=== PATIENT | female | born 1960 | race Caucasian/White ===

== ENCOUNTER 2016-09-08 17:52 | Inpatient (IN) | payer OTHER ==
[~2016-09-08] VITALS: Ht 165.1 cm; Wt 130.8 kg
[~2016-09-08 17:52] MED LIST: ALBUAER2 INH; ANT125 PO
[2016-09-08] MEDS ORDERED: NAPR500T3 PO (17:55)
[2016-09-08] MEDS ORDERED: ACETAMINOPHEN 500 MG TAB PO STA (18:35)
[2016-09-08] MEDS ORDERED: SODIUM CHLORIDE 0.9% 1000ML 2,000 ML IV STA (18:35)
[2016-09-08] MEDS ORDERED: HYDROmorphone INJ 0.5 MG/0.5 ML SYR IV STA (18:36)
[2016-09-08 19:13] LABS: BASO % 0.1 %; BASO ABS # 0.01 K/uL (0-0.2); COMPLETE YES; EOS % 0.1 %; HEMATOCRIT 39.8 % (37-47); IG% 0.2 %; LYMPH % 2.8 %; LYMPH ABS # 0.45 K/uL (1.2-3.4); MEAN CELL VOLUME 90.5 fL (80-100); MEAN CORPUSCULAR HEMOGLOBIN 31.1 pg (25-34); MEAN CORPUSCULAR HGB CONC 34.4 g/dl (32-36); MEAN PLATELET VOLUME 9.3 fL (7.4-10.4); MONO % 4.5 %; NEUT % 92.3 %; PLATELET COUNT 236 K/uL (130-400); WHITE BLOOD COUNT 16.17 K/uL (4.8-10.8)
[2016-09-08 19:21] LABS: ISTAT CREATININE 0.6 mg/dl (0.6-1.3); ISTAT HEMOGLOBIN 14.6 g/dl (12.0-16.0); ISTAT IONIZED CALCIUM 1.15 mmol/l (1.12-1.32)
[2016-09-08 19:23] LABS: INR 1.1 (0.9-1.1); PROTHROMBIN TIME (PATIENT) 11.4 SECONDS (9.0-12.0)
[2016-09-08 19:37] LABS: ALT/SGPT 41 U/L (12-78); BLOOD UREA NITROGEN 15 mg/dl (7-18); BUN/CREATININE RATIO 17.1 (10-20); CALCIUM 9.1 mg/dl (8.5-10.1); CARBON DIOXIDE 23 mmol/L (21-32); CHLORIDE 101 mmol/L (98-107); CREATININE 0.86 mg/dl (0.60-1.20); GLUCOSE 91 mg/dl (70-99); MAGNESIUM 1.4 mg/dl (1.8-2.4); POTASSIUM 3.7 mmol/L (3.5-5.1); SODIUM 136 mmol/L (136-145)
[2016-09-08 19:42] LABS: ALKALINE PHOSPHATASE 77 U/L (45-117); AST/SGOT 35 U/L (15-37); CKMB/CK RATIO 1.4 (0-3.0)
--- NOTE | 2016-09-08 19:44 | DIAGNOSTIC IMAGING REPORT ---
CHEST 2 VIEWS ROUTINE HISTORY: cough and fever COMPARISON: Chest 02/13/2016. FINDINGS: The lungs are clear. Cardiac silhouette remains mildly enlarged. No pleural effusions. No pneumothorax. IMPRESSION: No significant change compared to the prior study. No acute process. Stable mild cardiomegaly. Electronically signed by: Sher Devine M.D. 09/08/2016 7:43 PM Dictated Date/Time: 09/08/2016 7:42 PM
[2016-09-08 19:56] LABS: URINE APPEARANCE CLEAR (CLEAR); URINE BILIRUBIN NEG (NEG); URINE COLOR YELLOW; URINE EPITHELIAL CELL AUTO 20-30 /lpf (0-5); URINE NITRITE NEG (NEG); URINE PH 8.5 (4.5-7.5); URINE SPECIFIC GRAVITY 1.016 (1.000-1.030); UROBILINOGEN NEG (NEG); ZZUR CULT IF INDIC CLEAN CATCH NO
[2016-09-08 19:58] LABS: MANUAL MICROSCOPIC REQUIRED? NO; REVIEW REQ? NO
[2016-09-08] MEDS ORDERED: CEFTRIAXONE SOD INJ 1 GM ADDVIAL IV STA (20:27)
[2016-09-08] MEDS ORDERED: ALBUTEROL 0.083% NEBU SOLN 3 ML VIAL INH STA (20:33)
--- NOTE | 2016-09-08 20:39 | DIAGNOSTIC IMAGING REPORT ---
HEAD CT NONCONTRAST CT DOSE: 1934.94 mGy.cm HISTORY: Headache. TECHNIQUE: Multiaxial CT images of the head were performed without the use of intravenous contrast. Automated exposure control was utilized for this study. Comparison: None. Findings: The paranasal sinuses and mastoid air cells are clear. There is a 2.4 cm hypodense area within the periphery the right posterior temporal lobe. This favors encephalomalacia in the setting of an old small right MCA territory infarct. Otherwise, there is no mass, hematoma, midline shift, acute infarct identified. 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 Otherwise, no acute intracranial abnormality. Electronically signed by: Sher Devine M.D. 09/08/2016 8:38 PM Dictated Date/Time: 09/08/2016 8:35 PM
[2016-09-08] MEDS ORDERED: MAGNESIUM SULFATE 1GM / D5W 1 GM in PREMIXED IN D5W 100 ML IV STA (20:54)
[2016-09-08] MEDS ORDERED: MAGNESIUM SULFATE 1GM / D5W 1 GM BAG IV STA (20:58)
[2016-09-08] MEDS ORDERED: ONDANSETRON INJ 2 MG/ML 2 ML VIAL IV PRN (21:15)
[2016-09-08] MEDS ORDERED: CEFTRIAXONE SOD INJ 1 GM in DEXTROSE 5% ADD-VANTAGE 50ML 50 ML IV SCH (21:15)
[2016-09-08] MEDS ORDERED: ACETAMINOPHEN 325 MG TAB PO PRN (21:15)
[2016-09-08] MEDS ORDERED: NAPROXEN 250 MG TAB PO PRN (21:15)
[2016-09-08] MEDS ORDERED: GUAIFENESIN/CODEINE 100MG/10MG 5ML UDC PO PRN (21:15)
[2016-09-08] MEDS ORDERED: NITROGLYCERIN 0.4 MG SL PER TAB CHARGE SL PRN (21:15)
[2016-09-08] MEDS ORDERED: ALBUT/IPRATROP 3MG/0.5MG NEB 3 ML VIAL INH PRN (21:30)
[2016-09-08] MEDS ORDERED: OPTIRAY 320 IV PRN (22:00)
--- NOTE | 2016-09-08 22:16 | History and Physical ---
History & Physical Date & Time of Service: Sep 08, 2016 at 21:18 Chief Complaint: Headache,Fever Primary Care Physician: Wil Godinez M.D. History of Present Illness Source: patient This is a 56 y/o female with PMHx as outlined below who presents to the ED c/o URI sxs for 3 days. Pt reports that 3 days ago she developed weakness/fatigue, runny nose, dry cough, ear "pressure", WARE and nausea. Today she developed a fever of 102.6*F along with mild SOB. She had not been taking anything at home for her sxs. Patient mentions that the last time she felt this way she had an infection in her blood stream. Pt saw her PCP today however she was told she would not be able to have bloodwork done until Sunday so patient decided to go to the ED to be evaluated. The patient states that she had sick contacts at work. Pt denies myalgias, sore throat, chest pain, wheezing, abd pain, vomiting , bowel or bladder issues, LE edema, calf pain, lightheadedness/dizziness. In the ED, pt is febrile and tachy on arrival with leukocytosis>16k and POC lactic acid >2.7. O2 saturations around 90% on room air. CXR no infiltrates. UA neg. Pt is stable and will be admitted for further evaluation and treatment. Past Medical/Surgical History Medical Problems: (1) Asthma Status: Chronic (2) History of DVT (deep vein thrombosis) Status: Chronic (3) History of pelvic fracture Permanent Comment: 2* 2012 Status: Resolved (4) Hypothyroidism Status: Chronic (5) Obesity Status: Chronic Surgical Problems: (1) History of cholecystectomy Status: Resolved Family History FH: diabetes mellitus FH: heart disease FHx: cancer FHx: gallbladder disease Social History Smoking Status: Never Smoker Alcohol Use: none Drug Use: none Marital Status: Housing status: lives with significant other Occupational Status: employed Immunizations History of Influenza Vaccine: Yes Influenza Vaccine Date: Apr 06, 2016 History of Tetanus Vaccine?: Yes Tetanus Immunization Date: Feb 24, 2013 History of Pneumococcal: Yes Pneumococcal Date: Mar 19, 2013 Multi-Drug Resistant Organisms History of MDRO: No Allergies Coded Allergies: Morphine (Verified Allergy, Unknown, BRADYCARDIA, 12/18/14) Home Medications Scheduled Fluticasone Furoate (Inhalatio (Arnuity Ellipta), 1 PUFF INH DAILY Levothyroxine Sodium (Levothyroxine Sodium), 112 MCG PO DAILY Montelukast Sod (Montelukast Sodium), 10 MG PO HS Scheduled PRN Albuterol Hfa (Ventolin Hfa), 2-4 PUFFS INH Q4-6 PRN for SOB/Wheezing Naproxen (Naproxen), 500 MG PO BID PRN for Pain Review of Systems Constitutional: + chills, + fatigue, + fever, + weakness, No sweats Eyes: No worsening of vision ENT: + nasal symptoms, No hearing loss, No sore throat Respiratory: + cough, + shortness of breath, No sputum, No wheezing Cardiovascular: No chest pain, No claudication, No edema Abdomen: + nausea, No constipation, No diarrhea, No pain, No vomiting Musculoskeletal: No calf pain, No swelling Genitourinary - Female: No dysuria Neurologic: + weakness Psychiatric: No depression symptoms Endocrine: + fatigue Hematologic / Lymphatic: No abnormal bleeding/bruising Integumentary: No new/changing skin lesions Physical Exam Vital Signs Date Time Temp Pulse Resp B/P Pulse Ox O2 Delivery O2 Flow Rate FiO2 09/08/16 19:37 115 20 142/78 92 Room Air 09/08/16 17:55 37.7 123 22 151/82 90 Room Air General Appearance: WD/WN, no apparent distress, + obese, + pertinent finding ( Pt is sitting up comfotably in bed ) Head: normocephalic, atraumatic Eyes: normal inspection ENT: normal ENT inspection, hearing grossly normal, TMs normal, + pertinent finding (no pharyngeal erythema or excudate ) Neck: supple Respiratory/Chest: chest non-tender, lungs clear, normal breath sounds, no respiratory distress, + pertinent finding (no crackles or wheezing noted) Cardiovascular: regular rate, rhythm, no edema Abdomen/GI: normal bowel sounds, non tender, soft Back: normal inspection Extremities/Musculoskelatal: normal inspection, no calf tenderness, + swelling (bilat LE swelling (R>L)) Neurologic/Psych: alert, normal mood/affect, oriented x 3 Skin: normal color, warm/dry Diagnostics Laboratory Results Results Past 24 Hours Test 09/08/16 18:56 09/08/16 19:00 09/08/16 19:05 09/08/16 19:11 Range/Units Bedside Lactic Acid Venous 2.77 0.90-1.70 mmol/L White Blood Count 16.17 4.8-10.8 K/uL Red Blood Count 4.40 4.2-5.4 M/uL Hemoglobin 13.7 12.0-16.0 g/dL Hematocrit 39.8 37-47 % Mean Corpuscular Volume 90.5 80-100 fL Mean Corpuscular Hemoglobin 31.1 25-34 pg Mean Corpuscular Hemoglobin Concent 34.4 32-36 g/dl Platelet Count 236 130-400 K/uL Mean Platelet Volume 9.3 7.4-10.4 fL Neutrophils (%) (Auto) 92.3 % Lymphocytes (%) (Auto) 2.8 % Monocytes (%) (Auto) 4.5 % Eosinophils (%) (Auto) 0.1 % Basophils (%) (Auto) 0.1 % Neutrophils # (Auto) 14.93 1.4-6.5 K/uL Lymphocytes # (Auto) 0.45 1.2-3.4 K/uL Monocytes # (Auto) 0.73 0.11-0.59 K/uL Eosinophils # (Auto) 0.01 0-0.5 K/uL Basophils # (Auto) 0.01 0-0.2 K/uL RDW Standard Deviation 45.2 36.4-46.3 fL RDW Coefficient of Variation 13.7 11.5-14.5 % Immature Granulocyte % (Auto) 0.2 % Immature Granulocyte # (Auto) 0.04 0.00-0.02 K/uL Prothrombin Time 11.4 9.0-12.0 SECONDS Prothromb Time International Ratio 1.1 0.9-1.1 Sodium Level 136 136-145 mmol/L Potassium Level 3.7 3.5-5.1 mmol/L Chloride Level 101 98-107 mmol/L Carbon Dioxide Level 23 21-32 mmol/L Anion Gap 12.0 20.0 16-25 mmol/L Blood Urea Nitrogen 15 7-18 mg/dl Creatinine 0.86 0.60-1.20 mg/dl Est Creatinine Clear Calc Drug Dose 98.4 ml/min Estimated GFR () 87.5 Estimated GFR (Non- 75.5 BUN/Creatinine Ratio 17.1 10-20 Random Glucose 91 70-99 mg/dl Calcium Level 9.1 8.5-10.1 mg/dl Magnesium Level 1.4 1.8-2.4 mg/dl Total Bilirubin 0.8 0.2-1 mg/dl Direct Bilirubin 0.2 0-0.2 mg/dl Aspartate Amino Transf (AST/SGOT) 35 15-37 U/L Alanine Aminotransferase (ALT/SGPT) 41 12-78 U/L Alkaline Phosphatase 77 45-117 U/L Total Creatine Kinase 85 26-192 U/L Creatine Kinase MB 1.2 0.5-3.6 ng/ml Creatine Kinase MB Ratio 1.4 0-3.0 Troponin I < 0.015 0-0.045 ng/ml Total Protein 7.5 6.4-8.2 gm/dl Albumin 3.7 3.4-5.0 gm/dl Bedside Hemoglobin 14.6 12.0-16.0 g/dl Bedside Hematocrit 43 37-47 % Bedside Sodium 136 135-144 mEq/L Bedside Potassium 3.7 3.3-5.0 mEq/L Bedside Chloride 99 101-112 mEq/L Bedside Total CO2 23 24-31 mEq/l Bedside Blood Urea Nitrogen 15 7-18 mg/dl Bedside Creatinine 0.6 0.6-1.3 mg/dl Bedside Glucose (other) 97 70-99 mg/dl Bedside Ionized Calcium (Louisa) 1.15 1.12-1.32 mmol/l Influenza Type A Antigen Neg for Influ A NEG Influenza Type B Antigen Neg for Influ B NEG Test 09/08/16 19:15 Range/Units Urine Color YELLOW Urine Appearance CLEAR CLEAR Urine pH 8.5 4.5-7.5 Urine Specific [place] 1.016 1.000-1.030 Urine Protein NEG NEG Urine Glucose (UA) NEG NEG Urine Ketones TRACE NEG Urine Occult Blood NEG NEG Urine Nitrite NEG NEG Urine Bilirubin NEG NEG Urine Urobilinogen NEG NEG Urine Leukocyte Esterase NEG NEG Urine WBC (Auto) 1-5 0-5 /hpf Urine RBC (Auto) 0-4 0-4 /hpf Urine Hyaline Casts (Auto) 0 0-5 /lpf Urine Epithelial Cells (Auto) 20-30 0-5 /lpf Urine Bacteria (Auto) NEG NEG Microbiology Results 09/08/16 Group A Streptococcus Screen - Final, Resulted SPECIMEN NEGATIVE FOR GROUP A BETA ST... 09/08/16 Group A Streptococcus Screen (ANDREW), Resulted Pending Diagnostic Radiology CT HEAD Impression: There appears be an old small right MCA territory infarct. Otherwise, no acute intracranial abnormality. CXR IMPRESSION: No significant change compared to the prior study. No acute process. Stable mild cardiomegaly. EKG EKG: sinus tachy at 109 bpm with no acute ischemic changes; vent rate has increased by 46 bpm when compared to EKG from 03/20/13 Impression Assessment and Plan URI; LIKELY VIRAL pt presented with fever/chills, WARE, SOB, rhinorrhea, dry cough and ear "pressure "; recent h/o sick contacts at work -admit to telemetry -meets SIRS criteria with fever, tachycardia with leukocytosis >16k and POC lactic acid >2.7 -CXR no infiltrates; UA neg -blood cultures-pending -check flu PCR and repeat lactic acid within 6 hrs -check procalcitonin -cont IVF and azithromycin -Xopenex and Robitussin PRN -monitor HYPOXIC/TACHYCARDIC R/O PE -88% on room air improving on 2L O2 with tachycardia -check CT chest to r/o PE -cont supplemental O2 HYPOMAGNESIA -mag 1.4; replete -cont to monitor daily ASTHMA -no evidence of acute exacerbation -cont inhalers HYPOTHYROIDISM -check TSH -cont levothyroxine DVT PROPHYLAXIS -subq Lovenox CODE STATUS -FULL CODE status DISPO -Pt seen in collaboration with Dr. Warren. Please see her addendum for further details. Thanks! -Of note: patient will be seen by Dr. Osborn starting tomorrow AM. ADDENDUM: I have seen and examined the patient and have discussed the case with the provider above. I agree with the assessment and plan as stated. Cass screen is positive. Still awaiting chest CT in setting of acute hypoxia with a h/o DVT in the past. Cont supportive care. Kelvin, Level of Care Telemetry Resuscitation Status FULL RESUSCITATION VTE Prophylaxis VTE Risk Assessment Done? Y/N: Yes Risk Level: Moderate Given or contraindicated: Enoxaparin (Lovenox)SQ
[2016-09-08 23:28] VITALS: BP 137/96; PULSE 116; TEMP 36.9; O2SAT 92; Ht 165.1 cm; Wt 130.8 kg
--- NOTE | 2016-09-08 23:53 | EMERGENCY ROOM VISIT NOTE ---
History Report prepared by Farideh: Zabrina Gomez Under the Supervision of: Dr. Elmer Ridley D.O. First contact with patient: 18:22 Chief Complaint: HEADACHE Stated Complaint: HEADACHE,FEVER History of Present Illness The patient is a 56 year old female who presents to the Emergency Room with complaints of a gradually worsening headache that started about 5 hours ago, around [id number]. She states that she also feels dizzy. The patient was at work earlier today when she developed a headache, dry mouth, nausea, and she felt cold. She states that this does not feel like a typical headache because it is more severe. The patient is also experiencing rhinorrhea, sore throat, and a dry cough which all started a couple days ago. Additionally, she is experiencing shortness of breath, but denies chest pain, abdominal pain, vomiting, and weakness in her arms or legs. The patient's most recent bowel movement was this morning and it was normal. The patient was seen by her PCP earlier today and she told her that she would not be able to get blood work until Sunday, so she decided to come over to the ED to be evaluated instead. The patient states that she had sick contacts at work. The patient adds that she has recurrent problems with cellulitis of her right leg that started 5-6 years ago, but became painful again this afternoon. However, she states that she is not experiencing any right leg pain currently. She denies any stiff neck or confusion. Source of History: patient Onset: about 5 hours ago, around [id number] Position: head Quality: other (headache) Timing: worsening (gradually) Associated Symptoms: + SOB, + cough (dry), + nausea, + sorethroat, No abdominal pain, No chest pain, No vomiting, No weakness Note: dry mouth, felt cold, rhinorrhea Review of Systems See HPI for pertinent positives & negatives. A total of 10 systems reviewed and were otherwise negative. Past Medical & Surgical Medical Problems: (1) Asthma (2) History of DVT (deep vein thrombosis) (3) History of pelvic fracture (4) Hypothyroidism (5) Obesity (6) Viral illness Surgical Problems: (1) History of cholecystectomy Family History FH: diabetes mellitus FH: heart disease FHx: cancer FHx: gallbladder disease Social History Smoking Status: Never Smoker Alcohol Use: none Drug Use: none Marital Status: Occupation Status: employed Current/Historical Medications Scheduled Fluticasone Furoate (Inhalatio (Arnuity Ellipta), 1 PUFF INH DAILY Levothyroxine Sodium (Levothyroxine Sodium), 112 MCG PO DAILY Montelukast Sod (Montelukast Sodium), 10 MG PO HS Scheduled PRN Albuterol Hfa (Ventolin Hfa), 2-4 PUFFS INH Q4-6 PRN for SOB/Wheezing Naproxen (Naproxen), 500 MG PO BID PRN for Pain Allergies Coded Allergies: Morphine (Verified Allergy, Unknown, BRADYCARDIA, 12/18/14) Physical Exam Vital Signs Date Time Temp Pulse Resp B/P Pulse Ox O2 Delivery O2 Flow Rate FiO2 09/08/16 21:05 95 Nasal Cannula 2.0 09/08/16 21:00 88 Room Air 09/08/16 19:37 115 20 142/78 92 Room Air 09/08/16 17:55 37.7 123 22 151/82 90 Room Air Physical Exam GENERAL: alert, sitting up in bed, disheveled, chronically ill appearing EYE EXAM: normal conjunctiva OROPHARYNX: no exudate, no erythema, lips, buccal mucosa, and tongue normal and mucous membranes are dry NECK: supple, no nuchal rigidity, no adenopathy, non-tender, negative Brudzinski LUNGS: Mild wheezing bilaterally. Normal chest wall mechanics HEART: distant, tachycardic rate, no murmurs, S1 normal and S2 normal ABDOMEN: abdomen soft, non-tender, normo-active bowel sounds, no masses, no rebound or guarding. BACK: Back is symmetrical on inspection and there is no deformity, no midline tenderness, no CVA tenderness. SKIN: no rashes and no bruising UPPER EXTREMITIES: upper extremities are grossly normal. LOWER EXTREMITIES: No pitting edema. NEURO EXAM: Normal sensorium, cranial nerves II-XII grossly intact, normal speech, no gross weakness of arms, no gross weakness of legs. Medical Decision & Procedures ER Provider Diagnostic Interpretation: Xray results per the radiologist and my interpretation. Other results have been interpreted by the radiologist and reviewed by me. CHEST 2 VIEWS ROUTINE IMPRESSION: No significant change compared to the prior study. No acute process. Stable mild cardiomegaly. Electronically signed by: Sher Devine M.D. 09/08/2016 7:43 PM Dictated Date/Time: 09/08/2016 7:[address] NONCONTRAST Impression: There appears be an old small right MCA territory infarct. Otherwise, no acute intracranial abnormality. Electronically signed by: Sher Devine M.D. 09/08/2016 8:38 PM Dictated Date/Time: 09/08/2016 8:35 PM Laboratory Results 09/08/16 19:00 Red Blood Count 4.40, Mean Corpuscular Volume 90.5, Mean Corpuscular Hemoglobin 31.1, Mean Corpuscular Hemoglobin Concent 34.4, Mean Platelet Volume 9.3, Neutrophils (%) (Auto) 92.3, Lymphocytes (%) (Auto) 2.8, Monocytes (%) (Auto) 4.5, Eosinophils (%) (Auto) 0.1, Basophils (%) (Auto) 0.1, Neutrophils # (Auto) 14.93, Lymphocytes # (Auto) 0.45, Monocytes # (Auto) 0.73, Eosinophils # (Auto) 0.01, Basophils # (Auto) 0.01 09/08/16 19:00 Test 09/08/16 18:56 09/08/16 19:00 09/08/16 19:05 09/08/16 19:11 Bedside Lactic Acid Venous 2.77 mmol/L (0.90-1.70) White Blood Count 16.17 K/uL (4.8-10.8) Red Blood Count 4.40 M/uL (4.2-5.4) Hemoglobin 13.7 g/dL (12.0-16.0) Hematocrit 39.8 % (37-47) Mean Corpuscular Volume 90.5 fL (80-100) Mean Corpuscular Hemoglobin 31.1 pg (25-34) Mean Corpuscular Hemoglobin Concent 34.4 g/dl (32-36) Platelet Count 236 K/uL (130-400) Mean Platelet Volume 9.3 fL (7.4-10.4) Neutrophils (%) (Auto) 92.3 % Lymphocytes (%) (Auto) 2.8 % Monocytes (%) (Auto) 4.5 % Eosinophils (%) (Auto) 0.1 % Basophils (%) (Auto) 0.1 % Neutrophils # (Auto) 14.93 K/uL (1.4-6.5) Lymphocytes # (Auto) 0.45 K/uL (1.2-3.4) Monocytes # (Auto) 0.73 K/uL (0.11-0.59) Eosinophils # (Auto) 0.01 K/uL (0-0.5) Basophils # (Auto) 0.01 K/uL (0-0.2) RDW Standard Deviation 45.2 fL (36.4-46.3) RDW Coefficient of Variation 13.7 % (11.5-14.5) Immature Granulocyte % (Auto) 0.2 % Immature Granulocyte # (Auto) 0.04 K/uL (0.00-0.02) Prothrombin Time 11.4 SECONDS (9.0-12.0) Prothromb Time International Ratio 1.1 (0.9-1.1) Est Creatinine Clear Calc Drug Dose 98.4 ml/min Estimated GFR () 87.5 Estimated GFR (Non- 75.5 BUN/Creatinine Ratio 17.1 (10-20) Calcium Level 9.1 mg/dl (8.5-10.1) Magnesium Level 1.4 mg/dl (1.8-2.4) Total Bilirubin 0.8 mg/dl (0.2-1) Direct Bilirubin 0.2 mg/dl (0-0.2) Aspartate Amino Transf (AST/SGOT) 35 U/L (15-37) Alanine Aminotransferase (ALT/SGPT) 41 U/L (12-78) Alkaline Phosphatase 77 U/L (45-117) Total Creatine Kinase 85 U/L (26-192) Creatine Kinase MB 1.2 ng/ml (0.5-3.6) Creatine Kinase MB Ratio 1.4 (0-3.0) Troponin I < 0.015 ng/ml (0-0.045) Total Protein 7.5 gm/dl (6.4-8.2) Albumin 3.7 gm/dl (3.4-5.0) Procalcitonin 0.22 ng/mL (0-0.5) Thyroid Stimulating Hormone (TSH) 1.430 uIu/ml (0.300-4.500) Monoscreen POS (NEG) Bedside Hemoglobin 14.6 g/dl (12.0-16.0) Bedside Hematocrit 43 % (37-47) Bedside Sodium 136 mEq/L (135-144) Bedside Potassium 3.7 mEq/L (3.3-5.0) Bedside Chloride 99 mEq/L (101-112) Bedside Total CO2 23 mEq/l (24-31) Anion Gap 20.0 mmol/L (16-25) Bedside Blood Urea Nitrogen 15 mg/dl (7-18) Bedside Creatinine 0.6 mg/dl (0.6-1.3) Bedside Glucose (other) 97 mg/dl (70-99) Bedside Ionized Calcium (Louisa) 1.15 mmol/l (1.12-1.32) Influenza Type A Antigen Neg for Influ A (NEG) Influenza Type B Antigen Neg for Influ B (NEG) Test 09/08/16 19:15 Urine Color YELLOW Urine Appearance CLEAR (CLEAR) Urine pH 8.5 (4.5-7.5) Urine Specific [place] 1.016 (1.000-1.030) Urine Protein NEG (NEG) Urine Glucose (UA) NEG (NEG) Urine Ketones TRACE (NEG) Urine Occult Blood NEG (NEG) Urine Nitrite NEG (NEG) Urine Bilirubin NEG (NEG) Urine Urobilinogen NEG (NEG) Urine Leukocyte Esterase NEG (NEG) Urine WBC (Auto) 1-5 /hpf (0-5) Urine RBC (Auto) 0-4 /hpf (0-4) Urine Hyaline Casts (Auto) 0 /lpf (0-5) Urine Epithelial Cells (Auto) 20-30 /lpf (0-5) Urine Bacteria (Auto) NEG (NEG) Laboratory results per my review. Medications Administered Medications (Trade) Dose Ordered Sig/Ariadna Route Start Time Stop Time Status Last Admin Dose Admin Sodium Chloride (Nss 1000ml) 2,000 ml @ 999 mls/hr Q2H1M STAT IV 09/08/16 18:35 09/08/16 20:35 DC 09/08/16 19:05 999 MLS/HR Acetaminophen (Tylenol Tab) 1,000 mg NOW STAT PO 09/08/16 18:35 09/08/16 18:36 DC 09/08/16 19:05 1,000 MG Hydromorphone HCl (Dilaudid Inj) 0.5 mg NOW STAT IV 09/08/16 18:36 09/08/16 18:37 DC 09/08/16 19:05 0.5 MG Ceftriaxone Sodium (Rocephin Inj) 2 gm NOW STAT IV 09/08/16 20:27 09/08/16 20:29 DC 09/08/16 21:19 2 GM Albuterol Sulfate (Ventolin 0.083% 2.5MG/3ML Neb) 5 mg NOW STAT INH 09/08/16 20:33 09/08/16 20:35 DC 09/08/16 21:19 5 MG Magnesium Sulfate (Magnesium Sulfate) 1 gm NOW STAT IV 09/08/16 20:58 09/08/16 20:59 DC 09/08/16 21:20 1 GM ECG Indication: SOB/dyspnea Rate (beats per minute): 109 Rhythm: sinus tachycardia Findings: no ectopy, other (normal axis) ED Course ED COURSE: Vital signs were reviewed and showed tachycardia and hypertension. The patients medical record was reviewed The above diagnostic studies were performed and reviewed. ED treatments and interventions as stated above. 1824: The patient was evaluated in room B3. A complete history and physical examination was performed. 1834: Ordered Sodium Chloride 2000 ml @ 999 mls/hr IV 1835: Ordered Dilaudid Inj 0.5 mg IV 2027: Upon reevaluation, the patient is resting comfortably. I discussed my findings with the patient and she understands and agrees with the treatment plan. Based on the patients age, coexisting illnesses, exam and lab findings the decision to treat as an inpatient was made. The patient remained stable while under my care. The patient will be evaluated for further management. 2026: Ordered Rocephin Inj 2 gm IV 2032: Ordered Albuterol Sulfate 5 mg INH 2035: I reviewed the patient's case with Dr. Henrry Alfaro. He will evaluate the patient for further management. Medical Decision Differential Diagnosis includes but is not limited to headache, tension headache , cluster headache, migraine, subarachnoid hemorrhage, meningitis, mass, central venous thrombus, concussion, trauma and epidural/subdural hemorrhage. Patient is a 56 year old female who presents the ER tachycardic with a low- grade fever and hypoxia. She is complaining of cough, runny nose and a sore throat which is been present for the past 3 days per she also complains of a headache which has been gradually getting worse today. Labs are remarkable for a leukocytosis of 16,000, lactic acid of 2.8 and other soriano unremarkable BMP, LFTs, bilirubin and troponin. Patient was given a bolus normal saline, along with albuterol, steroids and Dilaudid. She did have improvement of her symptoms. Influenza A and B were negative. CT head was unremarkable. Patient was given Rocephin for which I favors a bronchitis which is exacerbating her asthma. I did consider meningitis the patient has no nuchal rigidity and with the upper respiratory symptoms I do favor this likely cause. With her persistent tachycardia and shortness of breath her case was discussed with internal medicine and she was admitted. Consults Time Called: 2032 Consulting Physician: Dr. Henrry Alfaro Returned Call: [phone] I reviewed the patient's case with Dr. Henrry Alfaro. He will evaluate the patient for further management. Impression Primary Impression: Bronchitis Additional Impressions: Headache Asthma Lactic acidosis Scribe Attestation The scribe's documentation has been prepared under my direction and personally reviewed by me in its entirety. I confirm that the note above accurately reflects all work, treatment, procedures, and medical decision making performed by me. Departure Information Dispostion Being Evaluated By Hospitalist Referrals Wil Godinez M.D. (PCP) Patient Instructions My [facility] Problem Qualifiers Additional Impressions: Headache Headache type: unspecified Headache chronicity pattern: acute headache Intractability: not intractable Qualified Codes: R51 - Headache Asthma Asthma severity: unspecified severity Asthma complication type: with acute exacerbation Qualified Codes: J45.901 - Unspecified asthma with (acute) exacerbation
[2016-09-09] VITALS (8 sets, daily range): BP systolic 115–137; BP diastolic 66–84; PULSE 70–92; TEMP 36.8–37.5; O2SAT 91–98
[2016-09-09] MEDS: SODIUM CHLORIDE 0.9% 1000ML 1,000 ML IV SCH ×5 (00:01→17:49)
[2016-09-09] MEDS: MAGNESIUM SULFATE 1GM / D5W 1 GM in PREMIXED IN D5W 100 ML IV SCH ×3 (00:01→01:29)
[2016-09-09] MEDS: AZITHROMYCIN IV 500 MG in DEXTROSE 5% 250ML 250 ML IV SCH ×2 (00:29→20:55)
[2016-09-09 02:34] LABS: INFLUENZA A PCR Neg for Influ A (NEG); INFLUENZA B PCR Neg for Influ B (NEG)
[2016-09-09] MEDS: LEVOTHYROXINE 112 MCG TAB PO SCH (05:31)
[2016-09-09 07:06] LABS: HEMATOCRIT 34.6 % (37-47); MEAN CELL VOLUME 90.8 fL (80-100); MEAN CORPUSCULAR HEMOGLOBIN 30.7 pg (25-34); MEAN CORPUSCULAR HGB CONC 33.8 g/dl (32-36); MEAN PLATELET VOLUME 9.3 fL (7.4-10.4); PLATELET COUNT 208 K/uL (130-400); RED BLOOD COUNT 3.81 M/uL (4.2-5.4); WHITE BLOOD COUNT 15.53 K/uL (4.8-10.8)
--- NOTE | 2016-09-09 07:27 | DIAGNOSTIC IMAGING REPORT ---
CT ANGIOGRAM OF THE CHEST CLINICAL HISTORY: Shortness of breath, tachycardia. COMPARISON STUDY: Chest x-ray dated 09/08/2016 TECHNIQUE: Following the IV administration of 92 mL of [id number]-320, CT angiogram of the thorax was performed from the thoracic inlet to the lung bases utilizing the pulmonary embolus protocol. Images are reviewed in the axial, sagittal, and coronal planes. IV contrast was administered without complication. MIP imaging was performed. CT DOSE: 633.16 mGy.cm FINDINGS: There is hepatic steatosis. There are mildly enlarged mediastinal lymph nodes, similar to the preceding study. There is no pathologic axillary or hilar lymphadenopathy. There was no evidence of thoracic aortic dilatation. There were no pulmonary artery filling defects to indicate acute pulmonary embolism. No pleural effusions are visualized. There are mild dependent atelectatic changes. There is no focal pulmonary consolidation. IMPRESSION: 1. No CT evidence of acute pulmonary embolism 2. No evidence of focal pulmonary consolidation 3. Mildly enlarged mediastinal lymph nodes Electronically signed by: Stephen Perez M.D. 09/09/2016 7:26 AM Dictated Date/Time: 09/09/2016 7:23 AM
[2016-09-09 07:39] LABS: BUN/CREATININE RATIO 17.1 (10-20); CALCIUM 7.9 mg/dl (8.5-10.1); CREATININE 0.68 mg/dl (0.60-1.20); MAGNESIUM 2.4 mg/dl (1.8-2.4); POTASSIUM 3.6 mmol/L (3.5-5.1)
[2016-09-09] MEDS: ENOXAPARIN 40 MG/0.4 ML SYR SC SCH (07:59)
[2016-09-09] MEDS ORDERED: ALBUT/IPRATROP 3MG/0.5MG NEB 3 ML VIAL INH SCH (08:00)
--- NOTE | 2016-09-09 17:23 | Progress Note ---
Internal Med Progress Note Date of Service: Sep 09, 2016. Provider Documentation: SUBJECTIVE: Patient is sitting in the chair and is in no apparent distress. Feels much better. Mild scratchy feeling in throat and has dry cough. Denies any sputum production. Denies any nausea/vomiting. Tolerating oral intake well. OBJECTIVE: Vital Signs-as noted below Examination: General Appearance: WD/WN, In no apparent distress, Pt is sitting up comfortably in the chair. Head: normocephalic, atraumatic Eyes: normal inspection ENT: normal ENT inspection, hearing grossly normal, TMs normal, no pharyngeal erythema or exudates Neck: supple Respiratory/Chest: B/L Moderate air entry, Clear to auscultation Cardiovascular: Regular rate, rhythm, no edema, Nomal S1,S2. Abdomen/GI: normal bowel sounds, non tender, soft Back: normal inspection Extremities/Musculoskeletal: normal inspection, no calf tenderness, Minimal pedal edema. Neurologic/Psych: alert, normal mood/affect, oriented x 3 Skin: normal color, warm/dry Lab data as noted below. ASSESSMENT & PLAN: CTA Chest IMPRESSION: 1. No CT evidence of acute pulmonary embolism 2. No evidence of focal pulmonary consolidation 3. Mildly enlarged mediastinal lymph nodes URI: Clinically resolving.Patient presented with fever/chills, WARE, SOB, rhinorrhea, dry cough and ear "pressure"; recent h/o sick contacts at work Met SIRS criteria with fever, tachycardia with leukocytosis >16k and POC lactic acid >2.7. Clinically & hemodynamically doing well. -CXR no infiltrates; UA neg -blood cultures-pending -Flu PCR is negative -Procalcitonin is normal -lactic acid is normal. -cont IVF and azithromycin -Xopenex and Robitussin PRN -PE study is negative. Hypomagnesemia: Resolved. Bronchial Asthma: Stable. No evidence of acute exacerbation -Continue inhalers Hypothyroidism: TSH is normal. -Continue levothyroxine DVT Prophylaxis: Sq Lovenox. Code Status: FULL CODE Disposition: Potential discharge in 1-2 days as per clinical condition. Vital Signs: Date Time Temp Pulse Resp B/P Pulse Ox O2 Delivery O2 Flow Rate FiO2 09/09/16 16:00 Room Air 09/09/16 15:13 37.2 92 19 134/84 91 Room Air 09/09/16 12:01 95 Nasal Cannula 2.0 09/09/16 11:35 37.5 85 19 115/73 97 Nasal Cannula 2.0 09/09/16 08:00 95 Nasal Cannula 2.0 09/09/16 07:53 37.0 90 19 121/73 95 Nasal Cannula 2.0 09/09/16 04:00 Nasal Cannula 2.0 09/09/16 03:16 36.8 88 21 119/66 98 Nasal Cannula 2.0 09/08/16 23:28 36.9 116 22 137/96 92 Room Air 09/08/16 21:45 87 18 119/60 97 Room Air 09/08/16 21:05 95 Nasal Cannula 2.0 09/08/16 21:00 88 Room Air 09/08/16 19:37 115 20 142/78 92 Room Air 09/08/16 17:55 37.7 123 22 151/82 90 Room Air Lab Results: Results Past 24 Hours Test 09/08/16 18:56 09/08/16 19:00 09/08/16 19:05 09/08/16 19:11 Range/Units Bedside Lactic Acid Venous 2.77 0.90-1.70 mmol/L White Blood Count 16.17 4.8-10.8 K/uL Red Blood Count 4.40 4.2-5.4 M/uL Hemoglobin 13.7 12.0-16.0 g/dL Hematocrit 39.8 37-47 % Mean Corpuscular Volume 90.5 80-100 fL Mean Corpuscular Hemoglobin 31.1 25-34 pg Mean Corpuscular Hemoglobin Concent 34.4 32-36 g/dl Platelet Count 236 130-400 K/uL Mean Platelet Volume 9.3 7.4-10.4 fL Neutrophils (%) (Auto) 92.3 % Lymphocytes (%) (Auto) 2.8 % Monocytes (%) (Auto) 4.5 % Eosinophils (%) (Auto) 0.1 % Basophils (%) (Auto) 0.1 % Neutrophils # (Auto) 14.93 1.4-6.5 K/uL Lymphocytes # (Auto) 0.45 1.2-3.4 K/uL Monocytes # (Auto) 0.73 0.11-0.59 K/uL Eosinophils # (Auto) 0.01 0-0.5 K/uL Basophils # (Auto) 0.01 0-0.2 K/uL RDW Standard Deviation 45.2 36.4-46.3 fL RDW Coefficient of Variation 13.7 11.5-14.5 % Immature Granulocyte % (Auto) 0.2 % Immature Granulocyte # (Auto) 0.04 0.00-0.02 K/uL Prothrombin Time 11.4 9.0-12.0 SECONDS Prothromb Time International Ratio 1.1 0.9-1.1 Sodium Level 136 136-145 mmol/L Potassium Level 3.7 3.5-5.1 mmol/L Chloride Level 101 98-107 mmol/L Carbon Dioxide Level 23 21-32 mmol/L Anion Gap 12.0 20.0 16-25 mmol/L Blood Urea Nitrogen 15 7-18 mg/dl Creatinine 0.86 0.60-1.20 mg/dl Est Creatinine Clear Calc Drug Dose 98.4 ml/min Estimated GFR () 87.5 Estimated GFR (Non- 75.5 BUN/Creatinine Ratio 17.1 10-20 Random Glucose 91 70-99 mg/dl Calcium Level 9.1 8.5-10.1 mg/dl Magnesium Level 1.4 1.8-2.4 mg/dl Total Bilirubin 0.8 0.2-1 mg/dl Direct Bilirubin 0.2 0-0.2 mg/dl Aspartate Amino Transf (AST/SGOT) 35 15-37 U/L Alanine Aminotransferase (ALT/SGPT) 41 12-78 U/L Alkaline Phosphatase 77 45-117 U/L Total Creatine Kinase 85 26-192 U/L Creatine Kinase MB 1.2 0.5-3.6 ng/ml Creatine Kinase MB Ratio 1.4 0-3.0 Troponin I < 0.015 0-0.045 ng/ml Total Protein 7.5 6.4-8.2 gm/dl Albumin 3.7 3.4-5.0 gm/dl Procalcitonin 0.22 0-0.5 ng/mL Thyroid Stimulating Hormone (TSH) 1.430 0.300-4.500 uIu/ml Monoscreen POS NEG Bedside Hemoglobin 14.6 12.0-16.0 g/dl Bedside Hematocrit 43 37-47 % Bedside Sodium 136 135-144 mEq/L Bedside Potassium 3.7 3.3-5.0 mEq/L Bedside Chloride 99 101-112 mEq/L Bedside Total CO2 23 24-31 mEq/l Bedside Blood Urea Nitrogen 15 7-18 mg/dl Bedside Creatinine 0.6 0.6-1.3 mg/dl Bedside Glucose (other) 97 70-99 mg/dl Bedside Ionized Calcium (Louisa) 1.15 1.12-1.32 mmol/l Influenza Type A Antigen Neg for Influ A NEG Influenza Type B Antigen Neg for Influ B NEG Test 09/08/16 19:15 09/08/16 21:30 09/09/16 00:30 09/09/16 06:35 Range/Units Urine Color YELLOW Urine Appearance CLEAR CLEAR Urine pH 8.5 4.5-7.5 Urine Specific [place] 1.016 1.000-1.030 Urine Protein NEG NEG Urine Glucose (UA) NEG NEG Urine Ketones TRACE NEG Urine Occult Blood NEG NEG Urine Nitrite NEG NEG Urine Bilirubin NEG NEG Urine Urobilinogen NEG NEG Urine Leukocyte Esterase NEG NEG Urine WBC (Auto) 1-5 0-5 /hpf Urine RBC (Auto) 0-4 0-4 /hpf Urine Hyaline Casts (Auto) 0 0-5 /lpf Urine Epithelial Cells (Auto) 20-30 0-5 /lpf Urine Bacteria (Auto) NEG NEG Lactic Acid Level 1.7 0.4-2.0 mmol/L Influenza Type A (RT-PCR) Neg for Influ A NEG Influenza Type B (RT-PCR) Neg for Influ B NEG White Blood Count 15.53 4.8-10.8 K/uL Red Blood Count 3.81 4.2-5.4 M/uL Hemoglobin 11.7 12.0-16.0 g/dL Hematocrit 34.6 37-47 % Mean Corpuscular Volume 90.8 80-100 fL Mean Corpuscular Hemoglobin 30.7 25-34 pg Mean Corpuscular Hemoglobin Concent 33.8 32-36 g/dl RDW Standard Deviation 46.3 36.4-46.3 fL RDW Coefficient of Variation 14.1 11.5-14.5 % Platelet Count 208 130-400 K/uL Mean Platelet Volume 9.3 7.4-10.4 fL Sodium Level 139 136-145 mmol/L Potassium Level 3.6 3.5-5.1 mmol/L Chloride Level 105 98-107 mmol/L Carbon Dioxide Level 25 21-32 mmol/L Anion Gap 9.0 3-11 mmol/L Blood Urea Nitrogen 12 7-18 mg/dl Creatinine 0.68 0.60-1.20 mg/dl Est Creatinine Clear Calc Drug Dose 126.2 ml/min Estimated GFR () 113.3 Estimated GFR (Non- 97.8 BUN/Creatinine Ratio 17.1 10-20 Random Glucose 98 70-99 mg/dl Calcium Level 7.9 8.5-10.1 mg/dl Magnesium Level 2.4 1.8-2.4 mg/dl Microbiology Results 09/09/16 Blood Culture, Received Pending 09/09/16 Blood Culture, Received Pending 09/08/16 Group A Streptococcus Screen - Final, Resulted SPECIMEN NEGATIVE FOR GROUP A BETA ST... 09/08/16 Group A Streptococcus Screen ([facility]REW) - Preliminary, Resulted NO BETA STREP ISOLATED TO DATE.
[2016-09-09] MEDS ORDERED: MONTELUKAST SOD 10 MG TAB PO SCH (21:00)
[2016-09-10] VITALS: O2SAT 95
[2016-09-10] MEDS: LEVOTHYROXINE 112 MCG TAB PO SCH (05:56)
[2016-09-10] MEDS: SODIUM CHLORIDE 0.9% 1000ML 1,000 ML IV SCH ×3 (05:56→08:28)
[2016-09-10 07:11] LABS: BASO % 0.1 %; BASO ABS # 0.01 K/uL (0-0.2); COMPLETE YES; EOS % 1.5 %; HEMATOCRIT 33.6 % (37-47); IG% 0.3 %; LYMPH % 13.3 %; MEAN CELL VOLUME 92.8 fL (80-100); MEAN CORPUSCULAR HEMOGLOBIN 31.8 pg (25-34); MEAN CORPUSCULAR HGB CONC 34.2 g/dl (32-36); MEAN PLATELET VOLUME 9.6 fL (7.4-10.4); MONO % 5.9 %; NEUT % 78.9 %; PLATELET COUNT 182 K/uL (130-400); RED BLOOD COUNT 3.62 M/uL (4.2-5.4); WHITE BLOOD COUNT 6.77 K/uL (4.8-10.8)
[2016-09-10 07:18] VITALS: BP 123/78; PULSE 74; TEMP 36.7; O2SAT 90
[2016-09-10 07:30] LABS: BUN/CREATININE RATIO 16.3 (10-20); CALCIUM 7.8 mg/dl (8.5-10.1); CREATININE 0.57 mg/dl (0.60-1.20); POTASSIUM 3.7 mmol/L (3.5-5.1)
[2016-09-10 07:34] LABS: ALB/GLOB RATIO 0.8 (0.9-2)
[2016-09-10] MEDS ORDERED: FLUTICASONE FUROATE INH SCH (08:00)
[2016-09-10] MEDS: ENOXAPARIN 40 MG/0.4 ML SYR SC SCH (08:28)
[2016-09-10 08:54] VITALS: O2SAT 95
[2016-09-10] MEDS ORDERED: NURSING VERBAL MED ORDER ONE (11:15)
[2016-09-10 16:00] VITALS: O2SAT 95
--- NOTE | 2016-09-10 16:19 | Progress Note ---
Internal Med Progress Note Date of Service: Sep 10, 2016. Provider Documentation: SUBJECTIVE: Patient is sitting in the chair and is in no apparent distress. Feels much better. Mild scratchy feeling in throat and has dry cough. Denies any sputum production. Denies any nausea/vomiting. Tolerating oral intake well.No other new change or complaint. OBJECTIVE: Vital Signs-as noted below Examination: General Appearance: WD/WN, In no apparent distress, Pt is sitting up comfortably in the chair. Head: normocephalic, atraumatic Eyes: normal inspection ENT: normal ENT inspection, hearing grossly normal, TMs normal, no pharyngeal erythema or exudates Neck: supple Respiratory/Chest: B/L Moderate air entry, Clear to auscultation Cardiovascular: Regular rate, rhythm, no edema, Nomal S1,S2. Abdomen/GI: normal bowel sounds, non tender, soft Back: normal inspection Extremities/Musculoskeletal: normal inspection, no calf tenderness, Minimal pedal edema. Neurologic/Psych: alert, normal mood/affect, oriented x 3 Skin: normal color, warm/dry Lab data as noted below. ASSESSMENT & PLAN: CTA Chest IMPRESSION: 1. No CT evidence of acute pulmonary embolism 2. No evidence of focal pulmonary consolidation 3. Mildly enlarged mediastinal lymph nodes URI: Clinically resolving.Patient presented with fever/chills, WARE, SOB, rhinorrhea, dry cough and ear "pressure"; recent h/o sick contacts at work Met SIRS criteria with fever, tachycardia with leukocytosis >16k and POC lactic acid >2.7. Clinically & hemodynamically doing well. -CXR no infiltrates; UA neg -blood cultures-pending -Flu PCR is negative -Procalcitonin is normal -lactic acid is normal. -cont IVF and azithromycin -Xopenex and Robitussin PRN -PE study is negative. Hypomagnesemia: Resolved. Bronchial Asthma: Stable. No evidence of acute exacerbation -Continue inhalers Hypothyroidism: TSH is normal. -Continue levothyroxine DVT Prophylaxis: Sq Lovenox. Code Status: FULL CODE Disposition: Discharge home later today. Follow up with PCP in the next 3-5 days. Vital Signs: Date Time Temp Pulse Resp B/P Pulse Ox O2 Delivery O2 Flow Rate FiO2 09/10/16 08:54 95 Room Air 09/10/16 07:18 36.7 74 18 123/78 90 Room Air 09/10/16 00:00 95 Room Air 09/09/16 22:56 36.9 70 18 137/69 96 Room Air 09/09/16 18:51 37.2 92 19 91 2.0 Lab Results: Results Past 24 Hours Test 09/10/16 06:27 Range/Units White Blood Count 6.77 4.8-10.8 K/uL Red Blood Count 3.62 4.2-5.4 M/uL Hemoglobin 11.5 12.0-16.0 g/dL Hematocrit 33.6 37-47 % Mean Corpuscular Volume 92.8 80-100 fL Mean Corpuscular Hemoglobin 31.8 25-34 pg Mean Corpuscular Hemoglobin Concent 34.2 32-36 g/dl Platelet Count 182 130-400 K/uL Mean Platelet Volume 9.6 7.4-10.4 fL Neutrophils (%) (Auto) 78.9 % Lymphocytes (%) (Auto) 13.3 % Monocytes (%) (Auto) 5.9 % Eosinophils (%) (Auto) 1.5 % Basophils (%) (Auto) 0.1 % Neutrophils # (Auto) 5.34 1.4-6.5 K/uL Lymphocytes # (Auto) 0.90 1.2-3.4 K/uL Monocytes # (Auto) 0.40 0.11-0.59 K/uL Eosinophils # (Auto) 0.10 0-0.5 K/uL Basophils # (Auto) 0.01 0-0.2 K/uL RDW Standard Deviation 50.0 36.4-46.3 fL RDW Coefficient of Variation 14.6 11.5-14.5 % Immature Granulocyte % (Auto) 0.3 % Immature Granulocyte # (Auto) 0.02 0.00-0.02 K/uL Sodium Level 141 136-145 mmol/L Potassium Level 3.7 3.5-5.1 mmol/L Chloride Level 110 98-107 mmol/L Carbon Dioxide Level 21 21-32 mmol/L Anion Gap 10.0 3-11 mmol/L Blood Urea Nitrogen 9 7-18 mg/dl Creatinine 0.57 0.60-1.20 mg/dl Est Creatinine Clear Calc Drug Dose 150.5 ml/min Estimated GFR () 120.1 Estimated GFR (Non- 103.6 BUN/Creatinine Ratio 16.3 10-20 Random Glucose 104 70-99 mg/dl Calcium Level 7.8 8.5-10.1 mg/dl Total Bilirubin 0.4 0.2-1 mg/dl Aspartate Amino Transf (AST/SGOT) 37 15-37 U/L Alanine Aminotransferase (ALT/SGPT) 38 12-78 U/L Alkaline Phosphatase 60 45-117 U/L Total Protein 6.4 6.4-8.2 gm/dl Albumin 2.9 3.4-5.0 gm/dl Globulin 3.5 2.5-4.0 gm/dl Albumin/Globulin Ratio 0.8 0.9-2
[2016-09-10] MEDS ORDERED: AZIT250T PO (16:20)
--- NOTE | 2016-09-10 16:23 | Discharge Instructions ---
Discharge Instructions Date of Service Sep 10, 2016. Admission Reason for Admission: Viral Illness Discharge Discharge Diagnosis / Problem: Acute Pharyngitis Discharge Goals Goal(s): Decrease discomfort, Improve function, Increase independence, Improve disease control, Improve nutritional status, Learn about illness, Diagnostic testing, Therapeutic intervention Activity Recommendations Activity Limitations: resume your previous activity (As Tolerated) Exercise/Sports Limitations: none May Resume Sexual Activity: when tolerated Shower/Bathe: no limitations Driving or Machine Use: no limitations . Instructions / Follow-Up Instructions / Follow-Up 1. Take the medications as directed. 2. Continue with soft & liquid diet for now and gradually advance your diet. 3. Try salt water gargles. 4. Advised to stay off from work till Sunday and go back to work from coming Sunday. Follow up with PCP in the next 3-5 days Current Hospital Diet Patient's current hospital diet: Regular Diet Discharge Diet Recommended Diet: Regular Diet (Soft & Liquid diiet for now.) Pending Studies Studies pending at discharge: no Work Instructions Return To Work: 2 days (Go back to work on coming Sunday.) Medical Emergencies . Who to Call and When: Medical Emergencies: If at any time you feel your situation is an emergency, please call 911 immediately. . Non-Emergent Contact Non-Emergency issues call your: Primary Care Provider . . "Provider Documentation" section prepared by Hugo Osborn. VTE Core Measure Inpt VTE Proph given/why not?: Enoxaparin (Lovenox)SQ
--- NOTE | 2016-09-10 16:26 | Discharge Summary ---
Discharge Summary Date of Service Sep 10, 2016. Discharge Summary Admission Date: Sep 08, 2016 at 21:17 Discharge Date: Sep 10, 2016 Discharge Disposition: Home Principal Diagnosis: URI Hypomagnesemia(Resolved) Secondary Diagnoses/Problems: Bronchial Asthma Hypothyroidism Procedures: CTA Chest ---> Negative for PE Vaccinations: NONE Consultations: NONE Pending Studies/Follow-Up: NONE Medication Reconciliation New Medications: Azithromycin (Zithromax) 250 Mg Tab 250 MG PO DAILY, #3 TAB Continued Medications: Albuterol Hfa (Ventolin Hfa) 200 Puffs/35970 Mcg Aers 2-4 PUFFS INH Q4-6 PRN for SOB/Wheezing, #1 INHALER Fluticasone Furoate (Inhalatio (Arnuity Ellipta) 100 Mcg/Act Inh 1 PUFF INH DAILY Levothyroxine Sodium (Levothyroxine Sodium) 112 Mcg Tab 112 MCG PO DAILY Montelukast Sod (Montelukast Sodium) 10 Mg Tab 10 MG PO HS Naproxen (Naproxen) 500 Mg Tab 500 MG PO BID PRN for Pain Admission Information HPI (per Admitting provider): This is a 56 y/o female with PMHx as outlined below who presents to the ED c/o URI sxs for 3 days. Pt reports that 3 days ago she developed weakness/fatigue, runny nose, dry cough, ear "pressure", WARE and nausea. Today she developed a fever of 102.6*F along with mild SOB. She had not been taking anything at home for her sxs. Patient mentions that the last time she felt this way she had an infection in her blood stream. Pt saw her PCP today however she was told she would not be able to have bloodwork done until Sunday so patient decided to go to the ED to be evaluated. The patient states that she had sick contacts at work. Pt denies myalgias, sore throat, chest pain, wheezing, abd pain, vomiting , bowel or bladder issues, LE edema, calf pain, lightheadedness/dizziness. In the ED, pt is febrile and tachy on arrival with leukocytosis>16k and POC lactic acid >2.7. O2 saturations around 90% on room air. CXR no infiltrates. UA neg. Pt is stable and will be admitted for further evaluation and treatment. Physical Exam (per Admitting): General Appearance: WD/WN, no apparent distress, + obese, + pertinent finding (Pt is sitting up comfotably in bed ) Head: normocephalic, atraumatic Eyes: normal inspection ENT: normal ENT inspection, hearing grossly normal, TMs normal, + pertinent finding (no pharyngeal erythema or excudate ) Neck: supple Respiratory/Chest: chest non-tender, lungs clear, normal breath sounds, no respiratory distress, + pertinent finding (no crackles or wheezing noted) Cardiovascular: regular rate, rhythm, no edema Abdomen/GI: normal bowel sounds, non tender, soft Back: normal inspection Extremities/Musculoskelatal: normal inspection, no calf tenderness, + swelling (bilat LE swelling (R>L)) Neurologic/Psych: alert, normal mood/affect, oriented x 3 Skin: normal color, warm/dry Hospital Course CTA Chest IMPRESSION: 1. No CT evidence of acute pulmonary embolism 2. No evidence of focal pulmonary consolidation 3. Mildly enlarged mediastinal lymph nodes URI: Clinically resolving.Patient presented with fever/chills, WARE, SOB, rhinorrhea, dry cough and ear "pressure"; recent h/o sick contacts at work Met SIRS criteria with fever, tachycardia with leukocytosis >16k and POC lactic acid >2.7. Clinically & hemodynamically doing well. -CXR no infiltrates; UA neg -blood cultures-pending -Flu PCR is negative -Procalcitonin is normal -lactic acid is normal. -cont IVF and azithromycin -Xopenex and Robitussin PRN -PE study is negative. Hypomagnesemia: Resolved. Bronchial Asthma: Stable. No evidence of acute exacerbation -Continue inhalers Hypothyroidism: TSH is normal. -Continue levothyroxine DVT Prophylaxis: Sq Lovenox. Code Status: FULL CODE Disposition: Discharge home later today. Follow up with PCP in the next 3-5 days. Total time spent on discharge = 35 minutes. This includes examination of the patient, discharge planning, medication reconciliation, and communication with other providers. Discharge Instructions Discharge Goals Goal(s): Decrease discomfort, Improve function, Increase independence, Improve disease control, Improve nutritional status, Learn about illness, Diagnostic testing, Therapeutic intervention Activity Recommendations Activity Limitations: resume your previous activity (As Tolerated) Exercise/Sports Limitations: none May Resume Sexual Activity: when tolerated Shower/Bathe: no limitations Driving or Machine Use: no limitations . Instructions / Follow-Up Instructions / Follow-Up 1. Take the medications as directed. 2. Continue with soft & liquid diet for now and gradually advance your diet. 3. Try salt water gargles. 4. Advised to stay off from work till Sunday and go back to work from coming Sunday. Follow up with PCP in the next 3-5 days Current Hospital Diet Patient's current hospital diet: Regular Diet Discharge Diet Recommended Diet: Regular Diet (Soft & Liquid diiet for now.) Additional Copies To Wil Godinez M.D.
[2016-09-10 16:56] VITALS: BP 123/78; PULSE 74; TEMP 36.7; O2SAT 95
[2016-09-10 17:03] VITALS: BP 136/76; PULSE 88; TEMP 36.7; O2SAT 94
[2016-10-19] MEDS ORDERED: CLIN300C2 PO (11:55)
[2016-12-31] MEDS ORDERED: LEVO112T4 PO (11:43)
[2017-01-17] MEDS ORDERED: AMOX875T PO (10:46)
== END 2016-09-10 18:05 | disposition home or self-care (01) | DRG 153 ==
LOC: ENRESERVTM → ENRESERVDT → C.EDB 17:53 → C.2T 21:17 → C.MS4W 09-09 19:43
PROVIDERS: ADMIT Hospitalist; ATTEND Emergency Medicine
DX: J06.9 Acute upper respiratory infection, unspecified (principal); Z68.42 Body mass index [BMI] 45.0-49.9, adult; J45.909 Unspecified asthma, uncomplicated; E66.9 Obesity, unspecified; E83.42 Hypomagnesemia; E03.9 Hypothyroidism, unspecified; Z86.711 Personal history of pulmonary embolism; Z87.81 Personal history of (healed) traumatic fracture; Z90.49 Acquired absence of other specified parts of digestive tract; Z83.3 Family history of diabetes mellitus; Z79.899 Other long term (current) drug therapy

== ENCOUNTER 2016-10-16 19:22 | Inpatient (IN) | payer OTHER ==
[~2016-10-16] VITALS: Ht 165.1 cm; Wt 131.3 kg
[~2016-10-16 19:22] MED LIST changes: -ALBUAER2 INH; -ANT125 PO; +AZIT250T PO; +NAPR500T3 PO
[2016-10-16] MEDS ORDERED: VANCOMYCIN 1GM/270ML NSS IV STA (19:35)
[2016-10-16] MEDS ORDERED: CEFTRIAXONE SOD INJ 1 GM ADDVIAL IV STA (19:35)
--- NOTE | 2016-10-16 19:38 | EMERGENCY ROOM VISIT NOTE ---
History Report prepared by Farideh: Saad Payne Under the Supervision of: Dr. Logan Lee M.D. First contact with patient: 19:30 Chief Complaint: INFECTION Stated Complaint: RIGHT LEG IS RED History of Present Illness The patient is a 56 year old female who presents to the Emergency Room with complaints of persistent redness in her right lower leg that started earlier today. The patient also complains of shivering and fevers. The patient denies any pain at this time. She took Ibuprofen about 2.5 hours prior to arrival when she noticed the worsening redness and swelling. She notes she has a history of similar symptoms. Source of History: patient Onset: earlier today Position: leg (right lower leg) Quality: other (redness) Timing: other (persistent) Associated Symptoms: + fevers Note: Other associated symptoms: shivering, right lower leg swelling Review of Systems See HPI for pertinent positives & negatives. A total of 10 systems reviewed and were otherwise negative. Past Medical & Surgical Medical Problems: (1) Asthma (2) History of DVT (deep vein thrombosis) (3) History of pelvic fracture (4) Hypothyroidism (5) Obesity (6) Viral illness Surgical Problems: (1) History of cholecystectomy Family History FH: diabetes mellitus FH: heart disease FHx: cancer FHx: gallbladder disease Social History Smoking Status: Never Smoker Alcohol Use: none Drug Use: none Marital Status: Occupation Status: employed Current/Historical Medications Scheduled Fluticasone Furoate (Inhalatio (Arnuity Ellipta), 1 PUFF INH DAILY Levothyroxine Sodium (Levothyroxine Sodium), 112 MCG PO DAILY Montelukast Sod (Montelukast Sodium), 10 MG PO HS Scheduled PRN Albuterol Hfa (Ventolin Hfa), 2-4 PUFFS INH Q4-6 PRN for SOB/Wheezing Naproxen (Naproxen), 500 MG PO BID PRN for Pain Allergies Coded Allergies: Morphine (Verified Allergy, Unknown, BRADYCARDIA, 10/16/16) Physical Exam Vital Signs Date Time Temp Pulse Resp B/P Pulse Ox O2 Delivery O2 Flow Rate FiO2 10/16/16 20:25 107 10/16/16 20:23 37.5 107 24 143/78 94 Room Air 10/16/16 19:26 37.7 103 16 181/120 93 Room Air Physical Exam GENERAL: Patient is a healthy-appearing well-nourished HEAD: Normocephalic atraumatic EYES: Ocular movements intact pupils equal and react to light OROPHARYNX mucous membranes are moist no exudates present no erythema or edema present NECK: Supple no nuchal rigidity CHEST: Good equal expansion LUNGS: Clear and equal to auscultation CARDIAC: Normal S1 and S2 ABDOMEN: Soft nontender no guarding BACK: No CVA tenderness EXTREMITIES: Cellulitis extending above right leg, the leg itself is rock hard, good range of motion of knee and ankle, neurovascularly intact. NEURO: Patient is following commands is answering questions appropriately. Alert and oriented x3 Cranial Nerves 2-12 grossly intact Medical Decision & Procedures ER Provider Diagnostic Interpretation: US results as stated below per my review and radiologist interpretation: ULTRASOUND RIGHT VENOUS DOPP LOWER EXT UNILAT CLINICAL HISTORY: Right leg swelling COMPARISON STUDY: No previous studies for comparison. FINDINGS: Real-time and color flow Doppler imaging were performed. Flow was seen within the femoral, popliteal and calf veins with no intraluminal thrombus demonstrated. The saphenous vein is patent. There are mildly prominent right inguinal lymph nodes which demonstrate fatty luis enrique. IMPRESSION: No evidence of right lower extremity DVT. Electronically signed by: Stephen Perez M.D. 10/16/2016 8:59 PM Dictated Date/Time: 10/16/2016 8:58 PM Laboratory Results 10/16/16 19:45 Red Blood Count 4.47, Mean Corpuscular Volume 90.2, Mean Corpuscular Hemoglobin 31.1, Mean Corpuscular Hemoglobin Concent 34.5, Mean Platelet Volume 9.5, Neutrophils (%) (Auto) 85.7, Lymphocytes (%) (Auto) 5.9, Monocytes (%) (Auto) 5.8, Eosinophils (%) (Auto) 2.0, Basophils (%) (Auto) 0.2, Neutrophils # (Auto) 11.16, Lymphocytes # (Auto) 0.77, Monocytes # (Auto) 0.76, Eosinophils # (Auto) 0.26, Basophils # (Auto) 0.03 10/16/16 19:45 Test 10/16/16 19:35 10/16/16 19:45 Urine Color YELLOW Urine Appearance CLEAR (CLEAR) Urine pH 7.5 (4.5-7.5) Urine Specific [place] 1.016 (1.000-1.030) Urine Protein NEG (NEG) Urine Glucose (UA) NEG (NEG) Urine Ketones NEG (NEG) Urine Occult Blood NEG (NEG) Urine Nitrite NEG (NEG) Urine Bilirubin NEG (NEG) Urine Urobilinogen NEG (NEG) Urine Leukocyte Esterase SMALL (NEG) Urine WBC (Auto) 5-10 /hpf (0-5) Urine RBC (Auto) 0-4 /hpf (0-4) Urine Hyaline Casts (Auto) 1-5 /lpf (0-5) Urine Epithelial Cells (Auto) >30 /lpf (0-5) Urine Bacteria (Auto) NEG (NEG) White Blood Count 13.03 K/uL (4.8-10.8) Red Blood Count 4.47 M/uL (4.2-5.4) Hemoglobin 13.9 g/dL (12.0-16.0) Hematocrit 40.3 % (37-47) Mean Corpuscular Volume 90.2 fL (80-100) Mean Corpuscular Hemoglobin 31.1 pg (25-34) Mean Corpuscular Hemoglobin Concent 34.5 g/dl (32-36) Platelet Count 253 K/uL (130-400) Mean Platelet Volume 9.5 fL (7.4-10.4) Neutrophils (%) (Auto) 85.7 % Lymphocytes (%) (Auto) 5.9 % Monocytes (%) (Auto) 5.8 % Eosinophils (%) (Auto) 2.0 % Basophils (%) (Auto) 0.2 % Neutrophils # (Auto) 11.16 K/uL (1.4-6.5) Lymphocytes # (Auto) 0.77 K/uL (1.2-3.4) Monocytes # (Auto) 0.76 K/uL (0.11-0.59) Eosinophils # (Auto) 0.26 K/uL (0-0.5) Basophils # (Auto) 0.03 K/uL (0-0.2) RDW Standard Deviation 45.4 fL (36.4-46.3) RDW Coefficient of Variation 13.8 % (11.5-14.5) Immature Granulocyte % (Auto) 0.4 % Immature Granulocyte # (Auto) 0.05 K/uL (0.00-0.02) Anion Gap 7.0 mmol/L (3-11) Est Creatinine Clear Calc Drug Dose 110.6 ml/min Estimated GFR () 100.0 Estimated GFR (Non- 86.3 BUN/Creatinine Ratio 19.3 (10-20) Calcium Level 9.2 mg/dl (8.5-10.1) Total Bilirubin 0.4 mg/dl (0.2-1) Direct Bilirubin 0.1 mg/dl (0-0.2) Aspartate Amino Transf (AST/SGOT) 39 U/L (15-37) Alanine Aminotransferase (ALT/SGPT) 50 U/L (12-78) Alkaline Phosphatase 93 U/L (45-117) Total Protein 7.9 gm/dl (6.4-8.2) Albumin 4.1 gm/dl (3.4-5.0) Lipase 189 U/L (73-393) Labs reviewed by ED physician. Medications Administered Medications (Trade) Dose Ordered Sig/Ariadna Route Start Time Stop Time Status Last Admin Dose Admin Ceftriaxone Sodium (Rocephin Inj) 1 gm NOW STAT IV 10/16/16 19:35 10/16/16 19:37 DC 10/16/16 19:51 1 GM Vancomycin HCl (Vancomycin 1gm/ 270ml Nss) 1 gm NOW STAT IV 10/16/16 19:35 10/16/16 19:37 DC 10/16/16 20:25 1 GM ED Course 1931: Past medical records reviewed. The patient was evaluated in room B9. A complete history and physical examination was performed. 1934: Ordered Vancomycin HCl 1 gm IV, Rocephin Inj 1 gm IV. 2014: At this time, I reevaluated the patient and she was resting comfortably. I updated her on her test results. 2108: At this time, I discussed the patient's case with Dr. Oconnor - Dhaval Alfaro and he agreed to accept the patient for further evaluation. Medical Decision Differential diagnosis: Etiologies such as viral syndrome, otitis, pharyngitis, pneumonia, influenza, meningitis, urinary tract infection, sepsis, bacteremia, as well as others were entertained. This is a 56-year-old female that presents emergency department febrile. The patient's history of cellulitis in the past and appears to have a saline is to her right lower extremity again. She was sent for an ultrasound of the right lower extremity however there is no evidence of a DVT. Because the patient is febrile she was pancultured and started on Rocephin as well as vancomycin. I did discuss the case with the hospitalist service who agreed to admit the patient. Patient and family were in agreement with the treatment plan. Consults Time Called: 2103 Consulting Physician: Dr. Oconnor - Hospitalist Dominic Returned Call: 2108 At this time, I discussed the patient's case with Dr. Oconnor and he agreed to accept the patient for further evaluation. Impression Primary Impression: Cellulitis Scribe Attestation The scribe's documentation has been prepared under my direction and personally reviewed by me in its entirety. I confirm that the note above accurately reflects all work, treatment, procedures, and medical decision making performed by me. Departure Information Dispostion Being Evaluated By Hospitalist Referrals Wil Godinez M.D. (PCP) Problem Qualifiers Primary Impression: Cellulitis Site of cellulitis: extremity Site of cellulitis of extremity: lower extremity Laterality: right Qualified Codes: L03.115 - Cellulitis of right lower limb
[2016-10-16 19:54] LABS: URINE APPEARANCE CLEAR (CLEAR); URINE BILIRUBIN NEG (NEG); URINE COLOR YELLOW; URINE EPITHELIAL CELL AUTO >30 /lpf (0-5); URINE NITRITE NEG (NEG); URINE PH 7.5 (4.5-7.5); URINE SPECIFIC GRAVITY 1.016 (1.000-1.030); UROBILINOGEN NEG (NEG)
[2016-10-16 20:00] LABS: MANUAL MICROSCOPIC REQUIRED? NO; REVIEW REQ? NO
[2016-10-16 20:17] LABS: BASO % 0.2 %; BASO ABS # 0.03 K/uL (0-0.2); COMPLETE YES; HEMATOCRIT 40.3 % (37-47); IG% 0.4 %; LYMPH % 5.9 %; LYMPH ABS # 0.77 K/uL (1.2-3.4); MEAN CELL VOLUME 90.2 fL (80-100); MEAN CORPUSCULAR HEMOGLOBIN 31.1 pg (25-34); MEAN CORPUSCULAR HGB CONC 34.5 g/dl (32-36); MEAN PLATELET VOLUME 9.5 fL (7.4-10.4); MONO % 5.8 %; NEUT % 85.7 %; PLATELET COUNT 253 K/uL (130-400); RED BLOOD COUNT 4.47 M/uL (4.2-5.4); WHITE BLOOD COUNT 13.03 K/uL (4.8-10.8)
[2016-10-16 20:35] LABS: BUN/CREATININE RATIO 19.3 (10-20); CALCIUM 9.2 mg/dl (8.5-10.1); CREATININE 0.77 mg/dl (0.60-1.20); POTASSIUM 3.7 mmol/L (3.5-5.1)
--- NOTE | 2016-10-16 21:01 | DIAGNOSTIC IMAGING REPORT ---
ULTRASOUND RIGHT VENOUS DOPP LOWER EXT UNILAT CLINICAL HISTORY: Right leg swelling COMPARISON STUDY: No previous studies for comparison. FINDINGS: Real-time and color flow Doppler imaging were performed. Flow was seen within the femoral, popliteal and calf veins with no intraluminal thrombus demonstrated. The saphenous vein is patent. There are mildly prominent right inguinal lymph nodes which demonstrate fatty luis enrique. IMPRESSION: No evidence of right lower extremity DVT. Electronically signed by: Stephen Perez M.D. 10/16/2016 8:59 PM Dictated Date/Time: 10/16/2016 8:58 PM
[2016-10-16 23:00] VITALS: BP 131/68; PULSE 116; TEMP 37.5; O2SAT 93; Ht 165.1 cm; Wt 131.3 kg
[2016-10-16] MEDS ORDERED: INFLUENZA ADMINISTRATION CHARGE ONE (23:45)
[2016-10-16] MEDS ORDERED: INFLUENZA VIRUS QUAD VACCINE 0.5 ML SYR IM. ONE (23:45)
--- NOTE | 2016-10-17 00:34 | History and Physical ---
History & Physical Date & Time of Service: Oct 16, 2016 at 22:07 Chief Complaint: Right Leg Is Red Primary Care Physician: Wil Godinez M.D. History of Present Illness Source: patient, clinic records, hospital records 56 year old female with PMH of hypothyroidism presents to the Emergency Room with complaints of erythema and swelling in her right lower extremities. Pt said that redness started about 2 days ago and today is getting worst. She also said that she felt shivering and fever today. she did not check her temp. She said that she had cellulitis in the past in her LE, She denies any chest pain, palpitation, dizziness and sob. Past Medical/Surgical History Medical Problems: (1) Asthma Status: Chronic (2) History of DVT (deep vein thrombosis) Status: Chronic (3) History of pelvic fracture Permanent Comment: 2* 2012 Status: Resolved (4) Hypothyroidism Status: Chronic (5) Obesity Status: Chronic Surgical Problems: (1) History of cholecystectomy Status: Resolved Family History FH: diabetes mellitus FH: heart disease FHx: cancer FHx: gallbladder disease Social History Smoking Status: Never Smoker Drug Use: none Marital Status: Housing status: lives with significant other Occupational Status: employed Immunizations History of Influenza Vaccine: Yes Influenza Vaccine Date: Apr 06, 2016 History of Tetanus Vaccine?: Yes Tetanus Immunization Date: Feb 24, 2013 History of Pneumococcal: Yes Pneumococcal Date: Mar 19, 2013 Multi-Drug Resistant Organisms History of MDRO: No Allergies Coded Allergies: Morphine (Verified Allergy, Unknown, BRADYCARDIA, 10/16/16) Home Medications Scheduled Fluticasone Furoate (Inhalatio (Arnuity Ellipta), 1 PUFF INH DAILY Levothyroxine Sodium (Levothyroxine Sodium), 112 MCG PO DAILY Montelukast Sod (Montelukast Sodium), 10 MG PO HS Scheduled PRN Albuterol Hfa (Ventolin Hfa), 2-4 PUFFS INH Q4-6 PRN for SOB/Wheezing Naproxen (Naproxen), 500 MG PO BID PRN for Pain Review of Systems Constitutional: + chills, + fever, No sweats Eyes: No diplopia, No eye pain, No redness ENT: No nasal symptoms, No unusual epistaxis Respiratory: No cough, No sputum, No wheezing Cardiovascular: + edema, No chest pain, No palpitations Abdomen: No nausea, No pain, No vomiting Musculoskeletal: + swelling, No calf pain Genitourinary - Female: No dysuria, No urinary frequency Neurologic: No numbness/tingling, No weakness Psychiatric: No substance abuse Endocrine: No excessive thirst, No fatigue Hematologic / Lymphatic: No night sweats Integumentary: + problem reported (erythema in RLE), No itch, No rash Physical Exam Vital Signs Date Time Temp Pulse Resp B/P Pulse Ox O2 Delivery O2 Flow Rate FiO2 10/16/16 22:05 37.5 114 28 151/77 95 Room Air 10/16/16 20:25 107 10/16/16 20:23 37.5 107 24 143/78 94 Room Air 10/16/16 19:26 37.7 103 16 181/120 93 Room Air General Appearance: no apparent distress Head: normocephalic, atraumatic Eyes: normal inspection, PERRL, EOMI ENT: normal ENT inspection, hearing grossly normal Neck: supple, no JVD Respiratory/Chest: lungs clear, normal breath sounds, no respiratory distress, no accessory muscle use Cardiovascular: regular rate, rhythm, no gallop, no JVD Abdomen/GI: normal bowel sounds, non tender, soft Back: normal inspection, no CVA tenderness Extremities/Musculoskelatal: no calf tenderness, + swelling Neurologic/Psych: no motor/sensory deficits, alert, normal mood/affect, oriented x 3 Skin: warm/dry, no rash, + pertinent finding (Right LE erythema) Diagnostics Laboratory Results Results Past 24 Hours Test 10/16/16 19:35 10/16/16 19:45 Range/Units Urine Color YELLOW Urine Appearance CLEAR CLEAR Urine pH 7.5 4.5-7.5 Urine Specific [place] 1.016 1.000-1.030 Urine Protein NEG NEG Urine Glucose (UA) NEG NEG Urine Ketones NEG NEG Urine Occult Blood NEG NEG Urine Nitrite NEG NEG Urine Bilirubin NEG NEG Urine Urobilinogen NEG NEG Urine Leukocyte Esterase SMALL NEG Urine WBC (Auto) 5-10 0-5 /hpf Urine RBC (Auto) 0-4 0-4 /hpf Urine Hyaline Casts (Auto) 1-5 0-5 /lpf Urine Epithelial Cells (Auto) >30 0-5 /lpf Urine Bacteria (Auto) NEG NEG White Blood Count 13.03 4.8-10.8 K/uL Red Blood Count 4.47 4.2-5.4 M/uL Hemoglobin 13.9 12.0-16.0 g/dL Hematocrit 40.3 37-47 % Mean Corpuscular Volume 90.2 80-100 fL Mean Corpuscular Hemoglobin 31.1 25-34 pg Mean Corpuscular Hemoglobin Concent 34.5 32-36 g/dl Platelet Count 253 130-400 K/uL Mean Platelet Volume 9.5 7.4-10.4 fL Neutrophils (%) (Auto) 85.7 % Lymphocytes (%) (Auto) 5.9 % Monocytes (%) (Auto) 5.8 % Eosinophils (%) (Auto) 2.0 % Basophils (%) (Auto) 0.2 % Neutrophils # (Auto) 11.16 1.4-6.5 K/uL Lymphocytes # (Auto) 0.77 1.2-3.4 K/uL Monocytes # (Auto) 0.76 0.11-0.59 K/uL Eosinophils # (Auto) 0.26 0-0.5 K/uL Basophils # (Auto) 0.03 0-0.2 K/uL RDW Standard Deviation 45.4 36.4-46.3 fL RDW Coefficient of Variation 13.8 11.5-14.5 % Immature Granulocyte % (Auto) 0.4 % Immature Granulocyte # (Auto) 0.05 0.00-0.02 K/uL Sodium Level 142 136-145 mmol/L Potassium Level 3.7 3.5-5.1 mmol/L Chloride Level 106 98-107 mmol/L Carbon Dioxide Level 29 21-32 mmol/L Anion Gap 7.0 3-11 mmol/L Blood Urea Nitrogen 15 7-18 mg/dl Creatinine 0.77 0.60-1.20 mg/dl Est Creatinine Clear Calc Drug Dose 110.6 ml/min Estimated GFR () 100.0 Estimated GFR (Non- 86.3 BUN/Creatinine Ratio 19.3 10-20 Random Glucose 95 70-99 mg/dl Calcium Level 9.2 8.5-10.1 mg/dl Total Bilirubin 0.4 0.2-1 mg/dl Direct Bilirubin 0.1 0-0.2 mg/dl Aspartate Amino Transf (AST/SGOT) 39 15-37 U/L Alanine Aminotransferase (ALT/SGPT) 50 12-78 U/L Alkaline Phosphatase 93 45-117 U/L Total Protein 7.9 6.4-8.2 gm/dl Albumin 4.1 3.4-5.0 gm/dl Lipase 189 73-393 U/L Microbiology Results 10/16/16 Blood Culture, Received Pending 10/16/16 Blood Culture, Received Pending Diagnostic Radiology ULTRASOUND RIGHT VENOUS DOPP LOWER EXT UNILAT CLINICAL HISTORY: Right leg swelling COMPARISON STUDY: No previous studies for comparison. FINDINGS: Real-time and color flow Doppler imaging were performed. Flow was seen within the femoral, popliteal and calf veins with no intraluminal thrombus demonstrated. The saphenous vein is patent. There are mildly prominent right inguinal lymph nodes which demonstrate fatty luis enrique. IMPRESSION: No evidence of right lower extremity DVT. Electronically signed by: Stephen Perez M.D. 10/16/2016 8:59 PM Dictated Date/Time: 10/16/2016 8:58 PM Impression Assessment and Plan Right LE Cellulitis Received Rocephin and Vanco in the ER WBC mildly elevated will follow blood cx Continue vanco and Rocephin venous doppler of LE negative for DVT Hypothyroidism continue levothyroxine Asthma Continue home meds. Obesity Counseling about diet and exercise DVT px on Lovenox subq Code status full code. Level of Care Med/Surg Resuscitation Status FULL RESUSCITATION VTE Prophylaxis VTE Risk Assessment Done? Y/N: Yes Risk Level: Moderate Given or contraindicated: Enoxaparin (Lovenox)SQ
[2016-10-17] MEDS ORDERED: NAPROXEN 250 MG TAB PO PRN (01:00)
[2016-10-17] MEDS ORDERED: ALBUTEROL HFA 8 GM INHALER INH PRN (01:00)
[2016-10-17] MEDS ORDERED: VANCOMYCIN CONSULT ACTIVE PRN (01:30)
[2016-10-17] MEDS: VANCOMYCIN INJ 1,500 MG in SODIUM CHLORIDE 0.9% 500ML 500 ML IV SCH ×3 (02:09→22:47)
[2016-10-17 04:30] VITALS: BP 115/67; PULSE 99; TEMP 37; O2SAT 96
[2016-10-17] MEDS: LEVOTHYROXINE 112 MCG TAB PO SCH (05:46)
[2016-10-17 06:47] LABS: HEMATOCRIT 36.6 % (37-47); MEAN CELL VOLUME 90.4 fL (80-100); MEAN CORPUSCULAR HEMOGLOBIN 30.1 pg (25-34); MEAN CORPUSCULAR HGB CONC 33.3 g/dl (32-36); MEAN PLATELET VOLUME 8.7 fL (7.4-10.4); PLATELET COUNT 196 K/uL (130-400); RED BLOOD COUNT 4.05 M/uL (4.2-5.4); WHITE BLOOD COUNT 16.22 K/uL (4.8-10.8)
[2016-10-17 06:52] LABS: INR 1.1 (0.9-1.1); PROTHROMBIN TIME (PATIENT) 11.6 SECONDS (9.0-12.0)
[2016-10-17 07:10] LABS: BUN/CREATININE RATIO 18.2 (10-20); CALCIUM 8.5 mg/dl (8.5-10.1); CREATININE 0.72 mg/dl (0.60-1.20); POTASSIUM 3.8 mmol/L (3.5-5.1)
[2016-10-17 08:00] VITALS: BP 130/74; PULSE 100; TEMP 37.2; O2SAT 91
[2016-10-17] MEDS ORDERED: PNEUMOCOCCAL ADMINISTRATION CHARGE ONE (08:00)
[2016-10-17] MEDS ORDERED: PNEUMOCOCCAL POLYSACCHARIDES 25 MCG/0.5 ML VIAL/SYR IM. ONE (08:00)
[2016-10-17] MEDS: ENOXAPARIN 40 MG/0.4 ML SYR SQ SCH (08:31)
[2016-10-17] MEDS ORDERED: VANCOMYCIN INJ 1,000 MG in SODIUM CHLORIDE 0.9% 250ML 250 ML IV SCH (09:00)
--- NOTE | 2016-10-17 10:42 | Pharmacy Progress Note ---
Pharmacy Antibiotic Consult Date of Service: Oct 17, 2016. Pharmacy Dosing Scope Pharmacy is consulted to initiate Vancomycin IV dosing therapy, order appropriate labs and adjust drug dose/frequency. Subjective The patient is a 56 year old female admitted on Oct 16, 2016 at 22:03. Objective Height (Feet): 5 Height (Inches): 5.00 Weight (Kilograms): 131.300 Lab Results (24hrs): Laboratory Tests Test 10/16/16 19:45 10/17/16 06:35 BUN/Creatinine Ratio 19.3 18.2 Blood Urea Nitrogen 15 mg/dl 13 mg/dl Creatinine 0.77 mg/dl 0.72 mg/dl White Blood Count 13.03 K/uL 16.22 K/uL Red Blood Count 4.47 M/uL Hemoglobin 13.9 g/dL Hematocrit 40.3 % Mean Corpuscular Volume 90.2 fL Mean Corpuscular Hemoglobin 31.1 pg Mean Corpuscular Hemoglobin Concent 34.5 g/dl Platelet Count 253 K/uL Mean Platelet Volume 9.5 fL Neutrophils (%) (Auto) 85.7 % Lymphocytes (%) (Auto) 5.9 % Monocytes (%) (Auto) 5.8 % Eosinophils (%) (Auto) 2.0 % Basophils (%) (Auto) 0.2 % Neutrophils # (Auto) 11.16 K/uL Lymphocytes # (Auto) 0.77 K/uL Monocytes # (Auto) 0.76 K/uL Eosinophils # (Auto) 0.26 K/uL Basophils # (Auto) 0.03 K/uL Micro Results: Item Value Date Time Blood Culture Received 10/16/161954 Blood Pending Blood Culture Received 10/16/161944 Blood Pending Assessment & Plan * 56 yo female admitted with RLE Cellulitis. Pharmacy consulted to start Vancomycin. Vancomycin * Pt given loading dose of Vancomycin yesterday. * Pt now ordered maintenance dose of Vancomycin 1500mg (11mg/kg) IV q10 hours. * Kidney function is good. Body habitus, however, increases risk for drug accumulation so a lower mg/kg dose was chosen. * Will obtain a trough level prior to the third maintenance dose on 10/17 at 2230. Goal trough is ~15 mcg/ml. Rocephin * Continue Rocephin IV per provider dosing. No renal dose adjustment necessary. Pharmacy will continue to follow and will adjust dose/frequency as necessary. Thank you
[2016-10-17 11:00] VITALS: BP 108/77; PULSE 86; TEMP 36.8; O2SAT 94
[2016-10-17 15:54] VITALS: BP 116/66; PULSE 87; TEMP 36.8; O2SAT 92
[2016-10-17 16:00] VITALS: O2SAT 94
--- NOTE | 2016-10-17 18:26 | Progress Note ---
Medicine Progress Note Date & Time of Visit: Oct 17, 2016 at 18:21. Subjective Patient seen and examined. Feels a little better this morning. Denies pain in right leg. Has had recurrent cellulitis of right leg. Objective Last 8 Hrs Date Time Temp Pulse Resp B/P Pulse Ox O2 Delivery O2 Flow Rate FiO2 10/17/16 16:00 94 Room Air 10/17/16 15:54 36.8 87 20 116/66 92 10/17/16 11:00 36.8 86 18 108/77 94 Room Air Physical Exam: General-awake; alert; NAD Eyes-EOMI; no scleral icterus Neck-no stridor; trachea midline Lungs-CTA bilaterally; no wheezes/crackles Heart-RRR; no m/r/g Abdomen-soft; NT; nBS Extremities-erythema and induration of RLE from above ankle to below the knee Neuro-no focal deficits Laboratory Results: Last 24 Hours Test 10/16/16 19:35 10/16/16 19:45 10/17/16 06:35 Urine Color YELLOW Urine Appearance CLEAR Urine pH 7.5 Urine Specific [place] 1.016 Urine Protein NEG Urine Glucose (UA) NEG Urine Ketones NEG Urine Occult Blood NEG Urine Nitrite NEG Urine Bilirubin NEG Urine Urobilinogen NEG Urine Leukocyte Esterase SMALL Urine WBC (Auto) 5-10 /hpf Urine RBC (Auto) 0-4 /hpf Urine Hyaline Casts (Auto) 1-5 /lpf Urine Epithelial Cells (Auto) >30 /lpf Urine Bacteria (Auto) NEG White Blood Count 13.03 K/uL 16.22 K/uL Red Blood Count 4.47 M/uL 4.05 M/uL Hemoglobin 13.9 g/dL 12.2 g/dL Hematocrit 40.3 % 36.6 % Mean Corpuscular Volume 90.2 fL 90.4 fL Mean Corpuscular Hemoglobin 31.1 pg 30.1 pg Mean Corpuscular Hemoglobin Concent 34.5 g/dl 33.3 g/dl Platelet Count 253 K/uL 196 K/uL Mean Platelet Volume 9.5 fL 8.7 fL Neutrophils (%) (Auto) 85.7 % Lymphocytes (%) (Auto) 5.9 % Monocytes (%) (Auto) 5.8 % Eosinophils (%) (Auto) 2.0 % Basophils (%) (Auto) 0.2 % Neutrophils # (Auto) 11.16 K/uL Lymphocytes # (Auto) 0.77 K/uL Monocytes # (Auto) 0.76 K/uL Eosinophils # (Auto) 0.26 K/uL Basophils # (Auto) 0.03 K/uL RDW Standard Deviation 45.4 fL 46.7 fL RDW Coefficient of Variation 13.8 % 14.2 % Immature Granulocyte % (Auto) 0.4 % Immature Granulocyte # (Auto) 0.05 K/uL Sodium Level 142 mmol/L 140 mmol/L Potassium Level 3.7 mmol/L 3.8 mmol/L Chloride Level 106 mmol/L 106 mmol/L Carbon Dioxide Level 29 mmol/L 26 mmol/L Anion Gap 7.0 mmol/L 8.0 mmol/L Blood Urea Nitrogen 15 mg/dl 13 mg/dl Creatinine 0.77 mg/dl 0.72 mg/dl Est Creatinine Clear Calc Drug Dose 110.6 ml/min 119.4 ml/min Estimated GFR () 100.0 108.5 Estimated GFR (Non- 86.3 93.6 BUN/Creatinine Ratio 19.3 18.2 Random Glucose 95 mg/dl 114 mg/dl Calcium Level 9.2 mg/dl 8.5 mg/dl Total Bilirubin 0.4 mg/dl Direct Bilirubin 0.1 mg/dl Aspartate Amino Transf (AST/SGOT) 39 U/L Alanine Aminotransferase (ALT/SGPT) 50 U/L Alkaline Phosphatase 93 U/L Total Protein 7.9 gm/dl Albumin 4.1 gm/dl Lipase 189 U/L Prothrombin Time 11.6 SECONDS Prothromb Time International Ratio 1.1 Date/Time Source Procedure Growth Status 10/16/16 19:55 Blood Blood Culture Pending Received 10/16/16 19:45 Blood Blood Culture Pending Received Assessment & Plan RLE Cellulitis - continue vancomycin - blood cultures pending - doppler negative for DVT Hypothyroidism - continue levothyroxine DVT prophylaxis with enoxaparin sq. Procedures: RLE Venous Doppler No evidence of right lower extremity DVT. Current Inpatient Medications: Current Inpatient Medications Medications (Trade) Dose Ordered Sig/Ariadna Route Start Time Stop Time Status Last Admin Dose Admin Enoxaparin Sodium 40 mg 40 mg QAM SQ 10/17/16 09:00 11/16/16 08:59 10/17/16 08:31 40 MG Ceftriaxone Sodium/Dextrose (Rocephin Inj/ Dextrose Add-Searcy 50ML) 50 ml @ 100 mls/hr Q24H IV 10/17/16 20:00 10/25/16 20:29 Albuterol (Ventolin Hfa Inhaler) 2 puffs Q6 PRN INH 10/17/16 01:00 11/16/16 00:59 Levothyroxine Sodium (Synthroid Tab) 112 mcg DAILYBB PO 10/17/16 06:30 11/16/16 06:29 10/17/16 05:46 112 MCG Montelukast Sodium (Singulair Tab) 10 mg HS PO 10/17/16 21:00 11/16/16 20:59 Miscellaneous Information (Order Awaiting Action) 1 ea QS N/A 10/17/16 08:00 11/16/16 07:59 Naproxen 500 mg 500 mg BID PRN PO 10/17/16 01:00 11/16/16 00:59 Vancomycin HCl/ Sodium Chloride (Vancomycin Inj/ Nss 500ml) 530 ml @ 200 mls/hr Q10H IV 10/17/16 02:30 10/27/16 02:29 10/17/16 11:48 200 MLS/HR Vancomycin HCl (Consult) 1 ea UD PRN N/A 10/17/16 01:30 11/16/16 01:29
[2016-10-17] MEDS ORDERED: CEFTRIAXONE SOD INJ 1 GM in DEXTROSE 5% ADD-VANTAGE 50ML 50 ML IV SCH (20:00)
[2016-10-17] MEDS: MONTELUKAST SOD 10 MG TAB PO SCH (21:12)
[2016-10-17] MEDS ORDERED: VANCOMYCIN TROUGH SCH (22:00)
[2016-10-17 23:14] VITALS: BP 100/63; PULSE 88; TEMP 36.8; O2SAT 90
--- NOTE | 2016-10-18 05:36 | Pharmacy Progress Note ---
Pharmacy Antibiotic Prog Note Date of Service Oct 18, 2016. Subjective * The patient is currently receiving Vancomycin 1500mg IV every 10 hours. * The patient is currently on day # 3 or 10 IV therapy. Objective Height (Feet): 5 Height (Inches): 5.00 Weight (Kilograms): 131.300 Levels: Item Value Date Time Vancomycin Level Trough 9.0 mcg/ml 10/17/16 2203 Lab Results (24hrs): Laboratory Tests Test 10/17/16 06:35 10/18/16 04:44 BUN/Creatinine Ratio 18.2 Blood Urea Nitrogen 13 mg/dl Creatinine 0.72 mg/dl White Blood Count 16.22 K/uL Micro Results: * Blood cultures are still pending Assessment & Plan * This drug level is Subtherapeutic. Will changed frequency to every 8 hours. ( Vancomycin 1500mg IV every 8 hours). * Goal trough level estimate: between 15-18 mcg/mL. * Trough level is ordered for 0530 on 10/19/16. Pharmacy will continue to follow and will adjust dose/frequency as necessary. Thank you
[2016-10-18 06:05] LABS: HEMATOCRIT 36.1 % (37-47); MEAN CELL VOLUME 94.3 fL (80-100); MEAN CORPUSCULAR HGB CONC 31.9 g/dl (32-36); MEAN PLATELET VOLUME 9.2 fL (7.4-10.4); PLATELET COUNT 184 K/uL (130-400); RED BLOOD COUNT 3.83 M/uL (4.2-5.4); WHITE BLOOD COUNT 6.42 K/uL (4.8-10.8)
[2016-10-18] MEDS: LEVOTHYROXINE 112 MCG TAB PO SCH (06:12)
[2016-10-18] MEDS: VANCOMYCIN INJ 1,500 MG in SODIUM CHLORIDE 0.9% 500ML 500 ML IV SCH ×3 (06:12→21:56)
[2016-10-18 06:45] LABS: BUN/CREATININE RATIO 16.8 (10-20); CALCIUM 8.6 mg/dl (8.5-10.1); CREATININE 0.66 mg/dl (0.60-1.20); POTASSIUM 3.8 mmol/L (3.5-5.1)
[2016-10-18] MEDS: ENOXAPARIN 40 MG/0.4 ML SYR SQ SCH (07:25)
[2016-10-18 07:43] VITALS: BP 130/80; PULSE 76; TEMP 36.5; O2SAT 91
[2016-10-18 08:00] VITALS: O2SAT 91
[2016-10-18 14:46] VITALS: BP 137/85; PULSE 83; TEMP 36.8; O2SAT 94
[2016-10-18 16:00] VITALS: O2SAT 94
--- NOTE | 2016-10-18 16:25 | Progress Note ---
Medicine Progress Note Date & Time of Visit: Oct 18, 2016 at 16:23. Subjective Patient seen and examined. Feels that RLE is improving. Less red today. Denies pain. Objective Last 8 Hrs Date Time Temp Pulse Resp B/P Pulse Ox O2 Delivery O2 Flow Rate FiO2 10/18/16 16:00 94 Room Air 10/18/16 14:46 36.8 83 20 137/85 94 Physical Exam: General-awake; alert; NAD Eyes-EOMI; no scleral icterus Neck-no stridor; trachea midline Lungs-CTA bilaterally; no wheezes/crackles Heart-RRR; no m/r/g Abdomen-soft; NT; nBS Extremities-improving erythema and stable induration of RLE from above ankle to below the knee Neuro-no focal deficits Laboratory Results: Last 24 Hours Test 10/17/16 22:03 10/18/16 05:24 Vancomycin Level Trough 9.0 mcg/ml White Blood Count 6.42 K/uL Red Blood Count 3.83 M/uL Hemoglobin 11.5 g/dL Hematocrit 36.1 % Mean Corpuscular Volume 94.3 fL Mean Corpuscular Hemoglobin 30.0 pg Mean Corpuscular Hemoglobin Concent 31.9 g/dl RDW Standard Deviation 50.1 fL RDW Coefficient of Variation 14.7 % Platelet Count 184 K/uL Mean Platelet Volume 9.2 fL Sodium Level 143 mmol/L Potassium Level 3.8 mmol/L Chloride Level 109 mmol/L Carbon Dioxide Level 28 mmol/L Anion Gap 6.0 mmol/L Blood Urea Nitrogen 11 mg/dl Creatinine 0.66 mg/dl Est Creatinine Clear Calc Drug Dose 130.3 ml/min Estimated GFR () 114.5 Estimated GFR (Non- 98.8 BUN/Creatinine Ratio 16.8 Random Glucose 116 mg/dl Calcium Level 8.6 mg/dl Assessment & Plan RLE Cellulitis - continue vancomycin - blood cultures ngtd - doppler negative for DVT Hypothyroidism - continue levothyroxine DVT prophylaxis with enoxaparin sq. Procedures: RLE Venous Doppler No evidence of right lower extremity DVT. Current Inpatient Medications: Current Inpatient Medications Medications (Trade) Dose Ordered Sig/Ariadna Route Start Time Stop Time Status Last Admin Dose Admin Enoxaparin Sodium (Lovenox Inj) 40 mg QAM SQ 10/17/16 09:00 11/16/16 08:59 10/18/16 07:25 40 MG Albuterol (Ventolin Hfa Inhaler) 2 puffs Q6 PRN INH 10/17/16 01:00 11/16/16 00:59 Levothyroxine Sodium (Synthroid Tab) 112 mcg DAILYBB PO 10/17/16 06:30 11/16/16 06:29 10/18/16 06:12 112 MCG Montelukast Sodium (Singulair Tab) 10 mg HS PO 10/17/16 21:00 11/16/16 20:59 10/17/16 21:12 10 MG Naproxen (Naprosyn Tab) 500 mg BID PRN PO 10/17/16 01:00 11/16/16 00:59 Vancomycin HCl 1 ea 1 ea UD PRN N/A 10/17/16 01:30 11/16/16 01:29 Vancomycin HCl/ Sodium Chloride (Vancomycin Inj/ Nss 500ml) 530 ml @ 200 mls/hr Q8H IV 10/18/16 06:00 10/26/16 23:59 10/18/16 13:51 200 MLS/HR Fluticasone Furoate (Arnuity Ellipta) 100 mcg DAILY INH 10/19/16 09:00 11/18/16 08:59
[2016-10-18] MEDS: MONTELUKAST SOD 10 MG TAB PO SCH (20:41)
[2016-10-19 00:01] VITALS: BP 123/79; PULSE 75; TEMP 37.1; O2SAT 91
[2016-10-19] MEDS ORDERED: VANCOMYCIN TROUGH SCH (05:30)
[2016-10-19] MEDS: VANCOMYCIN INJ 1,500 MG in SODIUM CHLORIDE 0.9% 500ML 500 ML IV SCH ×2 (06:01→06:02)
[2016-10-19] MEDS: LEVOTHYROXINE 112 MCG TAB PO SCH (06:03)
[2016-10-19 07:25] VITALS: BP 121/76; PULSE 74; TEMP 36.4; O2SAT 90
[2016-10-19] MEDS: ENOXAPARIN 40 MG/0.4 ML SYR SQ SCH (07:36)
[2016-10-19 08:00] VITALS: O2SAT 91
[2016-10-19] MEDS ORDERED: FLUTICASONE FUROATE INH SCH (09:00)
--- NOTE | 2016-10-19 09:18 | Pharmacy Progress Note ---
Pharmacy Antibiotic Prog Note Date of Service Oct 19, 2016. Subjective The patient is currently receiving the following antimicrobial agents per Pharmacy consult: Vancomycin 1500 mg IV every 8 hours Objective Height (Feet): 5 Height (Inches): 5.00 Weight (Kilograms): 131.300 Levels: Item Value Date Time Vancomycin Level Trough 16.1 mcg/ml 10/19/16 0535 Micro Results: Item Value Date Time Blood Culture - Preliminary Resulted 10/16/161944 Blood NO GROWTH TO DATE. Blood Culture - Preliminary Resulted 10/16/161954 Blood NO GROWTH TO DATE. Assessment & Plan Assessment 56 year old female receiving Vancomycin IV for treatment of LE cellulitis. Day # 4/10 of antimicrobial therapy Plan Continue Vancomycin IV * Trough level of 16.1 mcg/mL is therapeutic * Continue dose of 1500 mg (11.5 mg/kg) IV every 8 hours for now * Less than traditional dose selected due to likelihood of drug accumulation in obese patient. * Goal trough level for cellulitis: 15 to 20 mcg/mL * Repeat trough level ordered for 10/20/16 to assess for possible drug accumulation. Pharmacy will continue to follow and will adjust dose/frequency as necessary. Thank you
--- NOTE | 2016-10-19 11:54 | Discharge Instructions ---
Discharge Instructions Date of Service Oct 19, 2016. Admission Reason for Admission: Cellulitis Discharge Discharge Diagnosis / Problem: Right leg cellulitis Discharge Goals Goal(s): Improve disease control Activity Recommendations Activity Limitations: resume your previous activity . Instructions / Follow-Up Instructions / Follow-Up Please follow up with Family Medicine Dr. Godinez on October 26 at 11:05am. Please take Clindamycin as prescribed until it is finished. Please eat yogurt every day while you are on the antibiotic and for one week after. Current Hospital Diet Patient's current hospital diet: Low Sodium Diet (2gm Na), AHA Diet (Heart Healthy) Discharge Diet Recommended Diet: AHA Diet (Heart Healthy) Pending Studies Studies pending at discharge: no Medical Emergencies . Who to Call and When: Medical Emergencies: If at any time you feel your situation is an emergency, please call 911 immediately. . Non-Emergent Contact Non-Emergency issues call your: Primary Care Provider . . "Provider Documentation" section prepared by Mónica Ashby. . VTE Core Measure Inpt VTE Proph given/why not?: Enoxaparin (Lovenox)SQ
[2016-10-19] MEDS ORDERED: CLIN300C2 PO (11:55)
[2016-10-19] MEDS ORDERED: CLINDAMYCIN HCL 150 MG CAP PO SCH (12:00)
[2016-10-19 12:36] VITALS: BP 121/76; PULSE 74; TEMP 36.4; O2SAT 91
--- NOTE | 2016-10-19 16:39 | Discharge Summary ---
Discharge Summary Date of Service Oct 19, 2016. Discharge Summary Admission Date: Oct 16, 2016 at 22:03 Discharge Date: Oct 19, 2016 Discharge Disposition: Home Principal Diagnosis: Right leg cellulitis Procedures: RLE Venous Doppler No evidence of right lower extremity DVT. Medication Reconciliation New Medications: Clindamycin Hcl (Cleocin) 300 Mg Cap 300 MG PO QID for 8 Days, #32 CAP Continued Medications: Albuterol Hfa (Ventolin Hfa) 200 Puffs/44962 Mcg Aers 2-4 PUFFS INH Q4-6 PRN for SOB/Wheezing, #1 INHALER Fluticasone Furoate (Inhalatio (Arnuity Ellipta) 100 Mcg/Act Inh 1 PUFF INH DAILY Levothyroxine Sodium (Levothyroxine Sodium) 112 Mcg Tab 112 MCG PO DAILY Montelukast Sod (Montelukast Sodium) 10 Mg Tab 10 MG PO HS Naproxen (Naproxen) 500 Mg Tab 500 MG PO BID PRN for Pain Admission Information HPI (per Admitting provider): 56 year old female with PMH of hypothyroidism presents to the Emergency Room with complaints of erythema and swelling in her right lower extremities. Pt said that redness started about 2 days ago and today is getting worst. She also said that she felt shivering and fever today. she did not check her temp. She said that she had cellulitis in the past in her LE, She denies any chest pain, palpitation, dizziness and sob. Physical Exam (per Admitting): General Appearance: no apparent distress Head: normocephalic, atraumatic Eyes: normal inspection, PERRL, EOMI ENT: normal ENT inspection, hearing grossly normal Neck: supple, no JVD Respiratory/Chest: lungs clear, normal breath sounds, no respiratory distress, no accessory muscle use Cardiovascular: regular rate, rhythm, no gallop, no JVD Abdomen/GI: normal bowel sounds, non tender, soft Back: normal inspection, no CVA tenderness Extremities/Musculoskelatal: no calf tenderness, + swelling Neurologic/Psych: no motor/sensory deficits, alert, normal mood/affect, oriented x 3 Skin: warm/dry, no rash, + pertinent finding (Right LE erythema) Hospital Course Patient was admitted with right lower leg cellulitis. Patient was continued on Vancomycin with clinical improvement in the erythema. Blood cultures were negative. LE doppler was negative for DVT. Patient was transitioned to Clindamycin upon discharge. Patient was continued on her home medications. Patient deemed stable for discharge with Family Medicine follow up. PE on discharge: General- awake; alert; NAD Eyes- EOMI; no scleral icterus Neck- no stridor; trachea midline Lungs- CTA bilaterally; no wheezes/crackles Heart- RRR; no m/r/g Abdomen- soft; NTND; nBS Back- no gross abnormalities Extremities- no deformity Neuro- no focal deficits Skin- improved erythema and induration of RLE from above ankle to mid acosta . Total time spent on discharge = This includes examination of the patient, discharge planning, medication reconciliation, and communication with other providers. Discharge Instructions Discharge Instructions Date of Service Oct 19, 2016. Admission Reason for Admission: Cellulitis Discharge Discharge Diagnosis / Problem: Right leg cellulitis Discharge Goals Goal(s): Improve disease control Activity Recommendations Activity Limitations: resume your previous activity . Instructions / Follow-Up Instructions / Follow-Up Please follow up with Family Medicine Dr. Godinez on October 26 at 11:05am. Please take Clindamycin as prescribed until it is finished. Please eat yogurt every day while you are on the antibiotic and for one week after. Current Hospital Diet Patient's current hospital diet: Low Sodium Diet (2gm Na), AHA Diet (Heart Healthy) Discharge Diet Recommended Diet: AHA Diet (Heart Healthy) Pending Studies Studies pending at discharge: no Medical Emergencies . Who to Call and When: Medical Emergencies: If at any time you feel your situation is an emergency, please call 911 immediately. . Non-Emergent Contact Non-Emergency issues call your: Primary Care Provider . . "Provider Documentation" section prepared by Mónica Ashby. . VTE Core Measure Inpt VTE Proph given/why not?: Enoxaparin (Lovenox)SQ Additional Copies To Wil Godinez M.D.
[2016-10-20] MEDS ORDERED: VANCOMYCIN TROUGH SCH ×2 (05:30→13:30)
[2016-12-31] MEDS ORDERED: LEVO112T4 PO (11:43)
[2017-01-05] MEDS ORDERED: AMOX875T PO (13:27)
[2017-01-05] MEDS ORDERED: ASPI-428 PO ×2 (13:31→13:33)
== END 2016-10-19 13:38 | disposition home or self-care (01) | DRG 603 ==
LOC: ENRESERVTM → ENRESERVDT → C.EDB 19:23 → C.MED 22:03
PROVIDERS: ADMIT Internal Medicine; ATTEND Internal Medicine
DX: L03.115 Cellulitis of right lower limb (principal); Z68.42 Body mass index [BMI] 45.0-49.9, adult; E03.9 Hypothyroidism, unspecified; Z86.718 Personal history of other venous thrombosis and embolism; J45.909 Unspecified asthma, uncomplicated; E66.9 Obesity, unspecified; Z83.3 Family history of diabetes mellitus; Z80.9 Family history of malignant neoplasm, unspecified

== ENCOUNTER 2016-12-31 16:30 | Inpatient (IN) | payer OTHER ==
[~2016-12-31] VITALS: Ht 165.1 cm; Wt 132.3 kg
[~2016-12-31 16:30] MED LIST changes: -AZIT250T PO; +LEVO112T4 PO
[2016-12-31] MEDS ORDERED: CEFTRIAXONE SOD INJ 1 GM ADDVIAL IV STA (16:53)
[2016-12-31] MEDS ORDERED: HYDROmorphone INJ 0.5 MG/0.5 ML SYR IV STA (16:53)
[2016-12-31] MEDS ORDERED: VANCOMYCIN 1GM/270ML NSS IV STA (16:53)
[2016-12-31] MEDS ORDERED: SODIUM CHLORIDE 0.9% 1000ML 1,000 ML IV STA (16:53)
[2016-12-31] MEDS ORDERED: ONDANSETRON INJ 2 MG/ML 2 ML VIAL IV STA (16:53)
[2016-12-31] MEDS ORDERED: HYDROmorphone INJ 0.5 MG/0.5 ML SYR IV PRN (17:00)
[2016-12-31 17:38] LABS: BASO % 0.2 %; BASO ABS # 0.02 K/uL (0-0.2); COMPLETE YES; EOS % 0.1 %; IG% 0.1 %; LYMPH % 3.8 %; LYMPH ABS # 0.44 K/uL (1.2-3.4); MEAN CORPUSCULAR HEMOGLOBIN 29.4 pg (25-34); MEAN CORPUSCULAR HGB CONC 32.7 g/dl (32-36); MEAN PLATELET VOLUME 9.1 fL (7.4-10.4); MONO % 3.1 %; NEUT % 92.7 %; PLATELET COUNT 252 K/uL (130-400); RED BLOOD COUNT 4.89 M/uL (4.2-5.4); WHITE BLOOD COUNT 11.44 K/uL (4.8-10.8)
[2016-12-31 17:54] LABS: BUN/CREATININE RATIO 18.9 (10-20); CALCIUM 9.6 mg/dl (8.5-10.1); CREATININE 0.81 mg/dl (0.60-1.20); POTASSIUM 3.9 mmol/L (3.5-5.1)
[2016-12-31] MEDS ORDERED: FLUT1INH3 INH (17:55)
[2016-12-31] MEDS ORDERED: SNG10 PO (17:55)
[2016-12-31 17:57] LABS: C-REACTIVE PROTEIN 1.18 mg/dl (0-0.29)
--- NOTE | 2016-12-31 18:43 | DIAGNOSTIC IMAGING REPORT ---
ULTRASOUND LEFT LOWER EXTREMITY VENOUS CLINICAL HISTORY: Left leg pain and swelling. COMPARISON STUDY: No priors. TECHNIQUE: Real-time, grayscale, and color Doppler sonography of the deep veins of the left lower extremity was performed from the inguinal crease to the calf. Compression and augmentation were utilized. FINDINGS: There is no sonographic evidence of deep venous thrombosis identified in the left lower extremity. The common femoral, superficial femoral, and popliteal veins are patent and normally compressible. The greater saphenous vein and the profunda femoris vein at the junction with the common femoral vein are clear. The visualized calf veins are patent. Mildly enlarged and benign-appearing left inguinal lymph nodes are likely on a reactive basis. IMPRESSION: There is no sonographic evidence of deep venous thrombosis identified in the left lower extremity. Electronically signed by: Celso Resendiz M.D. 12/31/2016 6:41 PM Dictated Date/Time: 12/31/2016 6:40 PM
--- NOTE | 2016-12-31 18:51 | DIAGNOSTIC IMAGING REPORT ---
LEFT TIBIA AND FIBULA 2 VIEWS CLINICAL HISTORY: Left leg pain and swelling. Erythema. FINDINGS: AP and lateral views of the left tibia and fibula are obtained. No prior studies are available for comparison at the time of dictation. The skeletal structures are osteopenic. No fracture is seen. The knee and ankle joints are grossly maintained. Soft tissue edema is noted in the left leg. No subcutaneous gas or radiodense foreign body is seen. IMPRESSION: Soft tissue swelling with no acute bony abnormality identified. Electronically signed by: Celso Resendiz M.D. 12/31/2016 6:50 PM Dictated Date/Time: 12/31/2016 6:49 PM
[2016-12-31] MEDS ORDERED: VNTHFA/IN INH (19:30)
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
[2016-12-31] MEDS ORDERED: NSS + 20MEQ KCL 1000ML 1,000 ML IV ONE (20:00)
[2016-12-31] MEDS ORDERED: ALBUT/IPRATROP 3MG/0.5MG NEB 3 ML VIAL INH PRN (20:00)
[2016-12-31] MEDS ORDERED: KETOROLAC TROMETHAMINE 30 MG/ML VIAL IV PRN (20:00)
[2016-12-31] MEDS ORDERED: IBUPROFEN 200 MG TAB PO PRN (20:00)
[2016-12-31] MEDS ORDERED: ONDANSETRON INJ 2 MG/ML 2 ML VIAL IV PRN (20:00)
--- NOTE | 2016-12-31 20:23 | EMERGENCY ROOM VISIT NOTE ---
History First contact with patient: 16:45 Chief Complaint: LEG PAIN,LEG INJURY Stated Complaint: RT LEG PAIN, FEVER History of Present Illness The patient is a 56 year old female who presents to the Emergency Room with complaints of severe left leg pain with swelling and redness. The patient reports feeling thirsty and not feeling well. The patient reports that she was at work around 1 PM when her leg started to feel itchy. After she scratched it , she reported weekly worsening pain. The patient reports a history of recurrent right lower extremity sialitis, and reports that this is the first time for her left leg. She was last admitted to our facility 2.5 months ago for right lower extremity sialitis. She rates her discomfort a 9 out of 10. She denies any recent injury to the leg. She reports that the skin on her legs is usually very dry. She has not been evaluated by an infectious disease clinic for her recurrent infections. The patient does report a prior history of deep vein thrombosis. Review of Systems HEENT: Denies dizziness, visual problems, hearing loss, tinnitus. Denies difficulty swallowing or oral lesions. PULMONARY: Denies cough, shortness of breath, sputum production or hemoptysis. CARDIOVASCULAR: Denies chest pain, palpitations, dyspnea on exertion, orthopnea or peripheral edema. GASTROINTESTINAL: Denies diarrhea, constipation, nausea, vomiting, or abdominal pain. GENITOURINARY: Denies dysuria, frequency, urgency or nocturia. NEUROLOGIC: Denies history of epilepsy, CVA, TIA or chronic headaches. MUSCULOSKELETAL: Denies history of joint tenderness/swelling. SKIN: See history of present illness for history of recurrent right lower extremity cellulitis. PSYCHIATRIC: Denies history of depression or mental illness. ENDOCRINE: Denies history of diabetes and the patient does report a history of hyperthyroidism. Past Medical/Surgical History Medical Problems: (1) Asthma (2) Cellulitis (3) History of DVT (deep vein thrombosis) (4) History of pelvic fracture (5) Hypothyroidism (6) Obesity (7) Viral illness Surgical Problems: (1) History of cholecystectomy Family History FH: diabetes mellitus FH: heart disease FHx: cancer FHx: gallbladder disease Social History Smoking Status: Never Smoker Alcohol Use: none Drug Use: none Marital Status: Occupation Status: employed Current/Historical Medications Scheduled Fluticasone Furoate (Inhalatio (Arnuity Ellipta), 1 PUFF INH DAILY Levothyroxine Sodium (Levothyroxine Sodium), 112 MCG PO DAILY Montelukast Sod (Montelukast Sodium), 10 MG PO HS Scheduled PRN Albuterol Hfa (Ventolin Hfa), 2-4 PUFFS INH Q4-6 HRS PRN for SOB/Wheezing Allergies Coded Allergies: Morphine (Verified Allergy, Unknown, BRADYCARDIA, 10/16/16) Physical Exam Vital Signs Date Time Temp Pulse Resp B/P (MAP) Pulse Ox O2 Delivery O2 Flow Rate FiO2 12/31/16 18:45 74 16 127/77 98 12/31/16 16:34 36.6 116 20 144/82 95 Room Air Physical Exam CONSTITUTIONAL: Morbidly obese female, alert and oriented X 3 with positive affect. The patient appears in moderately severe discomfort, and is constantly asking for something to drink. HEENT: Normocephalic, atraumatic. Pupils equal, round and reactive. NECK: Full active range of motion without discomfort. RESPIRATORY: Clear to auscultation bilaterally with no wheezing, crackles, rhonchi or stridor. CARDIOVASCULAR: Regular rate and rhythm with no murmurs, rubs or gallops. GASTROINTESTINAL: Bowel sounds present in all quadrants. Soft and nontender to palpation. MUSCULOSKELETAL: Examination of the left lower extremity shows notable anterior lateral mid leg erythema with significant tenderness to palpation. She has no focal tenderness through the gastrocnemius or posterior knee. Pedal pulses are intact. INTEGUMENTARY: As indicated in the previous section, the patient has skin changes to bilateral lower extremities with flaking skin. She also has a rash on bilateral feet. NEUROLOGIC: No focal neurologic deficits noted. Lower extremities are sensory intact. Medical Decision & Procedures ER Provider Diagnostic Interpretation: My interpretation of left leg x-rays does not show any acute fractures, radiopaque foreign bodies or evidence for osteomyelitis. Radiologist report is as follows: LEFT TIBIA AND FIBULA 2 VIEWS CLINICAL HISTORY: Left leg pain and swelling. Erythema. FINDINGS: AP and lateral views of the left tibia and fibula are obtained. No prior studies are available for comparison at the time of dictation. The skeletal structures are osteopenic. No fracture is seen. The knee and ankle joints are grossly maintained. Soft tissue edema is noted in the left leg. No subcutaneous gas or radiodense foreign body is seen. IMPRESSION: Soft tissue swelling with no acute bony abnormality identified. Venous ultrasound of the left lower extremity does not show any evidence for underlying deep vein thrombosis. Radiologist report is as follows: ULTRASOUND LEFT LOWER EXTREMITY VENOUS CLINICAL HISTORY: Left leg pain and swelling. COMPARISON STUDY: No priors. TECHNIQUE: Real-time, grayscale, and color Doppler sonography of the deep veins of the left lower extremity was performed from the inguinal crease to the calf. Compression and augmentation were utilized. FINDINGS: There is no sonographic evidence of deep venous thrombosis identified in the left lower extremity. The common femoral, superficial femoral, and popliteal veins are patent and normally compressible. The greater saphenous vein and the profunda femoris vein at the junction with the common femoral vein are clear. The visualized calf veins are patent. Mildly enlarged and benign-appearing left inguinal lymph nodes are likely on a reactive basis. IMPRESSION: There is no sonographic evidence of deep venous thrombosis identified in the left lower extremity. Laboratory Results 12/31/16 17:17 Red Blood Count 4.89, Mean Corpuscular Volume 90.0, Mean Corpuscular Hemoglobin 29.4, Mean Corpuscular Hemoglobin Concent 32.7, Mean Platelet Volume 9.1, Neutrophils (%) (Auto) 92.7, Lymphocytes (%) (Auto) 3.8, Monocytes (%) (Auto) 3.1, Eosinophils (%) (Auto) 0.1, Basophils (%) (Auto) 0.2, Neutrophils # (Auto) 10.60, Lymphocytes # (Auto) 0.44, Monocytes # (Auto) 0.36, Eosinophils # (Auto) 0.01, Basophils # (Auto) 0.02 12/31/16 17:17 Test 12/31/16 17:17 12/31/16 17:25 12/31/16 19:47 White Blood Count 11.44 K/uL (4.8-10.8) Red Blood Count 4.89 M/uL (4.2-5.4) Hemoglobin 14.4 g/dL (12.0-16.0) Hematocrit 44.0 % (37-47) Mean Corpuscular Volume 90.0 fL (80-100) Mean Corpuscular Hemoglobin 29.4 pg (25-34) Mean Corpuscular Hemoglobin Concent 32.7 g/dl (32-36) Platelet Count 252 K/uL (130-400) Mean Platelet Volume 9.1 fL (7.4-10.4) Neutrophils (%) (Auto) 92.7 % Lymphocytes (%) (Auto) 3.8 % Monocytes (%) (Auto) 3.1 % Eosinophils (%) (Auto) 0.1 % Basophils (%) (Auto) 0.2 % Neutrophils # (Auto) 10.60 K/uL (1.4-6.5) Lymphocytes # (Auto) 0.44 K/uL (1.2-3.4) Monocytes # (Auto) 0.36 K/uL (0.11-0.59) Eosinophils # (Auto) 0.01 K/uL (0-0.5) Basophils # (Auto) 0.02 K/uL (0-0.2) RDW Standard Deviation 46.7 fL (36.4-46.3) RDW Coefficient of Variation 14.2 % (11.5-14.5) Immature Granulocyte % (Auto) 0.1 % Immature Granulocyte # (Auto) 0.01 K/uL (0.00-0.02) Erythrocyte Sedimentation Rate 13 mm/hr (0-21) Anion Gap 8.0 mmol/L (3-11) Est Creatinine Clear Calc Drug Dose 103.7 ml/min Estimated GFR () 94.1 Estimated GFR (Non- 81.2 BUN/Creatinine Ratio 18.9 (10-20) Calcium Level 9.6 mg/dl (8.5-10.1) Magnesium Level 1.5 mg/dl (1.8-2.4) Total Bilirubin 0.8 mg/dl (0.2-1) Direct Bilirubin 0.2 mg/dl (0-0.2) Aspartate Amino Transf (AST/SGOT) 51 U/L (15-37) Alanine Aminotransferase (ALT/SGPT) 53 U/L (12-78) Alkaline Phosphatase 79 U/L (45-117) Total Creatine Kinase 83 U/L (26-192) C-Reactive Protein 1.18 mg/dl (0-0.29) Total Protein 8.0 gm/dl (6.4-8.2) Albumin 4.2 gm/dl (3.4-5.0) Bedside Lactic Acid Venous 2.26 mmol/L (0.90-1.70) The above labs were reviewed, showing a mild leukocytosis and left shift without bandemia. CRP is elevated with a normal sedimentation rate. Bedside lactic acid is 2.26. Magnesium is 1.5. Medications Administered Medications (Trade) Dose Ordered Sig/Ariadna Route Start Time Stop Time Status Last Admin Dose Admin Vancomycin HCl (Vancomycin 1gm/ 270ml Nss) 1 gm NOW STAT IV 12/31/16 16:53 12/31/16 16:58 DC 12/31/16 17:57 1 GM Ceftriaxone Sodium (Rocephin Inj) 1 gm NOW STAT IV 12/31/16 16:53 12/31/16 16:58 DC 12/31/16 17:22 1 GM Sodium Chloride 1,000 ml @ 999 mls/hr Q1H1M STAT IV 12/31/16 16:53 12/31/16 17:53 DC 12/31/16 17:22 999 MLS/HR Ondansetron HCl (Zofran Inj) 4 mg NOW STAT IV 12/31/16 16:53 12/31/16 16:58 DC 12/31/16 17:23 4 MG Hydromorphone HCl (Dilaudid Inj) 0.5 mg NOW STAT IV 12/31/16 16:53 12/31/16 16:58 DC 12/31/16 17:22 0.5 MG Procedure 1. IV hydration: The patient received a liter normal saline bolus 2. IV medications: The patient was initially administered Dilaudid 0.5 mg and Zofran 4 mg IVP, providing excellent pain relief. The patient was also administered vancomycin 1 g and Rocephin 1 g IV infusion. ED Course Patient history and physical exam were performed. Nurse's notes were reviewed. Vital signs were reviewed in triage and were normal. She is afebrile, normotensive and good O2 saturation on room air. Her pulse rate was 116 in triage. IV access was established, and labs were drawn, including blood cultures 2. The patient was hydrated with normal saline, and received IV Dilaudid and Zofran for pain. After blood cultures were drawn, the patient was administered vancomycin 1 g and Rocephin 1 g IV infusion. Review of labs shows a mild leukocytosis and left shift without bandemia. Lactic acid level is elevated. Magnesium is also slightly low. X-rays of the left leg, along with a venous ultrasound of the left lower extremity were normal. The case was further discussed with Dr. Silva, ED attending physician, who suggested hospice evaluation. The case was then discussed with Dr. Childers, [facility] hospitalist, who further evaluated the patient in the emergency department. Please see his dictation for further treatment and final disposition. Medical Decision Patient presents to emergency department for evaluation of quickly developing cellulitis of the left extremity. The patient has had several cases of cellulitis of the right lower extremity. Imaging studies today are not suggestive of osteomyelitis, deep vein thrombosis or underlying fracture. The patient does have an elevated lactic acid level with leukocytosis, suspicious for infectious etiology. Impression Primary Impression: Cellulitis of left leg Departure Information Referrals Wil Godinez M.D. (PCP) Patient Instructions My [facility]
[2016-12-31 21:39] VITALS: BP 125/77; PULSE 119; TEMP 37.5; O2SAT 90
[2016-12-31 21:50] VITALS: BP 125/77; PULSE 119; TEMP 37.5; O2SAT 90; Ht 165.1 cm; Wt 132.3 kg
[2016-12-31] MEDS ORDERED: DOXYCYCLINE IV 100 MG in DEXTROSE 5% 100ML 100 ML IV SCH (22:00)
[2016-12-31] MEDS: MONTELUKAST SOD 10 MG TAB PO SCH (22:18)
[2016-12-31] MEDS ORDERED: SODIUM CHLOR 0.45% + 20MEQ KCL 1,000 ML IV ONE (22:30)
[2016-12-31] MEDS: MAGNESIUM SULFATE 1GM / D5W 1 GM in PREMIXED IN D5W 100 ML IV SCH ×2 (22:45→23:49)
--- NOTE | 2016-12-31 23:05 | Progress Note ---
Progress Note Post Crystalloid Evaluation Date: Dec 31, 2016 Time: 19:45 (after initial eval in the ER by ER provider) Subjective painful L leg swelling no fever Physical Exam Vital Signs: Vital Signs Date Time Temp Pulse Resp B/P (MAP) Pulse Ox O2 Delivery O2 Flow Rate FiO2 12/31/16 21:39 37.5 119 18 125/77 (93) 90 Room Air Lungs: + decreased breath sounds Heart: regular rate, rhythm, + tachycardia Peripheral Pulse: Normal Skin: Unremarkable Assessment & Plan Presence of: SIRS Cellulitis, left lower extremity SIRS plus abn lactic acid level Cultures Doxycycline trial IVF, ff lactic acid
[2016-12-31 23:27] VITALS: BP 114/71; PULSE 102; TEMP 37.3; O2SAT 90
[2017-01-01] MEDS: TRAMADOL HCL 50 MG TAB PO PRN ×2 (03:16→16:05)
[2017-01-01] MEDS ORDERED: SODIUM CHLOR 0.45% + 20MEQ KCL 1,000 ML IV ONE (03:30)
[2017-01-01 04:04] LABS: BASO % 0.1 %; BASO ABS # 0.02 K/uL (0-0.2); COMPLETE YES; HEMATOCRIT 38.1 % (37-47); IG% 0.8 %; LYMPH % 2.3 %; MEAN CELL VOLUME 92.3 fL (80-100); MEAN CORPUSCULAR HEMOGLOBIN 30.3 pg (25-34); MEAN CORPUSCULAR HGB CONC 32.8 g/dl (32-36); MEAN PLATELET VOLUME 9.3 fL (7.4-10.4); MONO % 2.8 %; PLATELET COUNT 208 K/uL (130-400); RED BLOOD COUNT 4.13 M/uL (4.2-5.4); WHITE BLOOD COUNT 17.11 K/uL (4.8-10.8)
[2017-01-01 04:12] LABS: INR 1.1 (0.9-1.1); PROTHROMBIN TIME (PATIENT) 11.8 SECONDS (9.0-12.0)
[2017-01-01 04:22] LABS: BUN/CREATININE RATIO 16.3 (10-20); CALCIUM 8.2 mg/dl (8.5-10.1); CREATININE 0.86 mg/dl (0.60-1.20); MAGNESIUM 1.9 mg/dl (1.8-2.4); POTASSIUM 4.3 mmol/L (3.5-5.1)
[2017-01-01] MEDS: LEVOTHYROXINE 112 MCG TAB PO SCH (06:13)
[2017-01-01] MEDS ORDERED: VANCOMYCIN INJ 2,800 MG in SODIUM CHLORIDE 0.9% 500ML 500 ML IV ONE (06:30)
[2017-01-01 07:17] VITALS: BP 141/80; PULSE 91; TEMP 37; O2SAT 90
[2017-01-01] MEDS: SODIUM CHLORIDE 0.9% 1000ML 1,000 ML IV SCH ×2 (07:36→12:57)
[2017-01-01] MEDS: FLUTICASONE FUROATE INH SCH (07:41)
[2017-01-01] MEDS: ENOXAPARIN 40 MG/0.4 ML SYR SQ SCH (07:42)
[2017-01-01] MEDS ORDERED: NON-FORMULARY MEDICATION (Fluticasone Furoate (Inhalatio (Arnuity Ellipta) 1 PUFF) INH SCH (08:00)
[2017-01-01] MEDS ORDERED: VANCOMYCIN CONSULT ACTIVE PRN (09:00)
--- NOTE | 2017-01-01 14:38 | Pharmacy Progress Note ---
Pharmacy Abx Initial Consult Date of Service Jan 01, 2017. Pharmacy Dosing Scope Date of Consult: 01/01/17 Consultation requested by: Dr. Ann Pharmacy is consulted to initiate Vancomycin IV dosing therapy in an obese patient (BMI greater than 35kg/m2, BMI= 49kg/m2), order appropriate labs and adjust drug dose/frequency. Subjective The patient is a 56 year old female admitted on Dec 31, 2016 at 19:47. Objective Height (Feet): 5 Height (Inches): 5.00 Weight (Kilograms): 132.300 Vital Signs (Past 12Hrs) Vital Signs Past 12 Hours Date Time Temp Pulse Resp B/P (MAP) Pulse Ox O2 Delivery O2 Flow Rate FiO2 01/01/17 08:00 Room Air 01/01/17 07:17 37.0 91 18 141/80 (100) 90 Room Air Lab Results (24Hrs) Laboratory Tests (24 Hours) Test 12/31/16 17:17 01/01/17 03:55 01/01/17 12:03 C-Reactive Protein 1.18 mg/dl (0-0.29) H Erythrocyte Sedimentation Rate 13 mm/hr (0-21) Total Creatine Kinase 83 U/L (26-192) White Blood Count 17.11 K/uL (4.8-10.8) H Red Blood Count 4.13 M/uL (4.2-5.4) L Hemoglobin 12.5 g/dL (12.0-16.0) Hematocrit 38.1 % (37-47) Mean Corpuscular Volume 92.3 fL (80-100) Mean Corpuscular Hemoglobin 30.3 pg (25-34) Mean Corpuscular Hemoglobin Concent 32.8 g/dl (32-36) Platelet Count 208 K/uL (130-400) Mean Platelet Volume 9.3 fL (7.4-10.4) Neutrophils (%) (Auto) 94.0 % Lymphocytes (%) (Auto) 2.3 % Monocytes (%) (Auto) 2.8 % Eosinophils (%) (Auto) 0.0 % Basophils (%) (Auto) 0.1 % Neutrophils # (Auto) 16.08 K/uL (1.4-6.5) H Lymphocytes # (Auto) 0.40 K/uL (1.2-3.4) L Monocytes # (Auto) 0.48 K/uL (0.11-0.59) Eosinophils # (Auto) 0.00 K/uL (0-0.5) Basophils # (Auto) 0.02 K/uL (0-0.2) Lactic Acid Level 1.0 mmol/L (0.4-2.0) Micro Results Date/Time Source Procedure Growth Status 12/31/16 17:17 Blood Blood Culture - Preliminary Gram Positive Cocci Resulted 12/31/16 17:11 Blood Blood Culture - Preliminary Gram Positive Cocci Resulted Risk Factors for Resistance * Hospitalization for 48 hours or more within the past 90 days (September 2016) * Antimicrobial use within the last 90 days: Vancomycin for RLE cellulitis dosed by [facility] pharmacy consult service Assessment & Plan Assessment 56 year old obese (BMI greater than 35kg/m2, BMI= 49kg/m2) female admitted on . Plan Pharmacy has been consulted for treatment of confirmed bacteremia Vancomycin IV * Loading dose: 2800 mg (21 mg/kg) * Maintenance dose: 1500 mg IV (11 mg/kg) every 8 hours * Maintenance dose based on [facility] Vancomycin consult from September 2016 where the patient exhibited similar p'kinetic data. * Goal trough level for bacteremia : 15 to 20 mcg/mL * Trough level ordered for 01/02/17 ~30 minutes before the 1600 dose * A less than traditional dose has been selected due to likelihood of drug accumulation in obese patient. Pharmacy will continue to follow and will adjust dose/frequency as necessary. Thank you.
[2017-01-01 14:58] VITALS: BP 148/70; PULSE 89; TEMP 37.3; O2SAT 91
[2017-01-01] MEDS: VANCOMYCIN INJ 1,500 MG in SODIUM CHLORIDE 0.9% 500ML 500 ML IV SCH (15:57)
[2017-01-01] MEDS: MONTELUKAST SOD 10 MG TAB PO SCH (21:18)
[2017-01-01 23:05] VITALS: BP 140/71; PULSE 80; TEMP 36.5; O2SAT 89
--- NOTE | 2017-01-01 23:28 | Progress Note ---
Medicine Progress Note Date & Time of Visit: Jan 01, 2017 at 18:50 . Subjective Admitted last night with cellulitis of left lower extremity. No fever or chills. Still having some discomfort of the leg. No chest pain. No cough or shortness of breath. No nausea, vomiting, diarrhea. . Objective Last 8 Hrs Date Time Temp Pulse Resp B/P (MAP) Pulse Ox O2 Delivery O2 Flow Rate FiO2 01/01/17 23:05 36.5 80 16 140/71 (94) 89 Room Air 01/01/17 15:45 Room Air Physical Exam: General- no acute distress Lungs- clear Heart- RRR, III/ sys murmur at base Abdomen- + BS, soft, nontender Extremities- chronic venous stasis changes RLE; 3+ edema LLE with erythema, tenderness, warmth Neuro- alert . Laboratory Results: Last 24 Hours Test 01/01/17 03:55 01/01/17 12:03 White Blood Count 17.11 K/uL Red Blood Count 4.13 M/uL Hemoglobin 12.5 g/dL Hematocrit 38.1 % Mean Corpuscular Volume 92.3 fL Mean Corpuscular Hemoglobin 30.3 pg Mean Corpuscular Hemoglobin Concent 32.8 g/dl Platelet Count 208 K/uL Mean Platelet Volume 9.3 fL Neutrophils (%) (Auto) 94.0 % Lymphocytes (%) (Auto) 2.3 % Monocytes (%) (Auto) 2.8 % Eosinophils (%) (Auto) 0.0 % Basophils (%) (Auto) 0.1 % Neutrophils # (Auto) 16.08 K/uL Lymphocytes # (Auto) 0.40 K/uL Monocytes # (Auto) 0.48 K/uL Eosinophils # (Auto) 0.00 K/uL Basophils # (Auto) 0.02 K/uL RDW Standard Deviation 48.9 fL RDW Coefficient of Variation 14.4 % Immature Granulocyte % (Auto) 0.8 % Immature Granulocyte # (Auto) 0.13 K/uL Prothrombin Time 11.8 SECONDS Prothromb Time International Ratio 1.1 Sodium Level 137 mmol/L Potassium Level 4.3 mmol/L Chloride Level 103 mmol/L Carbon Dioxide Level 27 mmol/L Anion Gap 7.0 mmol/L Blood Urea Nitrogen 14 mg/dl Creatinine 0.86 mg/dl Est Creatinine Clear Calc Drug Dose 100.5 ml/min Estimated GFR () 87.5 Estimated GFR (Non- 75.5 BUN/Creatinine Ratio 16.3 Random Glucose 89 mg/dl Lactic Acid Level 2.2 mmol/L 1.0 mmol/L Calcium Level 8.2 mg/dl Magnesium Level 1.9 mg/dl Assessment & Plan SEPSIS Met criteria for sepsis per 2001 definition and current CMS guidelines. Leukocytosis, tachycardia, elevated lactate. Hemodynamically stable. Repeat lactate improved. Blood cultures obtained in ED and started on broad-spectrum antibiotic coverage with ceftriaxone and vancomycin. Source = cellulitis LLE as discussed below. CELLULITIS LLE Continue IV vancomycin and ceftriaxone pending culture results. May need outpatient IV antibiotics. Consult ID. HEART MURMUR Exam reveals III/ systolic murmur at base. Check echo. VTE PROPHYLAXIS / HISTORY DVT SQ enoxaparin. DISPOSITION Expected discharge to home. May possibly need outpatient IV antibiotic therapy. Family Medicine follow-up with Dr. Godinez. . Current Inpatient Medications: Current Inpatient Medications Medications (Trade) Dose Ordered Sig/Ariadna Route Start Time Stop Time Status Last Admin Dose Admin Enoxaparin Sodium (Lovenox Inj) 40 mg Q24H SQ 01/01/17 08:00 01/31/17 07:59 01/01/17 07:42 40 MG Acetaminophen (Tylenol Tab) 650 mg Q4H PRN PO 12/31/16 20:00 01/30/17 19:59 Ketorolac Tromethamine (Toradol Inj) 30 mg Q6H PRN IV 12/31/16 20:00 01/05/17 19:59 01/01/17 21:22 30 MG Ibuprofen (Advil Tab) 400 mg Q6H PRN PO 12/31/16 20:00 01/30/17 19:59 Tramadol HCl (Ultram Tab) not relieved ... Q6H PRN PO 12/31/16 20:00 01/30/17 19:59 01/01/17 16:05 50 MG Ondansetron HCl (Zofran Inj) 4 mg Q6H PRN IV 12/31/16 20:00 01/30/17 19:59 Levothyroxine Sodium (Synthroid Tab) 112 mcg DAILYBB PO 01/01/17 06:30 01/31/17 06:29 01/01/17 06:13 112 MCG Montelukast Sodium (Singulair Tab) 10 mg HS PO 12/31/16 21:00 01/30/17 20:59 01/01/17 21:18 10 MG Albuterol/ Ipratropium (Duoneb) 3 ml Q2H PRN INH 12/31/16 20:00 01/30/17 19:59 Fluticasone Furoate (Arnuity Ellipta) 100 mcg DAILY INH 01/01/17 08:00 01/31/17 07:59 01/01/17 07:41 100 MCG Vancomycin HCl (Consult) 1 ea UD PRN N/A 01/01/17 09:00 01/31/17 08:59 Vancomycin HCl 1500 mg/Sodium Chloride 530 ml @ 200 mls/hr Q8H IV 01/01/17 16:00 01/15/17 07:59 01/01/17 15:57 200 MLS/HR
[2017-01-02] MEDS: VANCOMYCIN INJ 1,500 MG in SODIUM CHLORIDE 0.9% 500ML 500 ML IV SCH ×3 (00:54→16:05)
[2017-01-02] MEDS: LEVOTHYROXINE 112 MCG TAB PO SCH (06:35)
[2017-01-02 07:22] VITALS: BP 140/80; PULSE 78; TEMP 36.7; O2SAT 94
[2017-01-02 07:31] LABS: HEMATOCRIT 34.3 % (37-47); MEAN CELL VOLUME 92.2 fL (80-100); MEAN CORPUSCULAR HEMOGLOBIN 29.3 pg (25-34); MEAN CORPUSCULAR HGB CONC 31.8 g/dl (32-36); MEAN PLATELET VOLUME 8.6 fL (7.4-10.4); PLATELET COUNT 167 K/uL (130-400); RED BLOOD COUNT 3.72 M/uL (4.2-5.4); WHITE BLOOD COUNT 8.19 K/uL (4.8-10.8)
[2017-01-02 07:58] LABS: BUN/CREATININE RATIO 17.4 (10-20); CALCIUM 8.1 mg/dl (8.5-10.1); CREATININE 0.78 mg/dl (0.60-1.20); POTASSIUM 3.9 mmol/L (3.5-5.1)
[2017-01-02] MEDS: ENOXAPARIN 40 MG/0.4 ML SYR SQ SCH (08:23)
[2017-01-02] MEDS: FLUTICASONE FUROATE INH SCH (08:24)
--- NOTE | 2017-01-02 08:49 | Medical Consult ---
Consultation Date of Consultation: Jan 02, 2017. Attending Physician: Hugo Osborn MD History of Present Illness pt admitted with rle cellulitis, has had in left leg in past. had fevers/pain, and redness rle. subjective fevers at home, none since admission. started on vanco. blood cultures obtained in ER, 2/2 sets gpc. murmur noted on admission, no history of murmur, echo done this am, results pending. states sweats overnight, today feeling better. leg pain better but still with erythema and swelling, some pain but better. able to walk without difficulty. eating breakfast on my exam. no cp, sob, n/v/d/abd pain, all remaining ros reviewed and are negative. 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) Allergies Coded Allergies: Morphine (Verified Allergy, Unknown, BRADYCARDIA, 10/16/16) Current Inpatient Medications Current Inpatient Medications Medications (Trade) Dose Ordered Sig/Ariadna Route Start Time Stop Time Status Last Admin Dose Admin Enoxaparin Sodium (Lovenox Inj) 40 mg Q24H SQ 01/01/17 08:00 01/31/17 07:59 01/02/17 08:23 40 MG Acetaminophen (Tylenol Tab) 650 mg Q4H PRN PO 12/31/16 20:00 01/30/17 19:59 Ketorolac Tromethamine (Toradol Inj) 30 mg Q6H PRN IV 12/31/16 20:00 01/05/17 19:59 01/01/17 21:22 30 MG Ibuprofen (Advil Tab) 400 mg Q6H PRN PO 12/31/16 20:00 01/30/17 19:59 Tramadol HCl (Ultram Tab) not relieved ... Q6H PRN PO 12/31/16 20:00 01/30/17 19:59 01/01/17 16:05 50 MG Ondansetron HCl (Zofran Inj) 4 mg Q6H PRN IV 12/31/16 20:00 01/30/17 19:59 Levothyroxine Sodium (Synthroid Tab) 112 mcg DAILYBB PO 01/01/17 06:30 01/31/17 06:29 01/02/17 06:35 112 MCG Montelukast Sodium (Singulair Tab) 10 mg HS PO 12/31/16 21:00 01/30/17 20:59 01/01/17 21:18 10 MG Albuterol/ Ipratropium (Duoneb) 3 ml Q2H PRN INH 12/31/16 20:00 01/30/17 19:59 Fluticasone Furoate (Arnuity Ellipta) 100 mcg DAILY INH 01/01/17 08:00 01/31/17 07:59 01/02/17 08:24 100 MCG Vancomycin HCl (Consult) 1 ea UD PRN N/A 01/01/17 09:00 01/31/17 08:59 Vancomycin HCl 1500 mg/Sodium Chloride 530 ml @ 200 mls/hr Q8H IV 01/01/17 16:00 01/15/17 07:59 01/02/17 08:24 200 MLS/HR Physical Exam Date Time Temp Pulse Resp B/P (MAP) Pulse Ox O2 Delivery O2 Flow Rate FiO2 01/02/17 07:22 36.7 78 18 140/80 (100) 94 Room Air 01/02/17 00:00 Room Air 01/01/17 23:05 36.5 80 16 140/71 (94) 89 Room Air 01/01/17 20:00 Room Air 01/01/17 15:45 Room Air 01/01/17 14:58 37.3 89 20 148/70 (96) 91 Room Air General Appearance: WD/WN, no apparent distress Head: normocephalic, atraumatic Eyes: normal inspection, EOMI ENT: pharynx normal Neck: supple Respiratory/Chest: lungs clear, normal breath sounds, no respiratory distress Cardiovascular: regular rate, rhythm, no edema, no murmur Abdomen/GI: non tender, soft Extremities/Musculoskelatal: + calf tenderness, + inflammation, + swelling, + pertinent finding (erythema, warmth, tenderness, edema rle to mid calf, no drainage, no bleeding, no open wounds) Neurologic/Psych: alert, oriented x 3 Skin: normal color Laboratory Results Item Value Date Time Blood Culture - Preliminary Resulted 12/31/161716 Blood Gram Positive Cocci Blood Culture - Preliminary Resulted 12/31/16 171 Blood Gram Positive Cocci Last 24 Hours Test 01/01/17 12:03 01/02/17 07:19 Lactic Acid Level 1.0 mmol/L White Blood Count 8.19 K/uL Red Blood Count 3.72 M/uL Hemoglobin 10.9 g/dL Hematocrit 34.3 % Mean Corpuscular Volume 92.2 fL Mean Corpuscular Hemoglobin 29.3 pg Mean Corpuscular Hemoglobin Concent 31.8 g/dl RDW Standard Deviation 51.0 fL RDW Coefficient of Variation 15.1 % Platelet Count 167 K/uL Mean Platelet Volume 8.6 fL Sodium Level 137 mmol/L Potassium Level 3.9 mmol/L Chloride Level 107 mmol/L Carbon Dioxide Level 24 mmol/L Anion Gap 6.0 mmol/L Blood Urea Nitrogen 14 mg/dl Creatinine 0.78 mg/dl Est Creatinine Clear Calc Drug Dose 110.8 ml/min Estimated GFR () 98.5 Estimated GFR (Non- 85.0 BUN/Creatinine Ratio 17.4 Random Glucose 127 mg/dl Calcium Level 8.1 mg/dl Assessment & Plan (1) Gram positive septicemia Assessment & Plan: continue vanco, repeat blood cultures, echo done this am, await results. additional recs base culture data (2) Leukocytosis Assessment & Plan: improving (3) Cellulitis of left leg Status: Acute
[2017-01-02] MEDS: TRAMADOL HCL 50 MG TAB PO PRN (11:22)
--- NOTE | 2017-01-02 13:50 | ECHOCARDIOGRAM REPORT ---
*NOTICE TO RECEIVING REPUBLICAN AGENCY This information is strictly Confidential and protected under [place] law. [place] law prohibits you from making any further disclosure of this information unless further disclosure is expressly permitted by the written consent of the person to whom it pertains or is authorized by law. A general authorization for the release of medical or other information is not sufficient for this purpose. Hospital accepts no responsibility if the information is made available to any other person, INCLUDING THE PATIENT. Interpretation Summary * Name: GALLO HINES Study Date: 01/02/2017 07:38 AM BP: 140/71 mmHg * Patient Location: [facility] HR: 77 * : 1960 (M/d/yyyy) Gender: Female Height: 65 in * Age: 56 yrs Weight: 291 lb * Ordering Physician: ANAHI GASTELUM MD * Referring Physician: Self, Referred * Performed By: Maddy Garzon RCS * * Reason For Study: MURMUR * BSA: 2.3 m2 * -- Conclusions -- * There is mild concentric left ventricular hypertrophy. * The left ventricular wall motion is normal. * The LV Ejection Fraction = 55-60%. * The LV The right ventricle is normal in size and function. * The left atrial size is normal. * Right atrial size is normal. * There is mild tricuspid regurgitation. * The atrial septum is aneurysmal. * A patent foramen ovale is present. * Injection of contrast documented a moderate right to left interatrial shunt at rest. * Mild to moderate pulmonary hypertension is present. * The pulmonary artery systolic pressure is calculated to be 50 mm Hg, assuming a right atrial pressure of 8 mm Hg. Procedure Details * A complete two-dimensional transthoracic echocardiogram was performed (2D, M-mode, Doppler and color flow Doppler). * A saline contrast injection was performed to assess for cardiac shunting. * The injection was performed through an intravenous line in the right arm. * The attending nurse who injected the saline contrast was ILSA DE ANDA, RN. * A total of 10 cc of agitated saline was given. Left Ventricle * The left ventricle is normal in size. * There is mild concentric left ventricular hypertrophy. * Left ventricular systolic function is normal. * Ejection Fraction = 55-60%. * The left ventricular wall motion is normal. Right Ventricle * The right ventricle is normal in size and function. * The right ventricular systolic function is normal as assessed by tricuspid annular plane systolic excursion (TAPSE) (normal >1.5 cm). Atria * The left atrial size is normal. * Right atrial size is normal. * The atrial septum is aneurysmal. * A patent foramen ovale is present. * Injection of contrast documented an interatrial shunt. Mitral Valve * The mitral valve is normal. * There is no mitral valve stenosis. * Significant mitral regurgitation is absent. Tricuspid Valve * The tricuspid valve is normal. * There is no tricuspid stenosis. * There is mild tricuspid regurgitation. * Mild to moderate pulmonary hypertension is present. The pulmonary artery systolic pressure is calculated to be 50 mm Hg, assuming a right atrial pressure of 8 mm Hg. Aortic Valve * The aortic valve is trileaflet. * Aortic stenosis is absent. * There is no significant aortic regurgitation. Pulmonic Valve * The pulmonary valve is not well seen, but the Doppler examination is normal without significant regurgitation or stenosis. Great Vessels * The aortic root and proximal ascending aorta are normal sized. Pericardium/Pleural * There is no pericardial effusion. Great Vessels * The inferior vena cava diameter is mildly dilated and collapses less than 50% with inspiration consistent with an intermediate right atrial pressure of 8 mm Hg. Left Ventricular Diastolic Function * Grade I diastolic dysfunction, (abnormal relaxation pattern). MMode 2D Measurements and Calculations IVSd 1.4 cm IVSs 2.1 cm LVIDd 5.0 cm LVIDs 3.4 cm LVPWd 1.3 cm LVPWs 1.2 cm IVS/LVPW 1.1 FS 31.6 % EDV(Teich) 119.5 ml ESV(Teich) 48.6 ml EF(Teich) 59.3 % EDV(cubed) 126.7 ml ESV(cubed) 40.6 ml EF(cubed) 68.0 % % IVS thick 47.5 % % LVPW thick -10.62 % LV mass(C)d 286.2 grams LV mass(C)dI 123.4 grams/m\S\2 LV mass(C)s 220.7 grams LV mass(C)sI 95.1 grams/m\S\2 SV(Teich) 70.9 ml SI(Teich) 30.5 ml/m\S\2 SV(cubed) 86.2 ml SI(cubed) 37.1 ml/m\S\2 Ao root diam 3.2 cm Ao root area 7.8 cm\S\2 ACS 1.8 cm LA dimension 3.9 cm LA/Ao 1.3 LVOT diam 2.0 cm LVOT area 3.2 cm\S\2 LVAd ap4 33.2 cm\S\2 LVLd ap4 8.7 cm EDV(MOD-sp4) 106.9 ml EDV(sp4-el) 107.0 ml LVAs ap4 20.9 cm\S\2 LVLs ap4 7.3 cm ESV(MOD-sp4) 52.7 ml ESV(sp4-el) 50.8 ml EF(MOD-sp4) 50.7 % EF(sp4-el) 52.5 % LVAd ap2 26.9 cm\S\2 LVLd ap2 7.0 cm EDV(MOD-sp2) 86.8 ml EDV(sp2-el) 87.8 ml LVAs ap2 17.0 cm\S\2 LVLs ap2 6.2 cm ESV(MOD-sp2) 42.4 ml ESV(sp2-el) 39.9 ml EF(MOD-sp2) 51.1 % EF(sp2-el) 54.5 % LVLd %diff -25.13 % EDV(MOD-bp) 104.3 ml LVLs %diff -17.95 % ESV(MOD-bp) 48.3 ml EF(MOD-bp) 53.7 % SV(MOD-sp4) 54.3 ml SI(MOD-sp4) 23.4 ml/m\S\2 SV(MOD-sp2) 44.4 ml SI(MOD-sp2) 19.1 ml/m\S\2 SV(MOD-bp) 56.0 ml SI(MOD-bp) 24.1 ml/m\S\2 SV(sp4-el) 56.2 ml SI(sp4-el) 24.2 ml/m\S\2 SV(sp2-el) 47.8 ml SI(sp2-el) 20.6 ml/m\S\2 Doppler Measurements and Calculations MV E max antonieta 118.6 cm/sec MV A max antonieta 98.7 cm/sec MV E/A 1.2 MV P1/2t max antonieta 105.9 cm/sec MV P1/2t 66.6 msec MVA(P1/2t) 3.3 cm\S\2 MV dec slope 466.1 cm/sec\S\2 MV dec time 0.20 sec Ao V2 max 160.9 cm/sec Ao max PG 10.4 mmHg Ao max PG (full) 4.5 mmHg ROSALIND(V,A) 2.4 cm\S\2 ROSALIND(V,D) 2.4 cm\S\2 LV V1 max PG 5.8 mmHg LV V1 max 120.8 cm/sec PA V2 max 117.7 cm/sec PA max PG 5.5 mmHg TR max antonieta 297.6 cm/sec
[2017-01-02 15:15] VITALS: BP 146/81; PULSE 88; TEMP 36.9; O2SAT 92
[2017-01-02] MEDS ORDERED: VANCOMYCIN TROUGH SCH (15:30)
--- NOTE | 2017-01-02 16:50 | Progress Note ---
Internal Med Progress Note Date of Service: Jan 02, 2017. Provider Documentation: SUBJECTIVE: Patient is sitting in the recliner with legs elevated. Feeling better but still has discomfort in the left lower leg. Remains afebrile. No other new change or complaint. OBJECTIVE: Vital Signs-as noted below Examination: General- Alert/Awake and is in no acute distress Neck: Supple, Midline trachea, No JVD. Lungs- B/L clear to auscultation Heart- RRR, III/ sys murmur at base Abdomen- + BS, soft, nontender Extremities- chronic venous stasis changes RLE; 3+ edema LLE with erythema, tenderness, warmth Neuro- alert Lab data as noted below. ASSESSMENT & PLAN: Echocardiogram (01/02/2017) There is mild concentric left ventricular hypertrophy. The left ventricular wall motion is normal. The LV Ejection Fraction = 55-60%. The LV The right ventricle is normal in size and function. The left atrial size is normal. Right atrial size is normal. There is mild tricuspid regurgitation. The atrial septum is aneurysmal. A patent foramen ovale is present. Injection of contrast documented a moderate right to left interatrial shunt at rest. Mild to moderate pulmonary hypertension is present. The pulmonary artery systolic pressure is calculated to be 50 mm Hg, assuming a right atrial pressure of 8 mm Hg. Sepsis: Met criteria for sepsis per 2001 definition and current CMS guidelines upon admission. .Leukocytosis, tachycardia, elevated lactate. Hemodynamically stable now.Repeat lactate improved. -Blood cultures obtained in ED grew Group B Strep -Repeat Blood cultures are negative so far -Started and continued on Vancomycin. Source = cellulitis LLE as discussed below. Cellulitis Left Lower Leg: Clinically improving. -Continue IV vancomycin Heart Murmur: Exam reveals III/ systolic murmur at base. -Reviewed Echocardiogram and discussed with dr. Lopez -Started Aspirin 81 mg daily VTE Prophylaxis: SQ enoxaparin. Disposition: Expected discharge to home. May possibly need outpatient IV antibiotic therapy. Family Medicine follow-up with Dr. Godinez. Vital Signs: Date Time Temp Pulse Resp B/P (MAP) Pulse Ox O2 Delivery O2 Flow Rate FiO2 01/02/17 16:00 Room Air 01/02/17 15:15 36.9 88 18 146/81 (102) 92 Room Air 01/02/17 08:30 Room Air 01/02/17 07:22 36.7 78 18 140/80 (100) 94 Room Air 01/02/17 00:00 Room Air 01/01/17 23:05 36.5 80 16 140/71 (94) 89 Room Air 01/01/17 20:00 Room Air Lab Results: Results Past 24 Hours Test 01/02/17 07:19 01/02/17 15:26 Range/Units White Blood Count 8.19 4.8-10.8 K/uL Red Blood Count 3.72 4.2-5.4 M/uL Hemoglobin 10.9 12.0-16.0 g/dL Hematocrit 34.3 37-47 % Mean Corpuscular Volume 92.2 80-100 fL Mean Corpuscular Hemoglobin 29.3 25-34 pg Mean Corpuscular Hemoglobin Concent 31.8 32-36 g/dl RDW Standard Deviation 51.0 36.4-46.3 fL RDW Coefficient of Variation 15.1 11.5-14.5 % Platelet Count 167 130-400 K/uL Mean Platelet Volume 8.6 7.4-10.4 fL Sodium Level 137 136-145 mmol/L Potassium Level 3.9 3.5-5.1 mmol/L Chloride Level 107 98-107 mmol/L Carbon Dioxide Level 24 21-32 mmol/L Anion Gap 6.0 3-11 mmol/L Blood Urea Nitrogen 14 7-18 mg/dl Creatinine 0.78 0.60-1.20 mg/dl Est Creatinine Clear Calc Drug Dose 110.8 ml/min Estimated GFR () 98.5 Estimated GFR (Non- 85.0 BUN/Creatinine Ratio 17.4 10-20 Random Glucose 127 70-99 mg/dl Calcium Level 8.1 8.5-10.1 mg/dl Vancomycin Level Trough 17.3 SEE COMMENT mcg/ml Microbiology Results 01/02/17 Blood Culture, Received Pending 01/02/17 Blood Culture, Received Pending
--- NOTE | 2017-01-02 17:00 | Pharmacy Progress Note ---
Pharmacy Abx Dose Short Note Date of Service Jan 02, 2017. Assessment & Plan Assessment 56 year old female receiving IV Vancomycin for treatment of bacteremia Day # 2 of antimicrobial therapy. Plan Vancomycin * Trough level of 17.3 mcg/mL is therapeutic * Continue dose of 1500 mg IV every 8 hours * Goal trough level for bacteremia : 15 to 20 mcg/mL * Trough level ordered for: 01/04/17 @ 0730 (to make sure Vancomycin stays within therapeutic range) Pharmacy will continue to follow and will adjust dose/frequency as necessary. Thank you.
[2017-01-02] MEDS: MONTELUKAST SOD 10 MG TAB PO SCH (22:15)
[2017-01-02 23:20] VITALS: BP 128/72; PULSE 79; TEMP 37.4; O2SAT 93
[2017-01-03] MEDS: VANCOMYCIN INJ 1,500 MG in SODIUM CHLORIDE 0.9% 500ML 500 ML IV SCH ×2 (00:11→08:09)
[2017-01-03] MEDS: LEVOTHYROXINE 112 MCG TAB PO SCH (06:20)
[2017-01-03 06:23] LABS: BASO % 0.1 %; BASO ABS # 0.01 K/uL (0-0.2); COMPLETE YES; EOS % 2.5 %; HEMATOCRIT 34.5 % (37-47); IG% 0.4 %; LYMPH % 13.7 %; LYMPH ABS # 0.97 K/uL (1.2-3.4); MEAN CELL VOLUME 92.7 fL (80-100); MEAN CORPUSCULAR HEMOGLOBIN 29.8 pg (25-34); MEAN CORPUSCULAR HGB CONC 32.2 g/dl (32-36); MONO % 4.7 %; NEUT % 78.6 %; PLATELET COUNT 208 K/uL (130-400); RED BLOOD COUNT 3.72 M/uL (4.2-5.4); WHITE BLOOD COUNT 7.06 K/uL (4.8-10.8)
[2017-01-03 07:09] LABS: BUN/CREATININE RATIO 10.7 (10-20); CALCIUM 8.2 mg/dl (8.5-10.1); CREATININE 0.68 mg/dl (0.60-1.20)
[2017-01-03 07:22] VITALS: BP 126/73; PULSE 75; TEMP 36.7; O2SAT 92
[2017-01-03] MEDS: FLUTICASONE FUROATE INH SCH (08:09)
[2017-01-03] MEDS: ENOXAPARIN 40 MG/0.4 ML SYR SQ SCH (08:10)
--- NOTE | 2017-01-03 11:32 | Progress Note ---
Subjective Date of Service: Jan 03, 2017. Subjective Pt evaluation today including: conversation w/ patient, physical exam, chart review, lab review pt seen in follow up, oob to chair still with some pain in lle but improving. still with erythema. no f/c. overall feeling better, tolerating abx, no overnight events. initial blood culture with gbs, repeat pending. echo negative veg. all remaining ros reviewed and are negative. wbc improving. Problem List Medical Problems: (1) Bronchitis Status: Acute (2) Cellulitis Status: Acute (3) Cellulitis of left leg Status: Acute (4) Headache Status: Acute (5) Lactic acidosis Status: Acute (6) Sepsis Status: Acute Objective Vital Signs Date Time Temp Pulse Resp B/P (MAP) Pulse Ox O2 Delivery O2 Flow Rate FiO2 01/03/17 09:48 Room Air 01/03/17 07:22 36.7 75 19 126/73 (90) 92 Room Air 01/03/17 00:00 Room Air 01/02/17 23:20 37.4 79 24 128/72 (90) 93 Room Air 01/02/17 20:00 Room Air 01/02/17 16:00 Room Air 01/02/17 15:15 36.9 88 18 146/81 (102) 92 Room Air Physical Exam General Appearance: WD/WN, no apparent distress Eyes: normal inspection, EOMI ENT: pharynx normal Neck: supple Respiratory/Chest: lungs clear, normal breath sounds, no respiratory distress Cardiovascular: regular rate, rhythm, no edema Abdomen: non tender, soft Extremities: + calf tenderness, + inflammation, + pertinent finding (lle still with erythema, essentially unchanged) Neurologic/Psychiatric: alert, oriented x 3 Skin: normal color Laboratory Results Item Value Date Time Blood Culture - Final Complete 12/31/16 1711 Blood Group B Beta Strep Blood Culture - Final Complete 12/31/16 1717 Blood Group B Beta Strep Last 24 Hours Test 01/02/17 15:26 01/03/17 06:15 Vancomycin Level Trough 17.3 mcg/ml White Blood Count 7.06 K/uL Red Blood Count 3.72 M/uL Hemoglobin 11.1 g/dL Hematocrit 34.5 % Mean Corpuscular Volume 92.7 fL Mean Corpuscular Hemoglobin 29.8 pg Mean Corpuscular Hemoglobin Concent 32.2 g/dl Platelet Count 208 K/uL Mean Platelet Volume 9.0 fL Neutrophils (%) (Auto) 78.6 % Lymphocytes (%) (Auto) 13.7 % Monocytes (%) (Auto) 4.7 % Eosinophils (%) (Auto) 2.5 % Basophils (%) (Auto) 0.1 % Neutrophils # (Auto) 5.54 K/uL Lymphocytes # (Auto) 0.97 K/uL Monocytes # (Auto) 0.33 K/uL Eosinophils # (Auto) 0.18 K/uL Basophils # (Auto) 0.01 K/uL RDW Standard Deviation 51.2 fL RDW Coefficient of Variation 14.9 % Immature Granulocyte % (Auto) 0.4 % Immature Granulocyte # (Auto) 0.03 K/uL Sodium Level 141 mmol/L Potassium Level 4.0 mmol/L Chloride Level 110 mmol/L Carbon Dioxide Level 26 mmol/L Anion Gap 5.0 mmol/L Blood Urea Nitrogen 7 mg/dl Creatinine 0.68 mg/dl Est Creatinine Clear Calc Drug Dose 127.0 ml/min Estimated GFR () 113.3 Estimated GFR (Non- 97.8 BUN/Creatinine Ratio 10.7 Random Glucose 100 mg/dl Lactic Acid Level 0.9 mmol/L Calcium Level 8.2 mg/dl Assessment and Plan (1) Septicemia due to group B Streptococcus Assessment & Plan: will change to unasyn and follow repeat cultures. hopefully can d/c on po augmentin to complete course. (2) Leukocytosis (3) Cellulitis of left leg
--- NOTE | 2017-01-03 12:29 | Progress Note ---
Internal Med Progress Note Date of Service: Jan 03, 2017. Provider Documentation: SUBJECTIVE: Patient is sitting in the recliner with legs elevated. Feeling better but still has discomfort in the left lower leg. Remains afebrile. No other new change or complaint. OBJECTIVE: Vital Signs-as noted below Examination: General- Alert/Awake and is in no acute distress Neck: Supple, Midline trachea, No JVD. Lungs- B/L clear to auscultation Heart- RRR, III/ sys murmur at base Abdomen- + BS, soft, nontender Extremities- chronic venous stasis changes RLE; 3+ edema LLE with erythema, tenderness, warmth Neuro- alert Lab data as noted below. ASSESSMENT & PLAN: Echocardiogram (01/02/2017) There is mild concentric left ventricular hypertrophy. The left ventricular wall motion is normal. The LV Ejection Fraction = 55-60%. The LV The right ventricle is normal in size and function. The left atrial size is normal. Right atrial size is normal. There is mild tricuspid regurgitation. The atrial septum is aneurysmal. A patent foramen ovale is present. Injection of contrast documented a moderate right to left interatrial shunt at rest. Mild to moderate pulmonary hypertension is present. The pulmonary artery systolic pressure is calculated to be 50 mm Hg, assuming a right atrial pressure of 8 mm Hg. Sepsis: Met criteria for sepsis per 2001 definition and current CMS guidelines upon admission. .Leukocytosis, tachycardia, elevated lactate. Hemodynamically stable now.Repeat lactate improved. -Blood cultures obtained in ED grew Group B Strep -Repeat Blood cultures are negative so far -Started on Vancomycin & has been changed to Unasyn by ID now. Source = cellulitis LLE as discussed below. Cellulitis Left Lower Leg: Clinically improving. -Continue IV vancomycin Heart Murmur: Exam reveals III/ systolic murmur at base. -Reviewed Echocardiogram and discussed with dr. Lopez -Started Aspirin 81 mg daily VTE Prophylaxis: SQ enoxaparin. Disposition: Expected discharge to home in 1-2 days. May possibly need outpatient IV antibiotic therapy. Family Medicine follow-up with Dr. Godinez. Vital Signs: Date Time Temp Pulse Resp B/P (MAP) Pulse Ox O2 Delivery O2 Flow Rate FiO2 01/03/17 09:48 Room Air 01/03/17 07:22 36.7 75 19 126/73 (90) 92 Room Air 01/03/17 00:00 Room Air 01/02/17 23:20 37.4 79 24 128/72 (90) 93 Room Air 01/02/17 20:00 Room Air 01/02/17 16:00 Room Air 01/02/17 15:15 36.9 88 18 146/81 (102) 92 Room Air Lab Results: Results Past 24 Hours Test 01/02/17 15:26 01/03/17 06:15 Range/Units Vancomycin Level Trough 17.3 SEE COMMENT mcg/ml White Blood Count 7.06 4.8-10.8 K/uL Red Blood Count 3.72 4.2-5.4 M/uL Hemoglobin 11.1 12.0-16.0 g/dL Hematocrit 34.5 37-47 % Mean Corpuscular Volume 92.7 80-100 fL Mean Corpuscular Hemoglobin 29.8 25-34 pg Mean Corpuscular Hemoglobin Concent 32.2 32-36 g/dl Platelet Count 208 130-400 K/uL Mean Platelet Volume 9.0 7.4-10.4 fL Neutrophils (%) (Auto) 78.6 % Lymphocytes (%) (Auto) 13.7 % Monocytes (%) (Auto) 4.7 % Eosinophils (%) (Auto) 2.5 % Basophils (%) (Auto) 0.1 % Neutrophils # (Auto) 5.54 1.4-6.5 K/uL Lymphocytes # (Auto) 0.97 1.2-3.4 K/uL Monocytes # (Auto) 0.33 0.11-0.59 K/uL Eosinophils # (Auto) 0.18 0-0.5 K/uL Basophils # (Auto) 0.01 0-0.2 K/uL RDW Standard Deviation 51.2 36.4-46.3 fL RDW Coefficient of Variation 14.9 11.5-14.5 % Immature Granulocyte % (Auto) 0.4 % Immature Granulocyte # (Auto) 0.03 0.00-0.02 K/uL Sodium Level 141 136-145 mmol/L Potassium Level 4.0 3.5-5.1 mmol/L Chloride Level 110 98-107 mmol/L Carbon Dioxide Level 26 21-32 mmol/L Anion Gap 5.0 3-11 mmol/L Blood Urea Nitrogen 7 7-18 mg/dl Creatinine 0.68 0.60-1.20 mg/dl Est Creatinine Clear Calc Drug Dose 127.0 ml/min Estimated GFR () 113.3 Estimated GFR (Non- 97.8 BUN/Creatinine Ratio 10.7 10-20 Random Glucose 100 70-99 mg/dl Lactic Acid Level 0.9 0.4-2.0 mmol/L Calcium Level 8.2 8.5-10.1 mg/dl
[2017-01-03] MEDS: AMPICILLIN/SULBACTAM SOD INJ 3,000 MG in SODIUM CHLORIDE 0.9% 100ML 100 ML IV SCH ×2 (13:49→20:30)
[2017-01-03 16:05] VITALS: BP 159/91; PULSE 82; TEMP 37.7; O2SAT 93
[2017-01-03] MEDS: MONTELUKAST SOD 10 MG TAB PO SCH (20:27)
[2017-01-03] MEDS: ACETAMINOPHEN 325 MG TAB PO PRN (20:37)
[2017-01-04] VITALS: BP 129/79; PULSE 69; TEMP 36.8; O2SAT 91
[2017-01-04] MEDS: AMPICILLIN/SULBACTAM SOD INJ 3,000 MG in SODIUM CHLORIDE 0.9% 100ML 100 ML IV SCH ×4 (02:10→21:16)
[2017-01-04] MEDS: LEVOTHYROXINE 112 MCG TAB PO SCH (06:09)
[2017-01-04 07:26] VITALS: BP 153/84; PULSE 70; TEMP 37.2; O2SAT 93
[2017-01-04] MEDS ORDERED: VANCOMYCIN TROUGH ONE (07:30)
[2017-01-04] MEDS: ACETAMINOPHEN 325 MG TAB PO PRN ×2 (07:44→13:46)
[2017-01-04] MEDS: ENOXAPARIN 40 MG/0.4 ML SYR SQ SCH (07:46)
[2017-01-04] MEDS: FLUTICASONE FUROATE INH SCH (07:46)
[2017-01-04 08:01] LABS: BASO % 0.3 %; BASO ABS # 0.02 K/uL (0-0.2); COMPLETE YES; EOS % 3.5 %; HEMATOCRIT 35.1 % (37-47); IG% 0.5 %; LYMPH % 14.8 %; MEAN CELL VOLUME 92.6 fL (80-100); MEAN CORPUSCULAR HEMOGLOBIN 28.8 pg (25-34); MEAN CORPUSCULAR HGB CONC 31.1 g/dl (32-36); MEAN PLATELET VOLUME 8.9 fL (7.4-10.4); MONO % 8.5 %; NEUT % 72.4 %; PLATELET COUNT 250 K/uL (130-400); RED BLOOD COUNT 3.79 M/uL (4.2-5.4); WHITE BLOOD COUNT 7.44 K/uL (4.8-10.8)
--- NOTE | 2017-01-04 11:08 | Progress Note ---
Internal Med Progress Note Date of Service: Jan 04, 2017. Provider Documentation: SUBJECTIVE: Patient is sitting in the recliner with legs elevated. Feeling better but still has discomfort in the left lower leg. Remains afebrile. Has been able to ambulate around in room and hallway. No other new change or complaint. OBJECTIVE: Vital Signs-as noted below Examination: General- Alert/Awake and is in no acute distress Neck: Supple, Midline trachea, No JVD. Lungs- B/L clear to auscultation Heart- RRR, III/ sys murmur at base Abdomen- + BS, soft, nontender Extremities- chronic venous stasis changes RLE; 3+ edema LLE with erythema which is resolving, less tenderness & warmth Neuro- alert Lab data as noted below. ASSESSMENT & PLAN: Echocardiogram (01/02/2017) There is mild concentric left ventricular hypertrophy. The left ventricular wall motion is normal. The LV Ejection Fraction = 55-60%. The LV The right ventricle is normal in size and function. The left atrial size is normal. Right atrial size is normal. There is mild tricuspid regurgitation. The atrial septum is aneurysmal. A patent foramen ovale is present. Injection of contrast documented a moderate right to left interatrial shunt at rest. Mild to moderate pulmonary hypertension is present. The pulmonary artery systolic pressure is calculated to be 50 mm Hg, assuming a right atrial pressure of 8 mm Hg. Sepsis: Met criteria for sepsis per 2001 definition and current CMS guidelines upon admission. .Leukocytosis, tachycardia, elevated lactate. Hemodynamically stable now.Repeat lactate improved. -Blood cultures obtained in ED grew Group B Strep -Repeat Blood cultures are negative so far -Started on Vancomycin initially & has been changed to Unasyn by ID now.Will be switched to Augmentin upon discharge. Source = cellulitis LLE as discussed below. Cellulitis Left Lower Leg: Clinically improving. -Continue IV vancomycin Heart Murmur: Exam reveals III/ systolic murmur at base. -Reviewed Echocardiogram and discussed with Dr. Lopez -Started Aspirin 81 mg daily which will be continued upon discharge. VTE Prophylaxis: SQ enoxaparin. Disposition: Expected discharge to home on 01/05/2017. Family Medicine follow-up with Dr. Godinez. Vital Signs: Date Time Temp Pulse Resp B/P (MAP) Pulse Ox O2 Delivery O2 Flow Rate FiO2 01/04/17 08:30 Room Air 01/04/17 07:26 37.2 70 18 153/84 (107) 93 Room Air 01/04/17 00:00 36.8 69 20 129/79 (96) 91 Room Air 01/04/17 00:00 Room Air 01/03/17 16:18 Room Air 01/03/17 16:05 37.7 82 18 159/91 (113) 93 Room Air Lab Results: Results Past 24 Hours Test 01/04/17 07:28 Range/Units White Blood Count 7.44 4.8-10.8 K/uL Red Blood Count 3.79 4.2-5.4 M/uL Hemoglobin 10.9 12.0-16.0 g/dL Hematocrit 35.1 37-47 % Mean Corpuscular Volume 92.6 80-100 fL Mean Corpuscular Hemoglobin 28.8 25-34 pg Mean Corpuscular Hemoglobin Concent 31.1 32-36 g/dl Platelet Count 250 130-400 K/uL Mean Platelet Volume 8.9 7.4-10.4 fL Neutrophils (%) (Auto) 72.4 % Lymphocytes (%) (Auto) 14.8 % Monocytes (%) (Auto) 8.5 % Eosinophils (%) (Auto) 3.5 % Basophils (%) (Auto) 0.3 % Neutrophils # (Auto) 5.39 1.4-6.5 K/uL Lymphocytes # (Auto) 1.10 1.2-3.4 K/uL Monocytes # (Auto) 0.63 0.11-0.59 K/uL Eosinophils # (Auto) 0.26 0-0.5 K/uL Basophils # (Auto) 0.02 0-0.2 K/uL RDW Standard Deviation 50.6 36.4-46.3 fL RDW Coefficient of Variation 14.9 11.5-14.5 % Immature Granulocyte % (Auto) 0.5 % Immature Granulocyte # (Auto) 0.04 0.00-0.02 K/uL
--- NOTE | 2017-01-04 14:25 | Progress Note ---
Subjective Date of Service: Jan 04, 2017. Subjective Pt evaluation today including: conversation w/ patient, physical exam, chart review, lab review pt without complaint, oob to chair. less pain in leg, planning to ambulate in [place] today. no f/c, isolated low grade yesterday, 37.7, asymptomatic. tolerating abx. eating well. repeat blood cultures negative. all remaining ros reviewed and are negative. Problem List Medical Problems: (1) Bronchitis Status: Acute (2) Cellulitis Status: Acute (3) Cellulitis of left leg Status: Acute (4) Headache Status: Acute (5) Lactic acidosis Status: Acute (6) Sepsis Status: Acute Objective Vital Signs Date Time Temp Pulse Resp B/P (MAP) Pulse Ox O2 Delivery O2 Flow Rate FiO2 01/04/17 08:30 Room Air 01/04/17 07:26 37.2 70 18 153/84 (107) 93 Room Air 01/04/17 00:00 36.8 69 20 129/79 (96) 91 Room Air 01/04/17 00:00 Room Air 01/03/17 16:18 Room Air 01/03/17 16:05 37.7 82 18 159/91 (113) 93 Room Air Physical Exam General Appearance: WD/WN, no apparent distress Eyes: normal inspection, PERRL, EOMI ENT: pharynx normal Neck: supple Respiratory/Chest: lungs clear, normal breath sounds, no respiratory distress Cardiovascular: regular rate, rhythm Abdomen: soft Extremities: + calf tenderness, + inflammation, + swelling Neurologic/Psychiatric: alert, oriented x 3 Skin: normal color Comments: lle improving, slight erythema remains, overall much improved, no open lesions. still operator batch or continuous to touch, min warmth, improved. Laboratory Results Item Value Date Time Blood Culture - Final Complete 12/31/161710 Blood Group B Beta Strep Blood Culture - Final Complete 12/31/161716 Blood Group B Beta Strep Blood Culture - Preliminary Resulted 01/02/17 0930 Blood NO GROWTH TO DATE. Blood Culture - Preliminary Resulted 01/02/17 0938 Blood NO GROWTH TO DATE. Last 24 Hours Test 01/04/17 07:28 White Blood Count 7.44 K/uL Red Blood Count 3.79 M/uL Hemoglobin 10.9 g/dL Hematocrit 35.1 % Mean Corpuscular Volume 92.6 fL Mean Corpuscular Hemoglobin 28.8 pg Mean Corpuscular Hemoglobin Concent 31.1 g/dl Platelet Count 250 K/uL Mean Platelet Volume 8.9 fL Neutrophils (%) (Auto) 72.4 % Lymphocytes (%) (Auto) 14.8 % Monocytes (%) (Auto) 8.5 % Eosinophils (%) (Auto) 3.5 % Basophils (%) (Auto) 0.3 % Neutrophils # (Auto) 5.39 K/uL Lymphocytes # (Auto) 1.10 K/uL Monocytes # (Auto) 0.63 K/uL Eosinophils # (Auto) 0.26 K/uL Basophils # (Auto) 0.02 K/uL RDW Standard Deviation 50.6 fL RDW Coefficient of Variation 14.9 % Immature Granulocyte % (Auto) 0.5 % Immature Granulocyte # (Auto) 0.04 K/uL Assessment and Plan (1) Septicemia due to group B Streptococcus Assessment & Plan: pt can continue on unasyn for now, upon d/c suggest change to po augmentin, 14 days from first negative culture, stop 01/16. keep leg elevated. ok for d/c when medically stable. (2) Leukocytosis (3) Cellulitis of left leg
[2017-01-04 14:41] VITALS: BP 158/89; PULSE 72; TEMP 36.7; O2SAT 95
[2017-01-04] MEDS: MONTELUKAST SOD 10 MG TAB PO SCH (21:13)
[2017-01-04] MEDS: TRAMADOL HCL 50 MG TAB PO PRN (21:13)
[2017-01-04 23:55] VITALS: BP 121/74; PULSE 70; TEMP 37; O2SAT 96
[2017-01-05] MEDS: AMPICILLIN/SULBACTAM SOD INJ 3,000 MG in SODIUM CHLORIDE 0.9% 100ML 100 ML IV SCH ×3 (01:47→13:48)
[2017-01-05] MEDS: LEVOTHYROXINE 112 MCG TAB PO SCH (06:18)
[2017-01-05] MEDS: ACETAMINOPHEN 325 MG TAB PO PRN (06:21)
[2017-01-05 07:19] VITALS: BP 108/73; PULSE 71; TEMP 36.9; O2SAT 93
[2017-01-05] MEDS: FLUTICASONE FUROATE INH SCH (08:06)
[2017-01-05] MEDS: ENOXAPARIN 40 MG/0.4 ML SYR SQ SCH (08:06)
--- NOTE | 2017-01-05 13:26 | Progress Note ---
Internal Med Progress Note Date of Service: Jan 05, 2017. Provider Documentation: SUBJECTIVE: Patient is sitting in the recliner with legs elevated. Feeling better but still has some discomfort in the left lower leg. Remains afebrile. Has been able to ambulate around in room and hallway. Pain in the leg is much better. No other new change or complaint. OBJECTIVE: Vital Signs-as noted below Examination: General- Alert/Awake and is in no acute distress Neck: Supple, Midline trachea, No JVD. Lungs- B/L clear to auscultation Heart- RRR, III/ sys murmur at base Abdomen- + BS, soft, nontender Extremities- chronic venous stasis changes RLE; 2+ edema LLE with decreased erythema which is resolving, less tenderness & warmth Neuro- alert Lab data as noted below. ASSESSMENT & PLAN: Echocardiogram (01/02/2017) There is mild concentric left ventricular hypertrophy. The left ventricular wall motion is normal. The LV Ejection Fraction = 55-60%. The LV The right ventricle is normal in size and function. The left atrial size is normal. Right atrial size is normal. There is mild tricuspid regurgitation. The atrial septum is aneurysmal. A patent foramen ovale is present. Injection of contrast documented a moderate right to left interatrial shunt at rest. Mild to moderate pulmonary hypertension is present. The pulmonary artery systolic pressure is calculated to be 50 mm Hg, assuming a right atrial pressure of 8 mm Hg. Sepsis: Met criteria for sepsis per 2001 definition and current CMS guidelines upon admission. .Leukocytosis, tachycardia, elevated lactate. Hemodynamically stable now.Repeat lactate improved. -Blood cultures obtained in ED grew Group B Strep -Repeat Blood cultures are negative so far -Started on Vancomycin initially & has been changed to Unasyn by ID now.Will be switched to Augmentin upon discharge. Source = cellulitis LLE as discussed below. Cellulitis Left Lower Leg: Clinically improving. -Continue IV Unasyn. Heart Murmur: Exam reveals III/ systolic murmur at base. -Reviewed Echocardiogram and discussed with Dr. Lopez -Started Aspirin 81 mg daily which will be continued upon discharge. VTE Prophylaxis: SQ enoxaparin. Disposition: Expected discharge to home later today. Family Medicine follow-up with Dr. Godinez on 01/12/2017 @ 9.45 AM. Vital Signs: Date Time Temp Pulse Resp B/P (MAP) Pulse Ox O2 Delivery O2 Flow Rate FiO2 01/05/17 10:07 Room Air 01/05/17 07:19 36.9 71 18 108/73 (85) 93 Room Air 01/05/17 00:00 Room Air 01/04/17 23:55 37.0 70 20 121/74 (90) 96 Room Air 01/04/17 15:45 Room Air 01/04/17 14:41 36.7 72 20 158/89 (112) 95 Room Air
[2017-01-05] MEDS ORDERED: AMOX875T PO (13:27)
--- NOTE | 2017-01-05 13:29 | Discharge Instructions ---
Discharge Instructions Date of Service Jan 05, 2017. Admission Reason for Admission: Cellulitis Discharge Discharge Diagnosis / Problem: Cellulitis left Lower Extremity Discharge Goals Goal(s): Decrease discomfort, Improve function, Increase independence, Improve disease control, Learn about illness, Diagnostic testing, Prevent Disease Progression Activity Recommendations Activity Limitations: resume your previous activity (As Tolerated.) Lifting Limitations: gradually increase as tolerated Exercise/Sports Limitations: as tolerated May Resume Sexual Activity: when tolerated Shower/Bathe: no limitations Driving or Machine Use: Afeter getting clearance from PCP . Instructions / Follow-Up Instructions / Follow-Up 1. Take all the medications as directed. 2. 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 3. Avoid continuous standing & walking. 4. Rest intermittently and keep the left leg elevated. Family Medicine follow-up with Dr. Godinez on 01/12/2017 @ 9.45 AM. Current Hospital Diet Patient's current hospital diet: Regular Diet Discharge Diet Recommended Diet: Regular Diet Pending Studies Studies pending at discharge: no Medical Emergencies . Who to Call and When: Medical Emergencies: If at any time you feel your situation is an emergency, please call 911 immediately. . Non-Emergent Contact Non-Emergency issues call your: Primary Care Provider . . "Provider Documentation" section prepared by Hugo Osborn. . VTE Core Measure Inpt VTE Proph given/why not?: Enoxaparin (Lovenox)SQ
[2017-01-05] MEDS ORDERED: ASPI-428 PO ×2 (13:31→13:33)
--- NOTE | 2017-01-05 13:31 | Discharge Summary ---
Discharge Summary Date of Service Jan 05, 2017. Discharge Summary Admission Date: Dec 31, 2016 at 19:47 Discharge Date: Jan 05, 2017 Discharge Disposition: Home Principal Diagnosis: Cellulitis Left Lower Leg Secondary Diagnoses/Problems: Hypothyroidism Procedures: Echocardiogram Vaccinations: NONE Consultations: Infectious Disease Pending Studies/Follow-Up: NONE Medication Reconciliation New Medications: Amoxicillin & Pot Clavulanate (Augmentin 875-125 mg) 1 Tab Tab 875 MG PO BID, #20 TAB Aspirin (Ecotrin Low Strength) 81 Mg Tab 1 TAB PO DAILY for 90 Days, #90 TAB 3 Refills Continued Medications: Albuterol Hfa (Ventolin Hfa) 200 Puffs/97047 Mcg Aers 2-4 PUFFS INH Q4-6 HRS PRN for SOB/Wheezing, INHALER Fluticasone Furoate (Inhalatio (Arnuity Ellipta) 100 Mcg/Act Inh 1 PUFF INH DAILY Levothyroxine Sodium (Levothyroxine Sodium) 112 Mcg Tab 112 MCG PO DAILY Montelukast Sod (Montelukast Sodium) 10 Mg Tab 10 MG PO HS Admission Information HPI (per Admitting provider): Recent confinement September 2016 for right lower extremity cellulitis. Cultures negative. Patient discharged on clindamycin. Patient was at work today when she noted painful left leg swelling. Leg a little itchy, she may have scratched it. Patient wasn't feeling well, chills. No chest pain or shortness of breath. At the emergency room, patient received vancomycin and ceftriaxone for cellulitis. Physical Exam (per Admitting): General Appearance: + obese, + pertinent finding (slightly anxious) Head: normocephalic Eyes: normal inspection Neck: + pertinent finding (short) Respiratory/Chest: + decreased breath sounds Cardiovascular: + tachycardia Abdomen/GI: soft Extremities/Musculoskelatal: + pertinent finding (tender warm left leg) Skin: normal color Hospital Course Echocardiogram (01/02/2017) There is mild concentric left ventricular hypertrophy. The left ventricular wall motion is normal. The LV Ejection Fraction = 55-60%. The LV The right ventricle is normal in size and function. The left atrial size is normal. Right atrial size is normal. There is mild tricuspid regurgitation. The atrial septum is aneurysmal. A patent foramen ovale is present. Injection of contrast documented a moderate right to left interatrial shunt at rest. Mild to moderate pulmonary hypertension is present. The pulmonary artery systolic pressure is calculated to be 50 mm Hg, assuming a right atrial pressure of 8 mm Hg. Sepsis: Met criteria for sepsis per 2001 definition and current CMS guidelines upon admission. .Leukocytosis, tachycardia, elevated lactate. Hemodynamically stable now.Repeat lactate improved. -Blood cultures obtained in ED grew Group B Strep -Repeat Blood cultures are negative so far -Started on Vancomycin initially & has been changed to Unasyn by ID now.Will be switched to Augmentin upon discharge. Source = cellulitis LLE as discussed below. Cellulitis Left Lower Leg: Clinically improving. -Continue IV Unasyn. Heart Murmur: Exam reveals III/ systolic murmur at base. -Reviewed Echocardiogram and discussed with Dr. Lopez -Started Aspirin 81 mg daily which will be continued upon discharge. VTE Prophylaxis: SQ enoxaparin. Disposition: Expected discharge to home later today. Family Medicine follow-up with Dr. Godinez on 01/12/2017 @ 9.45 AM. Total time spent on discharge = 37 minutes This includes examination of the patient, discharge planning, medication reconciliation, and communication with other providers. Discharge Instructions Discharge Goals Goal(s): Decrease discomfort, Improve function, Increase independence, Improve disease control, Learn about illness, Diagnostic testing, Prevent Disease Progression Activity Recommendations Activity Limitations: resume your previous activity (As Tolerated.) Lifting Limitations: gradually increase as tolerated Exercise/Sports Limitations: as tolerated May Resume Sexual Activity: when tolerated Shower/Bathe: no limitations Driving or Machine Use: Afeter getting clearance from PCP . Instructions / Follow-Up Instructions / Follow-Up 1. Take all the medications as directed. 2. 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 3. Avoid continuous standing & walking. 4. Rest intermittently and keep the left leg elevated. Family Medicine follow-up with Dr. Godinez on 01/12/2017 @ 9.45 AM. Current Hospital Diet Patient's current hospital diet: Regular Diet Discharge Diet Recommended Diet: Regular Diet Additional Copies To Wil Godinez M.D.
[2017-01-05 13:44] VITALS: BP 108/73; PULSE 71; TEMP 36.9; O2SAT 93
[2017-01-17] MEDS ORDERED: AMOX875T PO (10:46)
== END 2017-01-05 14:30 | disposition home or self-care (01) | DRG 872 ==
LOC: C.EDB 16:30 → C.4E 19:47 → ENRESERV 20:07 → C.4E 21:36
PROVIDERS: ADMIT Hospitalist; ATTEND Emergency Medicine
DX: A40.1 Sepsis due to streptococcus, group B (principal); L03.116 Cellulitis of left lower limb; Z68.42 Body mass index [BMI] 45.0-49.9, adult; J45.909 Unspecified asthma, uncomplicated; E03.9 Hypothyroidism, unspecified; E66.9 Obesity, unspecified; R01.1 Cardiac murmur, unspecified; I87.8 Other specified disorders of veins; Z79.899 Other long term (current) drug therapy; Z86.718 Personal history of other venous thrombosis and embolism; Z90.49 Acquired absence of other specified parts of digestive tract; Z87.891 Personal history of nicotine dependence; Z88.8 Allergy status to other drugs, medicaments and biological substances; Z83.3 Family history of diabetes mellitus; Z82.49 Family history of ischemic heart disease and other diseases of the circulatory system; Z80.9 Family history of malignant neoplasm, unspecified; Z83.79 Family history of other diseases of the digestive system

== ENCOUNTER 2017-01-14 09:50 | Inpatient (IN) | payer OTHER ==
[~2017-01-14] VITALS: Ht 165.1 cm; Wt 125.0 kg
[~2017-01-14 09:50] MED LIST changes: +AMOX875T PO; +ASPI-428 PO; +FLUT1INH3 INH; -NAPR500T3 PO; +SNG10 PO; +VNTHFA/IN INH
[2017-01-14] MEDS ORDERED: CEFTRIAXONE SOD INJ 1 GM ADDVIAL IV STA (10:03)
[2017-01-14] MEDS ORDERED: CLIN300C2 PO (10:15)
[2017-01-14 10:46] LABS: BASO % 0.4 %; BASO ABS # 0.03 K/uL (0-0.2); COMPLETE YES; EOS % 2.7 %; HEMATOCRIT 43.6 % (37-47); IG% 0.2 %; LYMPH % 18.3 %; LYMPH ABS # 1.56 K/uL (1.2-3.4); MEAN CORPUSCULAR HEMOGLOBIN 28.6 pg (25-34); MEAN CORPUSCULAR HGB CONC 31.4 g/dl (32-36); MEAN PLATELET VOLUME 8.7 fL (7.4-10.4); MONO % 6.5 %; NEUT % 71.9 %; PLATELET COUNT 446 K/uL (130-400); RED BLOOD COUNT 4.79 M/uL (4.2-5.4); WHITE BLOOD COUNT 8.51 K/uL (4.8-10.8)
[2017-01-14 11:02] LABS: BUN/CREATININE RATIO 17.6 (10-20); CREATININE 0.83 mg/dl (0.60-1.20); POTASSIUM 4.3 mmol/L (3.5-5.1)
[2017-01-14 12:13] VITALS: O2SAT 95; Ht 165.1 cm; Wt 125.0 kg
[2017-01-14] MEDS ORDERED: ALUMINUM/MAGNESIUM/SIMETH (MAALOX MAX) 30 ML UDC PO PRN (12:15)
[2017-01-14] MEDS ORDERED: ALBUTEROL HFA 8 GM INHALER INH PRN (12:15)
[2017-01-14] MEDS ORDERED: ONDANSETRON INJ 2 MG/ML 2 ML VIAL IV PRN (12:15)
[2017-01-14] MEDS ORDERED: POLYETHYLENE (MIRALAX) 17 GM PACK PO PRN (12:15)
[2017-01-14] MEDS ORDERED: MAGNESIUM HYDROXIDE SUSP 30 ML UDC PO PRN (12:15)
[2017-01-14] MEDS ORDERED: ACETAMINOPHEN 325 MG TAB PO PRN (12:15)
[2017-01-14] MEDS ORDERED: KETOROLAC TROMETHAMINE 30 MG/ML VIAL IV STA (12:23)
--- NOTE | 2017-01-14 12:27 | History and Physical ---
History & Physical Date & Time of Service: Jan 14, 2017 at 12:20 Chief Complaint: Left Leg Pain Primary Care Physician: Wil Godinez M.D. History of Present Illness Source: patient, clinic records, hospital records This is a 56 year old female with a PMH of obesity, asthma, hypothyroid, venous stasis dermatitis and recurrent cellulitis of bilateral lower extremities; patient was recently in the hospital in early December with sepsis secondary to cellulitis of L LE, discharged on January 05 - was discharged on Augmentin. Blood cultures obtained at that time indicated a group b strep sensitive to ampicillin. She saw her primary care physician on January 12 with left leg pain and redness; antibiotics were changed to clindamycin; unfortunately, the group b strep grown during previous admission was resistant to clindamycin. She presents today with worsening pain. Denies fevers/chills, denies nausea/vomiting /diarrhea. Past Medical/Surgical History Medical Problems: (1) Asthma Status: Chronic (2) History of DVT (deep vein thrombosis) Status: Chronic (3) History of pelvic fracture Permanent Comment: 2* 2012 Status: Resolved (4) Hypothyroidism Status: Chronic (5) Obesity Status: Chronic Surgical Problems: (1) History of cholecystectomy Status: Resolved Family History FH: diabetes mellitus FH: heart disease FHx: cancer FHx: gallbladder disease Social History Smoking Status: Former Smoker Drug Use: none Marital Status: Housing status: lives with significant other Occupational Status: employed, other Immunizations History of Influenza Vaccine: Yes Influenza Vaccine Date: Apr 06, 2016 History of Tetanus Vaccine?: Yes Tetanus Immunization Date: Feb 24, 2013 History of Pneumococcal: Yes Pneumococcal Date: Mar 19, 2013 Multi-Drug Resistant Organisms History of MDRO: No Allergies Coded Allergies: Morphine (Verified Allergy, Unknown, BRADYCARDIA, 01/14/17) Home Medications Scheduled Aspirin (Ecotrin Low Strength), 1 TAB PO DAILY Clindamycin Hcl (Cleocin), 300 MG PO QID Fluticasone Furoate (Inhalatio (Arnuity Ellipta), 1 PUFF INH DAILY Levothyroxine Sodium (Levothyroxine Sodium), 112 MCG PO DAILY Montelukast Sod (Montelukast Sodium), 10 MG PO HS Scheduled PRN Albuterol Hfa (Ventolin Hfa), 2-4 PUFFS INH Q4-6 HRS PRN for SOB/Wheezing Review of Systems Constitutional: No fever, No chills, No sweats, No weakness, No fatigue Respiratory: No cough, No sputum, No shortness of breath Cardiovascular: + edema, No chest pain, No palpitations Abdomen: No pain, No nausea, No vomiting, No diarrhea Musculoskeletal: + joint pain, + muscle pain (LLE) Genitourinary - Female: No dysuria, No urinary frequency, No urinary urgency, No urinary incontinence, No urinary retention, No hematuria Neurologic: No weakness, No vertigo, No balance problems Psychiatric: No depression symptoms, No anxiety, No insomnia Hematologic / Lymphatic: No abnormal bleeding/bruising Integumentary: + color change (LLE) Allergic / Immunologic: No environmental allergies, No seasonal allergies Physical Exam Vital Signs Date Time Temp Pulse Resp B/P (MAP) Pulse Ox O2 Delivery O2 Flow Rate FiO2 01/14/17 11:51 76 16 168/94 95 Room Air 01/14/17 09:52 36.5 82 20 178/103 94 Room Air General Appearance: no apparent distress, + obese Head: normocephalic, atraumatic Eyes: normal inspection Respiratory/Chest: chest non-tender, lungs clear, normal breath sounds, no respiratory distress, no accessory muscle use Cardiovascular: regular rate, rhythm, no murmur Abdomen/GI: normal bowel sounds, non tender, soft Back: no muscle spasm Extremities/Musculoskelatal: + pertinent finding (LLE with swelling, edematous , erythematous, warm to touch, skin tightening, painful to palpation) Neurologic/Psych: no motor/sensory deficits, alert, normal mood/affect Skin: normal color Lymphatic: no adenopathy Diagnostics Laboratory Results Results Past 24 Hours Test 01/14/17 10:25 Range/Units White Blood Count 8.51 4.8-10.8 K/uL Red Blood Count 4.79 4.2-5.4 M/uL Hemoglobin 13.7 12.0-16.0 g/dL Hematocrit 43.6 37-47 % Mean Corpuscular Volume 91.0 80-100 fL Mean Corpuscular Hemoglobin 28.6 25-34 pg Mean Corpuscular Hemoglobin Concent 31.4 32-36 g/dl Platelet Count 446 130-400 K/uL Mean Platelet Volume 8.7 7.4-10.4 fL Neutrophils (%) (Auto) 71.9 % Lymphocytes (%) (Auto) 18.3 % Monocytes (%) (Auto) 6.5 % Eosinophils (%) (Auto) 2.7 % Basophils (%) (Auto) 0.4 % Neutrophils # (Auto) 6.12 1.4-6.5 K/uL Lymphocytes # (Auto) 1.56 1.2-3.4 K/uL Monocytes # (Auto) 0.55 0.11-0.59 K/uL Eosinophils # (Auto) 0.23 0-0.5 K/uL Basophils # (Auto) 0.03 0-0.2 K/uL RDW Standard Deviation 46.0 36.4-46.3 fL RDW Coefficient of Variation 13.9 11.5-14.5 % Immature Granulocyte % (Auto) 0.2 % Immature Granulocyte # (Auto) 0.02 0.00-0.02 K/uL Sodium Level 139 136-145 mmol/L Potassium Level 4.3 3.5-5.1 mmol/L Chloride Level 104 98-107 mmol/L Carbon Dioxide Level 30 21-32 mmol/L Anion Gap 5.0 3-11 mmol/L Blood Urea Nitrogen 15 7-18 mg/dl Creatinine 0.83 0.60-1.20 mg/dl Est Creatinine Clear Calc Drug Dose 100.6 ml/min Estimated GFR () 91.4 Estimated GFR (Non- 78.8 BUN/Creatinine Ratio 17.6 10-20 Random Glucose 98 70-99 mg/dl Calcium Level 10.0 8.5-10.1 mg/dl Microbiology Results 01/14/17 Blood Culture, Received Pending 01/14/17 Blood Culture, Received Pending Impression Assessment and Plan This is a 56 year old female with a PMH of obesity, asthma, hypothyroid, venous stasis dermatitis and recurrent cellulitis of bilateral lower extremities presents with L LE Cellulitis L LE Cellulitis hx. recurrent cellulitis of both lower extremities was admitted here in early December with sepsis secondary to L LE cellulitis discharged on Augmentin, but cellulitis recurred and not completely resolved agree with continue Rocephin for now elevate lower extremity blood cultures pending ID consult pending Asthma continue home inhalers Hypothyroid continue Synthroid DVT ppx Lovenox FULL CODE VTE Prophylaxis VTE Risk Assessment Done? Y/N: Yes Risk Level: High
[2017-01-14 13:13] VITALS: BP 147/84; PULSE 77; TEMP 36.5; O2SAT 95
[2017-01-14] MEDS ORDERED: CHLORTHALIDONE 25 MG TAB PO ONE (13:30)
[2017-01-14] MEDS: ENOXAPARIN 40 MG/0.4 ML SYR SQ SCH (14:39)
[2017-01-14 15:42] VITALS: BP 155/89; PULSE 79; TEMP 36.7; O2SAT 92
--- NOTE | 2017-01-14 15:45 | EMERGENCY ROOM VISIT NOTE ---
History Report prepared by Farideh: Constance Rankin Under the Supervision of: Dr. Anirudh Contreras M.D. First contact with patient: 09:54 Chief Complaint: LEG PAIN,LEG INJURY Stated Complaint: LEFT LEG PAIN History of Present Illness The patient is a 56 year old female who presents to the Emergency Room with complaints of a persistent infection to her left leg that began two weeks ago. She currently rates her discomfort as an 8/10 in severity. The patient states that she was recently evaluated in the emergency department and the hospital for a cellulitis infection to her left leg. She states that she was discharged on Augmentin and her infection seemed to be starting to clear up. The patient states that she saw her PCP on Sunday and he did not like the way her infection looked and placed her on Clindamycin. She states that she was instructed to come to the emergency department if the infection did not resolve in a few days. The patient denies any fevers, but states that she has been taking Ibuprofen. Source of History: patient Onset: two weeks ago Position: leg (left) Symptom Intensity: 8/10 Quality: other (infectio) Timing: other (persistent) Associated Symptoms: No fevers Review of Systems See HPI for pertinent positives & negatives. A total of 10 systems reviewed and were otherwise negative. Past Medical & Surgical Medical Problems: (1) Asthma (2) Cellulitis (3) Gram positive septicemia (4) History of DVT (deep vein thrombosis) (5) History of pelvic fracture (6) Hypothyroidism (7) Leukocytosis (8) Obesity (9) Septicemia due to group B Streptococcus (10) Venous stasis dermatitis (11) Viral illness Surgical Problems: (1) History of cholecystectomy Family History FH: diabetes mellitus FH: heart disease FHx: cancer FHx: gallbladder disease Social History Smoking Status: Former Smoker Alcohol Use: none Drug Use: none Marital Status: Occupation Status: employed, other Current/Historical Medications Scheduled Aspirin (Ecotrin Low Strength), 1 TAB PO DAILY Clindamycin Hcl (Cleocin), 300 MG PO QID Fluticasone Furoate (Inhalatio (Arnuity Ellipta), 1 PUFF INH DAILY Levothyroxine Sodium (Levothyroxine Sodium), 112 MCG PO DAILY Montelukast Sod (Montelukast Sodium), 10 MG PO HS Scheduled PRN Albuterol Hfa (Ventolin Hfa), 2-4 PUFFS INH Q4-6 HRS PRN for SOB/Wheezing Allergies Coded Allergies: Morphine (Verified Allergy, Unknown, BRADYCARDIA, 01/14/17) Physical Exam Vital Signs Date Time Temp Pulse Resp B/P (MAP) Pulse Ox O2 Delivery O2 Flow Rate FiO2 01/14/17 11:51 76 16 168/94 95 Room Air 01/14/17 09:52 36.5 82 20 178/103 94 Room Air Physical Exam Constitutional: Vital signs reviewed. Eyes: Pupils are equal round reactive to light. Conjunctiva are noninjected. ENT: Pharynx is clear without erythema or exudate. Mucous membranes are moist. Neck supple without meningeal signs. Respiratory: Clear to auscultation bilaterally. Breath sounds are equal bilaterally. Cardiovascular: Regular rate and rhythm. No rubs or gallops. GI: Soft, nondistended and nontender. Bowel sounds are present. Musculoskeletal: Erythema and increased warmth to the left lower leg, palpable distal pulses. Integumentary: No cyanosis. Neurological: The patient is awake and alert. No focal deficits. Psychiatric: Normal affect. Medical Decision & Procedures Laboratory Results 01/14/17 10:25 Red Blood Count 4.79, Mean Corpuscular Volume 91.0, Mean Corpuscular Hemoglobin 28.6, Mean Corpuscular Hemoglobin Concent 31.4, Mean Platelet Volume 8.7, Neutrophils (%) (Auto) 71.9, Lymphocytes (%) (Auto) 18.3, Monocytes (%) (Auto) 6.5, Eosinophils (%) (Auto) 2.7, Basophils (%) (Auto) 0.4, Neutrophils # (Auto) 6.12, Lymphocytes # (Auto) 1.56, Monocytes # (Auto) 0.55, Eosinophils # (Auto) 0.23, Basophils # (Auto) 0.03 01/14/17 10:25 Test 01/14/17 10:25 White Blood Count 8.51 K/uL (4.8-10.8) Red Blood Count 4.79 M/uL (4.2-5.4) Hemoglobin 13.7 g/dL (12.0-16.0) Hematocrit 43.6 % (37-47) Mean Corpuscular Volume 91.0 fL (80-100) Mean Corpuscular Hemoglobin 28.6 pg (25-34) Mean Corpuscular Hemoglobin Concent 31.4 g/dl (32-36) Platelet Count 446 K/uL (130-400) Mean Platelet Volume 8.7 fL (7.4-10.4) Neutrophils (%) (Auto) 71.9 % Lymphocytes (%) (Auto) 18.3 % Monocytes (%) (Auto) 6.5 % Eosinophils (%) (Auto) 2.7 % Basophils (%) (Auto) 0.4 % Neutrophils # (Auto) 6.12 K/uL (1.4-6.5) Lymphocytes # (Auto) 1.56 K/uL (1.2-3.4) Monocytes # (Auto) 0.55 K/uL (0.11-0.59) Eosinophils # (Auto) 0.23 K/uL (0-0.5) Basophils # (Auto) 0.03 K/uL (0-0.2) RDW Standard Deviation 46.0 fL (36.4-46.3) RDW Coefficient of Variation 13.9 % (11.5-14.5) Immature Granulocyte % (Auto) 0.2 % Immature Granulocyte # (Auto) 0.02 K/uL (0.00-0.02) Anion Gap 5.0 mmol/L (3-11) Est Creatinine Clear Calc Drug Dose 100.6 ml/min Estimated GFR () 91.4 Estimated GFR (Non- 78.8 BUN/Creatinine Ratio 17.6 (10-20) Calcium Level 10.0 mg/dl (8.5-10.1) Laboratory results as reviewed by me. Medications Administered Medications (Trade) Dose Ordered Sig/Ariadna Route Start Time Stop Time Status Last Admin Dose Admin Ceftriaxone Sodium (Rocephin Inj) 1 gm NOW STAT IV 01/14/17 10:03 01/14/17 10:04 DC 01/14/17 10:03 1 GM ED Course 1000: The patient was evaluated in room B10. A complete history and physical exam was performed. 1003: Ordered Rocephin Inj 1 gm IV. 1141: I reevaluated the patient and she is resting comfortably. I discussed the exam findings with her and I discussed the treatment plan. She verbalized complete understanding and agreement. She is ready to go home. 1152: I discussed the patients case with Dominic Salmon. He is going to evaluate the patient for further treatment. Medical Decision This is a 56-year-old female who presents with a cellulitis to her left leg. I did perform a limited focused review of portions of the patient's old chart on the electronic medical record. The patient was admitted December 31 for cellulitis of the left leg. She was discharged on Augmentin. She was previously admitted in September for right leg cellulitis. Her wound blood cultures showed group B strep. Medication Reconciliation: I attest that I have personally reviewed the patient' s current medication list. Blood Pressure Screening: Patient was found to have an elevated blood pressure and was referred to their primary doctor for recheck and further treatment. I did evaluate the patient as noted above. The patient is presenting with cellulitis to her left leg. She did improve on Augmentin but steadily got worse and was placed on clindamycin by her doctor. Looking at her blood culture she grew out group B strep which was resistant to clindamycin which may explain why she has no improvement with this medication. IV access was established. Blood cultures were sent. I did order and review the patient's blood work as noted in the electronic medical record. Her white blood cell count is not significantly elevated. I did treat her with ceftriaxone IV. I did recommend hospitalization and discussed the test results with the patient. I did discuss case with the hospitalist and community case manager. Consults Time Called: [phone] Consulting Physician: Dominic Salmon Returned Call: [phone] I discussed the patients case with Dominic Salmon. He is going to evaluate the patient for further treatment. Impression Primary Impression: Left leg cellulitis Additional Impression: Failure of outpatient treatment Scribe Attestation The scribe's documentation has been prepared under my direct and personally reviewed by me in its entirety. I confirm that the note above accurately reflects all work, treatment, procedures, and medical decision making performed by me. Departure Information Dispostion Being Evaluated By Hospitalist Referrals Wil Godinez M.D. (PCP) Problem Qualifiers
[2017-01-14] MEDS: MONTELUKAST SOD 10 MG TAB PO SCH (20:19)
[2017-01-14] MEDS: KETOROLAC TROMETHAMINE 30 MG/ML VIAL IV PRN (23:46)
[2017-01-15 00:05] VITALS: O2SAT 95
[2017-01-15] MEDS: LEVOTHYROXINE 112 MCG TAB PO SCH (06:19)
[2017-01-15 07:03] LABS: HEMATOCRIT 38.1 % (37-47); MEAN CELL VOLUME 90.7 fL (80-100); MEAN CORPUSCULAR HEMOGLOBIN 30.2 pg (25-34); MEAN CORPUSCULAR HGB CONC 33.3 g/dl (32-36); MEAN PLATELET VOLUME 8.3 fL (7.4-10.4); PLATELET COUNT 358 K/uL (130-400); WHITE BLOOD COUNT 7.02 K/uL (4.8-10.8)
[2017-01-15 07:38] VITALS: BP 135/82; PULSE 67; TEMP 37.1; O2SAT 92
[2017-01-15 07:43] LABS: BUN/CREATININE RATIO 24.9 (10-20); CALCIUM 9.4 mg/dl (8.5-10.1); CREATININE 0.78 mg/dl (0.60-1.20); POTASSIUM 4.4 mmol/L (3.5-5.1)
[2017-01-15] MEDS: FLUTICASONE FUROATE INH SCH (07:48)
[2017-01-15 08:04] VITALS: O2SAT 92
[2017-01-15] MEDS: ASPIRIN 81 MG ECTAB PO SCH (09:00)
[2017-01-15] MEDS: KETOROLAC TROMETHAMINE 30 MG/ML VIAL IV PRN ×2 (09:05→21:20)
--- NOTE | 2017-01-15 09:24 | Medical Consult ---
Consultation Date of Consultation: Jan 15, 2017. Attending Physician: Vipin Sales M.D. History of Present Illness pt admitted with lle cellulites, was just admiited early December for same, blood cultures at that time grew GBS (12/31), repeat cultures 01/02 negative and final. pt was on IV unasyn and transitioned to po augmentin upon d/c home. She was to complete long course of po abx, she was changed to clinda by pcp at office visit (isolate was clinda resistant) and cellulitis worsened, readmitted overnight. no f/c. pain overall improved, placed on IV CTX. tolerating well. wbc nml. blood cultures pending. no cp sob n/v/d/abd pain, tolerated both augmentin and clinda as outpt. overall she feels she is improving, but slowly. all remaining ros reviewed and are negative. Past Medical/Surgical History Medical Problems: (1) Bronchitis Status: Acute (2) Cellulitis Status: Acute (3) Cellulitis of left leg Status: Acute (4) Failure of outpatient treatment Status: Acute (5) Headache Status: Acute (6) Lactic acidosis Status: Acute (7) Left leg cellulitis Status: Acute (8) Sepsis Status: Acute Family History FH: diabetes mellitus FH: heart disease FHx: cancer FHx: gallbladder disease Social History Smoking Status: Former Smoker Drug Use: none Marital Status: Occupation Status: employed, other Allergies Coded Allergies: Morphine (Verified Allergy, Unknown, BRADYCARDIA, 01/14/17) Current Inpatient Medications Current Inpatient Medications Medications (Trade) Dose Ordered Sig/Ariadna Route Start Time Stop Time Status Last Admin Dose Admin Enoxaparin Sodium (Lovenox Inj) 40 mg Q24H SQ 01/14/17 14:00 02/13/17 13:59 01/14/17 14:39 40 MG Acetaminophen (Tylenol Tab) 650 mg Q4H PRN PO 01/14/17 12:15 02/13/17 12:14 Al Hydrox/Mg Hydrox/Simethicone (Maalox Max Susp) 15 ml Q4H PRN PO 01/14/17 12:15 02/13/17 12:14 Magnesium Hydroxide (Milk Of Magnesia Susp) 30 ml Q6H PRN PO 01/14/17 12:15 02/13/17 12:14 Polyethylene (Miralax Powder Packet) 17 gm DAILY PRN PO 01/14/17 12:15 02/13/17 12:14 Ondansetron HCl (Zofran Inj) 4 mg Q6H PRN IV 01/14/17 12:15 02/13/17 12:14 Ceftriaxone Sodium 1 gm/ Dextrose 50 ml @ 100 mls/hr Q24H IV 01/15/17 10:00 01/23/17 10:29 Albuterol (Ventolin Hfa Inhaler) 2 puffs Q4 PRN INH 01/14/17 12:15 02/13/17 12:14 Aspirin (Ecotrin Tab) 81 mg DAILY PO 01/15/17 08:00 02/14/17 08:59 01/15/17 09:00 81 MG Levothyroxine Sodium (Synthroid Tab) 112 mcg DAILYBB PO 01/15/17 06:30 02/14/17 06:29 01/15/17 06:19 112 MCG Montelukast Sodium (Singulair Tab) 10 mg HS PO 01/14/17 21:00 02/13/17 20:59 01/14/17 20:19 10 MG Ketorolac Tromethamine (Toradol Inj) 30 mg Q6H PRN IV 01/14/17 12:30 01/19/17 12:29 01/15/17 09:05 30 MG Fluticasone Furoate (Arnuity Ellipta) 1 mcg DAILY INH 01/15/17 08:00 02/14/17 07:59 01/15/17 07:48 1 MCG Physical Exam Date Time Temp Pulse Resp B/P (MAP) Pulse Ox O2 Delivery O2 Flow Rate FiO2 01/15/17 08:04 92 Room Air 01/15/17 07:38 37.1 67 20 135/82 (99) 92 Room Air 01/15/17 00:05 95 Room Air 01/14/17 16:00 Room Air 01/14/17 15:42 36.7 79 18 155/89 (111) 92 Room Air 01/14/17 13:13 36.5 77 16 147/84 (105) 95 Room Air 01/14/17 12:44 78 18 181/102 95 01/14/17 12:13 95 Room Air 01/14/17 11:51 76 16 168/94 95 Room Air 01/14/17 09:52 36.5 82 20 178/103 94 Room Air General Appearance: WD/WN, no apparent distress Head: normocephalic, atraumatic Eyes: normal inspection, EOMI ENT: pharynx normal Neck: supple Respiratory/Chest: lungs clear, normal breath sounds, no respiratory distress Cardiovascular: regular rate, rhythm, no edema, no murmur Abdomen/GI: non tender, soft Extremities/Musculoskelatal: normal inspection, no pedal edema, + pertinent finding (lle with min area of erytehma over ant calf, improved from prevous admission) Neurologic/Psych: alert, oriented x 3 Skin: normal color, no rash Laboratory Results Last 24 Hours Test 01/14/17 10:25 01/15/17 06:50 White Blood Count 8.51 K/uL 7.02 K/uL Red Blood Count 4.79 M/uL 4.20 M/uL Hemoglobin 13.7 g/dL 12.7 g/dL Hematocrit 43.6 % 38.1 % Mean Corpuscular Volume 91.0 fL 90.7 fL Mean Corpuscular Hemoglobin 28.6 pg 30.2 pg Mean Corpuscular Hemoglobin Concent 31.4 g/dl 33.3 g/dl Platelet Count 446 K/uL 358 K/uL Mean Platelet Volume 8.7 fL 8.3 fL Neutrophils (%) (Auto) 71.9 % Lymphocytes (%) (Auto) 18.3 % Monocytes (%) (Auto) 6.5 % Eosinophils (%) (Auto) 2.7 % Basophils (%) (Auto) 0.4 % Neutrophils # (Auto) 6.12 K/uL Lymphocytes # (Auto) 1.56 K/uL Monocytes # (Auto) 0.55 K/uL Eosinophils # (Auto) 0.23 K/uL Basophils # (Auto) 0.03 K/uL RDW Standard Deviation 46.0 fL 46.4 fL RDW Coefficient of Variation 13.9 % 14.1 % Immature Granulocyte % (Auto) 0.2 % Immature Granulocyte # (Auto) 0.02 K/uL Sodium Level 139 mmol/L 140 mmol/L Potassium Level 4.3 mmol/L 4.4 mmol/L Chloride Level 104 mmol/L 106 mmol/L Carbon Dioxide Level 30 mmol/L 26 mmol/L Anion Gap 5.0 mmol/L 8.0 mmol/L Blood Urea Nitrogen 15 mg/dl 19 mg/dl Creatinine 0.83 mg/dl 0.78 mg/dl Est Creatinine Clear Calc Drug Dose 100.6 ml/min 107.0 ml/min Estimated GFR () 91.4 98.5 Estimated GFR (Non- 78.8 85.0 BUN/Creatinine Ratio 17.6 24.9 Random Glucose 98 mg/dl 98 mg/dl Calcium Level 10.0 mg/dl 9.4 mg/dl Assessment & Plan (1) Cellulitis Assessment & Plan: can continue iv ctx for now, upon d/c can transition to po augmentin again, elevate leg.
[2017-01-15] MEDS: CEFTRIAXONE SOD INJ 1 GM in DEXTROSE 5% ADD-VANTAGE 50ML 50 ML IV SCH (10:31)
[2017-01-15] MEDS: ENOXAPARIN 40 MG/0.4 ML SYR SQ SCH (14:22)
[2017-01-15 14:53] VITALS: BP 149/87; PULSE 80; TEMP 37.1; O2SAT 93
--- NOTE | 2017-01-15 15:20 | Progress Note ---
Internal Med Progress Note Date of Service: Jan 15, 2017. Provider Documentation: SUBJECTIVE: The patient was seen and examined Admitted with left leg cellulitis Redness and swelling in left leg is batter No fever,chills OBJECTIVE: Vital Signs-as noted below Exam: General-no distress at rest Eyes-normal ENT-normal Neck-supple Lungs-Clear to auscultate bilaterally Heart-Regular,no murmur Abdomen-Benign,no masses,bowel sound present Extremities-Trace edema bilaterally Left mid leg is minimally swelled and redness is improved Local temp is improved Neuro-AAOx3 Lab data as noted below. ASSESSMENT & PLAN: Kyle PARSONS Cellulitis-recurrence -hx. recurrent cellulitis of both lower extremities -was admitted here in early December with sepsis secondary to Kyle PARSONS cellulitis -discharged on Augmentin, but cellulitis recurred and not completely resolved -has been on Rocephin -elevate lower extremity -blood cultures pending -ID consult -appreciate input::continue current antibiotic ,transition to Augment -Likely discharge home tomorrow Asthma continue home inhalers Controlled Hypothyroid continue Synthroid DVT ppx Lovenox FULL CODE Vital Signs: Date Time Temp Pulse Resp B/P (MAP) Pulse Ox O2 Delivery O2 Flow Rate FiO2 01/15/17 14:53 37.1 80 20 149/87 (107) 93 Room Air 01/15/17 08:04 92 Room Air 01/15/17 07:38 37.1 67 20 135/82 (99) 92 Room Air 01/15/17 00:05 95 Room Air 01/14/17 16:00 Room Air 01/14/17 15:42 36.7 79 18 155/89 (111) 92 Room Air Lab Results: Results Past 24 Hours Test 01/15/17 06:50 Range/Units White Blood Count 7.02 4.8-10.8 K/uL Red Blood Count 4.20 4.2-5.4 M/uL Hemoglobin 12.7 12.0-16.0 g/dL Hematocrit 38.1 37-47 % Mean Corpuscular Volume 90.7 80-100 fL Mean Corpuscular Hemoglobin 30.2 25-34 pg Mean Corpuscular Hemoglobin Concent 33.3 32-36 g/dl RDW Standard Deviation 46.4 36.4-46.3 fL RDW Coefficient of Variation 14.1 11.5-14.5 % Platelet Count 358 130-400 K/uL Mean Platelet Volume 8.3 7.4-10.4 fL Sodium Level 140 136-145 mmol/L Potassium Level 4.4 3.5-5.1 mmol/L Chloride Level 106 98-107 mmol/L Carbon Dioxide Level 26 21-32 mmol/L Anion Gap 8.0 3-11 mmol/L Blood Urea Nitrogen 19 7-18 mg/dl Creatinine 0.78 0.60-1.20 mg/dl Est Creatinine Clear Calc Drug Dose 107.0 ml/min Estimated GFR () 98.5 Estimated GFR (Non- 85.0 BUN/Creatinine Ratio 24.9 10-20 Random Glucose 98 70-99 mg/dl Calcium Level 9.4 8.5-10.1 mg/dl
[2017-01-15 20:05] VITALS: O2SAT 95
[2017-01-15] MEDS: MONTELUKAST SOD 10 MG TAB PO SCH (21:04)
[2017-01-15 23:26] VITALS: BP 108/69; PULSE 67; TEMP 37; O2SAT 93
[2017-01-16 00:05] VITALS: O2SAT 95
[2017-01-16] MEDS: LEVOTHYROXINE 112 MCG TAB PO SCH (06:44)
[2017-01-16 06:47] LABS: HEMATOCRIT 39.6 % (37-47); MEAN CELL VOLUME 91.9 fL (80-100); MEAN CORPUSCULAR HEMOGLOBIN 31.1 pg (25-34); MEAN CORPUSCULAR HGB CONC 33.8 g/dl (32-36); MEAN PLATELET VOLUME 8.7 fL (7.4-10.4); PLATELET COUNT 369 K/uL (130-400); RED BLOOD COUNT 4.31 M/uL (4.2-5.4); WHITE BLOOD COUNT 6.29 K/uL (4.8-10.8)
[2017-01-16 07:14] LABS: BUN/CREATININE RATIO 25.2 (10-20); CALCIUM 9.6 mg/dl (8.5-10.1); CREATININE 0.79 mg/dl (0.60-1.20); POTASSIUM 4.6 mmol/L (3.5-5.1)
[2017-01-16 07:32] VITALS: BP 117/79; PULSE 67; TEMP 36.5; O2SAT 92
[2017-01-16] MEDS: ASPIRIN 81 MG ECTAB PO SCH (08:39)
[2017-01-16] MEDS: FLUTICASONE FUROATE INH SCH (08:39)
[2017-01-16] MEDS: KETOROLAC TROMETHAMINE 30 MG/ML VIAL IV PRN ×2 (08:43→19:42)
[2017-01-16] MEDS: CEFTRIAXONE SOD INJ 1 GM in DEXTROSE 5% ADD-VANTAGE 50ML 50 ML IV SCH (10:15)
[2017-01-16] MEDS: ENOXAPARIN 40 MG/0.4 ML SYR SQ SCH (14:32)
[2017-01-16 15:11] VITALS: BP 117/72; PULSE 88; TEMP 37.2; O2SAT 95
--- NOTE | 2017-01-16 18:06 | Progress Note ---
Medicine Progress Note Date & Time of Visit: Jan 16, 2017 at 17:58. Subjective Pt was seen and examined Lying in bed with no distress Pt said that she feels fine she said that the redness improved in her leg significantly Denies any chest pain, palpitation, fever and SOB Objective Last 8 Hrs Date Time Temp Pulse Resp B/P (MAP) Pulse Ox O2 Delivery O2 Flow Rate FiO2 01/16/17 16:43 Room Air 01/16/17 15:11 37.2 88 24 117/72 (87) 95 Room Air Physical Exam: General- No acute distress Head- atraumatic Eyes- PERRL, EOMI ENT- oropharynx clear Neck- supple, no JVD Lungs- clear to auscultation and percussion Heart- regular rhythm; no murmur Abdomen- normal bowel sounds, soft Extremities- no calf tenderness, left LE erythema improves (as per pt) Neuro- alert, oriented x 3; PERRL, EOMI Skin- warm & dry Laboratory Results: Last 24 Hours Test 01/16/17 06:29 White Blood Count 6.29 K/uL Red Blood Count 4.31 M/uL Hemoglobin 13.4 g/dL Hematocrit 39.6 % Mean Corpuscular Volume 91.9 fL Mean Corpuscular Hemoglobin 31.1 pg Mean Corpuscular Hemoglobin Concent 33.8 g/dl RDW Standard Deviation 47.2 fL RDW Coefficient of Variation 13.9 % Platelet Count 369 K/uL Mean Platelet Volume 8.7 fL Sodium Level 139 mmol/L Potassium Level 4.6 mmol/L Chloride Level 106 mmol/L Carbon Dioxide Level 28 mmol/L Anion Gap 5.0 mmol/L Blood Urea Nitrogen 20 mg/dl Creatinine 0.79 mg/dl Est Creatinine Clear Calc Drug Dose 105.7 ml/min Estimated GFR () 97.0 Estimated GFR (Non- 83.7 BUN/Creatinine Ratio 25.2 Random Glucose 102 mg/dl Calcium Level 9.6 mg/dl Assessment & Plan Recurrent LLE Cellulitis -hx. recurrent cellulitis of both lower extremities -Recently admitted in December with sepsis secondary to L LE cellulitis -discharged on Augmentin, but cellulitis recurred and not completely resolved -On IV Rocephin day 2 -blood cultures pending - Afebrile and no leukocytosis -ID consulted recommended to transition abx to po Augmentin on discharge -Likely discharge home tomorrow Asthma continue home inhalers Controlled Hypothyroid continue Synthroid DVT ppx Lovenox FULL CODE Consultants: ID Current Inpatient Medications: Current Inpatient Medications Medications (Trade) Dose Ordered Sig/Ariadna Route Start Time Stop Time Status Last Admin Dose Admin Enoxaparin Sodium (Lovenox Inj) 40 mg Q24H SQ 01/14/17 14:00 02/13/17 13:59 01/16/17 14:32 40 MG Acetaminophen (Tylenol Tab) 650 mg Q4H PRN PO 01/14/17 12:15 02/13/17 12:14 Al Hydrox/Mg Hydrox/Simethicone (Maalox Max Susp) 15 ml Q4H PRN PO 01/14/17 12:15 02/13/17 12:14 Magnesium Hydroxide (Milk Of Magnesia Susp) 30 ml Q6H PRN PO 01/14/17 12:15 02/13/17 12:14 Polyethylene (Miralax Powder Packet) 17 gm DAILY PRN PO 01/14/17 12:15 02/13/17 12:14 Ondansetron HCl (Zofran Inj) 4 mg Q6H PRN IV 01/14/17 12:15 02/13/17 12:14 Ceftriaxone Sodium 1 gm/ Dextrose 50 ml @ 100 mls/hr Q24H IV 01/15/17 10:00 01/23/17 10:29 01/16/17 10:15 100 MLS/HR Albuterol (Ventolin Hfa Inhaler) 2 puffs Q4 PRN INH 01/14/17 12:15 02/13/17 12:14 Aspirin (Ecotrin Tab) 81 mg DAILY PO 01/15/17 08:00 02/14/17 08:59 01/16/17 08:39 81 MG Levothyroxine Sodium (Synthroid Tab) 112 mcg DAILYBB PO 01/15/17 06:30 02/14/17 06:29 01/16/17 06:44 112 MCG Montelukast Sodium (Singulair Tab) 10 mg HS PO 01/14/17 21:00 02/13/17 20:59 01/15/17 21:04 10 MG Ketorolac Tromethamine (Toradol Inj) 30 mg Q6H PRN IV 01/14/17 12:30 01/19/17 12:29 01/16/17 08:43 30 MG Fluticasone Furoate (Arnuity Ellipta) 1 mcg DAILY INH 01/15/17 08:00 02/14/17 07:59 01/16/17 08:39 1 MCG
[2017-01-16] MEDS: MONTELUKAST SOD 10 MG TAB PO SCH (20:30)
[2017-01-17 00:30] VITALS: BP 137/73; PULSE 75; TEMP 36.9; O2SAT 92
[2017-01-17] MEDS: LEVOTHYROXINE 112 MCG TAB PO SCH (06:26)
[2017-01-17 07:34] VITALS: BP 138/84; PULSE 74; TEMP 36.8; O2SAT 92
[2017-01-17] MEDS: FLUTICASONE FUROATE INH SCH (08:37)
[2017-01-17] MEDS: ASPIRIN 81 MG ECTAB PO SCH (08:37)
[2017-01-17] MEDS: CEFTRIAXONE SOD INJ 1 GM in DEXTROSE 5% ADD-VANTAGE 50ML 50 ML IV SCH (09:33)
--- NOTE | 2017-01-17 10:42 | Progress Note ---
Medicine Progress Note Date & Time of Visit: Jan 17, 2017 at 10:35. Subjective Pt was seen and examined Lying in bed with no distress Pt said that she feels fine she said that the left leg redness size decrease significantly denies any chest pain, palpitation, dizziness and SOB Objective Last 8 Hrs Date Time Temp Pulse Resp B/P (MAP) Pulse Ox O2 Delivery O2 Flow Rate FiO2 01/17/17 08:30 Room Air 01/17/17 07:34 36.8 74 18 138/84 (102) 92 Room Air Physical Exam: General- No acute distress Head- atraumatic Eyes- PERRL, EOMI ENT- oropharynx clear Neck- supple, no JVD Lungs- clear to auscultation and percussion Heart- regular rhythm; no murmur Abdomen- normal bowel sounds, soft Extremities- no calf tenderness, left LE erythema improves (as per pt) Neuro- alert, oriented x 3; PERRL, EOMI Skin- warm & dry Assessment & Plan Recurrent LLE Cellulitis -hx. recurrent cellulitis of both lower extremities -Recently admitted in December with sepsis secondary to L LE cellulitis -discharged on Augmentin, but cellulitis recurred and not completely resolved -On IV Rocephin day 4 -blood cultures no growth - Afebrile and no leukocytosis -ID consulted recommended to transition abx to po Augmentin on discharge -Likely discharge home tomorrow Asthma continue home inhalers Controlled Hypothyroid continue Synthroid DVT ppx Lovenox FULL CODE Consultants: ID Current Inpatient Medications: Current Inpatient Medications Medications (Trade) Dose Ordered Sig/Ariadna Route Start Time Stop Time Status Last Admin Dose Admin Enoxaparin Sodium (Lovenox Inj) 40 mg Q24H SQ 01/14/17 14:00 02/13/17 13:59 01/16/17 14:32 40 MG Acetaminophen (Tylenol Tab) 650 mg Q4H PRN PO 01/14/17 12:15 02/13/17 12:14 Al Hydrox/Mg Hydrox/Simethicone (Maalox Max Susp) 15 ml Q4H PRN PO 01/14/17 12:15 02/13/17 12:14 Magnesium Hydroxide (Milk Of Magnesia Susp) 30 ml Q6H PRN PO 01/14/17 12:15 02/13/17 12:14 Polyethylene (Miralax Powder Packet) 17 gm DAILY PRN PO 01/14/17 12:15 02/13/17 12:14 Ondansetron HCl (Zofran Inj) 4 mg Q6H PRN IV 01/14/17 12:15 02/13/17 12:14 Ceftriaxone Sodium 1 gm/ Dextrose 50 ml @ 100 mls/hr Q24H IV 01/15/17 10:00 01/23/17 10:29 01/17/17 09:33 100 MLS/HR Albuterol (Ventolin Hfa Inhaler) 2 puffs Q4 PRN INH 01/14/17 12:15 02/13/17 12:14 Aspirin (Ecotrin Tab) 81 mg DAILY PO 01/15/17 08:00 02/14/17 08:59 01/17/17 08:37 81 MG Levothyroxine Sodium (Synthroid Tab) 112 mcg DAILYBB PO 01/15/17 06:30 02/14/17 06:29 01/17/17 06:26 112 MCG Montelukast Sodium (Singulair Tab) 10 mg HS PO 01/14/17 21:00 02/13/17 20:59 01/16/17 20:30 10 MG Ketorolac Tromethamine (Toradol Inj) 30 mg Q6H PRN IV 01/14/17 12:30 01/19/17 12:29 01/16/17 19:42 30 MG Fluticasone Furoate (Arnuity Ellipta) 1 mcg DAILY INH 01/15/17 08:00 02/14/17 07:59 01/17/17 08:37 1 MCG
[2017-01-17] MEDS ORDERED: AMOX875T PO (10:46)
--- NOTE | 2017-01-17 10:53 | Discharge Instructions ---
Discharge Instructions Date of Service Jan 17, 2017. Admission Reason for Admission: Cellulitis Venous Stasis Dermatitis Discharge Discharge Diagnosis / Problem: Recurrent Left Leg cellulitis Discharge Goals Goal(s): Decrease discomfort, Improve function, Improve disease control Activity Recommendations Activity Limitations: resume your previous activity (as tolerated) . Instructions / Follow-Up Instructions / Follow-Up Follow up with your physician Dr. Godinez on January 22 @ 11:05 Complete the course of the antibiotic Augmentin Current Hospital Diet Patient's current hospital diet: Regular Diet Discharge Diet Recommended Diet: Regular Diet Pending Studies Studies pending at discharge: no Medical Emergencies . Who to Call and When: Medical Emergencies: If at any time you feel your situation is an emergency, please call 911 immediately. . Non-Emergent Contact Non-Emergency issues call your: Primary Care Provider Call Non-Emergent contact if: you have a fever, you have any medication questions . . "Provider Documentation" section prepared by Diane Oconnor. . VTE Core Measure Inpt VTE Proph given/why not?: Enoxaparin (Lovenox)SQ
[2017-01-17 11:20] VITALS: BP 138/84; PULSE 74; TEMP 36.8; O2SAT 92
--- NOTE | 2017-01-19 17:39 | Discharge Summary ---
Discharge Summary Date of Service Jan 19, 2017. Discharge Summary Admission Date: Jan 14, 2017 at 12:08 Discharge Date: Jan 17, 2017 Discharge Disposition: Home Principal Diagnosis: Recurrent LLE Cellulitis Secondary Diagnoses/Problems: Asthma Hypothyroidism Consultations: ID Medication Reconciliation New Medications: Amoxicillin & Pot Clavulanate (Augmentin 875-125 mg) 1 Tab Tab 875 MG PO BID for 6 Days, #12 TAB Continued Medications: Albuterol Hfa (Ventolin Hfa) 200 Puffs/98086 Mcg Aers 2-4 PUFFS INH Q4-6 HRS PRN for SOB/Wheezing, INHALER Aspirin (Ecotrin Low Strength) 81 Mg Tab 1 TAB PO DAILY for 90 Days, #90 TAB 3 Refills Fluticasone Furoate (Inhalatio (Arnuity Ellipta) 100 Mcg/Act Inh 1 PUFF INH DAILY Levothyroxine Sodium (Levothyroxine Sodium) 112 Mcg Tab 112 MCG PO DAILY Montelukast Sod (Montelukast Sodium) 10 Mg Tab 10 MG PO HS Discontinued Medications: Clindamycin Hcl (Cleocin) 300 Mg Cap 300 MG PO QID for 10 Days, #40 CAP Admission Information HPI (per Admitting provider): This is a 56 year old female with a PMH of obesity, asthma, hypothyroid, venous stasis dermatitis and recurrent cellulitis of bilateral lower extremities; patient was recently in the hospital in early December with sepsis secondary to cellulitis of L LE, discharged on January 05 - was discharged on Augmentin. Blood cultures obtained at that time indicated a group b strep sensitive to ampicillin. She saw her primary care physician on January 12 with left leg pain and redness; antibiotics were changed to clindamycin; unfortunately, the group b strep grown during previous admission was resistant to clindamycin. She presents today with worsening pain. Denies fevers/chills, denies nausea/vomiting /diarrhea. Physical Exam (per Admitting): General Appearance: no apparent distress, + obese Head: normocephalic, atraumatic Eyes: normal inspection Respiratory/Chest: chest non-tender, lungs clear, normal breath sounds, no respiratory distress, no accessory muscle use Cardiovascular: regular rate, rhythm, no murmur Abdomen/GI: normal bowel sounds, non tender, soft Back: no muscle spasm Extremities/Musculoskelatal: + pertinent finding Neurologic/Psych: no motor/sensory deficits, alert, normal mood/affect Skin: normal color Lymphatic: no adenopathy Hospital Course Recurrent LLE Cellulitis -hx. recurrent cellulitis of both lower extremities -Recently admitted in December with sepsis secondary to L LE cellulitis -discharged on Augmentin, but cellulitis recurred and not completely resolved -On IV Rocephin day 4 -blood cultures no growth - Afebrile and no leukocytosis -ID consulted recommended to transition abx to po Augmentin on discharge -Likely discharge home tomorrow Asthma continue home inhalers Controlled Hypothyroid continue Synthroid DVT ppx Lovenox FULL CODE Total time spent on discharge = 35 minutes This includes examination of the patient, discharge planning, medication reconciliation, and communication with other providers. Discharge Instructions Discharge Instructions Date of Service Jan 17, 2017. Admission Reason for Admission: Cellulitis Venous Stasis Dermatitis Discharge Discharge Diagnosis / Problem: Recurrent Left Leg cellulitis Discharge Goals Goal(s): Decrease discomfort, Improve function, Improve disease control Activity Recommendations Activity Limitations: resume your previous activity (as tolerated) . Instructions / Follow-Up Instructions / Follow-Up Follow up with your physician Dr. Godinez on January 22 @ 11:05 Complete the course of the antibiotic Augmentin Current Hospital Diet Patient's current hospital diet: Regular Diet Discharge Diet Recommended Diet: Regular Diet Pending Studies Studies pending at discharge: no Medical Emergencies . Who to Call and When: Medical Emergencies: If at any time you feel your situation is an emergency, please call 911 immediately. . Non-Emergent Contact Non-Emergency issues call your: Primary Care Provider Call Non-Emergent contact if: you have a fever, you have any medication questions . . "Provider Documentation" section prepared by Diane Oconnor. . VTE Core Measure Inpt VTE Proph given/why not?: Enoxaparin (Lovenox)SQ Additional Copies To Wil Godinez M.D.
== END 2017-01-17 11:56 | disposition home or self-care (01) | DRG 603 ==
LOC: C.EDB 09:51 → C.4E 12:08 → EDBEDREQ 12:16 → ENRESERV 12:20
PROVIDERS: ADMIT Family Medicine; ATTEND Internal Medicine
DX: L03.116 Cellulitis of left lower limb (principal); Z68.45 Body mass index [BMI] 70 or greater, adult; J45.909 Unspecified asthma, uncomplicated; E03.9 Hypothyroidism, unspecified; Z87.891 Personal history of nicotine dependence; E66.9 Obesity, unspecified; Z86.718 Personal history of other venous thrombosis and embolism; Z87.2 Personal history of diseases of the skin and subcutaneous tissue; Z79.82 Long term (current) use of aspirin; Z79.2 Long term (current) use of antibiotics; Z79.51 Long term (current) use of inhaled steroids; Z79.899 Other long term (current) drug therapy

== ENCOUNTER 2017-11-01 00:55 | Emergency (ER) | payer OTHER ==
[~2017-11-01] VITALS: Ht 165.1 cm; Wt 114.0 kg
[~2017-11-01 00:55] MED LIST changes: -AMOX875T PO
[2017-11-01 00:58] VITALS: Ht 165.1 cm; Wt 114.0 kg
--- NOTE | 2017-11-01 01:38 | EMERGENCY ROOM VISIT NOTE ---
History Report prepared by Farideh: Doron Medrano Under the Supervision of: Dr. Junie Jackson D.O. First contact with patient: 01:08 Chief Complaint: DIZZY Stated Complaint: DIZZY,DRY MOUTH,BILATERAL LEG PAIN History of Present Illness The patient is a 57 year old female who presents to the Emergency Room with complaints of constant dizziness beginning a few hours ago. The patient states that her dizziness started suddenly tonight. She notes that her dizziness is constant, and reports that she is dizzy even when she is lying down. She also complains of leg erythema beginning yesterday and mild SOB, but denies any cough and change to her appetite. She reports that she is unsure if she has a fever. The patient states that her current leg hardness is normal for her. She notes that she took a few Tylenol today for her symptoms. She reports that she has a history of asthma and used her inhaler once today. Source of History: patient Onset: a few hours ago Position: head Quality: other (dizziness) Timing: constant Associated Symptoms: + SOB (mild), No cough Note: The patient also complains of leg erythema beginning yesterday. She denies any change to her appetite. Review of Systems See HPI for pertinent positives & negatives. A total of 10 systems reviewed and were otherwise negative. Past Medical & Surgical Medical Problems: (1) Asthma (2) Cellulitis (3) Gram positive septicemia (4) History of DVT (deep vein thrombosis) (5) History of pelvic fracture (6) Hypothyroidism (7) Leukocytosis (8) Obesity (9) Septicemia due to group B Streptococcus (10) Venous stasis dermatitis (11) Viral illness Surgical Problems: (1) History of cholecystectomy Family History FH: diabetes mellitus FH: heart disease FHx: cancer FHx: gallbladder disease Hypertension Kidney disease Kidney stones Social History Smoking Status: Never Smoker Alcohol Use: none Drug Use: none Marital Status: Housing Status: lives with family Occupation Status: employed Current/Historical Medications Scheduled Amoxicillin & Pot Clavulanate (Augmentin 875-125 mg), 1 TAB PO BID Aspirin (Ecotrin Low Strength), 1 TAB PO DAILY Fluticasone Furoate (Inhalatio (Arnuity Ellipta), 1 PUFF INH DAILY Levothyroxine Sodium (Levothyroxine Sodium), 112 MCG PO DAILY Montelukast Sod (Montelukast Sodium), 10 MG PO HS Scheduled PRN Albuterol Hfa (Ventolin Hfa), 2-4 PUFFS INH Q4-6 HRS PRN for SOB/Wheezing Allergies Coded Allergies: Morphine (Verified Allergy, Unknown, BRADYCARDIA, 01/14/17) Physical Exam Vital Signs Date Time Temp Pulse Resp B/P (MAP) Pulse Ox O2 Delivery O2 Flow Rate FiO2 11/01/17 05:57 37.3 93 20 140/86 98 11/01/17 03:43 37.6 11/01/17 02:58 101 20 149/81 98 Room Air 11/01/17 01:15 103 11/01/17 00:58 37.6 102 20 144/75 96 Room Air Physical Exam General: Morbidly obese. HEENT: Head - normocephalic and atraumatic Pupils are equal, round, and reactive to light. Extraocular eye muscles are intact, and sclera are anicteric. Nose - moist nasal mucosa without discharge. Mouth - moist buccal mucosa. Oropharynx is nonerythematous and there is no tonsillar exudate or edema noted. Neck: Supple; no JVD, nuchal rigidity, cervical lymphadenopathy, or auscultated bruits. Heart: Regular rate and rhythm. There is a normal S1 and S2 with no murmurs, clicks, or gallops appreciated. Heart sounds distant secondary to body habitus. Lungs: Clear to auscultation bilaterally with no wheezes, rales, or rhonchi, lung sounds distant secondary to body habitus. Abdomen: Soft, completely nontender, nondistended, with good bowel sounds. There are no palpable pulsatile masses or hepatosplenomegaly. There is no guarding, rigidity, or rebound noted. Extremities: No evidence of cyanosis and clubbing. There are easily palpable peripheral pulses. Tiny vesicles about the lateral left foot, significant lymphedema in bilateral lower extremities, hot to touch in the tib/fib region bilaterally, mild erythema to the left anterior tib/rib region. Skin: warm and dry with good turgor and no rashes. Medical Decision & Procedures ER Provider Diagnostic Interpretation: Radiology results as stated below per my review and interpretation: 2 VIEW CHEST X-RAY: Unchanged from 09/08/2016. No pulmonary infiltrates or consolidations. Laboratory Results 11/01/17 01:47 Red Blood Count 4.75, Mean Corpuscular Volume 90.5, Mean Corpuscular Hemoglobin 30.7, Mean Corpuscular Hemoglobin Concent 34.0, Mean Platelet Volume 9.3, Neutrophils (%) (Auto) 92.1, Lymphocytes (%) (Auto) 3.6, Monocytes (%) (Auto) 3.9, Eosinophils (%) (Auto) 0.0, Basophils (%) (Auto) 0.1, Neutrophils # (Auto) 14.10, Lymphocytes # (Auto) 0.55, Monocytes # (Auto) 0.60, Eosinophils # (Auto) 0.00, Basophils # (Auto) 0.02 11/01/17 01:47 Test 11/01/17 01:47 11/01/17 04:09 11/01/17 04:40 White Blood Count 15.32 K/uL (4.8-10.8) Red Blood Count 4.75 M/uL (4.2-5.4) Hemoglobin 14.6 g/dL (12.0-16.0) Hematocrit 43.0 % (37-47) Mean Corpuscular Volume 90.5 fL (80-100) Mean Corpuscular Hemoglobin 30.7 pg (25-34) Mean Corpuscular Hemoglobin Concent 34.0 g/dl (32-36) Platelet Count 265 K/uL (130-400) Mean Platelet Volume 9.3 fL (7.4-10.4) Neutrophils (%) (Auto) 92.1 % Lymphocytes (%) (Auto) 3.6 % Monocytes (%) (Auto) 3.9 % Eosinophils (%) (Auto) 0.0 % Basophils (%) (Auto) 0.1 % Neutrophils # (Auto) 14.10 K/uL (1.4-6.5) Lymphocytes # (Auto) 0.55 K/uL (1.2-3.4) Monocytes # (Auto) 0.60 K/uL (0.11-0.59) Eosinophils # (Auto) 0.00 K/uL (0-0.5) Basophils # (Auto) 0.02 K/uL (0-0.2) RDW Standard Deviation 43.2 fL (36.4-46.3) RDW Coefficient of Variation 13.3 % (11.5-14.5) Immature Granulocyte % (Auto) 0.3 % Immature Granulocyte # (Auto) 0.05 K/uL (0.00-0.02) Anion Gap 5.0 mmol/L (3-11) Est Creatinine Clear Calc Drug Dose 85.9 ml/min Estimated GFR () 81.2 Estimated GFR (Non- 70.0 BUN/Creatinine Ratio 15.3 (10-20) Calcium Level 9.7 mg/dl (8.5-10.1) Total Bilirubin 0.9 mg/dl (0.2-1) Direct Bilirubin 0.2 mg/dl (0-0.2) Aspartate Amino Transf (AST/SGOT) 36 U/L (15-37) Alanine Aminotransferase (ALT/SGPT) 38 U/L (12-78) Alkaline Phosphatase 90 U/L (45-117) Troponin I < 0.015 ng/ml (0-0.045) Pro-B-Type Natriuretic Peptide 131 pg/ml (0-900) Total Protein 8.3 gm/dl (6.4-8.2) Albumin 4.0 gm/dl (3.4-5.0) Thyroid Stimulating Hormone (TSH) 2.070 uIu/ml (0.300-4.500) Influenza Type A Antigen Neg for Influ A (NEG) Influenza Type B Antigen Neg for Influ B (NEG) Urine Color YELLOW Urine Appearance CLEAR (CLEAR) Urine pH 8.5 (4.5-7.5) Urine Specific [place] 1.021 (1.000-1.030) Urine Protein NEG (NEG) Urine Glucose (UA) NEG (NEG) Urine Ketones NEG (NEG) Urine Occult Blood NEG (NEG) Urine Nitrite NEG (NEG) Urine Bilirubin NEG (NEG) Urine Urobilinogen NEG (NEG) Urine Leukocyte Esterase NEG (NEG) Laboratory results per my review. Medications Administered Medications (Trade) Dose Ordered Sig/Ariadna Route Start Time Stop Time Status Last Admin Dose Admin Ketorolac Tromethamine (Toradol Inj) 30 mg NOW STAT IV 11/01/17 03:55 11/01/17 03:57 DC 11/01/17 04:13 30 MG Ceftriaxone Sodium (Rocephin Inj) 1 gm NOW STAT IV 11/01/17 05:01 11/01/17 05:03 DC 11/01/17 05:23 1 GM Procedure 0355: Toradol Inj 30mg IV 0501: Rocephin Inj 1gm IV ECG Per My Interpretation Indication: SOB/dyspnea Rate (beats per minute): 100 Rhythm: normal sinus Findings: no ectopy, other (no ischemia, no ST segment changes) ED Course 0109: The patient was evaluated in room B5. A complete history and physical examination were performed. Nursing notes and previous electronic medical records were reviewed. IV lock was established and labs were drawn as above. 0352: I reevaluated the patient and updated her on her labs. She states that she feels awful. She is now complaining of a headache. She just urinated in the toilet and did not give a specimen. Nursing will catheterize the patient. I rechecked the patient's legs and they look no worse. The patient's repeat temperature was 37.6. Nursing will swab the patient's nose for influenza. 0355: Toradol Inj 30mg IV 0501: Rocephin Inj 1gm IV 0512: Upon reevaluation, the patient is stable and is currently getting antibiotics. I discussed findings and results with her. She verbalized agreement of the treatment plan. The patient was discharged home. Medical Decision The patient is a 57 year old female who presents to the Emergency Room with complaints of constant dizziness beginning a few hours ago. Differential diagnoses include: asthma exacerbation, pneumonia, CHF, dehydration, sepsis, and lower extremity cellulitis. Differential Diagnoses Include: White count of 15.9. 92% neutrophils. Normal TSH and LFTs. Glucose 108. Negative troponin. Normal renal function. Influenza negative. Urine negative. This is a 57-year-old female who presents to the emergency department with some dizziness and shortness of breath. Physical exam, the patient had no signs of an asthma exacerbation. She had no evidence of pneumonia on chest x-ray and had no cough. O2 saturations were normal. The patient has some erythema to the lower legs but I could not appreciate antwon cellulitis or lymphangitis. However, the patient has had multiple previous admissions to the hospital for cellulitis of the lower extremities which required IV antibiotics. In light of this, I have opted to treat the patient with IV Rocephin and then discharged her home on Augmentin. She was given cautious follow-up instructions. The patient was encouraged to watch the erythema about the lower extremities and her temperature. She was encouraged to see her PCP in the next 24-48 hours for recheck. Medication Reconcilliation Current Medication List: was personally reviewed by me Blood Pressure Screening Patient's blood pressure: Elevated blood pressure Blood pressure disposition: Referred to PCP Impression Primary Impression: Cellulitis of lower leg Scribe Attestation The scribe's documentation has been prepared under my direction and personally reviewed by me in its entirety. I confirm that the note above accurately reflects all work, treatment, procedures, and medical decision making performed by me. Departure Information Dispostion Home / Self-Care Prescriptions Amoxicillin & Pot Clavulanate (Augmentin 875-125 mg) 1 Tab Tab 1 TAB PO BID, #20 TAB Prov: Junie Jackson D.O. 11/01/17 Referrals Wil Godinez M.D. (PCP) Forms HOME CARE DOCUMENTATION FORM, IMPORTANT VISIT INFORMATION Patient Instructions My [facility] Additional Instructions Rest with your legs elevated. Take Augmentin twice a day. Return to the emergency department if you have worsening redness about your legs or persistent fevers. Otherwise complete the course of antibiotics and follow-up with your PCP for recheck later this week.
[2017-11-01 02:05] LABS: BASO % 0.1 %; BASO ABS # 0.02 K/uL (0-0.2); HEMOGLOBIN 14.6 g/dL (12.0-16.0); IG# 0.05 K/uL (0.00-0.02); LYMPH % 3.6 %; LYMPH ABS # 0.55 K/uL (1.2-3.4); MEAN CELL VOLUME 90.5 fL (80-100); MEAN CORPUSCULAR HEMOGLOBIN 30.7 pg (25-34); MEAN PLATELET VOLUME 9.3 fL (7.4-10.4); MONO % 3.9 %; NEUT % 92.1 %; PLATELET COUNT 265 K/uL (130-400); RED CELL DISTRIBUTION WIDTH CV 13.3 % (11.5-14.5); RED CELL DISTRIBUTION WIDTH SD 43.2 fL (36.4-46.3); WHITE BLOOD COUNT 15.32 K/uL (4.8-10.8)
[2017-11-01 02:30] LABS: ALT/SGPT 38 U/L (12-78); AST/SGOT 36 U/L (15-37); BLOOD UREA NITROGEN 14 mg/dl (7-18); CALCIUM 9.7 mg/dl (8.5-10.1); CARBON DIOXIDE 27 mmol/L (21-32); CREATININE 0.91 mg/dl (0.60-1.20); GLUCOSE 108 mg/dl (70-99); POTASSIUM 3.9 mmol/L (3.5-5.1); SODIUM 134 mmol/L (136-145)
[2017-11-01 02:41] LABS: ALKALINE PHOSPHATASE 90 U/L (45-117); TOTAL PROTEIN 8.3 gm/dl (6.4-8.2)
[2017-11-01] MEDS ORDERED: KETOROLAC TROMETHAMINE 30 MG/ML VIAL IV STA (03:55)
[2017-11-01 04:34] LABS: INFLUENZA B ANTIGEN Neg for Influ B (NEG)
[2017-11-01] MEDS ORDERED: CEFTRIAXONE SOD INJ 1 GM ADDVIAL IV STA (05:01)
[2017-11-01] MEDS ORDERED: AMOX875T PO (05:19)
[2017-11-01 05:57] VITALS: BP 140/86; PULSE 93; TEMP 37.3; O2SAT 98
--- NOTE | 2017-11-01 07:08 | DIAGNOSTIC IMAGING REPORT ---
CHEST 2 VIEWS ROUTINE CLINICAL HISTORY: Dizzy. Evaluate for pneumonia. COMPARISON STUDY: Chest radiograph September 08, [address] September 09, 2016. FINDINGS: Lung volumes are normal. No pneumothorax or pleural effusion is noted. There is no evidence for pulmonary edema. No consolidation is present. Cardiomegaly is unchanged. Mediastinal widening is unchanged. The appearance of the chest is unchanged. IMPRESSION: No acute cardiopulmonary findings. Stable cardiomegaly. Electronically signed by: Yon Carmona M.D. 11/01/2017 7:07 AM Dictated Date/Time: 11/01/2017 7:01 AM
== END 2017-11-01 05:58 | disposition home or self-care (01) ==
LOC: C.EDB 00:56
DX: L03.115 Cellulitis of right lower limb (principal); L03.116 Cellulitis of left lower limb; R03.0 Elevated blood-pressure reading, without diagnosis of hypertension; R06.02 Shortness of breath; E03.9 Hypothyroidism, unspecified; J45.909 Unspecified asthma, uncomplicated; Z79.899 Other long term (current) drug therapy; Z79.82 Long term (current) use of aspirin; Z79.51 Long term (current) use of inhaled steroids; Z88.6 Allergy status to analgesic agent

== ENCOUNTER 2020-02-27 08:58 | Inpatient (IN) ==
--- OUTSIDE RECORDS SUMMARY | 2020-02-27 09:01 | External Medical Summary | Continuity of Care Document ---
:1960 Author Name Halle Gold Address Unavailable Unavailable , Care Team Providers Name Role Phone Rashmi Gold Unavailable [email or web address], A Unavailable Unavailable Problems Other streptococcal sepsis (038.0) (A40.8) Cellulitis of leg (682.6) (L03.119) Lymphedema (457.1) (I89.0) Allergies and Adverse Reactions Morphine Derivatives (Allergy) Medications Singulair 10 MG Oral Tablet Refills: 0 Synthroid 112 MCG Oral Tablet Refills: 0 ProAir HFA 108 (90 Base) MCG/ACT Inhalation Aerosol Solution Refills: 0 Procedures History of Cholecystectomy Status: Compl eted Immunizations Immunizations not documented Family History Father Family history of diabetes mellitus (V18.0) (Z83.3) Status: Active Family history of myocardial infarction (V17.3) (Z82.49) Sta tus: Active Sister Family history of malignant neoplasm (V16.9) (Z80.9) Status: Active Social History - Smoking Status Never smoked tobacco Plan of Treatment Planned Observations Planned Goals not documented Results No Known Results Results not documented
[2020-02-27] MEDS ORDERED: DEXAMETHASONE SOD INJ 10 MG/ML VIAL IV ONE (10:04)
[2020-02-27] MEDS ORDERED: SODIUM CHLORIDE 0.9% 500 ML IV ONE (10:04)
[2020-02-27 10:32] LABS: Basophils # (auto) 0.01 K/uL (0-0.2); Basophils % (auto) 0.2 %; Hematocrit (blood only) 39.8 % (37-47); Hemoglobin 13.1 g/dL (12.0-16.0); Immature Granulocytes # (auto) 0.01 K/uL (0.00-0.02); Immature Granulocytes % (auto) 0.2 %; Lymphocytes % (auto) 20.6 %; Mean Corpuscular Hemoglobin 29.9 pg (25-34); Mean Corpuscular Hgb Conc 32.9 g/dL (32-36); Mean Corpuscular Volume 90.9 fL (80-100); Mean Platelet Volume 9.8 fL (7.4-10.4); Monocytes # (auto) 0.32 K/uL (0.11-0.59); Monocytes % (auto) 7.3 %; Neutrophils # (auto) 3.12 K/uL (1.4-6.5); Neutrophils % (auto) 71.7 %; Platelet Count 243 K/uL (130-400); RDW Coefficient of Variation 13.9 % (11.5-14.5); RDW Standard Deviation 46.5 fL (36.4-46.3); Red Blood Count 4.38 M/uL (4.2-5.4); White Blood Count 4.36 K/uL (4.8-10.8)
[2020-02-27 10:43] LABS: Alanine Aminotransferase 33 U/L (12-78); Albumin Level 3.4 gm/dl (3.4-5.0); Aspartate Aminotransferase 31 U/L (15-37); BUN Creatinine Ratio 14.5 (10-20); Bilirubin Direct 0.1 mg/dl (0-0.2); Blood Urea Nitrogen 12 mg/dl (7-18); Calcium 8.9 mg/dl (8.5-10.1); Carbon Dioxide 27 mmol/L (21-32); Chloride 105 mmol/L (98-107); Creatinine Clr Calc Pharmacy 105.7 ml/min; Est GFR (African American) 92.1; Est GFR (Non-African American) 79.5; Glucose 102 mg/dl (70-99); Lipase 158 U/L (73-393); Magnesium 2.1 mg/dl (1.8-2.4); Partial Thromboplastin Ratio 1.2; Partial Thromboplastin Time 32.6 Seconds (21.0-31.0); Potassium 3.4 mmol/L (3.5-5.1); Prothrombin Time 10.5 Seconds (9.0-12.0); Sodium 138 mmol/L (136-145)
[2020-02-27 10:46] LABS: Albumin Globulin Ratio 0.8 (0.9-2); Alkaline Phosphatase 76 U/L (45-117); Bilirubin,Total 0.3 mg/dl (0.2-1); Globulin 4.3 gm/dl (2.5-4.0); NT Pro B Type Natriuretic Pept 143 pg/ml (0-900); Phosphorus 2.3 mg/dl (2.5-4.9); Total Protein 7.7 gm/dl (6.4-8.2); Troponin I < 0.015 ng/ml (0-0.045)
[2020-02-27 10:47] LABS: D Dimer 550 ug/L FEU (0-500)
--- NOTE | 2020-02-27 10:53 | XRay Report ---
XR chest 1V portable CLINICAL HISTORY: Chest Pain COMPARISON STUDY: Chest CT September 09, 2016. Chest radiograph March 02, 2018. FINDINGS: No pneumothorax or pleural effusion is identified. There is moderate cardiomegaly. Pulmonar y vascular congestion with suspected mild pulmonary edema is noted. No consolidation is identified. IMPRESSION: 1. Pulmonary vascular congestion with suspected mild pulmonary edema. 2. Cardiomegaly. ACT 112: Negative or not required by law. Electronically signed by: Yon Carmona M.D. 02/27/2020 10:52 AM
[2020-02-27] MEDS: ALBUTEROL HFA 8 GM INHALER INH PRN (11:06)
[2020-02-27] MEDS ORDERED: OPTIRAY 320 125ml IV ONE (11:38)
--- NOTE | 2020-02-27 12:03 | CT Scan Report ---
CT ANGIOGRAM OF THE CHEST CLINICAL HISTORY: Dyspnea. COMPARISON STUDY: Chest x-ray dated 02/27/2020. Chest CT dated 09/09/2016. TECHNIQUE: Following the IV administration of 120 cc of Optiray 320, CT angiogram of the chest was pe rformed from the upper abdomen to the thoracic inlet utilizing the pulmonary embolus protocol. Images are reviewed in the axial, sagittal, and coronal planes. 3-D MIPS images are created and assessed. I V contrast was administered without complication. A dose lowering technique was utilized adhering to the principles of ALARA. The examination is degraded by large body habitus, and by streak artifact f rom the body wall abutting the CT gantry. There is also motion artifact. CT DOSE: 546.44 mGycm FINDINGS: Thyroid: Imaged portions of the thyroid gland are normal in size and attenuation. Thoracic aorta: The thoracic aorta is normal in caliber and demonstrates standard 3-vessel arch anato my. No dissection is seen. Pulmonary vasculature: The pulmonary trunk is dilated, measuring 3.5 cm diameter. This suggests pulmo nary artery hypertension. There are no filling defects identified in main, lobar, or proximal segment al pulmonary branches to suggest pulmonary embolus. Evaluation of the peripheral branches is signific antly degraded by streak and motion artifact. Heart: The heart is enlarged and without pericardial effusion. Lungs and pleural spaces: Evaluation of the lung parenchyma is significantly degraded by motion artif act. There is bibasilar scarring/atelectasis. Subpleural patchy groundglass consolidation is noted th roughout both lungs, greatest in the upper lobes and at the right lateral lung base. No pleural effus ion is seen. Mediastinum: There are mildly enlarged mediastinal lymph nodes. A prevascular node on image #181 francois ures 11 mm in short axis. A precarinal node on image #171 measures 12 mm in short axis. Miracle: Clear. Axillae: There is no axillary lymphadenopathy. Upper abdomen: There is a small hiatal hernia. The liver is enlarged and steatotic. The spleen appear s mildly enlarged. Skeletal structures: The skeletal structures are osteopenic. No lytic or blastic bony lesions are see n. IMPRESSION: 1. Streak and motion compromised examination. 2. There is no evidence of central pulmonary embolus in the main, lobar, or proximal segmental pulmon joshua arteries. 3. Cardiomegaly with evidence of pulmonary artery hypertension. 4. There is patchy groundglass consolidation seen throughout both lungs. This is nonspecific and like ly represents an infectious/inflammatory pneumonitis. Mild pulmonary edema or pulmonary hemorrhage co uld appear similar and clinical correlation will be required. 5. Mildly enlarged mediastinal lymph nodes are nonspecific and may be on a reactive basis. 6. Hepatomegaly and hepatic steatosis. 7. Additional findings as above. ACT 112: Negative or not required by law. Electronically signed by: Celso Resendiz M.D. 02/27/2020 12:02 PM
--- NOTE | 2020-02-27 12:15 | Emergency Department Note ---
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 Last Admin: 02/27/20 19:34 Dose: 100 mls/hr Documented by: [id number] Montelukast Sodium (Montelukast Sodium 10 Mg Tablet) 10 mg PO HS [facility] Stop: 03/28/20 20:59 Last Admin: 02/27/20 19:38 Dose: 10 mg Documented by: [id number] Vitamin D (Cholecalciferol 1,000 Units 25 Mcg Tab) 1,000 units PO QAM [facility] Stop: 03/28/20 14:29 Last Admin: 02/27/20 17:09 Dose: 1,000 units Documented by: [id number] Zinc Sulfate (Zinc Sulfate 220 Mg Capsule) 220 [facility] Stop: 03/28/20 14:29 Last Admin: 02/27/20 17:09 Dose: 220 mg Documented by: [id number] Discontinued Medications Dexamethasone (Dexamethasone Sod Inj 10 Mg/Ml Vial) 10 mg IV NOW ONE Stop: 02/27/20 10:05 Last Admin: 02/27/20 11:06 Dose: 10 mg Documented by: [id number] Sodium Chloride (Nss) 500 mls @ 999 mls/hr IV .Q31M ONE Stop: 02/27/20 10:34 Last Infusion: 02/27/20 11:54 Dose: 0 mls/hr Documented by: [id number] Admin: 02/27/20 11:06 Dose: 999 mls/hr Documented by: [id number] Remdesivir 200 mg/ Sodium (Chloride) 250 mls @ 125 mls/hr IV 1600 ONE; Protocol Stop: 02/27/20 17:59 Last Infusion: 02/27/20 19:51 Dose: 0 mls/hr Documented by: [id number] Admin: 02/27/20 17:10 Dose: 125 mls/hr Documented by: [id number] Ioversol (Optiray 320 125ml) 120 ml IV ONCE ONE Stop: 02/27/20 11:39 Last Admin: 02/27/20 11:39 Dose: 120 ml Documented by: [id number] Potassium Chloride (Potassium Chloride 20 Meq Tabcr) 20 meq PO NOW STA Stop: 02/27/20 16:01 Last Admin: 02/27/20 17:10 Dose: 20 meq Documented by: [id number] Sodium Chloride (Nss 30ml Flush, Days 1-5) 30 ml IV Q24H [facility] Stop: 02/27/20 18:01 Last Admin: 02/27/20 19:34 Dose: 30 ml Documented by: [id number] Blood Pressure Blood Pressure Findings: Elevated blood pressure Blood Pressure Disposition: further management by hospitalist Discharge Plan Visit Data Chief Complaint: Shortness of Breath/Dyspnea ED Provider: Neel De La Rosa Discharge Problem: COVID-19, Hypoxia, Asthma, Cough, Shortness of breath Patient Disposition: Admitted As Inpatient Discharge Instructions Interventions: ED Discharge Assessment Last Done: 02/27/20 14:50
--- NOTE | 2020-02-27 13:41 | Electrocardiogram Report ---
Test Reason : Blood Pressure : / mmHG Vent. Rate : 075 BPM Atrial Rate : 075 BPM P-R Int : 160 ms QRS Dur : 088 ms QT Int : 392 ms P-R-T Axes : 021 006 031 degrees QTc Int : 437 ms Normal sinus rhythm Normal ECG When compared with ECG of 02-MAR-2018 03:45, No significant change was found Confirmed by Jovanny Lo ([id number]) on 02/27/2020 1:40:53 PM Referred By: REFERRED SELF Confirmed By:Jovanny Lo
[2020-02-27] MEDS ORDERED: ACETAMINOPHEN 500 MG TAB PO PRN (15:49)
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
[2020-02-27] MEDS ORDERED: POTASSIUM CHLORIDE 20 MEQ TABCR PO STA (16:00)
[2020-02-27] MEDS ORDERED: REMDESIVIR 200 mg: Day 1 IV ONE (16:00)
[2020-02-27] MEDS: CHOLECALCIFEROL 1,000 UNITS 25 MCG TAB PO SCH (17:09)
[2020-02-27] MEDS: ZINC SULFATE 220 MG CAPSULE PO SCH (17:09)
[2020-02-27] MEDS ORDERED: NSS 30mL Flush, Days 1-5 IV SCH (18:00)
[2020-02-27] MEDS: cefTRIAXone SODIUM 2,000 MG in DEXTROSE 5% 50 ML IV SCH (19:34)
[2020-02-27] MEDS: ASCORBIC ACID 500 MG TAB PO SCH (19:37)
[2020-02-27] MEDS: ENOXAPARIN INJ 60 MG/0.6 ML SYR SQ SCH (19:37)
[2020-02-27] MEDS: MONTELUKAST SODIUM 10 MG TABLET PO SCH (19:38)
[2020-02-27] MEDS: guaiFENesin 600 MG TABCR PO SCH (20:40)
[2020-02-27] MEDS: DOXYCYCLINE HYCLATE 100 MG CAP PO SCH (20:40)
[2020-02-28] MEDS: LEVOTHYROXINE SODIUM 112 MCG TABLET PO SCH (05:38)
[2020-02-28 06:54] LABS: Hematocrit (blood only) 39.5 % (37-47); Hemoglobin 12.6 g/dL (12.0-16.0); Mean Corpuscular Hemoglobin 29.6 pg (25-34); Mean Corpuscular Hgb Conc 31.9 g/dL (32-36); Mean Corpuscular Volume 92.7 fL (80-100); Mean Platelet Volume 9.6 fL (7.4-10.4); Platelet Count 262 K/uL (130-400); RDW Coefficient of Variation 13.7 % (11.5-14.5); RDW Standard Deviation 46.6 fL (36.4-46.3); Red Blood Count 4.26 M/uL (4.2-5.4); White Blood Count 3.87 K/uL (4.8-10.8)
[2020-02-28] MEDS: ALBUTEROL HFA 8 GM INHALER INH PRN (07:00)
[2020-02-28 07:02] LABS: D Dimer 380 ug/L FEU (0-500)
[2020-02-28 07:31] LABS: Albumin Level 2.9 gm/dl (3.4-5.0); BUN Creatinine Ratio 24.5 (10-20); Bilirubin,Total 0.2 mg/dl (0.2-1); Calcium 8.6 mg/dl (8.5-10.1); Creatinine Clr Calc Pharmacy 133.3 ml/min; Est GFR (African American) 114.4; Est GFR (Non-African American) 98.7; Potassium 4.4 mmol/L (3.5-5.1)
[2020-02-28 07:37] LABS: Albumin Globulin Ratio 0.7 (0.9-2); C Reactive Protein 6.35 mg/dl (0-0.29); Ferritin 255.4 ng/ml (8-388); Total Protein 6.9 gm/dl (6.4-8.2)
[2020-02-28] MEDS: DOXYCYCLINE HYCLATE 100 MG CAP PO SCH ×2 (07:53→20:56)
[2020-02-28] MEDS: ASCORBIC ACID 500 MG TAB PO SCH ×2 (07:53→20:57)
[2020-02-28] MEDS: CHOLECALCIFEROL 1,000 UNITS 25 MCG TAB PO SCH (07:54)
[2020-02-28] MEDS: guaiFENesin 600 MG TABCR PO SCH ×2 (07:55→20:56)
[2020-02-28] MEDS: ZINC SULFATE 220 MG CAPSULE PO SCH (07:55)
[2020-02-28] MEDS: ASPIRIN 81 MG ECTAB PO SCH (07:55)
[2020-02-28] MEDS: FLUTICASONE FUROATE 100MCG 14 PUFFS/INHALER INH SCH (07:56)
[2020-02-28] MEDS ORDERED: dexAMETHasone 6 MG in DEXTROSE 5% 25 ML IV SCH (09:00)
[2020-02-28] MEDS: REMDESIVIR 100mg: Days 2-5 IV SCH (16:56)
[2020-02-28] MEDS: NSS FLUSH DAYS IV SCH (16:56)
--- NOTE | 2020-02-28 18:41 | Hospitalist Progress Note ---
Date of Service February 28, 2020 Assessment & Plan (1) COVID-19: (2) Acute respiratory failure with hypoxia: Possible Pneumonia Present on admission with worsening SOB associated with productive cough COVID 19 positive CTA chest showed no evidence of central pulmonary embolus in the main, lobar, or proximal segmental pulmonary arteries. patchy groundglass consolidation seen throughout both lungs. oxygen in the 80's at the urgent care as per ER document Case discussed with pulmonology dr. Arauz, no need to place an official consult Will start on Remdesivir since pt was hypoxia required 2LNC and symptoms started last night Handout given to patient about Remdesivir and major side effects discussed with patient Pt refused convalescent plasma for now, she said that she will think about it later Continue oxygen supplement Continue airborne protocol Elevated ESR 31 and CRP 6.35, Normal Ferritin, LDH and procalcitonin Liver enzymes stable D-dimer elevated on admission, back to normal Blood cx cono growth Continue IV Rocephin and Doxycycline due to patchy consolidation on CTA chest Continue IV dexamethasone Continue Remdesivit to complete 5 days course Continue Zinc, Vit C and D and guaifenesin Continue to avoid any neb treatment due increased aerosol in a to Positive COVID-19 Continue anila encourage the patient about self pronating as this will likely improve VQ mismatch Will repeat CRP, ESR, LDH and feritin and LFT am Continue monitor closely Elevated BP Possible related to steroid Will add hydralazine prn Continue monitor BP Hypokalemia Potassium 3.4 on admission Potassium 4.4 today Stable Elevated D-dimer Due to COVID CTA chest showed no evidence of PE D-Dimer back to normal Asthma Continue steroid inhaler, Singular and Ventolin PRN Continue oxygen supplement Hypothyroidism Continue levothyroxine DVT px on Lovenox CODE STATUS FULL CODE Disposition Continue monitor closely Admission and Anticipated Discharge Date Admission Date: February 27, 2020 Subjective Pt was seen and examined Lying in bed with no distress Pt said that she continues to have SOB with exertion She said that her breathing is slightly better Denies any chest pain, palpitation, dizziness and SOB Physical Exam Physical Exam: General- No acute distress Head- atraumatic Eyes- PERRL, EOMI, ENT- oropharynx clear Neck- supple, no JVD Lungs- Diminished BS Heart- regular rhythm; no murmur Abdomen- normal bowel sounds, soft, nontender Extremities- no calf tenderness, +edema Neuro- alert, oriented x 3; PERRL, EOMI; no facial palsy; no dysarthria Skin- warm & dry Results & Data Results & Data ([facility]) Vital Signs (Past 12 Hours) Vital Signs Temp Pulse Resp BP Pulse Ox 02/28/20 12:00 36.8 C 68 20 168/66 H 95 02/28/20 08:52 36.6 C 64 20 124/68 88 L 02/28/20 08:11 36.8 C 62 18 124/68 95
[2020-02-28] MEDS ORDERED: HydrALAZINE HCL 20 MG/ML VIAL IV PRN (19:07)
[2020-02-28] MEDS: cefTRIAXone SODIUM 2,000 MG in DEXTROSE 5% 50 ML IV SCH (20:55)
[2020-02-28] MEDS: ENOXAPARIN INJ 60 MG/0.6 ML SYR SQ SCH (20:55)
[2020-02-28] MEDS: MONTELUKAST SODIUM 10 MG TABLET PO SCH (20:56)
[2020-02-29] MEDS: LEVOTHYROXINE SODIUM 112 MCG TABLET PO SCH (05:41)
[2020-02-29 06:20] LABS: Hematocrit (blood only) 39.2 % (37-47); Hemoglobin 12.6 g/dL (12.0-16.0); Mean Corpuscular Hemoglobin 29.7 pg (25-34); Mean Corpuscular Hgb Conc 32.1 g/dL (32-36); Mean Corpuscular Volume 92.5 fL (80-100); Mean Platelet Volume 9.8 fL (7.4-10.4); Platelet Count 308 K/uL (130-400); RDW Coefficient of Variation 13.8 % (11.5-14.5); RDW Standard Deviation 46.6 fL (36.4-46.3); Red Blood Count 4.24 M/uL (4.2-5.4)
[2020-02-29 06:50] LABS: Albumin Level 2.9 gm/dl (3.4-5.0); BUN Creatinine Ratio 27.3 (10-20); C Reactive Protein 2.47 mg/dl (0-0.29); Calcium 9.1 mg/dl (8.5-10.1); Creatinine Clr Calc Pharmacy 107.3 ml/min; Est GFR (Non-African American) 84.5; Potassium 4.5 mmol/L (3.5-5.1)
[2020-02-29 06:55] LABS: Albumin Globulin Ratio 0.7 (0.9-2); Bilirubin,Total 0.3 mg/dl (0.2-1); Ferritin 270.5 ng/ml (8-388); Total Protein 6.9 gm/dl (6.4-8.2)
[2020-02-29] MEDS: FLUTICASONE FUROATE 100MCG 14 PUFFS/INHALER INH SCH (07:54)
[2020-02-29] MEDS: ASPIRIN 81 MG ECTAB PO SCH (07:55)
[2020-02-29] MEDS: ASCORBIC ACID 500 MG TAB PO SCH ×2 (07:55→19:42)
[2020-02-29] MEDS: CHOLECALCIFEROL 1,000 UNITS 25 MCG TAB PO SCH (07:55)
[2020-02-29] MEDS: DOXYCYCLINE HYCLATE 100 MG CAP PO SCH ×2 (07:56→19:41)
[2020-02-29] MEDS: ZINC SULFATE 220 MG CAPSULE PO SCH (07:56)
[2020-02-29] MEDS: guaiFENesin 600 MG TABCR PO SCH ×2 (07:56→19:41)
[2020-02-29] MEDS: DEXAMETHASONE SOD PHOSPHATE 6 MG in SYRINGE 0 ML IV SCH (07:59)
[2020-02-29] MEDS: NSS FLUSH DAYS IV SCH (17:20)
[2020-02-29] MEDS: REMDESIVIR 100mg: Days 2-5 IV SCH (17:20)
--- NOTE | 2020-02-29 18:01 | Hospitalist Progress Note ---
Date of Service February 29, 2020 Assessment & Plan (1) COVID-19: (2) Acute respiratory failure with hypoxia: Possible Pneumonia Present on admission with worsening SOB associated with productive cough COVID 19 positive CTA chest showed no evidence of central pulmonary embolus in the main, lobar, or proximal segmental pulmonary arteries. patchy groundglass consolidation seen throughout both lungs. oxygen in the 80's at the urgent care as per ER document Case discussed with pulmonology dr. Arauz, no need to place an official consult Will start on Remdesivir since pt was hypoxia required 2LNC and symptoms started last night Handout given to patient about Remdesivir and major side effects discussed with patient Pt refused convalescent plasma for now, she said that she will think about it later Continue oxygen supplement Continue airborne protocol Elevated ESR 31 and CRP 6.35, Normal Ferritin, LDH and procalcitonin Liver enzymes stable D-dimer elevated on admission, back to normal Blood cx cono growth Continue IV Rocephin and Doxycycline due to patchy consolidation on CTA chest Continue IV dexamethasone Continue Remdesivit to complete 5 days course Continue Zinc, Vit C and D and guaifenesin Continue to avoid any neb treatment due increased aerosol in a to Positive COVID-19 Continue anila encourage the patient about self pronating as this will likely improve VQ mismatch CRP from 6.35 to 2.47, ESR from 31 to 21, LDH,feritin and LFT are normal Continue monitor closely Elevated BP Possible related to steroid BP has been fluctuated Will add hydralazine prn Continue monitor BP Hypokalemia Potassium 3.4 on admission Potassium 4.5 today Stable Elevated D-dimer Due to COVID CTA chest showed no evidence of PE D-Dimer back to normal Asthma Continue steroid inhaler, Singular and Ventolin PRN Continue oxygen supplement Hypothyroidism Continue levothyroxine DVT px on Lovenox CODE STATUS FULL CODE Disposition Continue monitor closely Admission and Anticipated Discharge Date Admission Date: February 27, 2020 Subjective Pt was seen and examined Lying in bed with no distress Pt said that she is starting to feels much better today She said that her cough improves significantly Denies any chest pain, palpitation, dizziness and fever Physical Exam Physical Exam: General- No acute distress Head- atraumatic Eyes- PERRL, EOMI, ENT- oropharynx clear Neck- supple, no JVD Lungs- Diminished BS Heart- regular rhythm; no murmur Abdomen- normal bowel sounds, soft, nontender Extremities- no calf tenderness, +edema Neuro- alert, oriented x 3; PERRL, EOMI; no facial palsy; no dysarthria Skin- warm & dry Results & Data Results & Data ([facility]) Vital Signs (Past 12 Hours) Vital Signs Temp Pulse Pulse Resp BP Pulse Ox 02/29/20 16:00 36.9 C 68 20 162/78 H 95 02/29/20 12:00 36.8 C 56 L 58 L 22 128/76 96 02/29/20 08:00 56 L
[2020-02-29] MEDS: cefTRIAXone SODIUM 2,000 MG in DEXTROSE 5% 50 ML IV SCH (19:38)
[2020-02-29] MEDS: ENOXAPARIN INJ 60 MG/0.6 ML SYR SQ SCH (19:41)
[2020-02-29] MEDS: MONTELUKAST SODIUM 10 MG TABLET PO SCH (19:42)
[2020-03-01] MEDS: LEVOTHYROXINE SODIUM 112 MCG TABLET PO SCH (05:53)
[2020-03-01 07:51] LABS: Creatinine Clr Calc Pharmacy 103.5 ml/min; Est GFR (African American) 93.5; Est GFR (Non-African American) 80.7
[2020-03-01] MEDS: DEXAMETHASONE SOD PHOSPHATE 6 MG in SYRINGE 0 ML IV SCH (09:12)
[2020-03-01] MEDS: FLUTICASONE FUROATE 100MCG 14 PUFFS/INHALER INH SCH (09:12)
[2020-03-01] MEDS: ASPIRIN 81 MG ECTAB PO SCH (09:13)
[2020-03-01] MEDS: ASCORBIC ACID 500 MG TAB PO SCH ×2 (09:13→20:22)
[2020-03-01] MEDS: guaiFENesin 600 MG TABCR PO SCH ×2 (09:13→20:21)
[2020-03-01] MEDS: DOXYCYCLINE HYCLATE 100 MG CAP PO SCH ×2 (09:13→20:22)
[2020-03-01] MEDS: CHOLECALCIFEROL 1,000 UNITS 25 MCG TAB PO SCH (09:13)
[2020-03-01] MEDS: ZINC SULFATE 220 MG CAPSULE PO SCH (09:13)
[2020-03-01] MEDS: REMDESIVIR 100mg: Days 2-5 IV SCH (17:10)
--- NOTE | 2020-03-01 17:44 | Hospitalist Progress Note ---
Date of Service March 01, 2020 Assessment & Plan (1) COVID-19: (2) Acute respiratory failure with hypoxia: Possible Pneumonia Present on admission with worsening SOB associated with productive cough COVID 19 positive CTA chest showed no evidence of central pulmonary embolus in the main, lobar, or proximal segmental pulmonary arteries. patchy groundglass consolidation seen throughout both lungs. oxygen in the 80's at the urgent care as per ER document Case discussed with pulmonology dr. Arauz, no need to place an official consult Remdesivir started since pt was hypoxia required 2LNC and symptoms started last night Handout given to patient about Remdesivir and major side effects discussed with patient Pt refused convalescent plasma for now, she said that she will think about it later Continue airborne protocol Normal Ferritin, LDH and procalcitonin Liver enzymes stable D-dimer elevated on admission, back to normal Blood cx no growth Continue IV Rocephin and Doxycycline due to patchy consolidation on CTA chest Continue Remdesivir day#4 to complete 5 days course Continue Zinc, Vit C and D and guaifenesin On IV dexamethasone, will transition to PO on discharge Continue to avoid any neb treatment due increased aerosol in a to Positive COVID-19 Continue to encourage the patient about self pronating as this will likely improve VQ mismatch CRP from 6.35 to 2.47, ESR from 31 to 21, LDH,feritin and LFT are normal Weaned off oxygen supplement Continue monitor closely Elevated BP Possible related to steroid BP stable Will add hydralazine prn Continue monitor BP Hypokalemia Potassium 3.4 on admission Potassium 4.5 Stable Bradycardia asymptomatic EKG on admission showed NSR No arrhythmia on telemetry Continue monitor Elevated D-dimer Due to COVID CTA chest showed no evidence of PE D-Dimer back to normal Asthma Continue steroid inhaler, Singular and Ventolin PRN Continue oxygen supplement Hypothyroidism Continue levothyroxine will check TSH in am DVT px on Lovenox CODE STATUS FULL CODE Disposition Continue monitor closely Admission and Anticipated Discharge Date Admission Date: February 27, 2020 Subjective Pt was seen and examined Lying in bed with no distress Pt said that her breathing is much better today Nurse just weaned her off the oxygen and placed her RA she said that her cough improves significantly Denies any chest pain, palpitation, dizziness, SOB and fever Physical Exam Physical Exam: General- No acute distress Head- atraumatic Eyes- PERRL, EOMI, ENT- oropharynx clear Neck- supple, no JVD Lungs- Diminished BS Heart- Bradycardia, no murmur Abdomen- normal bowel sounds, soft, nontender Extremities- no calf tenderness, +edema Neuro- alert, oriented x 3; PERRL, EOMI; no facial palsy; no dysarthria Skin- warm & dry Results & Data Results & Data ([facility]) Vital Signs (Past 12 Hours) Vital Signs Temp Pulse Resp BP Pulse Ox 03/01/20 12:10 36.3 C L 44 L 19 159/91 H 96 03/01/20 07:55 36.8 C 43 L 20 112/64 95
[2020-03-01] MEDS: NSS FLUSH DAYS IV SCH (18:10)
[2020-03-01] MEDS: cefTRIAXone SODIUM 2,000 MG in DEXTROSE 5% 50 ML IV SCH (20:17)
[2020-03-01] MEDS: ENOXAPARIN INJ 60 MG/0.6 ML SYR SQ SCH (20:20)
[2020-03-01] MEDS: MONTELUKAST SODIUM 10 MG TABLET PO SCH (20:21)
[2020-03-02] MEDS: LEVOTHYROXINE SODIUM 112 MCG TABLET PO SCH (05:18)
[2020-03-02] MEDS: FLUTICASONE FUROATE 100MCG 14 PUFFS/INHALER INH SCH (08:12)
[2020-03-02] MEDS: DEXAMETHASONE SOD PHOSPHATE 6 MG in SYRINGE 0 ML IV SCH (08:12)
[2020-03-02] MEDS: guaiFENesin 600 MG TABCR PO SCH (08:12)
[2020-03-02] MEDS: DOXYCYCLINE HYCLATE 100 MG CAP PO SCH (08:13)
[2020-03-02] MEDS: ZINC SULFATE 220 MG CAPSULE PO SCH (08:13)
[2020-03-02] MEDS: ASCORBIC ACID 500 MG TAB PO SCH (08:13)
[2020-03-02] MEDS: CHOLECALCIFEROL 1,000 UNITS 25 MCG TAB PO SCH (08:13)
[2020-03-02] MEDS: ASPIRIN 81 MG ECTAB PO SCH (08:13)
[2020-03-02 08:18] LABS: Albumin Level 2.9 gm/dl (3.4-5.0); BUN Creatinine Ratio 31.8 (10-20); C Reactive Protein 0.64 mg/dl (0-0.29); Calcium 9.2 mg/dl (8.5-10.1); Creatinine Clr Calc Pharmacy 95.1 ml/min; Est GFR (African American) 84.5; Est GFR (Non-African American) 72.9; Potassium 4.3 mmol/L (3.5-5.1)
[2020-03-02 08:29] LABS: Albumin Globulin Ratio 0.8 (0.9-2); Bilirubin,Total 0.2 mg/dl (0.2-1); Globulin 3.8 gm/dl (2.5-4.0); Thyroid Stimulating Hormone 0.862 uIu/ml (0.300-4.500); Total Protein 6.7 gm/dl (6.4-8.2)
--- NOTE | 2020-03-02 15:15 | Hospitalist Progress Note ---
Date of Service March 02, 2020 Assessment & Plan (1) COVID-19: (2) Acute respiratory failure with hypoxia: Possible Pneumonia Present on admission with worsening SOB associated with productive cough COVID 19 positive CTA chest showed no evidence of central pulmonary embolus in the main, lobar, or proximal segmental pulmonary arteries. patchy groundglass consolidation seen throughout both lungs. oxygen in the 80's at the urgent care as per ER document Case discussed with pulmonology dr. Arauz, no need to place an official consult Remdesivir started since pt was hypoxia required 2LNC and symptoms started last night Handout given to patient about Remdesivir and major side effects discussed with patient Pt refused convalescent plasma for now, she said that she will think about it later Continue airborne protocol Normal Ferritin, LDH and procalcitonin Liver enzymes stable D-dimer elevated on admission, back to normal Blood cx no growth Continue IV Rocephin and Doxycycline due to patchy consolidation on CTA chest Completed Remdesivir 5 days course Continue Zinc, Vit C and D and guaifenesin On IV dexamethasone, will transition to PO on discharge Continue to avoid any neb treatment due increased aerosol in a to Positive COVID-19 Continue to encourage the patient about self pronating as this will likely improve VQ mismatch CRP from 6.35 to 2.47, then 0.64, ESR from 31 to 21 (normal) LDH,ferritin and LFT are normal Has been off oxygen and saturated well on RA Clinically improves significantly Elevated BP Possible related to steroid BP stable Continue monitor BP Hypokalemia Potassium 3.4 on admission Potassium 4.3 Stable Bradycardia asymptomatic EKG on admission showed NSR No arrhythmia on telemetry Stable Mild Elevated D-dimer Due to COVID CTA chest showed no evidence of PE D-Dimer back to normal case discussed with hematology Dr. Walker that recommended to anticoagulate for at least 1 week since pt will be home inactive Due to high BMI, will do Eliquis 5mg BID Asthma Continue steroid inhaler, Singular and Ventolin PRN Continue oxygen supplement Hypothyroidism Continue levothyroxine TSH normal DVT px on Lovenox CODE STATUS FULL CODE Disposition Will discharge home today Admission and Anticipated Discharge Date Admission Date: February 27, 2020 Subjective Pt was seen and examined Lying in bed with no distress Pt said that her breathing is much better today She said that she feels much better today and she is coughing very little Denies any chest pain, palpitation, dizziness, SOB and fever Physical Exam Physical Exam: General- No acute distress Head- atraumatic Eyes- PERRL, EOMI, ENT- oropharynx clear Neck- supple, no JVD Lungs- Diminished BS Heart- Bradycardia, no murmur Abdomen- normal bowel sounds, soft, nontender Extremities- no calf tenderness, +edema Neuro- alert, oriented x 3; PERRL, EOMI; no facial palsy; no dysarthria Skin- warm & dry Results & Data Results & Data ([facility]) Vital Signs (Past 12 Hours) Vital Signs Temp Pulse Resp BP Pulse Ox 03/02/20 12:04 36.8 C 59 L 16 146/78 H 92 03/02/20 09:59 60 03/02/20 08:16 36.6 C 44 L 18 132/86 93 03/02/20 04:00 36.5 C 42 L 16 115/75 92
[2020-03-02] MEDS: REMDESIVIR 100mg: Days 2-5 IV SCH (16:50)
[2020-03-02 16:53] VITALS: BP 152/85; PULSE 53; TEMP 98.4; O2SAT 95
[2020-03-02] MEDS: NSS FLUSH DAYS IV SCH (18:30)
[2020-03-02] MEDS: cefTRIAXone SODIUM 2,000 MG in DEXTROSE 5% 50 ML IV SCH (19:04)
--- NOTE | 2020-03-05 00:45 | Discharge Summary ---
Date of Service March 02, 2020 Admission HPI Per Admitting Provider 59 years old female with past medical history of asthma, history of DVT back in 2013, pelvic fracture, hypothyroidism, obesity, venous stasis dermatitis presented to the ER with worsening shortness of breath associated with cough. Patient said symptoms started last night but this morning at work shortness of breath got worse with minimal exertion she said that she spiked a low-grade fever this morning. Patient has been exposed with COVID-19 with her brother tand her [id number].work tested positive. 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 Patient said that her chest felt very tight. She said this morning she was at work when she was coughing nonstop. She said her cough is productive. She said that she left work and went to the urgent care and her oxygen was in the 80's. EMS was called and brought her to the ER. Denies any diarrhea, palpitation, dizziness. Currently she saturated at 94% on 4 L nasal cannula. Admission Exam Per Admitting Provider General- No acute distress Head- atraumatic Eyes- PERRL, EOMI, ENT- oropharynx clear Neck- supple, no JVD Lungs- Diminished BS Heart- regular rhythm; no murmur Abdomen- normal bowel sounds, soft, nontender Extremities- no calf tenderness, +edema Neuro- alert, oriented x 3; PERRL, EOMI; no facial palsy; no dysarthria Skin- warm & dry Principal Diagnosis COVID-19: Acute respiratory failure with hypoxia: Elevated blood pressure Hypokalemia Bradycardia Mild Elevated D-dimer Asthma Discharge Exam General- No acute distress Head- atraumatic Eyes- PERRL, EOMI, ENT- oropharynx clear Neck- supple, no JVD Lungs- Diminished BS Heart- Bradycardia, no murmur Abdomen- normal bowel sounds, soft, nontender Extremities- no calf tenderness, +edema Neuro- alert, oriented x 3; PERRL, EOMI; no facial palsy; no dysarthria Skin- warm & dry Discharge Data Allergies Allergy/AdvReac Type Severity Reaction Status Date / Time morphine Allergy Unknown BRADYCARDIA Verified 02/27/20 10:13 Consultations 02/27/20 12:15 ED Decision to Admit Stat Ordered Studies 02/27/20 11:15 CT angio chest PE protocol Stat CT ANGIOGRAM OF THE CHEST CLINICAL HISTORY: Dyspnea. COMPARISON STUDY: Chest x-ray dated 02/27/2020. Chest CT dated 09/09/2016. TECHNIQUE: Following the IV administration of 120 cc of Optiray 320, CT angiogram of the chest was performed from the upper abdomen to the thoracic inlet utilizing the pulmonary embolus protocol. Images are reviewed in the axial, sagittal, and coronal planes. 3-D MIPS images are created and assessed. IV contrast was administered without complication. A dose lowering technique was utilized adhering to the principles of ALARA. The examination is degraded by large body habitus, and by streak artifact from the body wall abutting the CT gantry. There is also motion artifact. CT DOSE: 546.44 mGycm FINDINGS: Thyroid: Imaged portions of the thyroid gland are normal in size and attenuation. Thoracic aorta: The thoracic aorta is normal in caliber and demonstrates standard 3-vessel arch anatomy. No dissection is seen. Pulmonary vasculature: The pulmonary trunk is dilated, measuring 3.5 cm diameter. This suggests pulmonary artery hypertension. There are no filling defects identified in main, lobar, or proximal segmental pulmonary branches to suggest pulmonary embolus. Evaluation of the peripheral branches is significantly degraded by streak and motion artifact. Heart: The heart is enlarged and without pericardial effusion. Lungs and pleural spaces: Evaluation of the lung parenchyma is significantly degraded by motion artifact. There is bibasilar scarring/atelectasis. Subpleural patchy groundglass consolidation is noted throughout both lungs, greatest in the upper lobes and at the right lateral lung base. No pleural effusion is seen. Mediastinum: There are mildly enlarged mediastinal lymph nodes. A prevascular node on image #181 measures 11 mm in short axis. A precarinal node on image #171 measures 12 mm in short axis. Miracle: Clear. Axillae: There is no axillary lymphadenopathy. Upper abdomen: There is a small hiatal hernia. The liver is enlarged and steatotic. The spleen appears mildly enlarged. Skeletal structures: The skeletal structures are osteopenic. No lytic or blastic bony lesions are seen. IMPRESSION: 1. Streak and motion compromised examination. 2. There is no evidence of central pulmonary embolus in the main, lobar, or proximal segmental pulmonary arteries. 3. Cardiomegaly with evidence of pulmonary artery hypertension. 4. There is patchy groundglass consolidation seen throughout both lungs. This is nonspecific and likely represents an infectious/inflammatory pneumonitis. Mild pulmonary edema or pulmonary hemorrhage could appear similar and clinical correlation will be required. 5. Mildly enlarged mediastinal lymph nodes are nonspecific and may be on a reactive basis. 6. Hepatomegaly and hepatic steatosis. 7. Additional findings as above. ACT 112: Negative or not required by law. Electronically signed by: Celso Resendiz M.D. 02/27/2020 12:02 PM Dictated: 02/27/20 1156 Transcribed: 02/27/20 1156 XR chest 1V portable CLINICAL HISTORY: Chest Pain COMPARISON STUDY: Chest CT September 09, 2016. Chest radiograph March 02, 2018. FINDINGS: No pneumothorax or pleural effusion is identified. There is moderate cardiomegaly. Pulmonary vascular congestion with suspected mild pulmonary edema is noted. No consolidation is identified. IMPRESSION: 1. Pulmonary vascular congestion with suspected mild pulmonary edema. 2. Cardiomegaly. ACT 112: Negative or not required by law. Electronically signed by: Yon Carmona M.D. 02/27/2020 10:52 AM Dictated: 02/27/20 1051 Transcribed: 02/27/20 1051 Hospital Course (1) COVID-19: (2) Acute respiratory failure with hypoxia: Possible Pneumonia Present on admission with worsening SOB associated with productive cough COVID 19 positive CTA chest showed no evidence of central pulmonary embolus in the main, lobar, or proximal segmental pulmonary arteries. patchy groundglass consolidation seen throughout both lungs. oxygen in the 80's at the urgent care as per ER document Case discussed with pulmonology dr. Arauz, no need to place an official consult Remdesivir started since pt was hypoxia required 2LNC and symptoms started last night Handout given to patient about Remdesivir and major side effects discussed with patient Pt refused convalescent plasma for now, she said that she will think about it later Continue airborne protocol Normal Ferritin, LDH and procalcitonin Liver enzymes stable D-dimer elevated on admission, back to normal Blood cx no growth Continue IV Rocephin and Doxycycline due to patchy consolidation on CTA chest Completed Remdesivir 5 days course Continue Zinc, Vit C and D and guaifenesin On IV dexamethasone, will transition to PO on discharge Continue to avoid any neb treatment due increased aerosol in a to Positive COVID-19 Continue to encourage the patient about self pronating as this will likely improve VQ mismatch CRP from 6.35 to 2.47, then 0.64, ESR from 31 to 21 (normal) LDH,ferritin and LFT are normal Has been off oxygen and saturated well on RA Clinically improves significantly Elevated BP Possible related to steroid BP stable Continue monitor BP Hypokalemia Potassium 3.4 on admission Potassium 4.3 Stable Bradycardia asymptomatic EKG on admission showed NSR No arrhythmia on telemetry Stable Mild Elevated D-dimer Due to COVID CTA chest showed no evidence of PE D-Dimer back to normal case discussed with hematology Dr. Walker that recommended to anticoagulate for at least 1 week since pt will be home inactive Due to high BMI, will do Eliquis 5mg BID Asthma Continue steroid inhaler, Singular and Ventolin PRN Continue oxygen supplement Hypothyroidism Continue levothyroxine TSH normal DVT px on Lovenox CODE STATUS FULL CODE Disposition Will discharge home today Total Time Total Time Spent Total Time Spent (In Minutes): 35 minutes Total Time Includes: Examination of the Patient, Discharge Planning, Medication Reconciliation, Communication With Other Providers and Other Discharge Plan Discharge Items Patient Disposition: Home - Self-Care Reason For Visit: SOB Discharge Diagnosis: COVID-19: Acute respiratory failure with hypoxia: Elevated blood pressure Hypokalemia Bradycardia Mild Elevated D-dimer Asthma Activity: Resume your previous activity Non-emergency contact: Primary Care Provider Call non-emergency contact if: you have any medication questions Follow-up/Referrals: Wil Godinez MD [Primary Care Provider] - 03/09/20 11:20 am (Date & Time 03/09/2020 11:20 AM Provider Adeel Taylor MD Department Internal Medicine [facility] THIS IS A TELEVIDEO APPOINTMENT, WHICH WILL TAKE PLACE IN YOUR HOME. PLEASE CALL TO RECEIVE INSTRUCTIONS AND TO CONFIRM YOUR EMAIL ADDRESS. ) Diet: Heart Healthy Addtl Attending Provider Instructions: Follow up with your primary care provider Dr. Godinez on on 03/09/20 @ 11:20 Am Complete course of antibiotic with doxycycline Complete the course of dexamethasone Starting on Eliquis for stroke and blood clot prophylaxis due to due to the risk of COVID 9 for 1 week because you will be home not very active Monitor for abnormal bleeding (such as blood in your stool and urine) while on eliquis Seek medical attention if you develop any abnormal bleeding Continue monitor your blood pressure and bring your blood pressure log at your next appointment with your physician Seek medical attention if you develop any abnormal bleeding Continue practice social distance and wear face mask Please quarantine yourself for at least 14 days Avoid NSAIDs (Motrin, Aleve, Naproxen, Ibuprofen, Advil, Meloxicam,..) while on Eliquis due to risks of bleeding Call your Primary Care doctor if you experience any of the following: Swelling or Pain in your leg Sudden, continuous pain deep in a muscle Pain that worsens when you are active or when you stand still for a long time Chest Pain Sudden Shortness of Breath Rapid or pounding heart beat Fainting Dizziness Cough with blood or bloody sputum Sweating more than normal Bruises Heavy or uncontrolled bleeding Blood in your urine, stool or vomit Black or tarry stools Coronavirus disease 2019 (COVID-19) is a virus that causes a respiratory illness. It is caused by a coronavirus called 2019 novel coronavirus (2019- nCoV). There are many types of coronavirus. Coronaviruses are a very common cause of bronchitis. They may sometimes cause lung infection(pneumonia). Symptoms can range from mild to severe respiratory illness. These viruses are also foundin some animals. COVID-19 was first found in people in [facility], in late 2019. In 2020, several cases of COVID-19 have been confirmed in the [place] Public health officials are working to find the source. How the virus spreads is not yet fully known. It may be spread through droplets of fluid that a person coughs or sneezes into the air. It may be spread if you touch a surface with virus on it, such as a handle or object, and then touch your mouth. What are the symptoms of COVID-19? Some people have no symptoms or mild symptoms. Symptoms may appear 2 to 14 days after contact with the virus. Symptoms can include: Fever Coughing Trouble breathing What are possible complications from COVID-19? In many cases, this virus can cause infection (pneumonia) in both lungs. In some cases, this can cause . How is COVID-19 diagnosed? Your healthcare provider will ask about your symptoms. He or she will also ask about your recent travel and contact with sick people. Testing for the virus is only done through the [facility]. If yourhealthcare provider thinks you may have COVID- 19, he or she will work with your local health department and the CDC on testing. Follow all instructions from your healthcare provider. COVID-19 is diagnosed by: Nasal and throat swab. A cotton-tipped swab is wiped inside your nose or throat. This is done to check for viruses in your nasal mucus. Sputum culture. A small sample of mucus coughed from your lungs (sputum) is collected if you have a cough. It is checked for the virus. How is COVID-19 treated? There is currently no medicine to treat the virus. Treatment is done to help your body while it fights the virus. This is known as supportive care. Supportive care may include: Pain medicine. These include acetaminophen and ibuprofen. They are used to help ease pain and reduce fever. Bed rest. This helps your body fight the illness. For severe illness, you may need to stay in the hospital. Care during severe illness may include: IV (intravenous) fluids.These are given through a vein to help keep your body hydrated. Oxygen. Supplemental oxygen or ventilation with a breathing machine (ventilator) may be given. This is done to keep enough oxygen in your body. Are you at risk for COVID-19? If youve been to a place where people have been sick with this virus, you are at risk for infection. You are at risk if you: Recently traveled to an affected area Had contact with a sick person who recently traveled to this area Had contact with a person who was diagnosed with COVID-19 How can COVID-19 be prevented? There is no vaccine yet. The best prevention is to not have contact with the virus. The CDC advises that people should not travel to areas where there are COVID-19 outbreaks right now for any reason that is not urgent. To help prevent spreading the infection, wash your hands often, or use an alcohol-basedhand mirror specialist. If you are in an area with COVID-19: Wash your hands often. Or use an alcohol-based hand mirror specialist often. Only touch your eyes, nose, or mouth with clean hands. Dont have contact with people who are sick. Follow local instructions about being in public. For example, you may be told to not use public transport for a period of time. Stay away from markets that have live or animals. Wash your hands after touching any animals. Don't touch animals that may be sick. Dont share eating or drinking tools with sick people. Dont kiss someone who is sick. Clean surfaces often with disinfectant. If you were in an area with COVID-19 in the last 14 days: Call your healthcare provider. He or she can talk with local health staff to see what action may be needed. Follow all instructions from your provider. Take your temperature every morning and evening for at least 14 days. This is to check for fever. Keep a record of the readings. Keep watch for symptoms of the virus. Tell your provider right away if you have symptoms. If you were in an area with COVID-19 and have a fever or other symptoms: Dont panic. Keep in mind that other illnesses can cause similar symptoms. Stay away from work, school, and public places. Limit physical contact with family members. Don't kiss anyone or share eating or drinking utensils. Clean surfaces you touch with disinfectant. This is to help prevent the virus from spreading. Call your healthcare provider. Explain that you have been exposed to COVID-19 and have symptoms. Do this before going to any hospital. Wait for instructions. Keep in mind that healthcare staff may wear protective equipment such as masks, gowns, gloves, and eye protection. You may be put in a separate room. This is to prevent the possible virus from spreading. Tell the healthcare staff about recent travel. This includes local travel on public transport. Staff may need to find other people you have been in contact with. Follow all instructions the healthcare staff give you. If you have been diagnosed with COVID-19 Follow all instructions from your healthcare provider. Dont leave your home, except to get medical care. Call your healthcare providers office before going. They can prepare and give you instructions. This will help prevent the virus from spreading. Dont go to work, school, or public areas. Dont use public transport or taxis. Stay away from other people in your home. Have them wear face masks around you. Dont share household items or food. Wear a face mask if you can. This includes at home or in a medical facility. Cover your face with a tissue when you cough or sneeze. Throw the tissue away. Wash your hands. Wash your hands often. Caregivers should: Follow all instructions from healthcare staff. Wear a face mask and protective clothing as advised. Wash hands often. Keep track of the sick persons symptoms. Clean surfaces, fabrics, and laundry thoroughly. Keep other people away from the sick person. When to call your healthcare provider Call your healthcare provider: If youve recently traveled and have symptoms If you have been diagnosed with COVID-19 and your symptoms are worse To learn more To find out more about COVID-19, visit the CDC website at www.cdc.gov/coronavirus/2019-ncov/index.html. Pending Studies at Discharge: No Stand-Alone Forms: My [facility], Smoking Cessation Medications and DC Order Prescriptions: New ascorbic acid (vitamin C) [Vitamin C] 500 mg Tablet 500 mg PO BID 30 Days Qty: 60 RF: 0 zinc sulfate [Orazinc] 220 (50) mg Capsule 220 mg PO QAM 30 Days Qty: 30 RF: 0 dexamethasone 6 mg tablet 6 mg PO DAILY 5 Days Qty: 5 RF: 0 guaifenesin 200 mg tablet 200 mg PO TID PRN (Reason: cough) Qty: 21 RF: 0 cholecalciferol (vitamin D3) [Vitamin D3] 25 mcg (1,000 unit) capsule 25 mcg PO DAILY Qty: 30 RF: 0 Eliquis 5 mg tablet 5 mg PO BID 7 Days Qty: 14 RF: 0 Continued levothyroxine 112 mcg Tablet 112 mcg PO QAM Qty: 0 RF: 0 montelukast 10 mg Tablet 10 mg PO HS Qty: 0 RF: 0 Arnuity Ellipta 100 mcg/actuation Blister With Device 1 puff Inhalation DAILY Qty: 0 RF: 0 albuterol sulfate [Ventolin HFA] 90 mcg/actuation Hfa Aerosol Inhaler 2 puff Inhalation Q4-6 HRS PRN (Reason: SOB/WHEEZING) Qty: 0 RF: 0 aspirin [Aspirin Low Dose] 81 mg Tablet,Delayed Release (Dr/Ec) 81 mg PO QAM RF: 0 acetaminophen [Tylenol Extra Strength] 500 mg Tablet 1,000 mg PO Q6H PRN (Reason: Pain) RF: 0 Discharge Orders: Discharge Order (Routine); Ordered 03/02/20 Ordered By: Diane Oconnor Admission Data Admit Date/Time: 02/27/20 13:56 Attending Provider: Diane Oconnor Admit Provider: Diane Oconnor Primary Care Provider: Wil Godinez Other Providers: Diane Oconnor Other Interventions: Discharge Summary Assessment (RN) Last Done: 03/02/20 18:27
== END 2020-03-02 19:00 | disposition home or self-care (01) | DRG 177 ==
LOC: ED 08:58 → 2S 13:56

== ENCOUNTER 2022-10-16 11:55 | Inpatient (IN) ==
[2022-10-16] MEDS ORDERED: ALBUT/IPRATROP 3MG/0.5MG NEB 3 ML VIAL NEB STA (12:19)
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
[2022-10-16 12:44] LABS: Basophils # (auto) 0.06 K/uL (0-0.2); Basophils % (auto) 0.6 %; Eosinophils # (auto) 0.26 K/uL (0-0.50); Eosinophils % (auto) 2.6 %; Hemoglobin 12.9 g/dl (12.0-16.0); Immature Granulocytes # (auto) 0.04 K/uL (0.01-0.20); Immature Granulocytes % (auto) 0.4 %; Lymphocytes # (auto) 2.15 K/uL (1.2-3.4); Lymphocytes % (auto) 21.6 %; Mean Corpuscular Hemoglobin 29.9 pg (25.0-34.0); Mean Corpuscular Hgb Conc 32.3 g/dL (32.0-36.0); Mean Corpuscular Volume 92.8 fL (80.0-100.0); Mean Platelet Volume 9.5 fL (9.4-12.4); Monocytes # (auto) 0.59 K/uL (0.11-0.59); Monocytes % (auto) 5.9 %; Neutrophils # (auto) 6.86 K/uL (1.40-6.50); Neutrophils % (auto) 68.9 %; Platelet Count 331 K/uL (130-400); RDW Coefficient of Variation 14.2 % (11.5-14.5); RDW Standard Deviation 48.3 fL (36.4-46.3); Red Blood Count 4.31 M/uL (4.20-5.40); White Blood Count 9.96 K/ul (4.8-10.8)
--- NOTE | 2022-10-16 12:51 | XRay Report ---
XR chest 1V portable CLINICAL HISTORY: Shortness of breath. COMPARISON STUDY: Chest radiograph and chest CT February 27, 2020. FINDINGS: No pneumothorax or pleural effusion is noted. Cardiomegaly is unchanged. There is pulmonary vascular congestion without overt pulmonary edema. No consolidation to suggest pneumonia. IMPRESSION: Cardiomegaly. Pulmonary vascular congestion without overt pulmonary edema. ACT 112: Negative or not required by law. Electronically signed by: Yon Carmona M.D. 10/16/2022 12:49 PM
[2022-10-16 12:55] LABS: Albumin Level 4.2 gm/dl (3.4-5.0); BUN Creatinine Ratio 16.5 (10-20); Bilirubin,Total 0.5 mg/dl (0.2-1.0); Calcium 9.7 mg/dl (8.6-10.3); Creatinine Clr Calc Pharmacy 90.1 ml/min; Est GFR (African American) 78.4 ml/min; Est GFR (Non-African American) 67.6 ml/min; Magnesium 1.9 mg/dl (1.7-2.4); Potassium 4.2 mmol/L (3.5-5.1); Total Protein 7.2 gm/dl (6.0-8.3)
[2022-10-16 13:00] LABS: Troponin I High Sensitivity 6.2 pg/ml (0-14)
--- NOTE | 2022-10-16 13:23 | Orthopedic Progress Note ---
Date of Service October 16, 2022 Results & Data Vital Signs (Past 12 Hours) Vital Signs Temp Pulse Resp BP Pulse Ox O2 Del Method 10/16/22 13:00 74 10/16/22 12:50 71 21 94 10/16/22 12:43 73 17 95 10/16/22 12:11 Room Air 10/16/22 12:07 36.5 C 80 24 138/83 91 Room Air
[2022-10-16 13:40] LABS: Appearance Urine Clear (Clear); Bilirubin Urine Negative (Negative); Blood Urine Negative (Negative); Color Urine Yellow; Glucose Urine UA Negative (Negative); Ketones Urine Negative (Negative); Leukocyte Esterase Urine Negative (Negative); Nitrite Urine Negative (Negative); Protein Urine Negative (Negative); Specific Gravity Urine 1.011 (1.000-1.030); Urobilinogen Urine Negative (Negative); pH Urine 7.5 (4.5-7.5)
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
[2022-10-16 14:37] LABS: Influenza A virus by PCR Negative (Neg); Influenza B virus by PCR Negative (Neg); RSV by PCR Negative (Neg); SARS CoV2 RNA(COVID-19) Ceph NEGATIVE (Negative)
[2022-10-16 15:33] LABS: D Dimer 1290 ug/L FEU (0-500)
--- NOTE | 2022-10-16 15:48 | Ultrasound Report ---
BILATERAL LOWER EXTREMITY VENOUS DOPPLER HISTORY: Acute pain and swelling of the right lower extremity leg swelling, evaluate for DVT COMPARISON STUDY: 12/31/2016 FINDINGS: There is normal compressibility, flow, and augmentation within the bilateral lower extremit y deep venous systems. IMPRESSION: No DVT within the right or left lower extremity. ACT 112: Negative or not required by law. Electronically signed by: Delfin Hamilton M.D. 10/16/2022 3:47 PM
[2022-10-16] MEDS ORDERED: ACETAMINOPHEN 325 MG TAB PO PRN (15:53)
[2022-10-16] MEDS ORDERED: POLYETHYLENE (MIRALAX) 17 GM PACK PO PRN (15:53)
[2022-10-16] MEDS ORDERED: ONDANSETRON INJ 2 MG/ML 2 ML VIAL IV PRN (15:53)
[2022-10-16] MEDS: predniSONE 20 MG TAB PO SCH (16:37)
[2022-10-16] MEDS: ENOXAPARIN INJ 40 MG/0.4 ML SYR SQ SCH (16:37)
[2022-10-16] MEDS: ALBUT/IPRATROP 3MG/0.5MG NEB 3 ML VIAL NEB SCH ×2 (16:48→20:42)
[2022-10-16] MEDS: cephALEXin 500 MG CAP PO SCH ×2 (17:15→22:04)
--- NOTE | 2022-10-16 17:50 | Electrocardiogram Report ---
Test Reason : Blood Pressure : / mmHG Vent. Rate : 076 BPM Atrial Rate : 076 BPM P-R Int : 156 ms QRS Dur : 080 ms QT Int : 378 ms P-R-T Axes : 010 004 040 degrees QTc Int : 425 ms Normal sinus rhythm Normal ECG When compared with ECG of 27-FEB-2020 09:13, No significant change was found Confirmed by Dejon Cavanaugh ([id number]) on 10/16/2022 5:49:49 PM Referred By: REFERRED SELF Confirmed By:Efraín Cavanaugh
[2022-10-16] MEDS ORDERED: MONTELUKAST SODIUM 10 MG TABLET PO SCH (21:00)
[2022-10-17] MEDS: ENOXAPARIN INJ 40 MG/0.4 ML SYR SQ SCH (05:24)
[2022-10-17] MEDS: cephALEXin 500 MG CAP PO SCH ×2 (05:24→11:57)
[2022-10-17] MEDS: ALBUT/IPRATROP 3MG/0.5MG NEB 3 ML VIAL NEB SCH ×3 (07:05→14:34)
[2022-10-17 08:02] VITALS: TEMP 97.5
[2022-10-17] MEDS: predniSONE 20 MG TAB PO SCH (08:45)
[2022-10-17] MEDS ORDERED: ASPIRIN 81 MG ECTAB PO SCH (09:00)
[2022-10-17] MEDS ORDERED: FLUTICASONE FUROATE 100MCG 14 PUFFS/INHALER INH SCH (09:00)
[2022-10-17 11:39] VITALS: BP 96/50
[2022-10-17] MEDS ORDERED: OPTIRAY 320 500ml IV ONE (12:49)
--- NOTE | 2022-10-17 13:44 | CT Scan Report ---
CT ANGIOGRAPHY OF THE CHEST, PULMONARY EMBOLUS PROTOCOL CLINICAL HISTORY: Shortness of breath. Evaluate for pulmonary embolus. COMPARISON STUDY: Chest CT February 27, 2020 and chest radiograph October 16, 2022. TECHNIQUE: Following IV administration of 115 mL of Optiray, helical axial images of the chest were o btained utilizing the pulmonary embolus protocol. Maximal intensity projections and sagittal and cor onal reformats were viewed on an independent 3D workstation. IV contrast was administered without co mplication. Automated exposure control was utilized for the study. A dose lowering technique was ut ilized adhering to the principles of ALARA. CT DOSE: 803.85 mGy.cm FINDINGS: No pulmonary emboli are identified. There is moderate dilatation of the central pulmonary arteries. Moderate cardiomegaly is noted. There is no pericardial effusion. Mildly enlarged mediastin al lymph nodes are noted. Hilar lymph nodes are normal in size. These lymph nodes have decreased in s ize since CT of February 27, 2020. There is no pneumothorax or pleural effusion. No consolidation to rg ggest pneumonia. No acute fractures within the bony thorax are noted. A splenule adjacent to the panc reatic tail is present. IMPRESSION: 1. No pulmonary emboli identified. 2. No acute intrathoracic findings. 3. Moderate dilatation of the central pulmonary arteries which raises the possibility of pulmonary ar terial hypertension. 4. Moderate cardiomegaly. ACT 112: Negative or not required by law. Electronically signed by: Yon Carmona M.D. 10/17/2022 1:43 PM
--- NOTE | 2022-10-17 14:06 | Discharge Summary ---
Date of Service October 17, 2022 Admission HPI Per Admitting Provider Ms Jaja Preston is a 62 year old female with history of asthma, chronic lymphedema, CKd stage 3, HTN, HLD, hypothyroidism, morbid obesity with BMI of 50 sent from her PCP's office for shortness of breath. She reports that she is moving and today moved some boxes around and kicked up dust. She forgot to bring her rescue inhaler with her and became SOB with wheezing so she went to her PCP's office which was nearby. She was seen there, placed on oxygen and EMS was called. She reports her asthma is usually well controlled and the last time she needed her rescue inhaler was last week. In the office, she was 80s on RA and was placed on 3L NC with improvement to 89-92%. She received solumedrol 125mg IV by EMS en route to the hospital. In the ER, she received nebulizer treatment and her breathing currently feels better. CXR shows cardiomegally, pulmonary vascular congestion but no pulmonary edema. ROS- reports right leg redness which began a couple days ago, no fever/chills. No recent medication changes. Otherwise has been in her usual state of health Admission Exam Per Admitting Provider Physical Exam: Pleasant, comfortable, no acute distress, non toxic ENMT: Neck thick, normocephalic, atraumatic Respiratory: Able to speak in complete sentences, mild expiratory wheezing, good airflow bilaterally Cardiovascular: Regular rate and rhythm, no murmurs/rubs/galloops Gastrointestinal (Abdomen): soft, non tender, non distended Musculoskeletal: chronic leg swelling (chronic lymphedema), no cyanosis or clubbing Skin: about a 6cm area of redness along her right tibial region, also appears to have redness right posterior leg as well. Neurologic: awake, alert, spontaneously moving extremities Psychiatric: affect normal, speech linear, non pressured Principal Diagnosis Acute hypoxic respiratory failure Possible asthma exacerbation Lower extremity cellulitis Discharge Exam Constitutional: WD/WN, vitals as above, NAD, sitting up in bed, pleasant, conversing easily Respiratory: normal respiratory effort, lungs clear to auscultation, no wheeze, rales, rhonchi. Normal insp/exp effort, no accessory muscle use Cardiovascular: RRR, no murmur, no edema Vessels: no JVD or carotid bruit Chest: normal inspection of chest Abdomen: normal bowel sounds, soft, nontender, no hepatosplenomegaly Musculoskeletal: no cyanosis or clubbing, extremities motor strength 5/5. Area of redness of 6 cm present in right tibial region. Skin: no rashes, warm and dry normal turgor Neurologic: PERRL, EOMI, accommodation nl, no face palsy, no dysarthria CN's II- XI intact bilaterally and moves all extremities Psychiatric: A+Ox3, euthymic affect Lymphatic: no cervical or axillary lymphadenopathy : deferred Discharge Data Allergies Allergy/AdvReac Type Severity Reaction Status Date / Time morphine Allergy Unknown BRADYCARDIA Verified 10/16/22 15:23 Consultations 10/16/22 13:47 ED Decision to Admit Stat Ordered Studies 10/16/22 14:27 US leg [US venous doppler LE BI] Routine 10/17/22 12:13 CT angio chest PE protocol Routine Hospital Course (1) Acute respiratory failure with hypoxia: (2) Asthma exacerbation: -Likely bronchospasm with dust/allergen exposure today -Also with underlying asthma -Patient was tachypneic on presentation. Oxygen was 86% in room air on exertion. -D-dimer was elevated; patient underwent CT angio chest which did not show PE or any pneumonia. -Venous duplex was negative for any DVT Two-step oxygen evaluation was done; patient needed 2 L of oxygen on exertion. Home oxygen provided. (3) Cellulitis of right leg: - Treated with Keflex 500 mg every 6 hours. Complete 7-day course. Patient to follow-up with PCP next week. Total Time Total Time Spent Total Time Spent (In Minutes): 35 Total Time Includes: Examination of the Patient, Discharge Planning, Medication Reconciliation, Communication With Other Providers and Other Discharge Plan Discharge Items Patient Disposition: Home - Self-Care Reason For Visit: ACUTE HYPOXIC RESPIRATORY FAILURE Discharge Diagnosis: Acute hypoxic respiratory failure Asthma Activity: Resume your previous activity Non-emergency contact: Primary Care Provider Call non-emergency contact if: you have any medication questions and your symptoms worsen Follow-up/Referrals: Wil Godinez MD [Primary Care Provider] - (Date & Time 10/24/2022 1:20 PM Provider Wil Godinez MD Department Family Medicine [facility] ) Diet: Regular Addtl Attending Provider Instructions: You were admitted to the hospital with possible asthma exacerbation. You needed oxygen at 2 L/min on ambulation. You are prescribed prednisone 40 mg to be taken once daily for 4 more days. You are also prescribed Keflex 500 mg every 6 hours to be taken for 6 more days for cellulitis. An appointment will be set up for you with your primary care doctor for next week. Pending Studies at Discharge: No Stand-Alone Forms: My [facility], Work/School Release, Smoking Cessation Medications and DC Order Prescriptions: New cephalexin 500 mg Capsule 500 mg PO Q6 6 Days Qty: 24 0RF prednisone 20 mg Tablet 40 mg PO DAILY 4 Days Qty: 8 0RF Continued montelukast 10 mg Tablet 10 mg PO HS Qty: 0 Arnuity Ellipta 100 mcg/actuation Blister With Device 1 puff Inhalation DAILY Qty: 0 albuterol sulfate [Ventolin HFA] 90 mcg/actuation Hfa Aerosol Inhaler 2 puff Inhalation Q4-6 HRS PRN (Reason: SOB/WHEEZING) Qty: 0 aspirin [Nora Low Dose Aspirin] 81 mg Tablet,Delayed Release (Dr/Ec) 81 mg PO QAM acetaminophen [Tylenol Extra Strength] 500 mg Tablet 1,000 mg PO Q6H PRN (Reason: Pain) guaifenesin 200 mg tablet 200 mg PO TID PRN (Reason: cough) Qty: 21 0RF cholecalciferol (vitamin D3) [Vitamin D3] 25 mcg (1,000 unit) capsule 25 mcg PO DAILY Qty: 30 0RF Discharge Orders: Discharge Order (Routine); Ordered 10/17/22 Ordered By: Dick Edwards Admission Data Admit Date/Time: 10/16/22 14:27 Attending Provider: Dick Edwards Admit Provider: Haley Rob Primary Care Provider: Wil Godinez Other Providers: Haley Rob
[2022-10-17 14:35] VITALS: O2SAT 96
[2022-10-17 15:08] VITALS: PULSE 73
== END 2022-10-17 15:52 | disposition home or self-care (01) | DRG 189 ==
LOC: ED 11:55 → 2N 14:27 → SUATTDRO 14:27 → 2N 15:53

== ENCOUNTER 2024-04-19 16:37 | Inpatient (IN) ==
--- OUTSIDE RECORDS SUMMARY | 2024-04-19 16:42 | External Medical Summary ---
Author Name Unknown Address Unknown Organization [id number]:[facility] [place] [address] [facility] [address] Laboratory Report Ordering Provider Test Date Status DYLON SANDOVAL 03/20/2024 14:34:10 Final Observation Date Value Abnormality Reference (Units) Status Bacteria identified in Specimen by Culture 03/20/2024 14:34:10 No significant growth Final Test: Culture, Urine, Quanti tative
Specimen Source: Urine, Clean Catch
Specimen Type: Urine
Specimen Date: 03/20/2024 1434
Result Date: 03/21/2024 1707
Result Status: Final result
Resulting Lab: [facility]
[address]
[place] [address]

CULTURE

No significant growth

null Performing Location [facility] [place] [place] [address] [facility] [address]
--- OUTSIDE RECORDS SUMMARY | 2024-04-19 16:42 | External Medical Summary | Summary of Care ---
Author Name Unknown Organization [facility] Address [address] [place] [address] Phone [phone] Care Team Providers Care Plant Safety Leader Name Role Phone Tanisha Palma Primary Care Provider Reason for Visit * Reason Comments eRx-Medication Refill Encounter Details Date Type Department Care Team (Late st Contact Info) Description 12/23/2023 Refill Family Medicine [address] [phone] Wil Godinez MD [address] [place] [id number] Intermittent asthma with reliever use up to twice per week, uncomplicated Allergies Active Allergy Reactions Criticality Noted Date Comments Morphine Other (Please comment) 03/24/2013 Low heart rate documented as of this encounter (statuses as of 12/24/2023) Medications Medication Sig Dispensed Refills Start Date End Date Status aspirin enteric coated 81 MG TBEC TAKE ONE TABLET BY MOUTH EVERY DAY 90 Tab 3 9 Active acetaminophen (TYLENOL) 500 MG Tablet Take 2 Tabs by mouth every 8 hours as needed for Pain or Fever. 100 Tab 9 Active Additional Information Patient taking differently:1,000 mg [id number] PRN, Fever >38C(100.5F), Pain, Moderate, Reported on 10/19/2022 Mometasone Furoate 220 MCG/ACT Inhalation Aerosol Powder Breath Activated (Asmanex)Indication s:Intermittent asthma with reliever use up to twice per week without complication Inhale 1 Puff by mouth every evening. 1 Each 5 3 Active Ventolin HFA 108 (90 Base) MCG/ACT Inhalation Aerosol SolutionIndications :Intermittent asthma with reliever use up to twice per week without complication inhale 2 puffs by mouth every 4-6 hours as needed 54 g 1 3 Active Atorvastatin Calcium 20 MG Oral Tablet (Lipitor)Indication s:Dyslipidemia, goal LDL below 70 TAKE ONE TABLET BY MOUTH AT BEDTIME 90 Tablet 4 Active Levothyroxine Sodium 125 MCG Oral Tablet (Levoxyl)Indication s:Acquired hypothyroidism (at least 30 min prior to breakfast or other meds) 90 Tablet 1 4 Active Cholecalciferol 125 MCG (5000 UT) Oral Tablet Take 1 Tablet by mouth in the morning. 90 Tablet 4 Active Montelukast Sodium 10 MG Oral Tablet (Singulair)Indicati ons:Intermittent asthma with reliever use up to twice per week, uncomplicated TAKE 1 TABLET BY MOUTH EVERY MORNING 90 Tablet 3 4 Active Montelukast Sodium 10 MG Oral Tablet (Singulair)Indicati ons:Intermittent asthma with reliever use up to twice per week, uncomplicated Take 1 Tablet by mouth in the morning. 90 Tablet 1 3 12/24/19 24 Discontinued documented as of this encounter (statuses as of 12/24/2023) Active Problems Problem Noted Date Diagnosed Date Chronic hypoxemic respiratory failure 10/05/2023 Mild persistent asthma without complication 10/2023 History of cellulitis 10/05/2023 Overview: Either leg. Uses pumps to help with the lymphedema Hereditary lymphedema 12/28/2020 Hyperlipidemia LDL goal <70 12/28/2020 Morbid obesity with BMI of 50.0-59.9, adult 10/30 Overview: Per Obesity protocol #1 Acquired hypothyroidism documented as of this encounter (statuses as of 12/24/2023) Resolved Problems Problem Noted Date Diagnosed Date Resolved Date Stage 3a chronic kidney disease 10/05/2023 10/05/2023 CKD (chronic kidney disease) stage 2, GFR 60-89 ml/min 03/13/2023 10/05/2023 Overview: EGFR 72 Primary hypertension 12/28/2020 024 Morbid obesity with BMI of 45.0-49.9, adult 04/29/2020 04/29/2020 COVID-19 02/27/2020 06/15/2020 Overview: Tested positive at [facility] Cellulitis of right leg 12/31/201612/30 Overview: [facility] Cellulitis of left lower leg 12/31/2016 01/09/2018 Overview: [facility] Acetabular fracture 08/25/2012 02/25/20 13 Pubic ramus fracture 08/25/2012 013 Fracture of sacrum 08/25/2012 3 NONE 11/22/2012 Intermittent asthma with rel iever use up to twice per week without complication 10/2023 Reflux esophagitis 3 BMI 45.0-49.9, adult 018 Overview: 283 lbs Dental caries extending into pulp 12/01/2014 Venous stasis of lower extremity 10/05/2023 Morbid obesity with BMI of 45.0-49.9, adult 11/13/2018 Overview: Per Obesity protocol #1 documented as of this encounter (statuses as of 12/24/2023) Immunizations Name Administration Dates Next Due COVID-19 mRNA, LNP-s, No Pre serve, 2-Dose Series (Moderna) 10/28/2020,09/30/2020 COVID-19, mRNA, LNP-s, PF, B ooster, 100mcg/0.5mg (Moderna) 06/21/2021 Pneumococcal Conjugate Vacci ne, 20-valent ([id number]) 01/03/2022 Pneumococcal Polysaccharide PPV23 (Pneumovax) 03/19/2013 Seasonal Influenza Virus Vac cine, Unspecified Formulation 03/12/2023,05/06/2022,07/06/2021,03/16,06/18/2019,03/15/2018,04/05/2017 ,04/06/2016,06/02/2015,06/02/2014,03/02 Seasonal Influenza, PF, 6 M & above, IM , (FluLaval or Fluzone) 03/12/2023,05/06/2022,07/06/2021,03/16,06/18/2019,03/15/2018,04/05/2017 Seasonal Influenza, Quadriva lent, No Preserve, IM 04/06/2016,06/02/2015 Seasonal Influenza, Split, I IV3, With Preserve, Inj 06/02/2014,03/19/2013 TDAP (age 10 and older)(Boostrix) 10/05/2023, Zoster Vaccine Recombinant (Shingrix) 09/16/2018 ,03/15/2018 documented as of this encounter Social History Tobacco Use Types Packs/Day Years Used Date Smoking Tobacco: Never Smokeless Tobacco: Never Alcohol Use Standard Drinks/Week Comments No 0 (1 standard drink = 0.6 oz pur e alcohol) PHQ-2 Answer Date Recorded PHQ-2 Score -1 06/15/2020 Hunger Vital Sign Answer Date Recorded Within the past 12 months, y ou worried that your food would run out before you got the money to buy more. Never true 10/20/19 23 Within the past 12 months, t he food you bought just didn't last and you didn't have money to get more. Never true 10/19/2022 Sex and Gender Information Value Date Recorded Sex Assigned at Not on file Gender Identity Not on file Sexual Orientation Not on file Job Start Date Occupation Industry Not on file Not on file Not on file documented as of this encounter Miscellaneous Notes * Telephone Encounter - Perico Lares, [facility] - 12/24/2023 2:28 PM EDTSigned Prescriptions: Disp Refills Montelukast Sodium 10 MG Oral Tablet (Sing*90 Tab*3 Sig: TAKE 1 TABLET BY MOUTH EVERY MORNINGAuthorizing Provider: TANISHA PALMA User: PERICO LARES documented in this encounter Plan of Treatment Upcoming Encounters Date Type Department Care Team (Late st Contact Info) Description 05/20/2024 11:30 AM EST Office Visit Family Medicine [address] [place] [phone] Tanisha Palma[address] [place] [address] 08/25/2024 1:30 PM EST Imaging Radiology [address] [place] [address] Health Maintenance Due Date Last Done Comments HPV/Co-Test 1990 Cologuard 2005 Colonoscopy 2005 Colorectal Cancer Screening 2005 Fecal Occult Blood Test 2005 Sigmoidoscopy 2005 Depression Screening 06/15/2021 06/15/2020 Cervical Cancer Screening 10/07/2021 Pap Smear 10/07/2021 10/07/2018, 06/01, 04/27/2014, Additional history exists COVID-19 Vaccine ( season) 2023 06/21/2021, 10/28/2020, 09/30/2020 TSH 03/12/2024 03/12/2023, 03/0 12/2022, 07/06/2021, Additional history exists Mammogram 08/23/2024 08/23/2023, 08/03, 08/21/2022, Additional history exists Diabetes Screening 10/04/2026 10/05/2023, 0 03/12/2023, 09/05/2022, Additional history exists Lipid Panel 10/04/2028 10/05/2023, 03/0 12/2022, 07/06/2021, Additional history exists DTaP,Tdap,and Td Vaccines (3 - Td or Tdap) 10/04/2033 10/05/2023, 02/24/2013 Zoster Vaccines Completed 09/16/2018, 03/15/2018 Pneumococcal Vaccine: Pediatrics (0 to 5 Years) and At-Risk Patients (6 to 64 Years) Completed 01/03/2022, 03/19/2013 Albumin/Creatinine Ratio Discontinued 09/06/2022, 10/2021 Influenza Vaccine (FLU shot) Completed 03/12/2023, 03/12/2023, 05/06/2022, Additional history exists GARDASIL-HPV IMMUNIZATION SERIES Aged Out No longer eligible based on patient's age to complete this topic Hepatitis B Aged Out No longer eligi ble based on patient's age to complete this topic MENINGOCOCCAL (MENACTRA/MENVEO) Aged Out No longer eligible based on patient's age to complete this topic documented as of this encounter Medical Devices Not on filedocumented as of this encounter Visit Diagnoses Diagnosis Intermittent asthma with reliever use up to twice per week, uncomplicated documented in this encounter Advance Directives * Full Code (Latest Code Status on File) Date Activated Date Inactivated Comments 08/20/2012 7:41 PM 2012 8:27 PM This order r eflects the patients wishes and were consensually agreed upon. Question Answer Comments Discussion of Advance Directives occurred with: Not Discussed Healthcare Agents on File Name Relationship Healthcare Agent Relationshi p Communication Janes [facility] Spouse Health Care Repr esentative (appointed verbally by patient or by statute hierarchy) Care Teams Plant Safety Leader Relationship Specialty Start Date End Date Tanisha Palma DO [address] [place] [address] [place] [address] PCP - General Internal Medicine 10/05/23 documented as of this encounter
--- OUTSIDE RECORDS SUMMARY | 2024-04-19 16:42 | External Medical Summary | Summary of Care ---
Author Name Unknown Organization [facility] Address [address] [place] [address] Phone [phone] Care Team Providers Care Director Of Gift Planning Name Role Phone Rebecca Crook Primary Care Provider [phone] Reason for Visit * Reason Onset Date Comments Test Results Lab 03/25/2024 Encounter Details Date Type Department Care Team (Late st Contact Info) Description 03/25/2024 Telephone Family Medicine [address] [phone] Junior Iglesias [address] [place] [address] Test Results Lab Allergies Active Allergy Reactions Criticality Noted Date Comments Morphine Other (Please comment) 03/24/2013 Low heart rate documented as of this encounter (statuses as of 03/25/2024) Medications Medication Sig Dispensed Refills Start Date End Date Status aspirin enteric coated 81 MG TBEC TAKE ONE TABLET BY MOUTH EVERY DAY 90 Tab 3 09/17/2018 Active acetaminophen (TYLENOL) 500 MG Tablet Take 2 Tabs by mouth every 8 hours as needed for Pain or Fever. 100 Tab 11/23/2018 Active Additional Information Patient taking differently:1,000 mg [id number] PRN, Fever >38C(100.5F), Pain, Moderate, Reported on 10/19/2022 Ventolin HFA 108 (90 Base) MCG/ACT Inhalation Aerosol SolutionIndications:I ntermittent asthma with reliever use up to twice per week without complication inhale 2 puffs by mouth every 4-6 hours as needed 54 g 1 03/12/2023 Active Levothyroxine Sodium 125 MCG Oral Tablet (Levoxyl)Indications: Acquired hypothyroidism (at least 30 min prior to breakfast or other meds) 90 Tablet 1 10/05/2023 Active Cholecalciferol 125 MCG (5000 UT) Oral Tablet Take 1 Tablet by mouth in the morning. 90 Tablet 10/09/2023 Active Montelukast Sodium 10 MG Oral Tablet (Singulair)Indication s:Intermittent asthma with reliever use up to twice per week, uncomplicated TAKE 1 TABLET BY MOUTH EVERY MORNING 90 Tablet 3 12/24/2023 Active Atorvastatin Calcium 20 MG Oral Tablet (Lipitor)Indications: Dyslipidemia, goal LDL below 70 TAKE ONE TABLET BY MOUTH AT BEDTIME 90 Tablet 2 01/06/2024 Active Asmanex (120 Metered Doses) 220 MCG/ACT Inhalation Aerosol Powder Breath Activated (Mometasone Furoate)Indications:I ntermittent asthma with reliever use up to twice per week without complication inhale 1 puff by mouth every evening. 1 Each 5 02/27/2024 Active documented as of this encounter (statuses as of 03/25/2024) Active Problems Problem Noted Date Diagnosed Date Chronic hypoxemic respiratory failure 10/05/2023 Mild persistent asthma without complication 10/2023 History of cellulitis 10/05/2023 Overview: Either leg. Uses pumps to help with the lymphedema Hereditary lymphedema 12/28/2020 Hyperlipidemia LDL goal <70 12/28/2020 Morbid obesity with BMI of 50.0-59.9, adult 10/30 Overview: Per Obesity protocol #1 Acquired hypothyroidism documented as of this encounter (statuses as of 03/25/2024) Resolved Problems Problem Noted Date Diagnosed Date Resolved Date Stage 3a chronic kidney disease 10/05/2023 10/05/2023 CKD (chronic kidney disease) stage 2, GFR 60-89 ml/min 03/13/2023 10/05/2023 Overview: EGFR 72 Primary hypertension 12/28/2020 024 Morbid obesity with BMI of 45.0-49.9, adult 04/29/2020 04/29/2020 COVID-19 02/27/2020 06/15/2020 Overview: Tested positive at [facility] Cellulitis of right leg 12/31/201612/30 Overview: [facility] Cellulitis of left lower leg 12/31/2016 01/09/2018 Overview: [facility] Acetabular fracture 08/25/2012 02/25/20 13 Pubic ramus [...] as of this encounter (statuses as of 03/25/2024) Immunizations Name Administration Dates Next Due COVID-19 mRNA, LNP-s, No Pre serve, 2-Dose Series (Moderna) 10/28/2020,09/30/2020 COVID-19, mRNA, LNP-s, PF, B ooster, 100mcg/0.5mg (Moderna) 06/21/2021 Pneumococcal Conjugate Vacci ne, 20-valent ([id number]) 01/03/2022 Pneumococcal Polysaccharide PPV23 (Pneumovax) 03/19/2013 Seasonal Influenza Virus Vac cine, Unspecified Formulation 03/12/2023,05/06/2022,07/06/2021,03/16,06/18/2019,03/15/2018,04/05/2017 ,04/06/2016,06/02/2015,06/02/2014,03/02 Seasonal Influenza, PF, 6 M & above, IM , (FluLaval or Fluzone) 03/12/2023,05/06/2022,07/06/2021,03/16,06/18/2019,03/15/2018,04/05/2017 Seasonal Influenza, Quadriva lent, No Preserve, IM 04/06/2016,06/02/2015 Seasonal Influenza, Trivalen t, (IIV3), PF, (Fluzone) 03/20/2024 Seasonal Influenza, Trivalen t, (IIV3), with Preserv, (Fluzone) 06/02/2014,03/19/2013 TDAP (age 10 and older)(Boostrix) 10/05/2023, [...] encounter Miscellaneous Notes * Telephone Encounter - Deirdre Fernandes OSA - 03/25/2024 1:34 PM EDT Patient has been notified of the message. Patient has no further questions. * Telephone Encounter - Junior Iglesias CRNP - 03/25/2024 11:33 AM EDT Called to discuss negative urine culture. No answer on home phone or cell phone. Letter sent. documented in this encounter Plan of Treatment Upcoming Encounters Date Type Department Care Team (Late st Contact Info) Description 05/20/2024 11:30 AM EST Office Visit Family Medicine [address] [place] [phone] Rebecca Crook[address] [place] [address] 08/25/2024 1:30 PM EST Imaging Radiology [address] [place] [address] Health Maintenance Due Date Last Done Comments HPV/Co-Test 1990 Cologuard 2005 Colonoscopy 2005 Colorectal Cancer Screening 2005 Fecal Occult Blood Test 2005 Sigmoidoscopy 2005 Depression Screening 06/15/2021 06/15/2020 Cervical Cancer Screening 10/07/2021 Pap Smear 10/07/2021 10/07/2018, 06/01, 04/27/2014, Additional history exists COVID-19 Vaccine ( season) 2024 06/21/2021, 10/28/2020, 09/30/2020 TSH 03/12/2024 03/12/2023, 03/0 12/2022, 07/06/2021, Additional history exists Mammogram 08/23/2024 08/23/2023, 08/03, 08/21/2022, Additional history exists Diabetes Screening 10/04/2026 10/05/2023, 0 03/12/2023, 09/05/2022, Additional history exists Lipid Panel 10/04/2028 10/05/2023, 03/0 12/2022, 07/06/2021, Additional history exists DTap/Tdap Vaccines (3 - Td or Tdap) 10/04/2033 10/05/2023, 02/24/2013 Zoster Vaccines Completed 09/16/2018, 03/15/2018 Pneumococcal Vaccine: Pediatrics (0 to 5 Years) and At-Risk Patients (6 to 64 Years) Completed 01/03/2022, 03/19/2013 Albumin/Creatinine Ratio Discontinued 09/06/2022, 0110/2021 Influenza Vaccine (FLU shot) Completed 03/20/2024, 03/12/2023, 03/12/2023, Additional history exists HPV (Gardasil) Vaccine Aged Out No lo nger eligible based on patient's age to complete this topic Hepatitis B Vaccine Aged Out No longe r eligible based on patient's age to complete this topic MENINGOCOCCAL (MENACTRA/MENVEO) Aged Out No longer eligible based on patient's age to complete this topic documented as of this encounter Medical Devices Not on filedocumented as of this encounter Advance Directives * Full Code (Latest Code Status on File) Date Activated Date Inactivated Comments 08/20/2012 7:41 PM 2012 8:27 PM This order r eflects the patients wishes and were consensually agreed upon. Question Answer Comments Discussion of Advance Directives occurred with: Not Discussed Healthcare Agents on File Name Relationship Healthcare Agent Relationshi p Communication Janes Preston Spouse Health Care Repr esentative (appointed verbally by patient or by statute hierarchy) Care Teams Director Of Gift Planning Relationship Specialty Start Date End Date Rebecca Crook DO [address] [place] [address] [place] [address] PCP - General Internal Medicine 10/05/23 documented as of this encounter
--- OUTSIDE RECORDS SUMMARY | 2024-04-19 16:42 | External Medical Summary | Summary of Care ---
Author Name Unknown Organization [facility] Address [address] [place] [address] Phone [phone] Care Team Providers Care Lapping Machine Set Up Operator Name Role Phone Rebecca Crook Primary Care Provider Reason for Visit * Reason Onset Date Comments Acute Medication Administration 03/20/2024 Flu an d/or Pneumo Inj Encounter Details Date Type Department Care Team (Late st Contact Info) Description 03/20/2024 2:40 PM EDT Office Visit Family Medicine [address] [phone] Junior Iglesias[address] [place] [address] Back strain, initial encounter*; Need for prophylactic vaccination and inoculation against influenza; Acute right-sided thoracic back pain Allergies Active Allergy Reactions Criticality Noted Date Comments Morphine Other (Please comment) 03/24/2013 Low heart rate documented as of this encounter (statuses as of 03/20/2024) Medications Medication Sig Dispensed Refills Start Date End Date Status aspirin enteric coated 81 MG TBEC TAKE ONE TABLET BY MOUTH EVERY DAY 90 Tab 3 09/17/2018 Active acetaminophen (TYLENOL) 500 MG Tablet Take 2 Tabs by mouth every 8 hours as needed for Pain or Fever. 100 Tab 11/23/2018 Active Additional Information Patient taking differently:1,000 mg [id number] PRN, Fever >38C(100.5F), Pain, Moderate, Reported on [...] as of this encounter (statuses as of 03/20/2024) Active Problems Problem Noted Date Diagnosed Date Chronic hypoxemic respiratory failure 10/05/2023 Mild persistent asthma without complication 10/2023 History of cellulitis 10/05/2023 Overview: Either leg. Uses pumps to help with the lymphedema Hereditary lymphedema 12/28/2020 Hyperlipidemia LDL goal <70 12/28/2020 Morbid obesity with BMI of 50.0-59.9, adult 10/30 Overview: Per Obesity protocol #1 Acquired hypothyroidism documented as of this encounter (statuses as of 03/20/2024) Resolved Problems Problem Noted Date Diagnosed Date Resolved Date Stage 3a chronic kidney disease 10/05/2023 10/05/2023 CKD (chronic kidney disease) stage 2, GFR 60-89 ml/min 03/13/2023 10/05/2023 Overview: EGFR 72 Primary hypertension 12/28/2020 024 Morbid obesity with BMI of 45.0-49.9, adult 04/29/2020 04/29/2020 COVID-19 02/27/2020 06/15/2020 Overview: Tested positive at [facility] Cellulitis of right leg 12/31/201612/30 Overview: [facility] Cellulitis of left lower leg 12/31/2016 01/09/2018 Overview: [facility] Acetabular fracture 08/25/2012 02/25/20 13 Pubic [...] as of this encounter (statuses as of 03/20/2024) Immunizations Name Administration Dates Next Due COVID-19 mRNA, LNP-s, No Pre serve, 2-Dose Series (Moderna) 10/28/2020,09/30/2020 COVID-19, mRNA, LNP-s, PF, B ooster, 100mcg/0.5mg (Moderna) 06/21/2021 Pneumococcal Conjugate Vacci ne, 20-valent ([id number]) 01/03/2022 Pneumococcal Polysaccharide PPV23 (Pneumovax) 03/19/2013 Seasonal [...] on file documented as of this encounter Last Filed Vital Signs Vital Sign Reading Time Taken Comments Blood Pressure 118/76 03/20/2024 2:19 PM EDT Pulse 80 03/20/2024 2:19 PM EDT Temperature 36.3 C (97.3 F) 03/20/2024 2:19 PM ED T Respiratory Rate 18 03/20/2024 2:19 PM EDT Oxygen Saturation 94% 03/20/2024 2:19 PM EDT Inhaled Oxygen Concentration - - Weight 136.2 kg (300 lb 5 oz) 03/20/2024 2:19 PM EDT Height - - Body Mass Index 51.55 03/12/2023 2:18 PM EDT documented in this encounter Progress Notes * Deedee Guevara LPN - 03/20/2024 2:20 PM EDT PRE - ADMINISTRATION DOCUMENTATION Are you experiencing any cold symptoms or fever? No Have you had Guillain-Parker Syndrome (an illness that causes paralysis) within the last 6 weeks? No Have you had the flu shot in the past? YES Have you ever had a reaction to the flu shot? No Deedee Guevara LPN, 03/20/2024 2:20 PM Immunization Administration Documentation Time Out Procedure Performed: Yes Patient Identified (Ask Name/Date of ): Yes Does the patient have a fever greater than 101 degrees today? No Patient allergic to latex? No Verified Side and Site: Yes Verified Shot(s) with Parent(s)/Patient: Yes documented in this encounter Nursing Notes * Deedee Guevara LPN - 03/20/2024 2:17 PM EDT Low back pain since yesterday. Didn't feel well yesterday. Had diarrhea and stomachache yesterday. Concerned if it is a uti. She works at [employer] and she said they don't allow her to go to the bathroom. documented in this encounter Plan of Treatment Upcoming Encounters Date Type Department Care Team (Late st Contact Info) Description 05/20/2024 11:30 AM EST Office Visit Family Medicine [address] [place] [phone] Rebecca Crook [address] [place] [address] 08/25/2024 1:30 PM EST Imaging Radiology [address] [place] [address] Pending Results Name Type Priority Associated Diagnoses Date /Time CULTURE, URINE, QUANTITATIVE Lab Routine Acute right-sided thoracic back pain 03/20/2024 2:34 PM EDT Health Maintenance Due Date Last Done Comments HPV/Co-Test 1990 Cologuard 2005 Colonoscopy 2005 Colorectal Cancer Screening 2005 Fecal Occult Blood Test 2005 Sigmoidoscopy 2005 Depression Screening 06/15/2021 06/15/2020 Cervical Cancer Screening 10/07/2021 Pap Smear 10/07/2021 10/07/2018, 06/01, 04/27/2014, Additional history exists COVID-19 Vaccine ( season) 2024 06/21/2021, 10/28/2020, 09/30/2020 TSH 03/12/2024 03/12/2023, 0 12/2022, 07/06/2021, Additional history exists Mammogram 08/23/2024 [...] 09/06/2022, 10/2021 Influenza Vaccine (FLU shot) Completed 03/20/2024, 03/12/2023, [...] Not on filedocumented as of this encounter Procedures Procedure Name Priority Date/Time Associated Diagnosis Comments URINALYSIS, POINT OF CARE (ENTER/EDIT) Routine 03/20/2024 Acute right-sided thoracic back pain documented in this encounter Results * URINALYSIS, POINT OF CARE (ENTER/EDIT) (03/20/2024) Color, Urine Dark Yellow Yellow or Light Yellow Clarity, Urine Clear Clear Glucose, Urine Negative Negative mg/dL Bilirubin, Urine Small Negative Ketone, Urine Negative Negative mg/dL Specific [place], Urine 1.030 1.003 - 1.030 Blood, Urine Negative Negative pH, Urine 5.5 5.0 - 7.5 units Protein, Urine Trace Negative mg/dL Urobilinogen, Urine 0.2 0.2 - 1.0 mg/dL Nitrite, Urine Negative Negative Esterase, Urine Negative Negative Urine 03/20/2024 [facility] POINT OF CA RE TEST ENTER/EDIT ORDERABLES documented in this encounter Visit Diagnoses Diagnosis Back strain, initial encounter- Primary Need for prophylactic vaccination and inoculation against influenza Acute right-sided thoracic back pain documented in this encounter Advance Directives * Full Code (Latest Code Status on File) Date Activated Date Inactivated Comments 08/20/2012 7:41 PM 2012 8:27 PM This order r eflects the patients wishes and were consensually agreed upon. Question Answer Comments Discussion of Advance Directives occurred with: Not Discussed Healthcare Agents on File Name Relationship Healthcare Agent Relationshi p Communication Janes Dugganey Spouse Health Care Repr esentative (appointed verbally by patient or by statute hierarchy) Care Teams Lapping Machine Set Up Operator Relationship Specialty Start Date End Date Rebecca Crook DO [address] [place] [address] [place] [phone] PCP - General Internal Medicine 10/05/23 documented as of this encounter
--- OUTSIDE RECORDS SUMMARY | 2024-04-19 16:42 | External Medical Summary | Summary of Care ---
Author Name Unknown Organization [facility] Address [address] [place] [address] Phone [phone] Care Team Providers Care Oncologist Name Role Phone Rebecca Crook Primary Care Provider Reason for Visit * Reason Onset Date Comments Test Results Lab 03/25/2024 Encounter Details Date Type Department Care Team (Late st Contact Info) Description 03/25/2024 Telephone Family Medicine [address] [phone] Junior Iglesias [address] [place] [address] Test Results Lab Allergies Active [...] Active Additional Information Patient taking differently:1,000 mg [id number] PRN, Fever >38C(100.5F), Pain, Moderate, Reported on [...] COVID-19 02/27/2020 06/15/2020 Overview: Tested positive at [facility] Cellulitis of right leg 12/31/201612/30 Overview: [facility] Cellulitis of left lower leg 12/31/2016 01/09/2018 Overview: [facility] Acetabular fracture 08/25/2012 02/25/20 13 Pubic [...] (Moderna) 06/21/2021 Pneumococcal Conjugate Vacci ne, 20-valent ([id number]) 01/03/2022 Pneumococcal Polysaccharide PPV23 (Pneumovax) 03/19/2013 Seasonal [...] encounter Miscellaneous Notes * Telephone Encounter - Junior Iglesias CRNP - 03/25/2024 11:33 AM EDT Called to discuss negative urine culture. No answer on home phone or cell phone. Letter sent. documented in this encounter Plan of Treatment Upcoming Encounters Date Type Department Care Team (Late st Contact Info) Description 05/20/2024 11:30 AM EST Office Visit Family Medicine [address] [place] [phone] [place] [address] 08/25/2024 1:30 PM EST Imaging Radiology [address] [place] [address] Health Maintenance Due Date Last Done Comments HPV/Co-Test 1990 Cologuard 2005 Colonoscopy 2005 Colorectal Cancer Screening 2005 Fecal Occult Blood Test 2005 Sigmoidoscopy 2005 Depression Screening 06/15/2021 06/15/2020 Cervical Cancer Screening 10/07/2021 Pap Smear 10/07/2021 10/07/2018, 06/01, 04/27/2014, Additional history exists COVID-19 Vaccine ( season) 2024 06/21/2021, 10/28/2020, 09/30/2020 TSH 03/12/2024 03/12/2023, 12/2022, 07/06/2021, Additional history exists Mammogram 08/23/2024 08/23/2023, 08/03, 08/21/2022, Additional history exists Diabetes Screening 10/04/2026 10/05/2023, 0 03/12/2023, 09/05/2022, Additional history exists Lipid Panel 10/04/2028 10/05/2023, 030 12/2022, 07/06/2021, Additional history exists DTap/Tdap Vaccines [...] Relationship Healthcare Agent Relationshi p Communication Janes Duggan Spouse Health Care Repr esentative (appointed verbally by patient or by statute hierarchy) Care Teams Oncologist Relationship Specialty Start Date End Date Rebecca Crook DO [address] [place] [address] [place] [address] PCP - General Internal Medicine 10/05/23 documented as of this encounter
--- OUTSIDE RECORDS SUMMARY | 2024-04-19 16:42 | External Medical Summary | Summary of Care ---
Author Name Unknown Organization [facility] Address [address] [place] [address] Phone [phone] Care Team Providers Care Carbon Coating Machine Operator Name Role Phone Tanisha Palma DO Primary Care Provider Reason for Visit * Reason Comments eRx-Medication Refill Encounter Details Date Type Department Care Team (Late st Contact Info) Description 01/04/2024 Refill Family Medicine [address] [phone] Tanisha Palma [address] [place] [phone] Dyslipidemia, goal LDL below 70 Allergies Active Allergy Reactions Criticality Noted Date Comments Morphine Other (Please comment) 03/24/2013 Low heart rate documented as of this encounter (statuses as of 01/06/2024) Medications Medication Sig Dispensed Refills Start Date End Date Status aspirin enteric coated 81 MG TBEC TAKE ONE TABLET BY MOUTH EVERY DAY 90 Tab 3 9 Active acetaminophen (TYLENOL) 500 MG Tablet Take 2 Tabs by mouth every 8 hours as needed for Pain or Fever. 100 Tab 9 Active Additional Information Patient taking differently:1,000 mg [id number] PRN, Fever >38C(100.5F), Pain, Moderate, Reported on [...] as needed 54 g 1 3 Active Levothyroxine Sodium 125 MCG Oral Tablet [...] EVERY MORNING 90 Tablet 3 4 Active Atorvastatin Calcium 20 MG Oral Tablet (Lipitor)Indication s:Dyslipidemia, goal LDL below 70 TAKE ONE TABLET BY MOUTH AT BEDTIME 90 Tablet 2 4 Active Atorvastatin Calcium 20 MG Oral Tablet (Lipitor)Indication s:Dyslipidemia, goal LDL below 70 TAKE ONE TABLET BY MOUTH AT BEDTIME 90 Tablet 4 01/06/20 24 Discontinued documented as of this encounter (statuses as of 01/06/2024) Active Problems Problem Noted Date Diagnosed Date Chronic hypoxemic respiratory failure 10/05/2023 Mild persistent asthma without complication 10/2023 History of cellulitis 10/05/2023 Overview: Either leg. Uses pumps to help with the lymphedema Hereditary lymphedema 12/28/2020 Hyperlipidemia LDL goal <70 12/28/2020 Morbid obesity with BMI of 50.0-59.9, adult 10/30 Overview: Per Obesity protocol #1 Acquired hypothyroidism documented as of this encounter (statuses as of 01/06/2024) Resolved Problems Problem Noted Date Diagnosed Date Resolved Date Stage 3a chronic kidney disease 10/05/2023 10/05/2023 CKD (chronic kidney disease) stage 2, GFR 60-89 ml/min 03/13/2023 10/05/2023 Overview: EGFR 72 Primary hypertension 12/28/2020 024 Morbid obesity with BMI of 45.0-49.9, adult 04/29/2020 04/29/2020 COVID-19 02/27/2020 06/15/2020 Overview: Tested positive at [facility] Cellulitis of right leg 12/31/201612/30 Overview: [facility] Cellulitis of left lower leg 12/31/2016 01/09/2018 Overview: [facility] Acetabular fracture 08/25/2012 02/25/20 13 Pubic ramus [...] as of this encounter (statuses as of 01/06/2024) Immunizations Name Administration Dates Next Due COVID-19 mRNA, LNP-s, No Pre serve, 2-Dose Series (Moderna) 10/28/2020,09/30/2020 COVID-19, mRNA, LNP-s, PF, B ooster, 100mcg/0.5mg (Moderna) 06/21/2021 Pneumococcal Conjugate Vacci ne, 20-valent ([id number]) 01/03/2022 Pneumococcal Polysaccharide PPV23 (Pneumovax) 03/19/2013 Seasonal [...] encounter Miscellaneous Notes * Telephone Encounter - Leland Luna, [facility] - 01/06/2024 3:54 PM EDTSigned Prescriptions: Disp Refills Atorvastatin Calcium 20 MG Oral Tablet (Li*90 Tab*2 Sig: TAKE ONE TABLET BY MOUTH AT BEDTIME Authorizing Provider: TANISHA PALMA Ordering User: LELAND LUNA * Telephone Encounter - Interface, [facility] S[facility] Inbound - 01/06/2024 1:59 PM EDT Pending Prescriptions: Disp Refills Atorvastatin Calcium 20 MG Oral Tablet [Ph*90 Tab*0 Sig: TAKE ONE TABLET BY MOUTH AT BEDTIME documented in this encounter Plan of Treatment Upcoming Encounters Date Type Department Care Team (Late st Contact Info) Description 05/20/2024 11:30 AM EST Office Visit Family Medicine [address] [place] [phone] T[address] Palma[address] [place] [address] 08/25/2024 1:30 PM EST Imaging Radiology [address] [place] [address] Health Maintenance Due Date Last Done Comments HPV/Co-Test 1990 Cologuard 2005 Colonoscopy 2005 Colorectal Cancer Screening 2005 Fecal Occult Blood Test 2005 Sigmoidoscopy 2005 Depression Screening 06/15/2021 06/15/2020 Cervical Cancer Screening 10/07/2021 Pap Smear 10/07/2021 10/07/2018, 06/01, 04/27/2014, Additional history exists COVID-19 Vaccine ( season) 2023 06/21/2021, 10/28/2020, 09/30/2020 Influenza Vaccine (FLU shot) (#1) 2024 03/12/2023, 03/12/2023, 05/06/2022, Additional history exists TSH 03/12/2024 03/12/2023, 12/2022, 07/06/2021, Additional history exists Mammogram 08/23/2024 08/23/2023, 08/03, 08/21/2022, Additional history exists Diabetes Screening 10/04/2026 10/05/2023, 0 03/12/2023, 09/05/2022, Additional history exists Lipid Panel 10/04/2028 10/05/2023, 12/2022, 07/06/2021, Additional history exists DTaP,Tdap,and Td Vaccines (3 - Td or Tdap) 10/04/2033 10/05/2023, 02/24/2013 Zoster Vaccines Completed 09/16/2018, 03/15/2018 Pneumococcal Vaccine: Pediatrics (0 to 5 Years) and At-Risk Patients (6 to 64 Years) Completed 01/03/2022, 03/19/2013 Albumin/Creatinine Ratio Discontinued 09/06/2022, 10/2021 HPV (Gardasil) Vaccine Aged Out No lo [...] as of this encounter Visit Diagnoses Diagnosis Dyslipidemia, goal LDL below 70 Other and unspecified hyperlipidemia documented in this encounter Advance Directives * Full Code (Latest Code Status on File) Date Activated Date Inactivated Comments 08/20/2012 7:41 PM 2012 8:27 PM This order r eflects the patients wishes and were consensually agreed upon. Question Answer Comments Discussion of Advance Directives occurred with: Not Discussed Healthcare Agents on File Name Relationship Healthcare Agent Relationshi p Communication Janes [facility] Spouse Health Care Repr esentative (appointed verbally by patient or by statute hierarchy) Care Teams Carbon Coating Machine Operator Relationship Specialty Start Date End Date Tanisha Palma DO [address] [place] [address] [place] [address] PCP - General Internal Medicine 10/05/23 documented as of this encounter
--- OUTSIDE RECORDS SUMMARY | 2024-04-19 16:42 | External Medical Summary | Summary of Care ---
Author Name Unknown Organization [facility] Address [address] [place] [address] Phone [phone] Care Team Providers Care Durable Medical Equipment Technician Name Role Phone Rebecca Crook DO Primary Care Provider [phone] Reason for Visit * Reason Onset Date Comments Health Maintenance 12/14/2023 Encounter Details Date Type Department Care Team (Late st Contact Info) Description 12/14/2023 Telephone Family Medicine [address] [phone] Rebecca Crook [address] [place] [phone] Health Maintenance Allergies Active Allergy Reactions Criticality Noted Date Comments Morphine Other (Please comment) 03/24/2013 Low heart rate documented as of this encounter (statuses as of 12/14/2023) Medications Medication Sig Dispensed Refills Start Date End Date Status aspirin enteric coated 81 MG TBEC TAKE ONE TABLET BY MOUTH EVERY DAY 90 Tab 3 09/17/2018 Active acetaminophen (TYLENOL) 500 MG Tablet Take 2 Tabs by mouth every 8 hours as needed for Pain or Fever. 100 Tab 11/23/2018 Active Additional Information Patient taking differently:1,000 mg [id number] PRN, Fever >38C(100.5F), Pain, Moderate, Reported on 10/19/2022 Mometasone Furoate 220 MCG/ACT Inhalation Aerosol Powder Breath Activated (Asmanex)Indications: Intermittent asthma with reliever use up to twice per week without complication Inhale 1 Puff by mouth every evening. 1 Each 5 10/30/2022 Active Montelukast Sodium 10 MG Oral Tablet (Singulair)Indication s:Intermittent asthma with reliever use up to twice per week, uncomplicated Take 1 Tablet by mouth in the morning. 90 Tablet 1 03/12/2023 Active Ventolin HFA 108 (90 Base) MCG/ACT Inhalation Aerosol SolutionIndications:I ntermittent asthma with reliever use up to twice per week without complication inhale 2 puffs by mouth every 4-6 hours as needed 54 g 1 03/12/2023 Active Atorvastatin Calcium 20 MG Oral Tablet (Lipitor)Indications: Dyslipidemia, goal LDL below 70 TAKE ONE TABLET BY MOUTH AT BEDTIME 90 Tablet 09/20/2023 Active Levothyroxine Sodium 125 MCG Oral Tablet (Levoxyl)Indications: Acquired hypothyroidism (at least 30 min prior to breakfast or other meds) 90 Tablet 1 10/05/2023 Active Cholecalciferol 125 MCG (5000 UT) Oral Tablet Take 1 Tablet by mouth in the morning. 90 Tablet 10/09/2023 Active documented as of this encounter (statuses as of 12/14/2023) Active Problems Problem Noted Date Diagnosed Date Chronic hypoxemic respiratory failure 10/05/2023 Mild persistent asthma without complication 10/2023 History of cellulitis 10/05/2023 Overview: Either leg. Uses pumps to help with the lymphedema Hereditary lymphedema 12/28/2020 Hyperlipidemia LDL goal <70 12/28/2020 Morbid obesity with BMI of 50.0-59.9, adult 10/30 Overview: Per Obesity protocol #1 Acquired hypothyroidism documented as of this encounter (statuses as of 12/14/2023) Resolved Problems Problem Noted Date Diagnosed Date Resolved Date Stage 3a chronic kidney disease 10/05/2023 10/05/2023 CKD (chronic kidney disease) stage 2, GFR 60-89 ml/min 03/13/2023 10/05/2023 Overview: EGFR 72 Primary hypertension 12/28/2020 024 Morbid obesity with BMI of 45.0-49.9, adult 04/29/2020 04/29/2020 COVID-19 02/27/2020 06/15/2020 Overview: Tested positive at [facility] Cellulitis of right leg 12/31/201612/30 Overview: [facility] Cellulitis of left lower leg 12/31/2016 01/09/2018 Overview: [facility] Acetabular fracture 08/25/2012 02/25/20 13 Pubic ramus [...] as of this encounter (statuses as of 12/14/2023) Immunizations Name Administration Dates Next Due COVID-19 mRNA, LNP-s, No Pre serve, 2-Dose Series (Moderna) 10/28/2020,09/30/2020 COVID-19, mRNA, LNP-s, PF, B ooster, 100mcg/0.5mg (Moderna) 06/21/2021 Pneumococcal Conjugate Vacci ne, 20-valent ([id number]) 01/03/2022 Pneumococcal Polysaccharide PPV23 (Pneumovax) 03/19/2013 Seasonal [...] encounter Miscellaneous Notes * Telephone Encounter - Nani Ramírez LPN - 12/14/2023 8:16 AM EDT Care Gaps Comprehensive Care Outreach Last Office/Telemedicine Visit: 10/05/2023 (in office), Visit date not found (telemedicine) Next Office Visit: 05/20/2024 Hemoglobin AIC Results: No results found for: "HEMOGLOBIN A1C" BP Readings from Last 1 Encounters: 10/05/23 130/86 Reviewed Health Maintenance below: Health Maintenance Topic Date Due Colorectal Cancer Screening Never done Depression Screening 06/15/2021 Cervical Cancer Screening 10/07/2021 COVID-19 Vaccine ( season) 2023 TSH 03/12/2024 Cologuard follow Pap Lab defer to pcp Care Gap Outreach Action Taken: Unable to reach documented in this encounter Plan of Treatment Upcoming Encounters Date Type Department Care Team (Late st Contact Info) Description 05/20/2024 11:30 AM EST Office Visit Family Medicine [address] [place] [phone] [place] [address] 08/25/2024 1:30 PM EST Imaging Radiology [address] [place] [address] Health Maintenance Due Date Last Done Comments [...] Relationship Healthcare Agent Relationshi p Communication Janes [facility] Spouse Health Care Repr esentative (appointed verbally by patient or by statute hierarchy) Care Teams Durable Medical Equipment Technician Relationship Specialty Start Date End Date Rebecca Crook DO [address] [place] [address] [place] [address] PCP - General Internal Medicine 10/05/23 documented as of this encounter
--- OUTSIDE RECORDS SUMMARY | 2024-04-19 16:42 | External Medical Summary | Summary of Care ---
Author Name Unknown Organization [facility] Address [address] [place] [address] Phone [phone] Care Team Providers Care Decorative Engraver Apprentice Name Role Phone Tanisha Palma Primary Care Provider [phone] Reason for Visit * Reason Comments eRx-Medication Refill Encounter Details Date Type Department Care Team (Late st Contact Info) Description 02/25/2024 Refill Family Medicine [address] [phone] Wil Godinez MD [address] [place] [id number] Intermittent asthma with reliever use up to twice per week without complication Allergies Active Allergy Reactions Criticality Noted Date Comments Morphine Other (Please comment) 03/24/2013 Low heart rate documented as of this encounter (statuses as of 02/27/2024) Medications Medication Sig Dispensed Refills Start Date End Date Status aspirin enteric coated 81 MG TBEC TAKE ONE TABLET BY MOUTH EVERY DAY 90 Tab 3 9 Active acetaminophen (TYLENOL) 500 MG Tablet Take 2 Tabs by mouth every 8 hours as needed for Pain or Fever. 100 Tab 9 Active Additional Information Patient taking differently:1,000 mg [id number] PRN, Fever >38C(100.5F), Pain, Moderate, Reported on [...] AT BEDTIME 90 Tablet 2 4 Active Asmanex (120 Metered Doses) 220 MCG/ACT Inhalation Aerosol Powder Breath Activated (Mometasone Furoate)Indications :Intermittent asthma with reliever use up to twice per week without complication inhale 1 puff by mouth every evening. 1 Each 5 4 Active Mometasone Furoate 220 MCG/ACT Inhalation Aerosol Powder Breath Activated (Asmanex)Indication s:Intermittent asthma with reliever use up to twice per week without complication Inhale 1 Puff by mouth every evening. 1 Each 5 3 02/27/20 24 Discontinued documented as of this encounter (statuses as of 02/27/2024) Active Problems Problem Noted Date Diagnosed Date Chronic hypoxemic respiratory failure 10/05/2023 Mild persistent asthma without complication 10/2023 History of cellulitis 10/05/2023 Overview: Either leg. Uses pumps to help with the lymphedema Hereditary lymphedema 12/28/2020 Hyperlipidemia LDL goal <70 12/28/2020 Morbid obesity with BMI of 50.0-59.9, adult 10/30 Overview: Per Obesity protocol #1 Acquired hypothyroidism documented as of this encounter (statuses as of 02/27/2024) Resolved Problems Problem Noted Date Diagnosed Date Resolved Date Stage 3a chronic kidney disease 10/05/2023 10/05/2023 CKD (chronic kidney disease) stage 2, GFR 60-89 ml/min 03/13/2023 10/05/2023 Overview: EGFR 72 Primary hypertension 12/28/2020 024 Morbid obesity with BMI of 45.0-49.9, adult 04/29/2020 04/29/2020 COVID-19 02/27/2020 06/15/2020 Overview: Tested positive at [facility] Cellulitis of right leg 12/31/201612/30 Overview: [facility] Cellulitis of left lower leg 12/31/2016 01/09/2018 Overview: [facility] Acetabular fracture 08/25/2012 02/25/20 13 Pubic [...] as of this encounter (statuses as of 02/27/2024) Immunizations Name Administration Dates Next Due COVID-19 mRNA, LNP-s, No Pre serve, 2-Dose Series (Moderna) 10/28/2020,09/30/2020 COVID-19, mRNA, LNP-s, PF, B ooster, 100mcg/0.5mg (Moderna) 06/21/2021 Pneumococcal Conjugate Vacci ne, 20-valent ([id number]) 01/03/2022 Pneumococcal Polysaccharide PPV23 (Pneumovax) 03/19/2013 Seasonal [...] encounter Miscellaneous Notes * Telephone Encounter - Rudy Lara RPh - 02/27/2024 11:44 AM EDT Signed Prescriptions: Disp Refills Asmanex (120 Metered Doses) 220 MCG/ACT In*1 Each 5 Sig: inhale 1 puff by mouth every evening.Authorizing Provider: TANISHA PALMA User: RUDY LARA documented in this encounter Plan of Treatment Upcoming Encounters Date Type Department Care Team (Late st Contact Info) Description 05/20/2024 11:30 AM EST Office Visit Family Medicine [address] [place] [phone] [address] [place] [id number] 08/25/2024 1:30 PM EST Imaging Radiology [address] [place] [id number] Health Maintenance Due Date Last Done Comments [...] 05/06/2022, Additional history exists TSH 03/12/2024 03/12/2023, 03/0 12/2022, 07/06/2021, Additional history exists Mammogram 08/23/2024 08/23/2023, 08/03, 08/21/2022, Additional history exists Diabetes Screening 10/04/2026 10/05/2023, 0 03/12/2023, 09/05/2022, Additional history exists Lipid Panel 10/04/2028 10/05/2023, 12/2022, 07/06/2021, Additional history exists DTap/Tdap Vaccines [...] up to twice per week without complication documented in this encounter Advance Directives * [...] patient or by statute hierarchy) Care Teams Decorative Engraver Apprentice Relationship Specialty Start Date End Date Tanisha Palma DO [address] [place] [address] [place] [phone] PCP - General Internal Medicine 10/05/23 documented as of this encounter
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
[2024-04-19 17:09] LABS: Hematocrit (blood only) 44.3 % (37.0-47.0); Mean Corpuscular Hemoglobin 29.5 pg (25.0-34.0); Mean Corpuscular Hgb Conc 31.6 g/dL (32.0-36.0); Mean Corpuscular Volume 93.3 fL (80.0-100.0); Mean Platelet Volume 9.3 fL (9.4-12.4); Platelet Count 242 K/uL (130-400); RDW Coefficient of Variation 13.3 % (11.5-14.5); RDW Standard Deviation 45.5 fL (36.4-46.3); Red Blood Count 4.75 M/uL (4.20-5.40); White Blood Count 12.98 K/ul (4.8-10.8)
[2024-04-19 17:26] LABS: Albumin Globulin Ratio 1.5 (0.9-2); Albumin Level 4.5 gm/dl (3.4-5.0); BUN Creatinine Ratio 18.2 (10-20); Bilirubin,Total 0.6 mg/dl (0.2-1.0); Calcium 9.9 mg/dl (8.6-10.3); Creatinine Clr Calc Pharmacy 105.7 ml/min; Globulin 3.1 gm/dl (2.5-4.0); Magnesium 1.6 mg/dl (1.7-2.4); Potassium 4.2 mmol/L (3.5-5.1); Total Protein 7.6 gm/dl (6.0-8.3)
[2024-04-19 17:32] LABS: Basophils # (auto) 0.04 K/uL (0.00-0.20); Basophils % (auto) 0.3 %; Immature Granulocytes # (auto) 0.04 K/uL (0.01-0.20); Immature Granulocytes % (auto) 0.3 %; Lymphocytes # (auto) 0.41 K/uL (1.20-3.40); Lymphocytes % (auto) 3.2 %; Monocytes # (auto) 0.41 K/uL (0.11-0.59); Monocytes % (auto) 3.2 %; Neutrophils # (auto) 12.08 K/uL (1.40-6.50); Troponin I High Sensitivity 4.2 pg/ml (0-14)
[2024-04-19] MEDS: ACETAMINOPHEN 1,000 MG/100 ML VIAL IV STA (17:32)
[2024-04-19 17:37] LABS: Prothrombin Time 10.5 Seconds (9.0-12.0)
[2024-04-19 17:42] LABS: Appearance Urine Clear (Clear); Bilirubin Urine Negative (Negative); Blood Urine Negative (Negative); Color Urine Yellow; Glucose Urine UA Negative (Negative); Ketones Urine Negative (Negative); Leukocyte Esterase Urine Negative (Negative); Nitrite Urine Negative (Negative); Protein Urine Negative (Negative); Specific Gravity Urine 1.006 (1.000-1.030); Urobilinogen Urine Negative (Negative); pH Urine 7.5 (4.5-7.5)
[2024-04-19 17:55] LABS: Adenovirus PCR Not Detected (NotDetected); Bordetella parapertussis PCR Not Detected (NotDetected); Bordetella pertussis PCR Not Detected (NotDetected); Chlamydia pneumoniae PCR Not Detected (NotDetected); Coronavirus 229E PCR Not Detected (NotDetected); Coronavirus CoV-2 (COVID19)PCR Not Detected (NotDetected); Coronavirus HKU1 PCR Not Detected (NotDetected); Coronavirus NL63 PCR Not Detected (NotDetected); Coronavirus OC43PCR Not Detected (NotDetected); Human Metapneumovirus PCR Not Detected (NotDetected); Influenza A PCR Not Detected (NotDetected); Influenza B PCR Not Detected (NotDetected); Mycoplasma pneumoniae PCR Not Detected (NotDetected); Parainfluenza Virus 1 PCR Not Detected (NotDetected); Parainfluenza Virus 2 PCR Not Detected (NotDetected); Parainfluenza Virus 3 PCR Not Detected (NotDetected); Parainfluenza Virus 4 PCR Not Detected (NotDetected); Respiratory Syncytial VirusPCR Not Detected (NotDetected); Rhinovirus/Enterovirus PCR Not Detected (NotDetected)
--- NOTE | 2024-04-19 17:55 | XRay Report ---
XR chest 1V portable CLINICAL HISTORY: fever TECHNIQUE: Single frontal radiograph of the chest was obtained. Comparison: Comparison is made to chest radiograph 10/16/2022 FINDINGS: No lines and tubes are seen. The cardiomediastinal silhouette date is normal. Prominence and cephaliz ation of the vasculature is seen. Faint airspace opacities are seen in the bilateral lower lungs. No evidence of pleural effusion or pneumothorax. IMPRESSION: 1. Faint bibasilar airspace opacities which may represent atelectasis, pneumonia, and/or aspiration. 2. Possible mild pulmonary edema. ACT 112: Negative or not required by law. Electronically signed by: Jamin Maloney M.D. 04/19/2024 5:54 PM
[2024-04-19] MEDS: PIPERACILLIN/TAZOBACTAM 4.5 GM/100 ML BAG IV ONE (18:32)
[2024-04-19] MEDS: MAGNESIUM SULFATE / D5W 1 GM/100 ML BAG IV STA (18:33)
[2024-04-19] MEDS: KETOROLAC TROMETHAMINE 15 MG/ML VIAL IV STA (18:40)
[2024-04-19] MEDS ORDERED: MAGNESIUM HYDROXIDE SUSP 30 ML UDC PO PRN (18:47)
[2024-04-19] MEDS ORDERED: ONDANSETRON INJ 2 MG/ML 2 ML VIAL IV PRN (18:47)
[2024-04-19] MEDS ORDERED: ALUMINUM/MAGNESIUM SUSP 30 ML UDC PO PRN (18:47)
[2024-04-19] MEDS ORDERED: ALBUTEROL HFA 8 GM INHALER INH PRN (19:14)
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
[2024-04-19] MEDS: SODIUM CHLORIDE 0.9% 1,000 ML IV ONE (19:41)
[2024-04-19] MEDS: MONTELUKAST SODIUM 10 MG TABLET PO SCH (21:08)
[2024-04-19] MEDS: HEPARIN SOD 5,000 UNIT/0.5 ML VIAL SQ SCH (21:08)
[2024-04-19] MEDS: ACETAMINOPHEN 325 MG TAB PO PRN (22:28)
[2024-04-19] MEDS: SODIUM CHLORIDE 0.9% 1,000 ML IV SCH (22:38)
--- NOTE | 2024-04-20 00:38 | Ultrasound Report ---
Exam(s): US VENOUS RIGHT LOWER EXTREMITY EXAM: US Duplex Right Lower Extremity Veins CLINICAL HISTORY: Reason for exam: ro dvt. TECHNIQUE: Real-time duplex ultrasound scan of the right lower extremity veins integrating B-mode two-dimensional vascular structure, Doppler spectral analysis, color flow Doppler imaging and compression. COMPARISON: No relevant prior studies available. FINDINGS: Deep veins: Unremarkable. The visualized deep veins of the right lower extremity are compressible with color flow. No visualized thrombus. Superficial veins: Unremarkable. Soft tissues: Subcutaneous soft tissue edema within the right lower extremity. IMPRESSION: No DVT within the right lower extremity. Electronically signed by: Main Suggs MD 04/20/24 00:37 AM
[2024-04-20] MEDS: Nursing to Pharmacy Communication SCH (02:21)
[2024-04-20] MEDS: PIPERACILLIN/TAZOBACTAM 4.5 GM/100 ML BAG IV SCH (02:45)
[2024-04-20] MEDS: LEVOTHYROXINE SODIUM 125 MCG TABLET PO SCH (06:15)
[2024-04-20 06:17] LABS: Hemoglobin 12.2 g/dl (12.0-16.0); Mean Corpuscular Hemoglobin 31.2 pg (25.0-34.0); Mean Corpuscular Hgb Conc 33.9 g/dL (32.0-36.0); Mean Corpuscular Volume 92.1 fL (80.0-100.0); Mean Platelet Volume 9.7 fL (9.4-12.4); Platelet Count 202 K/uL (130-400); RDW Coefficient of Variation 13.5 % (11.5-14.5); RDW Standard Deviation 45.5 fL (36.4-46.3); Red Blood Count 3.91 M/uL (4.20-5.40); White Blood Count 14.53 K/ul (4.8-10.8)
[2024-04-20 06:40] LABS: BUN Creatinine Ratio 20.8 (10-20); Blood Urea Nitrogen 16 mg/dl (6-23); Calcium 8.4 mg/dl (8.6-10.3); Carbon Dioxide 28 mmol/L (21-32); Chloride 103 mmol/L (98-107); Creatinine Clr Calc Pharmacy 105.1 ml/min; Glucose 102 mg/dl (70-99(Fasting)); Phosphorus 3.6 mg/dl (2.5-4.9)
[2024-04-20 07:28] LABS: Magnesium 1.9 mg/dl (1.7-2.4); Potassium 4.6 mmol/L (3.5-5.1)
[2024-04-20] MEDS: ADVANCED PROBIOTIC 625 MG CAPSULE PO SCH (07:59)
[2024-04-20] MEDS: FLUTICASONE FUROATE 200MCG 14 PUFFS/INHALER INH SCH (07:59)
[2024-04-20] MEDS: CHOLECALCIFEROL 25 MCG (1000 UNITS) TAB PO SCH (07:59)
[2024-04-20] MEDS: ASPIRIN 81 MG ECTAB PO SCH (07:59)
[2024-04-20] MEDS: ATORVASTATIN 20 MG TAB PO SCH (07:59)
--- NOTE | 2024-04-20 10:31 | Hospitalist Progress Note ---
Date of Service April 20, 2024 Assessment & Plan (1) Severe sepsis: (2) Lactic acid acidosis: (3) Cellulitis of right leg: (4) Chronic hypoxemic respiratory failure: (5) Morbid obesity with BMI of 50.0-59.9, adult: Plan This is a 63 yr old F who has a significant PMH of Chronic hypoxemic respiratory failure on 2L of O2, HLD, Asthma, hypothyroidism, Morbid obesity, lymphedema and hx of cellulitis who presented to ED on 04/19 with fever, chills and RLE redness. Pt met severe sepsis criteria on admission with fever , SBP < 100, leukocytosis, tachycardia and lactic acidosis RLE cellulitis Severe sepsis POA: Secondary to above. Patient comes in with malaise, fever, chills, increasing RLE erythema and warmth. Patient noted to be in severe sepsis secondary to RLE cellulitis. Patient received a dose of Zosyn and IVF in the ED. Blood culture NGTD, continue IV Zosyn, likely deescalate to Rocephin by tomorrow, wbc 12 k on admission, 14k today, monitor RLE Venous duplex negative Lactate has normalized, pt has been appropriately resuscitated. Will complete 2nd bag of IVF as it has already been started Hypomagnesemia: Magnesium repleted, monitor Morbid obesity: encourage diet, lifestyle modifications BMI 50.3 Chronic hypoxic respiratory failure: chronically on 2 L Other chronic medical conditions: HTN, HLD, asthma---- continue with/resume home meds as when able. DVT prophylaxis: Heparin subcu Full code Dispo: pt admitted to med tele, can likely down grade to med/surg on 04/21 if pt remains hemodynamically stable Pt was seen and examined in collaboration with Dr. Bravo, please see addendum I spent a total of 45 minutes reviewing notes, outpatient records, labs, medication, coordinating, documenting and providing care for this patient excluding time spent in the performance of separately billed services. Admission and Anticipated Discharge Date Admission Date: April 19, 2024 Supervising Physician Co-Signing Physician Notes I have seen and examined the patient at bedside. Discussed the case with the collaborating advanced practitioner. I agree with the documentation as above. I have reviewed and confirmed the patients medical history, the findings on phys ical examination, and the patients diagnosis and treatment plan with Sarah Beth Moreland PA-C and agree with the information documented. Patient states that her right lower extremity erythema, pain, swelling slowly improving Recurrent right lower extremity cellulitis Sepsis Chronic lymphedema Venous Doppler showed no DVT MRSA negative De-escalate antibiotics as able Encouraged to ambulate Subjective Pt was seen in room 287-1. She was eating breakfast at bedside. She feels improved from when she arrived in ED. She has less pain/redness to RL E. She denies lightheaded, dizziness, chest pain, sob, n/v/d. She is tolerating oral intake. Review of Systems Review of Systems: All systems reviewed & are unremarkable except as noted in HPI & below Physical Exam Physical Exam: Gen: WD/WN,F, morbidly obese, sitting up at beside, NAD, A&O x3 HEENT: Normocephalic, atraumatic, conjunctivae moist, sclerae anicteric, mucous membranes moist. Lung: Clear to Auscultation bilaterally, no wheezes/rales/rhonchi Heart: Regular rate, regular rhythm, no murmurs, rubs, or gallops Abdomen: Soft, NT, ND +BS x 4 Extremities: b/l lower ext lymphedema with redness to RLE extending below knee to ankle, warm to touch Skin: Warm, no rash, negative turgor. Results & Data Results & Data Vital Signs (Past 12 Hours) Vital Signs Temp Pulse Pulse Resp BP BP Pulse Ox 04/20/24 09:20 04/20/24 07:41 37.1 C 84 18 112/71 96 04/20/24 07:00 77 04/20/24 03:40 37.1 C 83 18 91/56 L 97 04/19/24 22:30 O2 Del Method O2 Flow Rate 04/20/24 09:20 Nasal Cannula 2 04/20/24 07:41 Nasal Cannula 1.5 04/20/24 07:00 04/20/24 03:40 Nasal Cannula 2 04/19/24 22:30 Nasal Cannula 2 Laboratory Results Short CBC 04/19/24 04/20/24 Range/Units 16:46 05:27 WBC 12.98 H 14.53 H (4.8-10.8) K/ul Hgb 14.0 12.2 (12.0-16.0) g/dl Hct 44.3 36.0 L (37.0-47.0) % Plt Count 242 202 (130-400) K/uL BMP 04/19/24 04/20/24 04/20/24 16:46 05:27 06:46 Sodium 137 TNP 137 Potassium 4.2 TNP 4.6 Chloride 101 103 Carbon Dioxide 30 28 BUN 14 16 Creatinine 0.77 0.77 Glucose 112 H 102 H Calcium 9.9 8.4 L Liver Function 04/19/24 Range/Units 16:46 Total Bilirubin 0.6 (0.2-1.0) mg/dl AST 41 H (13-39) U/L ALT 32 (7-52) U/L Alkaline Phosphatase 89 (34-104) U/L Albumin 4.5 (3.4-5.0) gm/dl Urine 04/19/24 Range/Units 17:26 Urine Color Yellow Urine Appearance Clear (Clear) Urine pH 7.5 (4.5-7.5) Ur Specific [place] 1.006 (1.000-1.030) Urine Protein Negative (Negative) Urine Glucose (UA) Negative (Negative) Medications Administered Current Inpatient Medications Acetaminophen (Acetaminophen 325 Mg Tab) 650 mg PO Q4H PRN PRN Reason: Pain or Fever Stop: 05/19/24 18:46 Last Admin: 04/19/24 22:28 Dose: 650 mg Al Hydrox/Mg Hydrox/Simethicone (Aluminum/Magnesium Susp 30 Ml Udc) 15 ml PO Q4H PRN PRN Reason: Dyspepsia Stop: 05/19/24 18:46 Albuterol (Albuterol Hfa 8 Gm Inhaler) 2 puffs INH Q4H PRN PRN Reason: SOB/WHEEZING Stop: 05/19/24 19:13 Aspirin (Aspirin 81 Mg Ectab) 81 mg PO QAM ERICK Stop: 05/20/24 08:59 Last Admin: 04/20/24 07:59 Dose: 81 mg Atorvastatin Calcium (Atorvastatin 20 Mg Tab) 20 mg PO DAILY ERICK Stop: 05/20/24 08:59 Last Admin: 04/20/24 07:59 Dose: 20 mg Fluticasone Furoate (Fluticasone Furoate 200mcg 14 Puffs/Inhaler) 1 puffs INH DAILY ERICK Stop: 05/20/24 08:59 Last Admin: 04/20/24 07:59 Dose: 1 puffs Heparin Sodium (Porcine) (Heparin Sod 5,000 Unit/0.5 Ml Vial) 5,000 units SQ Q12 ERICK Stop: 05/19/24 20:59 Last Admin: 04/20/24 08:01 Dose: 5,000 units Piperacillin Sod/Tazobactam Sod (Zosyn) 4.5 gm in 100 mls @ 25 mls/hr IV Q8H [facility]; Protocol Stop: 04/27/24 01:59 Last Admin: 04/20/24 10:21 Dose: 25 mls/hr Sodium Chloride (Nss) 1,000 mls @ 80 mls/hr IV .[id number] [facility] Stop: 04/20/24 23:29 Last Admin: 04/20/24 10:22 Dose: 80 mls/hr Lactobacillus Acidophilus (Advanced Probiotic 625 Mg Capsule) 1,250 mg PO DAILY [facility] Stop: 05/20/24 08:59 Last Admin: 04/20/24 07:59 Dose: 1,250 mg Levothyroxine Sodium (Levothyroxine Sodium 125 Mcg Tablet) 125 mcg PO DAILYBB ERICK Stop: 05/20/24 06:29 Last Admin: 04/20/24 06:15 Dose: 125 mcg Magnesium Hydroxide (Magnesium Hydroxide Susp 30 Ml Udc) 30 ml PO Q12H PRN PRN Reason: Constipation Stop: 05/19/24 18:46 Montelukast Sodium (Montelukast Sodium 10 Mg Tablet) 10 mg PO HS [facility] Stop: 05/19/24 20:59 Last Admin: 04/19/24 21:08 Dose: 10 mg Ondansetron HCl (Ondansetron Inj 2 Mg/Ml 2 Ml Vial) 4 mg IV Q6H PRN PRN Reason: Nausea Stop: 05/19/24 18:46 Polyethylene Glycol (Polyethylene (Miralax) 17 Gm Pack) 17 gm PO DAILY PRN PRN Reason: Constipation Stop: 05/19/24 18:46 Vitamin D (Cholecalciferol 25 Mcg (1000 Units) Tab) 25 mcg PO DAILY [facility] Stop: 05/20/24 08:59 Last Admin: 04/20/24 07:59 Dose: 25 mcg
[2024-04-21 06:09] LABS: Basophils # (auto) 0.03 K/uL (0.00-0.20); Basophils % (auto) 0.3 %; Hematocrit (blood only) 37.4 % (37.0-47.0); Hemoglobin 11.8 g/dl (12.0-16.0); Immature Granulocytes # (auto) 0.06 K/uL (0.01-0.20); Immature Granulocytes % (auto) 0.6 %; Lymphocytes # (auto) 0.92 K/uL (1.20-3.40); Lymphocytes % (auto) 9.6 %; Mean Corpuscular Hemoglobin 29.4 pg (25.0-34.0); Mean Corpuscular Hgb Conc 31.6 g/dL (32.0-36.0); Mean Platelet Volume 9.8 fL (9.4-12.4); Monocytes # (auto) 0.47 K/uL (0.11-0.59); Monocytes % (auto) 4.9 %; Neutrophils # (auto) 8.13 K/uL (1.40-6.50); Neutrophils % (auto) 84.6 %; Platelet Count 194 K/uL (130-400); Red Blood Count 4.02 M/uL (4.20-5.40); White Blood Count 9.61 K/ul (4.8-10.8)
[2024-04-21 06:22] LABS: Albumin Globulin Ratio 1.3 (0.9-2); Albumin Level 3.6 gm/dl (3.4-5.0); BUN Creatinine Ratio 21.5 (10-20); Bilirubin,Total 0.7 mg/dl (0.2-1.0); Calcium 8.9 mg/dl (8.6-10.3); Creatinine Clr Calc Pharmacy 102.4 ml/min; Globulin 2.8 gm/dl (2.5-4.0); Magnesium 2.1 mg/dl (1.7-2.4); Potassium 4.2 mmol/L (3.5-5.1); Total Protein 6.4 gm/dl (6.0-8.3)
[2024-04-21] MEDS: DOXYCYCLINE HYCLATE 100 MG CAP PO SCH (13:04)
[2024-04-21] MEDS: FUROSEMIDE 40 MG/4 ML VIAL IV ONE (13:04)
--- NOTE | 2024-04-21 16:51 | Hospitalist Progress Note ---
Date of Service April 21, 2024 Assessment & Plan (1) Severe sepsis: (2) Cellulitis of right leg: Plan Jaja Preston is a 63y/o F with PMHx significant for chronic hypoxemic respiratory failure [on 2L via NC at baseline], HLD, asthma, acquired hypothyroidism, morbid obesity, BLE lymphedema and history of cellulitis who presented to ED on 04/19/2024 with fever, chills and RLE redness. Was found to have RLE cellulitis on admission. RLE Cellulitis Severe Sepsis POA - RESOLVED: Patient met severe sepsis criteria on admission with fever, SBP<100, leukocytosis, tachycardia and lactic acidosis. Patient comes in with malaise, fever, chills, increasing RLE erythema and warmth. RLE venous duplex negative. Patient noted to be in severe sepsis secondary to RLE cellulitis as per above. Patient received a dose of Zosyn and IVF in the ED. Blood culture NGTD, continue IV Zosyn. Oral doxycycline 100mg BID added on today. WBC count improved to 9.61k today. Continue probiotic. MRSA swab negative. Lactate has normalized, patient has been appropriately resuscitated. Monitor erythema tracking up the RLE into the thigh region. Lymphedema: Patient with BLE lymphedema at baseline. Ordered a dose of IV Lasix 40mg today to help with her edema. Chronic Hypoxic Respiratory Failure: Chronically on 2L via NC at baseline, continue. Other Chronic Medical Conditions: HTN, HLD, asthma --> Continue with home medications for these specific conditions. DVT Prophylaxis: SQ Heparin Code Status: FULL CODE PCP: Rebecca Crook DO Disposition: Admitted in Med/Surg + Telemetry - Encouraged ambulation around the unit. Patient seen in collaboration with Dr. Bravo. Please see addendum. I spent a total of 45 minutes coordinating, documenting, and providing care for this patient excluding time spent in the performance of separately billed services. This included personally reviewing all current laboratories and imaging studies, medical reconciliation, outpatient chart review and discussion with specialists. This chart was completed in part utilizing Speech Voice Recognition Software. Grammatical errors, random word insertions, pronoun errors, and incomplete sentences are an occasional consequence of this system due to software limitations, ambient noise, and hardware issues. Any formal questions or concerns about the content, text, or information contained within the body of this dictation should be directly addressed to the provider for clarification. Admission and Anticipated Discharge Date Admission Date: April 19, 2024 Supervising Physician Co-Signing Physician Notes I have seen and examined the patient at bedside. Discussed the case with the collaborating advanced practitioner. I agree with the documentation as above. I have reviewed and confirmed the patients medical history, the findings on physical examination, and the patients diagnosis and treatment plan with Danyell Diamond PA-C and agree with the information documented. Patient states that her right lower extremity erythema, pain, swelling slowly improving Recurrent right lower extremity cellulitis Sepsis Chronic lymphedema Venous Doppler showed no DVT MRSA negative Encouraged to ambulate Persistent erythema, edema, warm lower extremity on exam today Will add doxycycline in addition to continuing Zosyn Give a dose of IV Lasix to help with edema Consider ID evaluation if no improvement Blood cultures negative to date Subjective Patient feels well this morning but does note an increase in erythema tracking up her RLE that started overnight. No fevers, chills, body aches or sweats overnight. Ate breakfast this morning without any issue. Denies any SOB, chest pain or abdominal pain. Review of Systems Review of Systems: At least ten systems reviewed and negative, except as noted in the subjective section. Physical Exam Physical Exam: General: WD/WN, vitals as above, morbidly obese, NAD, sitting up in bed, very pleasant, conversing appropriately. A+Ox3, euthymic affect. HEENT: Normocephalic, atraumatic. PERRL, conjunctivae normal, anicteric sclerae. External ear and nose normal, oropharynx normal. Respiratory: Normal respiratory effort, lungs clear to auscultation, no wheeze, rales, rhonchi. No accessory muscle use. Cardiovascular: Regular rate, rhythm, no murmur, normal peripheral pulses, no BLE edema. Vessels: No JVD. Abdomen/GI: Normal bowel sounds, soft, nontender, no hepatosplenomegaly. Extremities/Musculoskeletal: BLE lymphedema noted, RLE with erythema extending below the knee to the ankle and warm to the touch. Neurologic: EOMI, no focal deficits, CN's II-XI not formally tested but appear grossly intact bilaterally. Skin: No rashes, normal color, warm/dry. Also has some erythema with associated redness tracking up her RLE into the upper thigh region. Results & Data Results & Data Vital Signs (Past 12 Hours) Vital Signs Temp Pulse Pulse Resp BP BP Pulse Ox 04/21/24 16:36 37.5 C 83 16 130/83 97 04/21/24 11:46 37.1 C 90 18 143/82 H 93 04/21/24 09:26 75 04/21/24 07:49 04/21/24 07:42 37.5 C 88 20 146/78 H 93 O2 Del Method O2 Flow Rate 04/21/24 16:36 Nasal Cannula 2 04/21/24 11:46 Nasal Cannula 2 04/21/24 09:26 04/21/24 07:49 Nasal Cannula 2 04/21/24 07:42 Room Air Laboratory Results Short CBC 04/21/24 Range/Units 05:36 WBC 9.61 (4.8-10.8) K/ul Hgb 11.8 L (12.0-16.0) g/dl Hct 37.4 (37.0-47.0) % Plt Count 194 (130-400) K/uL BMP 04/21/24 05:36 Sodium 137 Potassium 4.2 Chloride 105 Carbon Dioxide 28 BUN 17 Creatinine 0.79 Glucose 107 H Calcium 8.9 Liver Function 04/21/24 Range/Units 05:36 Total Bilirubin 0.7 (0.2-1.0) mg/dl AST 29 (13-39) U/L ALT 30 (7-52) U/L Alkaline Phosphatase 64 (34-104) U/L Albumin 3.6 (3.4-5.0) gm/dl
--- NOTE | 2024-04-22 05:57 | Electrocardiogram Report ---
Test Reason : Blood Pressure : */* mmHG Vent. Rate : 95 BPM Atrial Rate : 95 BPM P-R Int : 122 ms QRS Dur : 74 ms QT Int : 326 ms P-R-T Axes : 0 5 48 degrees QTcB Int : 409 ms Poor data quality, interpretation may be adversely affected Normal sinus rhythm with sinus arrhythmia Poor R wave progression, consider anterior VT vs. lead placement vs. LVH When compared with ECG of 16-Oct-2022 12:01, No significant change Confirmed by Mathew Izaguirre ([id number]) on 04/22/2024 5:57:18 AM Referred By: REFERRED SELF Confirmed By: Mathew Izaguirre
[2024-04-22 06:04] LABS: Hematocrit (blood only) 35.9 % (37.0-47.0); Hemoglobin 11.5 g/dl (12.0-16.0); Mean Corpuscular Hemoglobin 29.7 pg (25.0-34.0); Mean Corpuscular Volume 92.8 fL (80.0-100.0); Mean Platelet Volume 10.1 fL (9.4-12.4); Platelet Count 204 K/uL (130-400); RDW Coefficient of Variation 13.6 % (11.5-14.5); RDW Standard Deviation 46.6 fL (36.4-46.3); Red Blood Count 3.87 M/uL (4.20-5.40); White Blood Count 7.24 K/ul (4.8-10.8)
[2024-04-22 06:21] LABS: BUN Creatinine Ratio 20.8 (10-20); Calcium 8.6 mg/dl (8.6-10.3); Creatinine Clr Calc Pharmacy 112.4 ml/min; Phosphorus 2.9 mg/dl (2.5-4.9); Potassium 3.8 mmol/L (3.5-5.1)
--- NOTE | 2024-04-22 12:22 | Hospitalist Progress Note ---
Date of Service April 22, 2024 Assessment & Plan (1) Lymphedema: (2) Cellulitis of right leg: Plan Jaja Preston is a 63y/o F with PMHx significant for chronic hypoxemic respiratory failure [on 2L via NC at baseline], HLD, asthma, acquired hypothyroidism, morbid obesity, BLE lymphedema and history of cellulitis who presented to ED on 04/19/2024 with fever, chills and RLE redness. Was found to have RLE cellulitis on admission. RLE Cellulitis Severe Sepsis POA - RESOLVED: Patient met severe sepsis criteria on admission with fever, SBP<100, leukocytosis, tachycardia and lactic acidosis. Patient comes in with malaise, fever, chills, increasing RLE erythema and warmth. RLE venous duplex negative. Patient noted to be in severe sepsis secondary to RLE cellulitis as per above. Patient received a dose of Zosyn and IVF in the ED. Blood culture NGTD, continue IV Zosyn (on day #3). Oral doxycycline 100mg BID added on yesterday. WBC count improved, continue probiotic. MRSA swab negative. Lactate has normalized, patient has been appropriately re suscitated. Monitor erythema tracking up the RLE into the thigh region - unchanged today. Chronic Hypoxic Respiratory Failure: Chronically on 2L via NC at baseline, continue. BLE Lymphedema & RLE Lymphorrhea: Patient with BLE lymphedema at baseline. S/p IV Lasix 40mg yesterday afternoon, set to receive another 40mg today. Patient with RLE lymphorrhea this morning. Spoke with RN via TT - will apply compression dressing. Wound care consult pending. Other Chronic Medical Conditions: HTN, HLD, asthma --> Continue with home medications for these specific conditions. DVT Prophylaxis: SQ Heparin Code Status: FULL CODE PCP: Rebecca Crook DO Disposition: Admitted in Med/Surg + Telemetry - Encouraged ambulation around the unit again this morning. Patient to be discharged home when medically stable, likely in 1-2 days. Patient seen in collaboration with Dr. Bravo. Please see addendum. I spent a total of 40 minutes coordinating, documenting, and providing care for this patient excluding time spent in the performance of separately billed services. This included personally reviewing all current laboratories and imaging studies, medical reconciliation, outpatient chart review and discussion with specialists. This chart was completed in part utilizing Speech Voice Recognition Software. Grammatical errors, random word insertions, pronoun errors, and incomplete sentences are an occasional consequence of this system due to software limitations, ambient noise, and hardware issues. Any formal questions or concerns about the content, text, or information contained within the body of this dictation should be directly addressed to the provider for clarification. Admission and Anticipated Discharge Date Admission Date: April 19, 2024 Supervising Physician Co-Signing Physician Notes I have seen and examined the patient at bedside. Discussed the case with the collaborating advanced practitioner. I agree with the documentation as above. I have reviewed and confirmed the patients medical history, the findings on physical examination, and the patients diagnosis and treatment plan with Danyell Diamond PA-C and agree with the information documented. Patient states that her right lower extremity erythema, pain, swelling. Also states having some seepage from right lower extremity. Recurrent right lower extremity cellulitis Sepsis Chronic lymphedema Venous Doppler showed no DVT MRSA negative Encouraged to ambulate Persistent erythema, edema, warm lower extremity on exam today Continue Doxy, Zosyn Transition to p.o. antibiotics likely tomorrow Will give additional IV Lasix today Blood cultures negative to date Continue current management Subjective Patient feels good this morning. Ate breakfast without issue and she has not noticed any increase in her RLE erythema. She does however note that her BLE seem more swollen/edematous and that her RLE started to seep serous fluid overnight. Denies any SOB or chest pain. Review of Systems Review of Systems: At least ten systems reviewed and negative, except as noted in the subjective section. Physical Exam Physical Exam: General: WD/WN, vitals as above, morbidly obese, NAD, laying down in bed, very pleasant, conversing appropriately. A+Ox3, euthymic affect. HEENT: Normocephalic, atraumatic. PERRL, conjunctivae normal, anicteric sclerae. External ear and nose normal, oropharynx normal. Respiratory: Normal respiratory effort, lungs clear to auscultation, no wheeze, rales, rhonchi. No accessory muscle use. Cardiovascular: Regular rate, rhythm, no murmur, normal peripheral pulses, significant BLE lymphedema. Vessels: No JVD. Abdomen/GI: Normal bowel sounds, soft, nontender, no hepatosplenomegaly. Extremities/Musculoskeletal: RLE with erythema extending below the knee to the ankle and warm to the touch, RLE lymphorrhea. Neurologic: EOMI, no focal deficits, CN's II-XI not formally tested but appear grossly intact bilaterally. Skin: Also has some erythema with associated warmth tracking up her RLE into the upper thigh region - unchanged from yesterday. Results & Data Results & Data Vital Signs (Past 12 Hours) Vital Signs Temp Pulse Pulse Resp BP BP Pulse Ox 04/22/24 11:35 36.7 C 70 18 117/68 94 04/22/24 08:15 04/22/24 07:56 36.7 C 69 16 125/79 96 04/22/24 07:28 73 04/22/24 03:53 36.7 C 70 18 111/72 95 O2 Del Method O2 Flow Rate 04/22/24 11:35 Room Air 04/22/24 08:15 Nasal Cannula 2 04/22/24 07:56 Room Air 04/22/24 07:28 04/22/24 03:53 Room Air Laboratory Results Short CBC 04/22/24 Range/Units 05:31 WBC 7.24 (4.8-10.8) K/ul Hgb 11.5 L (12.0-16.0) g/dl Hct 35.9 L (37.0-47.0) % Plt Count 204 (130-400) K/uL BMP 04/22/24 05:31 Sodium 137 Potassium 3.8 Chloride 104 Carbon Dioxide 26 BUN 15 Creatinine 0.72 Glucose 105 H Calcium 8.6
[2024-04-22] MEDS: FUROSEMIDE 40 MG/4 ML VIAL IV ONE (13:03)
[2024-04-23 06:14] LABS: Hematocrit (blood only) 36.8 % (37.0-47.0); Hemoglobin 11.7 g/dl (12.0-16.0); Mean Corpuscular Hemoglobin 29.8 pg (25.0-34.0); Mean Corpuscular Hgb Conc 31.8 g/dL (32.0-36.0); Mean Corpuscular Volume 93.6 fL (80.0-100.0); Mean Platelet Volume 9.8 fL (9.4-12.4); Platelet Count 237 K/uL (130-400); RDW Coefficient of Variation 13.4 % (11.5-14.5); Red Blood Count 3.93 M/uL (4.20-5.40); White Blood Count 7.47 K/ul (4.8-10.8)
[2024-04-23 06:33] LABS: BUN Creatinine Ratio 22.1 (10-20); Calcium 8.6 mg/dl (8.6-10.3); Creatinine Clr Calc Pharmacy 103.9 ml/min; Magnesium 1.8 mg/dl (1.7-2.4); Phosphorus 3.4 mg/dl (2.5-4.9); Potassium 3.8 mmol/L (3.5-5.1)
--- NOTE | 2024-04-23 11:37 | Hospitalist Progress Note ---
Date of Service April 23, 2024 Assessment & Plan (1) Lymphedema: (2) Cellulitis of right leg: Plan Jaja Preston is a 63y/o F with PMHx significant for chronic hypoxemic respiratory failure [on 2L via NC at baseline], HLD, asthma, acquired hypothyroidism, morbid obesity, BLE lymphedema and history of cellulitis who presented to ED on 04/19/2024 with fever, chills and RLE redness. Was found to have RLE cellulitis on admission. RLE Cellulitis Severe Sepsis POA - RESOLVED: Patient met severe sepsis criteria on admission with fever, SBP<100, leukocytosis, tachycardia and lactic acidosis. Patient comes in with malaise, fever, chills, increasing RLE erythema and warmth. RLE venous duplex negative. Patient noted to be in severe sepsis secondary to RLE cellulitis as per above. Patient received a dose of Zosyn and IVF in the ED. MRSA swab negative. Lactate has normalized, patient has been appropriately resuscitated Blood culture preliminary without growth. Transition from Zosyn (day#4) and doxy (day #2) to Vanco due to persistent cellulitis of RLE Chronic Hypoxic Respiratory Failure: Chronically on 2L via NC at baseline, continue BLE Lymphedema & RLE Lymphorrhea: Patient with BLE lymphedema at baseline. S/p IV Lasix 40mg x2 Compression dressing applied. ingredient specialist evaluated Other Chronic Medical Conditions: HTN, HLD, asthma --> Continue with home medications for these specific conditions. DVT Prophylaxis: SQ Heparin Code Status: FULL CODE PCP: Rebecca Crook DO Disposition: Admitted to [facility]. Anticipate dc in 1-2 days Patient seen in collaboration with Dr. Edwards. Please see addendum. I spent a total of 50 minutes coordinating, documenting, and providing care for this patient excluding time spent in the performance of separately billed services. This included personally reviewing all current laboratories and imaging studies, medical reconciliation, outpatient chart review and discussion with specialists. Admission and Anticipated Discharge Date Admission Date: April 19, 2024 Supervising Physician Co-Signing Physician Notes Patient seen and examined independently. Discussed with over provider. She continues to have redness, swelling in her lower extremity Antibiotic changed to vancomycin Continue to monitor cellulitis I have reviewed the advanced practitioner's documentation, and I agree with, and take responsibility for the plan of care I spent a total of 15 minutes coordinating, documenting, and providing care for this patient excluding time spent in the performance of separately billed services. All of the aforementioned completed while collaborating with the assigned advanced practitioner for a full treatment plan Subjective Seen and examined. No acute events overnight. Feels BLE has improved slightly. No F/C, CP, SOB, N/V, abd pain, dysuria, diarrhea or constipation. Review of Systems Review of Systems: At least ten systems reviewed and negative except as noted in the HPI. Physical Exam Physical Exam: Gen: WD/WN, NAD, resting in bed comfortably, A&Ox3 HEENT: Normocephalic, atraumatic, conjunctivae moist, sclerae anicteric, mucous membranes moist Lung: Clear to Auscultation bilaterally, no wheezes/rales/rhonchi Heart: Regular rate, regular rhythm, no murmurs, rubs, or gallops Abdomen: Soft, NT, ND +BS x 4 Extremities: RLE erythema noted on anterior lower leg with extension to ankle. Dressing in place with some serous drainage Skin: Warm, no rash Results & Data Results & Data Vital Signs (Past 12 Hours) Vital Signs Temp Pulse Pulse Resp BP BP Pulse Ox 04/23/24 07:52 36.6 C 69 18 132/81 95 04/23/24 07:31 68 04/23/24 03:42 37.1 C 70 18 107/63 96 04/23/24 00:24 37.2 C 77 20 144/77 H 90 O2 Del Method O2 Flow Rate 04/23/24 07:52 Nasal Cannula 3 04/23/24 07:31 04/23/24 03:42 Nasal Cannula 2 04/23/24 00:24 Room Air Laboratory Results Short CBC 04/23/24 Range/Units 05:37 WBC 7.47 (4.8-10.8) K/ul Hgb 11.7 L (12.0-16.0) g/dl Hct 36.8 L (37.0-47.0) % Plt Count 237 (130-400) K/uL BMP 04/23/24 05:37 Sodium 137 Potassium 3.8 Chloride 100 Carbon Dioxide 30 BUN 17 Creatinine 0.77 Glucose 104 H Calcium 8.6 Diagnostic Findings Chest X-Ray 04/19/24 16:47 XR chest 1V portable CLINICAL HISTORY: fever TECHNIQUE: Single frontal radiograph of the chest was obtained. Comparison: Comparison is made to chest radiograph 10/16/2022 FINDINGS: No lines and tubes are seen. The cardiomediastinal silhouette date is normal. Prominence and cephalization of the vasculature is seen. Faint airspace opacities are seen in the bilateral lower lungs. No evidence of pleural effusion or pneumothorax. IMPRESSION: 1. Faint bibasilar airspace opacities which may represent atelectasis, pneumonia, and/or aspiration. 2. Possible mild pulmonary edema. ACT 112: Negative or not required by law. Electronically signed by: Jamin Maloney M.D. 04/19/2024 5:54 PM Venous Doppler Study 04/19/24 19:13 Exam(s): US VENOUS RIGHT LOWER EXTREMITY EXAM: US Duplex Right Lower Extremity Veins CLINICAL HISTORY: Reason for exam: ro dvt. TECHNIQUE: Real-time duplex ultrasound scan of the right lower extremity veins integrating B-mode two-dimensional vascular structure, Doppler spectral analysis, color flow Doppler imaging and compression. COMPARISON: No relevant prior studies available. FINDINGS: Deep veins: Unremarkable. The visualized deep veins of the right lower extremity are compressible with color flow. No visualized thrombus. Superficial veins: Unremarkable. Soft tissues: Subcutaneous soft tissue edema within the right lower extremity. IMPRESSION: No DVT within the right lower extremity. Electronically signed by: Main Suggs MD 04/20/24 00:37 AM
[2024-04-23] MEDS ORDERED: VANCOMYCIN CONSULT ACTIVE PRN (12:11)
[2024-04-23] MEDS: VANCOMYCIN HCL 2,750 MG in SODIUM CHLORIDE 0.9% 500 ML IV ONE (14:20)
--- NOTE | 2024-04-23 15:37 | Pharmacy Report ---
Pharmacy PK ABX Note - Date of Service April 23, 2024 - Assessment and Plan Assessment 63 year old F receiving vancomycin for treatment of .RLE cellulitis. Pertinent microbiologic data includes: Blood cultures NG x48 hours. Day # 1 of antimicrobial therapy. Plan Vancomycin * Loading dose: 2750 mg IV x 1 * Maintenance dose: 1000 mg IV every 12 hours * Regimen is predicted to achieve target AUC/ANDREW of 400-600 mg/L.hr * Trough level ordered for: 04/25/24 @ 0430 Pharmacy will continue to follow and will adjust dose/frequency as necessary. Thank you. Pharmacy has transitioned to AUC monitoring for vancomycin. AUC/ANDREW is the preferred PK/PD target and is associated with decreased risk of nephrotoxicity compared to traditional trough targets.
[2024-04-23] MEDS: POLYETHYLENE (MIRALAX) 17 GM PACK PO PRN (20:41)
[2024-04-24] MEDS: VANCOMYCIN HCL 1,000 MG/270 ML BAG IV SCH (05:30)
[2024-04-24 05:58] LABS: Hematocrit (blood only) 37.2 % (37.0-47.0); Hemoglobin 11.7 g/dl (12.0-16.0); Mean Corpuscular Hemoglobin 29.8 pg (25.0-34.0); Mean Corpuscular Hgb Conc 31.5 g/dL (32.0-36.0); Mean Corpuscular Volume 94.7 fL (80.0-100.0); Mean Platelet Volume 9.8 fL (9.4-12.4); Platelet Count 249 K/uL (130-400); RDW Coefficient of Variation 13.3 % (11.5-14.5); RDW Standard Deviation 46.3 fL (36.4-46.3); Red Blood Count 3.93 M/uL (4.20-5.40); White Blood Count 5.99 K/ul (4.8-10.8)
[2024-04-24 06:12] LABS: BUN Creatinine Ratio 22.4 (10-20); Calcium 9.1 mg/dl (8.6-10.3); Creatinine Clr Calc Pharmacy 105.3 ml/min; Potassium 4.2 mmol/L (3.5-5.1)
[2024-04-24] MEDS: valACYclovir HCL 500 MG TABLET PO SCH (08:26)
--- NOTE | 2024-04-24 08:59 | Pharmacy Report ---
Pharmacy PK ABX Note - Date of Service April 24, 2024 - Assessment and Plan Assessment 04/24 * Pt received vanco this AM, renal fxn still normal, current dose predicted to have AUC <400, will increase dose to 1250 mg Q12 04/23 * 63 year old F receiving vancomycin for treatment of .RLE cellulitis. Pertinent microbiologic data includes: Blood cultures NG x48 hours. * Day # 1 of antimicrobial therapy. Plan Vancomycin * Maintenance dose: 1250 mg IV every 12 hours * Regimen is predicted to achieve target AUC/ANDREW of 400-600 mg/L.hr * Trough level ordered for: 04/25/24 @ 0430 Pharmacy will continue to follow and will adjust dose/frequency as necessary. Thank you. Pharmacy has transitioned to AUC monitoring for vancomycin. AUC/ANDREW is the preferred PK/PD target and is associated with decreased risk of nephrotoxicity compared to traditional trough targets.
--- NOTE | 2024-04-24 11:40 | Hospitalist Progress Note ---
Date of Service April 24, 2024 Assessment & Plan (1) Lymphedema: (2) Cellulitis of right leg: Plan Jaja Preston is a 63y/o F with PMHx significant for chronic hypoxemic respiratory failure [on 2L via NC at baseline], HLD, asthma, acquired hypothyroidism, morbid obesity, BLE lymphedema and history of cellulitis who presented to ED on 04/19/2024 with fever, chills and RLE redness. Was found to have RLE cellulitis on admission. RLE Cellulitis Severe Sepsis POA - RESOLVED: Patient met severe sepsis criteria on admission with fever, SBP<100, leukocytosis, tachycardia and lactic acidosis. Patient comes in with malaise, fever, chills, increasing RLE erythema and warmth. RLE venous duplex negative. Patient noted to be in severe sepsis secondary to RLE cellulitis as per above. Patient received a dose of Zosyn and IVF in the ED. MRSA swab negative. Lactate has normalized, patient has been appropriately resuscitated Blood culture preliminary without growth. Transition from Zosyn (day#4) and doxy (day #2) to Vanco due to persistent cellulitis of RLE -> improvement noted on Vanco but due to significance of infection would benefit from ongoing IV abx Chronic Hypoxic Respiratory Failure: Chronically on 2L via NC at baseline, continue BLE Lymphedema Patient with BLE lymphedema at baseline Compression dressing applied. optical fabrication technician evaluated - no open wounds Recommend outpatient lymphedema clinic follow up Other Chronic Medical Conditions: HTN, HLD, asthma --> Continue with home medications for these specific conditions. DVT Prophylaxis: SQ Heparin Code Status: FULL CODE PCP: Rebecca Crook DO Disposition: Admitted to [facility]. Anticipate dc in 1-2 days Patient seen in collaboration with Dr. Edwards. Please see addendum. I spent a total of 45 minutes coordinating, documenting, and providing care for this patient excluding time spent in the performance of separately billed services. This included personally reviewing all current laboratories and imaging studies, medical reconciliation, outpatient chart review and discussion with specialists. Admission and Anticipated Discharge Date Admission Date: April 19, 2024 Supervising Physician Co-Signing Physician Notes Patient seen and examined at bedside. Some improvement noted in lower extremity cellulitis Continue on vancomycin I have reviewed the advanced practitioner's documentation, and I agree with, and take responsibility for the plan of care I spent a total of 15 minutes coordinating, documenting, and providing care for this patient excluding time spent in the performance of separately billed services. All of the aforementioned completed while collaborating with the assigned advanced practitioner for a full treatment plan Subjective Seen and examined. No acute events overnight. Feels BLE has improved, RLE less red and warm. Ambulating around her room without issue. No F/C, CP, SOB, N/V, abd pain, dysuria, diarrhea or constipation. Review of Systems Review of Systems: At least ten systems reviewed and negative except as noted in the HPI. Physical Exam Physical Exam: Gen: WD/WN, NAD, resting in bed comfortably, A&Ox3 HEENT: Normocephalic, atraumatic, conjunctivae moist, sclerae anicteric, mucous membranes moist Lung: Clear to Auscultation bilaterally, no wheezes/rales/rhonchi Heart: Regular rate, regular rhythm, no murmurs, rubs, or gallops Abdomen: Soft, NT, ND +BS x 4 Extremities: RLE erythema noted on anterior lower leg with extension to ankle. Non-tender, no warmth. Compression wraps in place. Some streaking noted on thigh but not warm, redness fading Skin: Warm, no rash Results & Data Results & Data Vital Signs (Past 12 Hours) Vital Signs Temp Pulse Pulse Resp BP BP Pulse Ox 04/24/24 09:41 04/24/24 08:01 36.6 C 67 20 119/65 94 04/24/24 06:24 66 04/24/24 03:38 36.6 C 56 L 18 132/84 93 04/24/24 00:25 37.1 C 73 18 115/62 95 O2 Del Method O2 Flow Rate 04/24/24 09:41 Nasal Cannula 2 04/24/24 08:01 Nasal Cannula 2 04/24/24 06:24 04/24/24 03:38 Nasal Cannula 2 04/24/24 00:25 Nasal Cannula 2 Laboratory Results Short CBC 04/24/24 Range/Units 05:30 WBC 5.99 (4.8-10.8) K/ul Hgb 11.7 L (12.0-16.0) g/dl Hct 37.2 (37.0-47.0) % Plt Count 249 (130-400) K/uL BMP 04/24/24 05:30 Sodium 139 Potassium 4.2 Chloride 104 Carbon Dioxide 29 BUN 17 Creatinine 0.76 Glucose 109 H Calcium 9.1 Diagnostic Findings Chest X-Ray 04/19/24 16:47 XR chest 1V portable CLINICAL HISTORY: fever TECHNIQUE: Single frontal radiograph of the chest was obtained. Comparison: Comparison is made to chest radiograph 10/16/2022 FINDINGS: No lines and tubes are seen. The cardiomediastinal silhouette date is normal. Prominence and cephalization of the vasculature is seen. Faint airspace opacities are seen in the bilateral lower lungs. No evidence of pleural effusion or pneumothorax. IMPRESSION: 1. Faint bibasilar airspace opacities which may represent atelectasis, pneumonia, and/or aspiration. 2. Possible mild pulmonary edema. ACT 112: Negative or not required by law. Electronically signed by: Jamin Maloney M.D. 04/19/2024 5:54 PM Venous Doppler Study 04/19/24 19:13 Exam(s): US VENOUS RIGHT LOWER EXTREMITY EXAM: US Duplex Right Lower Extremity Veins CLINICAL HISTORY: Reason for exam: ro dvt. TECHNIQUE: Real-time duplex ultrasound scan of the right lower extremity veins integrating B-mode two-dimensional vascular structure, Doppler spectral analysis, color flow Doppler imaging and compression. COMPARISON: No relevant prior studies available. FINDINGS: Deep veins: Unremarkable. The visualized deep veins of the right lower extremity are compressible with color flow. No visualized thrombus. Superficial veins: Unremarkable. Soft tissues: Subcutaneous soft tissue edema within the right lower extremity. IMPRESSION: No DVT within the right lower extremity. Electronically signed by: Main Suggs MD 04/20/24 00:37 AM
[2024-04-24] MEDS: VANCOMYCIN 1,250mg in D5W 250mL (Use w/ NSS Shortage) IV SCH (16:39)
[2024-04-25] MEDS ORDERED: VANCOMYCIN LEVEL ONE (04:30)
[2024-04-25 05:05] LABS: Hematocrit (blood only) 35.4 % (37.0-47.0); Hemoglobin 11.6 g/dl (12.0-16.0); Mean Corpuscular Hemoglobin 30.2 pg (25.0-34.0); Mean Corpuscular Hgb Conc 32.8 g/dL (32.0-36.0); Mean Corpuscular Volume 92.2 fL (80.0-100.0); Mean Platelet Volume 9.5 fL (9.4-12.4); Platelet Count 290 K/uL (130-400); RDW Coefficient of Variation 13.2 % (11.5-14.5); RDW Standard Deviation 45.1 fL (36.4-46.3); Red Blood Count 3.84 M/uL (4.20-5.40); White Blood Count 8.05 K/ul (4.8-10.8)
[2024-04-25 05:20] LABS: BUN Creatinine Ratio 22.5 (10-20); Creatinine Clr Calc Pharmacy 113.3 ml/min; Potassium 4.4 mmol/L (3.5-5.1)
[2024-04-25] MEDS: VANCOMYCIN LEVEL ONE (05:43)
--- NOTE | 2024-04-25 09:44 | Pharmacy Report ---
Pharmacy PK ABX Note - Date of Service April 25, 2024 - Assessment and Plan Assessment 04/25 * Random level came back today, 9.5 this AM. Current dose predicted to have goal AUC 400-600, will keep previous dose. Could consider rechecking level in next 2-3 days if renal function continues to be stable. 04/24 * Pt received vanco this AM, renal fxn still normal, current dose predicted to have AUC <400, will increase dose to 1250 mg Q12 04/23 * 63 year old F receiving vancomycin for treatment of .RLE cellulitis. Pertinent microbiologic data includes: Blood cultures NG x48 hours. * Day # 1 of antimicrobial therapy. Plan Vancomycin * Maintenance dose: 1250 mg IV every 12 hours * Regimen is predicted to achieve target AUC/ANDREW of 400-600 mg/L.hr Pharmacy will continue to follow and will adjust dose/frequency as necessary. Thank you. Pharmacy has transitioned to AUC monitoring for vancomycin. AUC/ANDREW is the preferred PK/PD target and is associated with decreased risk of nephrotoxicity compared to traditional trough targets.
--- NOTE | 2024-04-25 10:35 | Hospitalist Progress Note ---
Date of Service April 25, 2024 Assessment & Plan (1) Lymphedema: (2) Chronic hypoxemic respiratory failure: (3) Cellulitis of right leg: (4) Leukocytosis: (5) Severe sepsis: (6) Venous stasis dermatitis: Plan Jaja Preston is a 63y/o F with PMHx significant for chronic hypoxemic respiratory failure [on 2L via NC at baseline], HLD, asthma, acquired hypothyroidism, morbid obesity, BLE lymphedema and history of cellulitis who presented to ED on 04/19/2024 with fever, chills and RLE redness. Was found to have RLE cellulitis on admission. Assessment and plan: Severe sepsis POAresolved Right lower extremity cellulitis Patient met severe sepsis criteria on admission, with fever, SBP less than 100, leukocytosis, tachycardia, lactic acidosis Venous duplex right lower extremity negative for acute DVT, MRSA swab negative, lactate within normal limits Blood cultures negative, patient was transitioned from Zosyn/Doxy to Vanco on 04/23 due to minimal improvement in cellulitis Continue IV Vanco for another 24 hours, consider DC in the next 24-48 hours if cellulitis continues to improve Chronic hypoxic respiratory failure Hx COPD/asthma Chronically on 2 L and at baseline, CTM Continue montelukast/albuterol inhaler as needed Bilateral lower extremity lymphedema Continue compression dressings daily, 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 Zovirax ointment added for treatment 04/25: Plan for a DC on Augmentin/Doxy in the next 24 hours if cellulitis continues to improve A total of 30 minutes was spent reviewing laboratory data/facilitating plan of care/reviewing Diagnostic data/discussion with consultants Full code DVT prophylaxis: Heparin subcu Admission and Anticipated Discharge Date Admission Date: April 19, 2024 Supervising Physician Co-Signing Physician Notes Patient seen and examined at bedside. Continues to have redness/swelling of right lower extremity; mild improvement over the last couple of days. Plan to continue vancomycin for the time being I have reviewed the advanced practitioner's documentation, and I agree with, and take responsibility for the plan of care I spent a total of 15 minutes coordinating, documenting, and providing care for this patient excluding time spent in the performance of separately billed services. All of the aforementioned completed while collaborating with the assigned advanced practitioner for a full treatment plan Subjective Patient seen and examined. No apparent distress. Reports her pain is controlled. Reports ambulating independently around in the room. Seen while sitting on the edge of the bed eating breakfast. Denies any chest pain/shortness of breath/fever/chills/abdominal pain Review of Systems Review of Systems: All systems reviewed & are unremarkable except as noted in HPI & below Physical Exam Constitutional: WD/WN, vitals as above Eyes: PERRL, conjunctivae normal, anicteric sclerae ENMT: external ear and nose normal, oropharynx normal Neck: trachea midline, no thyromegaly Respiratory: normal respiratory effort, lungs clear to auscultation Cardiovascular: RRR, no murmur, no edema Chest (Breasts): normal inspection/palpation of breasts Gastrointestinal (Abdomen): normal bowel sounds, soft, nontender, no hepatosplenomegaly Musculoskeletal: no cyanosis or clubbing, extremities motor strength 5/5 (Bilateral lower extremity edema, right lower extremity redness/tenderness) Skin: no rashes, warm and dry (Please see above, right lower extremity cellulitis/lymphedema, no open area) Neurologic: PERRL, EOMI, accommodation nl, no face palsy, no dysarthria Psychiatric: A+Ox3, euthymic affect Lymphatic: no cervical or axillary lymphadenopathy Results & Data Results & Data Vital Signs (Past 12 Hours) Vital Signs Temp Pulse Pulse Resp BP BP BP 04/25/24 07:40 04/25/24 07:35 36.5 C 66 16 116/75 04/25/24 07:29 73 04/25/24 03:27 36.5 C 73 20 122/66 04/25/24 00:03 37.5 C 66 18 120/55 L Pulse Ox O2 Del Method O2 Flow Rate 04/25/24 07:40 Nasal Cannula 2 04/25/24 07:35 96 Nasal Cannula 1.5 04/25/24 07:29 04/25/24 03:27 94 Nasal Cannula 2 04/25/24 00:03 95 Nasal Cannula 2 Laboratory Results Laboratory Results WBC 8.05 K/ul (4.8-10.8) 04/25/24 04:44 RBC 3.84 M/uL (4.20-5.40) L 04/25/24 04:44 Hgb 11.6 g/dl (12.0-16.0) L 04/25/24 04:44 Hct 35.4 % (37.0-47.0) L 04/25/24 04:44 MCV 92.2 fL (80.0-100.0) 04/25/24 04:44 MCH 30.2 pg (25.0-34.0) 04/25/24 04:44 MCHC 32.8 g/dL (32.0-36.0) 04/25/24 04:44 RDW Std Deviation 45.1 fL (36.4-46.3) 04/25/24 04:44 RDW Coeff of Shelbie 13.2 % (11.5-14.5) 04/25/24 04:44 Plt Count 290 K/uL (130-400) 04/25/24 04:44 MPV 9.5 fL (9.4-12.4) 04/25/24 04:44 Immature Gran % (Auto) 0.6 % 04/21/24 05:36 Neut % (Auto) 84.6 % 04/21/24 05:36 Lymph % (Auto) 9.6 % 04/21/24 05:36 Hunt % (Auto) 4.9 % 04/21/24 05:36 Eos % (Auto) 0.0 % 04/21/24 05:36 Baso % (Auto) 0.3 % 04/21/24 05:36 Neut # (Auto) 8.13 K/uL (1.40-6.50) H 04/21/24 05:36 Lymph # (Auto) 0.92 K/uL (1.20-3.40) L 04/21/24 05:36 Hunt # (Auto) 0.47 K/uL (0.11-0.59) 04/21/24 05:36 Eos # (Auto) 0.00 K/uL (0.00-0.50) 04/21/24 05:36 Baso # (Auto) 0.03 K/uL (0.00-0.20) 04/21/24 05:36 Immature Gran # (Auto) 0.06 K/uL (0.01-0.20) 04/21/24 05:36 PT 10.5 Seconds (9.0-12.0) 04/19/24 16:46 INR 1.0 (0.9-1.1) 04/19/24 16:46 Sodium 138 mmol/L (136-145) 04/25/24 04:44 Potassium 4.4 mmol/L (3.5-5.1) 04/25/24 04:44 Chloride 104 mmol/L (98-107) 04/25/24 04:44 Carbon Dioxide 30 mmol/L (21-32) 04/25/24 04:44 Anion Gap 4 (3-11) 04/25/24 04:44 BUN 16 mg/dl (6-23) 04/25/24 04:44 Creatinine 0.71 mg/dl (0.6-1.2) 04/25/24 04:44 Est Cr Clr Drug Dosing 113.3 ml/min 04/25/24 04:44 eGFR 95.48 04/25/24 04:44 BUN/Creatinine Ratio 22.5 (10-20) H 04/25/24 04:44 Glucose 110 mg/dl (70-99(Fasting)) H 04/25/24 04:44 Lactate 2.0 mmol/L (0.4-2.0) 04/20/24 07:50 Calcium 9.0 mg/dl (8.6-10.3) 04/25/24 04:44 Phosphorus 3.4 mg/dl (2.5-4.9) 04/23/24 05:37 Magnesium 1.8 mg/dl (1.7-2.4) 04/23/24 05:37 Total Bilirubin 0.7 mg/dl (0.2-1.0) 04/21/24 05:36 AST 29 U/L (13-39) 04/21/24 05:36 ALT 30 U/L (7-52) 04/21/24 05:36 Alkaline Phosphatase 64 U/L (34-104) 04/21/24 05:36 Troponin I High Sens 4.2 pg/ml (0-14) 04/19/24 16:46 Total Protein 6.4 gm/dl (6.0-8.3) 04/21/24 05:36 Albumin 3.6 gm/dl (3.4-5.0) 04/21/24 05:36 Globulin 2.8 gm/dl (2.5-4.0) 04/21/24 05:36 Albumin/Globulin Ratio 1.3 (0.9-2) 04/21/24 05:36 Lipase 32 U/L (11-82) 04/19/24 16:46 Procalcitonin 0.10 ng/ml (0-0.5) 04/19/24 16:46 Urine Color Yellow 04/19/24 17:26 Urine Appearance Clear (Clear) 04/19/24 17:26 Urine pH 7.5 (4.5-7.5) 04/19/24 17:26 Ur Specific [facility] 1.006 (1.000-1.030) 04/19/24 17: Urine Protein Negative (Negative) 04/19/24 17: Urine Glucose (UA) Negative (Negative) 04/19/24 17: Urine Ketones Negative (Negative) 04/19/24 17: Urine Blood Negative (Negative) 04/19/24 17: Urine Nitrite Negative (Negative) 04/19/24 17:26 Urine Bilirubin Negative (Negative) 04/19/24 17:26 Urine Urobilinogen Negative (Negative) 04/19/24 17:26 Ur Leukocyte Esterase Negative (Negative) 04/19/24 17:26 Nasal Screen MRSA (PCR) Negative (Negative) 04/20/24 11:45 Random Vancomycin 9.5 mcg/ml (10-20) L 04/25/24 04:58 Adenovirus (PCR) Not Detected (NotDetected) 04/19/24 16:39 B. pertussis DNA (PCR) Not Detected (NotDetected) 04/19/24 16:39 B.parapertussis DNA PCR Not Detected (NotDetected) 04/19/24 16:39 C. pneumoniae DNA (PCR) Not Detected (NotDetected) 04/19/24 16:39 Coronavirus OC43 (PCR) Not Detected (NotDetected) 04/19/24 16:39 Coronavirus HKU1 (PCR) Not Detected (NotDetected) 04/19/24 16:39 Coronavirus 229E (PCR) Not Detected (NotDetected) 04/19/24 16:39 SARS-CoV-2 (PCR) Not Detected (NotDetected) 04/19/24 16:39 Coronavirus NL63 (PCR) Not Detected (NotDetected) 04/19/24 16:39 Human Metapneumovir PCR Not Detected (NotDetected) 04/19/24 16:39 Influenza Type A (PCR) Not Detected (NotDetected) 04/19/24 16:39 Influenza Type B (PCR) Not Detected (NotDetected) 04/19/24 16:39 M. pneumoniae (PCR) Not Detected (NotDetected) 04/19/24 16:39 Parainfluenza 1 (PCR) Not Detected (NotDetected) 04/19/24 16:39 Parainfluenza 2 (PCR) Not Detected (NotDetected) 04/19/24 16:39 Parainfluenza 3 (PCR) Not Detected (NotDetected) 04/19/24 16:39 Parainfluenza 4 (PCR) Not Detected (NotDetected) 04/19/24 16:39 RSV (PCR) Not Detected (NotDetected) 04/19/24 16:39 Entero/Rhino (PCR) Not Detected (NotDetected) 04/19/24 16:39 Impressions Chest X-Ray 04/19/24 16:47 XR chest 1V portable CLINICAL HISTORY: fever TECHNIQUE: Single frontal radiograph of the chest was obtained. Comparison: Comparison is made to chest radiograph 10/16/2022 FINDINGS: No lines and tubes are seen. The cardiomediastinal silhouette date is normal. Prominence and cephalization of the vasculature is seen. Faint airspace opacities are seen in the bilateral lower lungs. No evidence of pleural effusion or pneumothorax. IMPRESSION: 1. Faint bibasilar airspace opacities which may represent atelectasis, pneumonia, and/or aspiration. 2. Possible mild pulmonary edema. ACT 112: Negative or not required by law. Electronically signed by: Jamin Maloney M.D. 04/19/2024 5:54 PM Venous Doppler Study 04/19/24 19:13 Exam(s): US VENOUS RIGHT LOWER EXTREMITY EXAM: US Duplex Right Lower Extremity Veins CLINICAL HISTORY: Reason for exam: ro dvt. TECHNIQUE: Real-time duplex ultrasound scan of the right lower extremity veins integrating B-mode two-dimensional vascular structure, Doppler spectral analysis, color flow Doppler imaging and compression. COMPARISON: No relevant prior studies available. FINDINGS: Deep veins: Unremarkable. The visualized deep veins of the right lower extremity are compressible with color flow. No visualized thrombus. Superficial veins: Unremarkable. Soft tissues: Subcutaneous soft tissue edema within the right lower extremity. IMPRESSION: No DVT within the right lower extremity. Electronically signed by: Main Suggs MD 04/20/24 00:37 AM
[2024-04-25] MEDS: ACYCLOVIR 5% OINT 15 GM TUBE EXT SCH (12:58)
[2024-04-25 15:11] VITALS: RESP 18
[2024-04-26 08:38] LABS: Basophils # (auto) 0.05 K/uL (0.00-0.20); Basophils % (auto) 0.8 %; Eosinophils # (auto) 0.01 K/uL (0.00-0.50); Eosinophils % (auto) 0.2 %; Hematocrit (blood only) 39.1 % (37.0-47.0); Hemoglobin 12.3 g/dl (12.0-16.0); Immature Granulocytes # (auto) 0.15 K/uL (0.01-0.20); Immature Granulocytes % (auto) 2.3 %; Lymphocytes % (auto) 21.1 %; Mean Corpuscular Hemoglobin 29.5 pg (25.0-34.0); Mean Corpuscular Hgb Conc 31.5 g/dL (32.0-36.0); Mean Corpuscular Volume 93.8 fL (80.0-100.0); Mean Platelet Volume 9.5 fL (9.4-12.4); Neutrophils # (auto) 4.61 K/uL (1.40-6.50); Neutrophils % (auto) 69.6 %; Platelet Count 293 K/uL (130-400); RDW Coefficient of Variation 13.1 % (11.5-14.5); RDW Standard Deviation 45.1 fL (36.4-46.3); Red Blood Count 4.17 M/uL (4.20-5.40); White Blood Count 6.62 K/ul (4.8-10.8)
[2024-04-26 08:59] LABS: Albumin Globulin Ratio 1.2 (0.9-2); Albumin Level 3.6 gm/dl (3.4-5.0); BUN Creatinine Ratio 20.5 (10-20); Bilirubin,Total 0.4 mg/dl (0.2-1.0); Calcium 9.3 mg/dl (8.6-10.3); Creatinine Clr Calc Pharmacy 109.9 ml/min; Potassium 4.6 mmol/L (3.5-5.1); Total Protein 6.6 gm/dl (6.0-8.3)
--- NOTE | 2024-04-26 10:11 | Discharge Summary ---
Discharge Summary Date of Service April 26, 2024 The patient is a 63-year-old lady with a past medical history of asthma, chronic lymphedema bilateral lower extremities, CKD stage III, HTN, HLD, hypothyroidism, obesity who presents to the ED on 04/19/2024 with complaints of malaise/fever/shivering. The patient reported that her right lower extremity was more red than normal. It was warm to touch on arrival to the ED per H&P. Patient uses 2 L of nasal cannula with activity and during sleep at home. Which she is at her baseline for. The patient was admitted and started on IV antibiotics for right lower extremity cellulitis. The patient's blood cultures from 04/19/2024 were negative for 5 days. Please see plan of care below throughout the patient's hospitalization. Assessment and plan: Severe sepsis POAresolved Right lower extremity cellulitis Patient met severe sepsis criteria on admission, with fever, SBP less than 100, leukocytosis, tachycardia, lactic acidosis Venous duplex right lower extremity negative for acute DVT, MRSA swab negative, lactate within normal limits Blood cultures negative, patient was transitioned from Zosyn/Doxy to Vanco on 04/23 due to minimal improvement in cellulitis Continue IV Vanco for another 24 hours, consider DC in the next 24-48 hours if cellulitis continues to improve Chronic hypoxic respiratory failure Hx COPD/asthma Chronically on 2 L and at baseline, CTM Continue montelukast/albuterol inhaler as needed Bilateral lower extremity lymphedema Continue compression dressings daily, 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 Zovirax ointment added for treatment The patient's labs/vitals are stable. The patient's right lower extremity cellulitis is improving. The patient is stable for discharge today. She will be discharged on Augmentin and doxycycline for 4 more days to complete a 10-day course of treatment. She will need to follow-up with her PCP within 1 week of discharge. She was also provided with a physical prescription for lymphedema compression treatment outpatient after discharge. Principal Dx & Hospital Course #1 = Principal Diagnosis (1) Lymphedema: (2) Chronic hypoxemic respiratory failure: (3) Cellulitis of right leg: (4) Leukocytosis: (5) Severe sepsis: (6) Venous stasis dermatitis: Plan Jaja Twoey is a 63y/o F with PMHx significant for chronic hypoxemic respiratory failure [on 2L via NC at baseline], HLD, asthma, acquired hypothyroidism, morbid obesity, BLE lymphedema and history of cellulitis who presented to ED on 04/19/2024 with fever, chills and RLE redness. Was found to have RLE cellulitis on admission. Assessment and plan: Severe sepsis POAresolved Right lower extremity cellulitis Patient met severe sepsis criteria on admission, with fever, SBP less than 100, leukocytosis, tachycardia, lactic acidosis Venous duplex right lower extremity negative for acute DVT, MRSA swab negative, lactate within normal limits Blood cultures negative, patient was transitioned from Zosyn/Doxy to Vanco on 04/23 due to minimal improvement in cellulitis Continue IV Vanco for another 24 hours, consider DC in the next 24-48 hours if cellulitis continues to improve Chronic hypoxic respiratory failure Hx COPD/asthma Chronically on 2 L and at baseline, CTM Continue montelukast/albuterol inhaler as needed Bilateral lower extremity lymphedema Continue compression dressings daily, 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 Zovirax ointment added for treatment 04/25: Plan for a DC on Augmentin/Doxy in the next 24 hours if cellulitis continues to improve A total of 30 minutes was spent reviewing laboratory data/facilitating plan of care/reviewing Diagnostic data/discussion with consultants Full code DVT prophylaxis: Heparin subcu Notes For Next Care Provider Medication Changes From Visit n/a Admission HPI Per Admitting Provider 63-year-old lady with PMH of asthma, chronic lymphedema, CKD stage III, HTN, HLD, hypothyroidism, morbid obesity with BMI of 50 presented today with complaint of malaise, fever, shivering. Patient reports not feeling well today, feeling feverish associated with chills and shivering, headache and nausea. Patient denies neck pain with flexion and extension, patient denies vision changes. Patient reports right lower extremity "more redder" than normal. It was warm to touch. Patient denies belly pain/chest pain/shortness of breath/cough/sore throat. Patient denies any acute changes in her bowel or bladder habits. She uses 2 L nasal cannula oxygen with activity and during sleep at home. Patient denies smoking/alcohol/drug use. Full code Medications reviewed with the patient at bedside in detail. Plan of care discussed with the patient at bedside in detail, she voiced understanding and was agreeable. Admission Exam Per Admitting Provider GENERAL: Alert and oriented x3. NAD, on 2L NC O2. Morbidly obese. HEENT: No pallor, no icterus. Pupils equal, round and reactive to light. Oral mucosa dry. NECK: No JVD, no neck masses. HEART: S1 and S2 heard. Regular rate and rhythm. tachy in 90s. No murmur, no gallop. RESPIRATORY SYSTEM: Normal AP diameter. No accessory muscle use. No wheezing, no crackles. ABDOMEN: Soft, bowel sounds present, nontender, no distention. CENTRAL NERVOUS SYSTEM: No facial droop. Speech is clear. Obeys simple commands. Moves extremities. EXTREMITIES: ble lymphedema present. RLE red/warm x anterior lower leg Discharge Exam Constitutional WD/WN, vitals as above Eyes PERRL, conjunctivae normal, anicteric sclerae ENMT external ear and nose normal, oropharynx normal Neck trachea midline, no thyromegaly Cardiovascular RRR, no murmur, no edema Gastrointestinal (Abdomen) normal bowel sounds, soft, nontender, no hepatosplenomegaly Musculoskeletal no cyanosis or clubbing, extremities motor strength 5/5 Skin no rashes, warm and dry (Right lower extremity with some redness and minimal warmth - improved) Neurologic PERRL, EOMI, accommodation nl, no face palsy, no dysarthria Psychiatric A+Ox3, euthymic affect Updated Medication List Medication Instructions Recorded Confirmed Type montelukast 10 mg tablet 10 mg PO HS ##0 02/13/16 04/19/24 History albuterol sulfate 90 mcg/actuation 2 puff inhalation Q4-6 HRS PRN 09/08/16 04/19/24 History aerosol inhaler (Ventolin HFA) SOB/WHEEZING #0 Inhalers aspirin 81 mg tablet,delayed 81 mg PO QAM 03/01/18 04/19/24 History release (Nora Low Dose Aspirin) acetaminophen 500 mg tablet 1,000 mg PO Q6H PRN Pain 02/27/20 04/19/24 History (Tylenol Extra Strength) atorvastatin 20 mg tablet 20 mg PO HS 04/19/24 04/19/24 History levothyroxine 125 mcg tablet 125 mcg PO DAILYBB 04/19/24 04/19/24 History mometasone 220 mcg/actuation(120 220 mcg inhalation HS 04/19/24 04/19/24 History doses)breath activated powder inhaler (Asmanex Twisthaler) amoxicillin 500 mg-potassium 1 tab PO BID 4 days #8 tabs 04/26/24 Rx clavulanate 125 mg tablet (Augmentin) cholecalciferol (vitamin D3) 25 25 mcg PO DAILY #30 caps 04/26/24 Rx mcg (1,000 unit) capsule doxycycline hyclate 100 mg capsule 100 mg PO BID 4 days #8 caps 04/26/24 Rx Hospital Stay Data Consultations 04/19/24 18:50 ED Decision to Admit Stat Diagnostic Imagining Performed 04/19/24 19:13 US venous doppler LE RT Stat Pending Results Patient Have Any Pending Studies at Discharge: No Discharge Instructions Given to Patient (Per Discharging Provider) You were provided with a prescription for compression for lymphedema. You will be discharged home on Augmentin and doxycycline for total of 10 days. Follow-up with your PCP within 1 week of discharge. Make sure to take your antibiotics until they are completed. Reports to the ED with worsening symptoms Total Time Total Time Spent Total Time Spent (In Minutes): 60 Total Time Includes: Examination of the Patient, Discharge Planning, Medication Reconciliation and Communication With Other Providers Supervising Physician Co-Signing Physician Notes Patient seen and examined at bedside. Patient has significant improvement in the cellulitis Plan to discharge home today on oral antibiotics Patient to follow-up with PCP after discharge I have reviewed the advanced practitioner's documentation, and I agree with, and take responsibility for the plan of care I spent a total of 15 minutes coordinating, documenting, and providing care for this patient excluding time spent in the performance of separately billed services. All of the aforementioned completed while collaborating with the assigned advanced practitioner for a full treatment plan
[2024-04-26 11:28] VITALS: PULSE 72; TEMP 97.9; O2SAT 94
[2024-04-26 11:43] VITALS: BP 141/82
== END 2024-04-26 14:55 | disposition home or self-care (01) | DRG 872 ==
LOC: ED 16:37 → 2N 18:47 → SUATTDRO 18:47 → 2N 22:04

== ENCOUNTER 2024-10-01 11:04 | Inpatient (IN) ==
[2024-10-01] MEDS: ACETAMINOPHEN 1,000 MG/100 ML VIAL IV STA (11:31)
[2024-10-01] MEDS: SODIUM CHLORIDE 0.9% 1,000 ML IV SCH (11:34)
[2024-10-01 11:38] LABS: Basophils # (auto) 0.04 K/uL (0.00-0.20); Basophils % (auto) 0.3 %; Eosinophils # (auto) 0.14 K/uL (0.00-0.50); Eosinophils % (auto) 1.2 %; Hematocrit (blood only) 41.4 % (37.0-47.0); Hemoglobin 13.5 g/dl (12.0-16.0); Immature Granulocytes # (auto) 0.03 K/uL (0.01-0.20); Immature Granulocytes % (auto) 0.3 %; Lymphocytes # (auto) 0.72 K/uL (1.20-3.40); Mean Corpuscular Hemoglobin 30.1 pg (25.0-34.0); Mean Corpuscular Hgb Conc 32.6 g/dL (32.0-36.0); Mean Corpuscular Volume 92.2 fL (80.0-100.0); Mean Platelet Volume 9.4 fL (9.4-12.4); Monocytes # (auto) 0.47 K/uL (0.11-0.59); Monocytes % (auto) 3.9 %; Neutrophils # (auto) 10.51 K/uL (1.40-6.50); Neutrophils % (auto) 88.3 %; Platelet Count 251 K/uL (130-400); RDW Coefficient of Variation 13.8 % (11.5-14.5); Red Blood Count 4.49 M/uL (4.20-5.40); White Blood Count 11.91 K/ul (4.8-10.8)
[2024-10-01 11:44] LABS: Appearance Urine Clear (Clear); Bilirubin Urine Negative (Negative); Blood Urine Negative (Negative); Color Urine Yellow; Glucose Urine UA Negative (Negative); Ketones Urine Negative (Negative); Leukocyte Esterase Urine Negative (Negative); Nitrite Urine Negative (Negative); Protein Urine Negative (Negative); Specific Gravity Urine 1.011 (1.000-1.030); Urobilinogen Urine Negative (Negative); pH Urine 8.5 (4.5-7.5)
[2024-10-01] MEDS: IBUPROFEN 800 MG TAB PO STA (11:50)
[2024-10-01 11:51] LABS: Partial Thromboplastin Time 27 Seconds (21-31); Prothrombin Time 10.9 Seconds (9.0-12.0)
[2024-10-01] MEDS: CEFEPIME 2000MG 2,000 MG/20 ML SYR IV STA (11:51)
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
[2024-10-01 11:53] LABS: Albumin Level 4.4 gm/dl (3.4-5.0); Anion Gap 5 (3-11); Bilirubin Direct 0.1 mg/dl (0-0.2); Bilirubin,Total 0.7 mg/dl (0.2-1.0); Calcium 9.4 mg/dl (8.6-10.3); Carbon Dioxide 30 mmol/L (21-32); Chloride 103 mmol/L (98-107); Magnesium 1.5 mg/dl (1.7-2.4); Potassium 3.9 mmol/L (3.5-5.1); Sodium 138 mmol/L (136-145)
[2024-10-01 11:59] LABS: Alanine Aminotransferase 15 U/L (7-52); Alkaline Phosphatase 81 U/L (34-104); Aspartate Aminotransferase 20 U/L (13-39); BUN Creatinine Ratio 23.2 (10-20); Blood Urea Nitrogen 16 mg/dl (6-23); Creatinine Clr Calc Pharmacy 114.9 ml/min; Glucose 95 mg/dl (70-99(Fasting)); Total Protein 7.6 gm/dl (6.0-8.3)
--- NOTE | 2024-10-01 11:59 | XRay Report ---
XR chest 1V portable CLINICAL HISTORY: Sepsis COMPARISON STUDY: 04/19/2024 FINDINGS: Single view portable chest demonstrates a chronic cardiomegaly and pulmonary vascular conge stion. There is no focal air space opacity identified. IMPRESSION: No acute process. ACT 112: Negative or not required by law. Electronically signed by: Alicia Hair M.D. 10/01/2024 11:58 AM
[2024-10-01 12:04] LABS: Troponin I High Sensitivity < 2.3 pg/ml (0-14)
[2024-10-01] MEDS: MAGNESIUM SULFATE / D5W 1 GM/100 ML BAG IV STA (12:14)
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
--- NOTE | 2024-10-01 13:56 | Electrocardiogram Report ---
Test Reason : Blood Pressure : */* mmHG Vent. Rate : 92 BPM Atrial Rate : 92 BPM P-R Int : 140 ms QRS Dur : 76 ms QT Int : 350 ms P-R-T Axes : 6 40 59 degrees QTcB Int : 432 ms Normal sinus rhythm Normal ECG When compared with ECG of 19-Apr-2024 16:46, No significant change was found Confirmed by Jovanny Lo ([id number]) on 10/01/2024 1:56:24 PM Referred By: REFERRED SELF Confirmed By: Jovanny Lo
[2024-10-01] MEDS ORDERED: METOPROLOL TARTRATE 1 MG/ML VIAL IV PRN (15:31)
[2024-10-01] MEDS ORDERED: ALBUTEROL HFA 8 GM INHALER INH PRN (15:31)
[2024-10-01] MEDS ORDERED: IBUPROFEN 200 MG TAB PO PRN (15:31)
--- NOTE | 2024-10-01 16:37 | Ultrasound Report ---
DVT ULTRASOUND RIGHT LOWER EXTREMITY INDICATION: Pain TECHNIQUE: Grayscale and color Doppler evaluation of the RIGHT femoral-popliteal venous system was performed. A duplex Doppler study was performed, consisting of integrated two-dimensional (2D) real-time imaging: Color flow Doppler and Doppler spectral analysis. COMPARISON: None FINDINGS: RIGHT common femoral, femoral and popliteal veins: Normal compressibility, color flow, respiratory variation. No intraluminal echogenic material. IMPRESSION: No evidence of deep venous thrombus in the right femoral-popliteal venous system. Electronically signed by Dorian Han 10-01-2024 4:37 PM
[2024-10-01] MEDS: HEPARIN SOD 5,000 UNIT/0.5 ML VIAL SQ SCH (18:25)
[2024-10-01] MEDS: DAPTOmycin 600 MG in SYRINGE 0 ML IV SCH (18:26)
[2024-10-01] MEDS: CEFEPIME 2000MG 2,000 MG/20 ML SYR IV SCH (20:44)
[2024-10-01] MEDS: MONTELUKAST SODIUM 10 MG TABLET PO SCH (20:44)
[2024-10-01] MEDS: FLUTICASONE FUROATE 100MCG 14 PUFFS/INHALER INH SCH (20:44)
--- OUTSIDE RECORDS SUMMARY | 2024-10-01 20:54 | External Medical Summary | Summary of Care ---
Author Name Unknown Organization [facility] Address [address] [place] [address] Phone [phone] Care Team Providers Care Death Surveys Coder Name Role Phone Rebecca Crook Primary Care Provider Reason for Visit * Reason Comments Follow Up Encounter Details Date Type Department Care Team ([facility] st Contact Info) Description 09/10/2024 7:20 AM EDT Office Visit Family Medicine [address] [phone] Rebecca Yañez MD [address] [place] [address] [place] [phone] Cellulitis of right lower extremity*; Hereditary lymphedema; Dry skin dermatitis Allergies Active Allergy Reactions Criticality Noted Date Comments Morphine Other (Please comment) 03/24/2013 Low heart rate documented as of this encounter (statuses as of 09/10/2024) Medications aspirin enteric coated 81 MG TBEC TAKE ONE TABLET BY MOUTH EVERY DAY 90 Tab 3 019 Active acetaminophen (TYLENOL) 500 MG Tablet Take 2 Tabs by mouth every 8 hours as needed for Pain or Fever. 100 Tab 019 Active Additional Information Patient taking differently:1,000 mg [id number] PRN, Fever >38C(100.5F), Pain, Moderate, Reported on 09/10/2024 Montelukast Sodium 10 MG Oral Tablet (Singulair)Indica tions:Intermitten t asthma with reliever use up to twice per week, uncomplicated TAKE 1 TABLET BY MOUTH EVERY MORNING 90 Tablet 3 024 Active Atorvastatin Calcium 20 MG Oral Tablet (Lipitor)Indicati ons:Dyslipidemia, goal LDL below 70 TAKE ONE TABLET BY MOUTH AT BEDTIME 90 Tablet 2 024 Active Asmanex (120 Metered Doses) 220 MCG/ACT Inhalation Aerosol Powder Breath Activated (Mometasone Furoate)Indicatio ns:Intermittent asthma with reliever use up to twice per week without complication inhale 1 puff by mouth every evening. 1 Each 5 024 Active Ventolin HFA 108 (90 Base) MCG/ACT Inhalation Aerosol SolutionIndicatio ns:Intermittent asthma with reliever use up to twice per week without complication inhale 2 puffs by mouth every 4-6 hours as needed 54 g 1 024 Active Cholecalciferol 125 MCG (5000 UT) Oral Tablet Take 1 Tablet by mouth in the morning. 90 Tablet 1 024 Active Levothyroxine Sodium 125 MCG Oral Tablet (Levoxyl)Indicati ons:Acquired hypothyroidism (at least 30 min prior to breakfast or other meds) 90 Tablet 1 024 Active Cyclobenzaprine HCl 5 MG Oral Tablet (Flexeril)Indicat ions:Strain of lumbar region, initial encounter Take 1 Tablet by mouth 3 times a day as needed for Muscle spasms. 30 Tablet 025 Active Hydrocortisone 2.5 % External Cream Apply topically to affected area 2 times a day. To affected area. 30 g 5 025 Active Doxycycline Hyclate 100 MG Oral Capsule Take 1 Capsule by mouth in the morning and 1 Capsule before bedtime. Do all this for 14 days. Until gone.. 28 Capsule 025 2024 Discontinued documented as of this encounter (statuses as of 09/10/2024) Active Problems Problem Noted Date Diagnosed Date Stage 3 chronic kidney disease 08/27/2024 Combined forms of age-related cataract, bilatera l 08/27/2024 Intermittent asthma with rel iever use up to twice per week without complication 08/27/2024 Hypertensive chronic kidney disease with stage 1 through stage 4 chronic kidney disease, or unspecified chronic kidney disease 08/27/2024 Dependence on supplemental oxygen 08/27/2024 Chronic hypoxemic respiratory failure 10/05/2023 Mild persistent asthma without complication 10/2023 History of cellulitis 10/05/2023 Overview (10/05/2023): Either leg. Uses pumps to help with the lymphedema Hereditary lymphedema 12/28/2020 Hyperlipidemia LDL goal <70 12/28/2020 Morbid obesity with BMI of 50.0-59.9, adult 10/30 Overview: Per Obesity protocol #1 Acquired hypothyroidism documented as of this encounter (statuses as of 09/10/2024) Resolved Problems Problem Noted Date Diagnosed Date Resolved Date Stage 3a chronic kidney disease 10/05/2023 10/05/2023 CKD (chronic kidney disease) stage 2, GFR 60-89 ml/min 03/13/2023 10/05/2023 Overview (03/13/2023): EGFR 72 Primary hypertension 12/28/2020 024 Morbid obesity with BMI of 45.0-49.9, adult 04/29/2020 04/29/2020 COVID-19 02/27/2020 06/15/2020 Overview (02/28/2020): Tested positive at [facility] Cellulitis of right leg 12/31/201612/30 Overview (01/12/2017): [facility] Cellulitis of left lower leg 12/31/2016 01/09/2018 Overview (01/12/2017): [facility] Acetabular fracture 08/25/2012 02/25/20 13 Pubic ramus fracture 08/25/2012 013 Fracture of sacrum 08/25/2012 3 NONE 11/22/2012 Intermittent asthma with rel iever use up to twice per week without complication 10/2023 Reflux esophagitis 3 BMI 45.0-49.9, adult 018 Overview (07/20/2016): 283 lbs Dental caries extending into pulp 12/01/2014 Venous stasis of lower extremity 10/05/2023 Morbid obesity with BMI of 45.0-49.9, adult 11/13/2018 Overview: Per Obesity protocol #1 documented as of this encounter (statuses as of 09/10/2024) Immunizations Name Administration Dates Next Due COVID-19 mRNA, LNP-s, No Pre serve, 2-Dose Series (Moderna) 10/28/2020,09/30/2020 COVID-19, mRNA, LNP-s, PF, B ooster, 100mcg/0.5mg (Moderna) 06/21/2021 Pneumococcal Conjugate Vacci ne, 20-valent (Xrocemo23) 01/03/2022 Pneumococcal Polysaccharide PPV23 (Pneumovax) 03/19/2013 Seasonal Influenza Vac., MDV , IM, 0.5 mL (Fluzone) 06/02/2014,03/19/2013 Seasonal Influenza Virus Vac cine, Unspecified Formulation 03/12/2023,05/06/2022,07/06/2021,03/16,06/18/2019,03/15/2018,04/05/2017 ,04/06/2016,06/02/2015,06/02/2014,03/02 Seasonal Influenza, PF, 6 M & above, IM , (FluLaval or Fluzone) 03/12/2023,05/06/2022,07/06/2021,03/16,06/18/2019,03/15/2018,04/05/2017 Seasonal Influenza, Quadriva lent, No Preserve, IM 04/06/2016,06/02/2015 Seasonal Influenza, Trivalen t, (IIV3), PF, (Fluzone) 03/20/2024 TDAP (age 10 and older)(Boostrix) 10/05/2023, Zoster Vaccine Recombinant (Shingrix) 09/16/2018 ,03/15/2018 documented as of this encounter Social History Tobacco Use Types Packs/Day Years Used Date Smoking Tobacco: Never Smokeless Tobacco: Never Alcohol Use Standard Drinks/Week Comments No 0 (1 standard drink = 0.6 oz pur e alcohol) PHQ-2 Answer Date Recorded PHQ Adult Total Score 0 05/22/2024 Hunger Vital Sign Answer Date Recorded Within the past 12 months, y ou worried that your food would run out before you got the money to buy more. Never true 10/20/19 23 Within the past 12 months, t he food you bought just didn't last and you didn't have money to get more. Never true 10/19/2022 Comments No Sex and Gender Information Value Date Recorded Sex Assigned at Not on file Legal Sex Female 5:28 AM EST Gender Identity Not on file Sexual Orientation Not on file Occupation Industry Job Start Date Job End Date [employer] Not on file Not on file Not on file documented as of this encounter Last Filed Vital Signs Vital Sign Reading Time Taken Comments Blood Pressure 120/70 09/10/2024 7:21 AM EDT Pulse 78 09/10/2024 7:21 AM EDT Temperature 35.7 °C (96.2 °F) 09/10/2024 7:21 AM ED T Respiratory Rate - - Oxygen Saturation 95% 09/10/2024 7:21 AM EDT Inhaled Oxygen Concentration - - Weight 131.8 kg (290 lb 8 oz) 09/10/2024 7:21 AM EDT Height 162.6 cm (5' 4") 09/10/2024 7:21 AM EDT Body Mass Index 49.86 09/10/2024 7:21 AM EDT documented in this encounter Progress Notes * Dahiana Carpenter, Rebecca Vargas MD - 09/10/2024 7:28 AM EDT Images from the original note were not included. History of Present Illness Jaja Preston is a 64 year old female that presents for Follow Up History of Present Illness The patient presents for follow-up of a leg wound, which has improved significantly. She reports that the skin is dry and there is a small tender spot. She completed a course of antibiotics without any gastrointestinal side effects. In addition, the patient complains of itchy feet, which she has been managing with hand cream and Aptics. She also reports that the skin on her feet is cracking, which seems to exacerbate the itchiness. Physical Exam BP 120/70 | Pulse 78 | Temp 96.2 °F (35.7 °C) (Infrared ) | Ht 5' 4" (1.626 m) | Wt 290 lb 8 oz (131.8 kg) | LMP 09/10/2013 | SpO2 95% | BMI 49.86 kg/m² | BSA 2.44 m² Physical Exam Vitals and nursing note reviewed. Constitutional: General: She is not in acute distress. HENT: Head: Normocephalic and atraumatic. Mouth/Throat: Mouth: Mucous membranes are moist. Eyes: Extraocular Movements: Extraocular movements intact. Neck: Thyroid: No thyromegaly. Cardiovascular: Rate and Rhythm: Normal rate and regular rhythm. Pulmonary: Breath sounds: Normal breath sounds. No wheezing or rhonchi. Musculoskeletal: General: Normal range of motion. Cervical back: Normal range of motion and neck supple. Right lower leg: Edema present. Left lower leg: Edema present. Skin: General: Skin is warm and dry. Findings: No rash. Comments: R LE Redness resolved, some purple skin discoloration and continued lymphedema, no longerwarm, no drainage Neurological: General: No focal deficit present. Mental Status: She is alert and oriented to person, place, and time. Psychiatric: Mood and Affect: Mood normal. Behavior: Behavior normal. (Erroneously labeled as L leg-- R lower extremity, cellulitis resolved) Assessment and Plan Assessment & Plan Cellulitis of right leg Cellulitis has improved with no erythema present after completing doxycycline without side effects.A small tender spot remains. Apply triple antibiotic cream or bacitracin to the tender spot until healed. No further antibiotics are needed. Hereditary lymphedema Hereditary lymphedema is causing dry, itchy skin with cracking and irritation. Prescribe steroid cream for the legs and feet for no more than two weeks at a time to avoid skin thinning. Recommend using a thick moisturizer, such as Aquaphor, twice daily for hydration and to reduce pruritus. Follow-up No follow-up is needed until the regular appointment with Doctor Doe in December unless new issues arise. Cellulitis of right lower extremity Hereditary lymphedema Dry skin dermatitis Wrap-Up Follow Up: Return for with Dr Doe when scheduled. | For: with Dr Doe when scheduled Time: I spent a total of 10-19 minutes (exact time 12 mins) on the date of service in preparation, delivery, and documentation of the care provided to Jaja Preston excluding any time spent in the performance of separately billed services. Text in this note was generated using an ambient documentation service. I discussed the use of a device to record and summarize our discussion today. All persons present during the encounter consented to its use. documented in this encounter Nursing Notes * Merlyn Magana CMA - 09/10/2024 7:21 AM EDT 1 week f/u cellulitis of right leg. Pt reports leg seems to be doing a lot better since SIRIA. Redness area is getting smaller. documented in this encounter Plan of Treatment Upcoming Encounters Date Type Department Care Team (Late st Contact Info) Description 01/07/2025 9:30 AM EDT Office Visit Family Medicine [address] [place] [phone] Rebecca Crook[address] [place] [address] 08/27/2025 1:30 PM EST Imaging Radiology [address] [place] [phone] Health Maintenance Due Date Last Done Comments HPV/Co-Test 1990 Cologuard 2005 Colonoscopy 2005 Colorectal Cancer Screening 2005 Fecal Occult Blood Test 2005 Sigmoidoscopy 2005 Cervical Cancer Screening 10/07/2021 Pap Smear 10/07/2021 10/07/2018, 06/01, 04/27/2014, Additional history exists Albumin/Creatinine Ratio 09/07/2023 09/06/2022, 10/2021 COVID-19 Vaccine ( season) 2024 06/21/2021, 10/28/2020, 09/30/2020 CKD PHOS USE SMARTSET 79794 03/12/202403/02, 2012, 08/21/2012 GFR 04/05/2024 10/05/2023, 03/02, 09/05/2022, Additional history exists Depression Screening 05/22/2025 05/22/2024 TSH 05/22/2025 05/22/2024, 03/02, 09/05/2022, Additional history exists Mammogram 08/25/2025 08/25/2024, 08/03, 08/23/2023, Additional history exists CKD HGB USE SMARTSET [id number] 08/27/202508/27, 08/27/2024, 10/05/2023, Additional history exists Diabetes Screening 10/04/2026 10/05/2023, 0 03/12/2023, 09/05/2022, Additional history exists Lipid Panel 10/04/2028 10/05/2023, 03/0 12/2022, 07/06/2021, Additional history exists DTap/Tdap Vaccines (3 - Td or Tdap) 10/04/2033 10/05/2023, 02/24/2013 Zoster Vaccines Completed 09/16/2018, 03/15/2018 Pneumococcal Vaccine: 50+ Years Completed 01/03/2022, 03/19/2013 Influenza Vaccine (FLU shot) Completed , 03/12/2023, 03/12/2023, Additional history exists HPV (Gardasil) Vaccine Aged Out No lo nger eligible based on patient's age to complete this topic Hepatitis B Vaccine Aged Out No longe r eligible based on patient's age to complete this topic MENINGOCOCCAL (MENACTRA/MENVEO) Aged Out No longer eligible based on patient's age to complete this topic Meningitis B Vaccine (Bexsero/Trumemba) Aged Out No longer eligible based on patient's age to complete this topic documented as of this encounter Medical Devices Not on filedocumented as of this encounter Visit Diagnoses Diagnosis Cellulitis of right lower extremity- Primary Cellulitis and abscess of leg, except foot Hereditary lymphedema Hereditary edema of legs Dry skin dermatitis Contact dermatitis and other eczema due to other specified agent Screening mammogram for breast cancer documented in this encounter Advance Directives * [...] patient or by statute hierarchy) Care Teams Death Surveys Coder Relationship Specialty Start Date End Date Rebecca Crook DO [address] [place] [address] [place] [phone] PCP - General Internal Medicine 10/05/23 documented as of this encounter
--- OUTSIDE RECORDS SUMMARY | 2024-10-01 20:55 | External Medical Summary | Summary of Care ---
Author Name Unknown Organization [facility] Address [address] [place] [address] Phone [phone] Care Team Providers Care Lab Scientist Name Role Phone Rebecca Crook Primary Care Provider Reason for Visit * Reason Onset Date Comments No Show 08/24/2024 [facility] No Show Auto mation Encounter Details Date Type Department Care Team (Late st Contact Info) Description 08/24/2024 Telephone Family [address] [phone] Jaime Osborne [address] [place] [phone] No Show ([place] No Show Automation) Allergies Active Allergy Reactions Criticality Noted Date Comments Morphine Other (Please comment) 03/24/2013 Low heart rate documented as of this encounter (statuses as of 08/24/2024) Medications aspirin enteric coated 81 MG TBEC TAKE ONE TABLET BY MOUTH EVERY DAY 90 Tab 3 09/18/19 Active acetaminophen (TYLENOL) 500 MG Tablet Take 2 Tabs by mouth every 8 hours as needed for Pain or Fever. 100 Tab 11/24/19 Active Additional Information Patient taking differently:1,000 mg [id number] PRN, Fever >38C(100.5F), Pain, Moderate, Reported on 2024 Montelukast Sodium 10 MG Oral Tablet (Singulair)Indicat ions:Intermittent asthma with reliever use up to twice per week, uncomplicated TAKE 1 TABLET BY MOUTH EVERY MORNING 90 Tablet 3 12/24/19 24 Active Atorvastatin Calcium 20 MG Oral Tablet (Lipitor)Indicatio ns:Dyslipidemia, goal LDL below 70 TAKE ONE TABLET BY MOUTH AT BEDTIME 90 Tablet 2 01/06/20 24 Active Asmanex (120 Metered Doses) 220 MCG/ACT Inhalation Aerosol Powder Breath Activated (Mometasone Furoate)Indication s:Intermittent asthma with reliever use up to twice per week without complication inhale 1 puff by mouth every evening. 1 Each 5 02/27/20 24 Active Ventolin HFA 108 (90 Base) MCG/ACT Inhalation Aerosol SolutionIndication s:Intermittent asthma with reliever use up to twice per week without complication inhale 2 puffs by mouth every 4-6 hours as needed 54 g 1 05/22/20 24 Active Cholecalciferol 125 MCG (5000 UT) Oral Tablet Take 1 Tablet by mouth in the morning. 90 Tablet 1 06/03/20 24 Active Levothyroxine Sodium 125 MCG Oral Tablet (Levoxyl)Indicatio ns:Acquired hypothyroidism (at least 30 min prior to breakfast or other meds) 90 Tablet 1 06/24/20 24 Active Cyclobenzaprine HCl 5 MG Oral Tablet (Flexeril)Indicati ons:Strain of lumbar region, initial encounter Take 1 Tablet by mouth 3 times a day as needed for Muscle spasms. 30 Tablet 08/22/19 25 Active documented as of this encounter (statuses as of 08/24/2024) Active Problems Problem Noted Date Diagnosed Date [...] as of this encounter (statuses as of 08/24/2024) Resolved Problems Problem Noted Date Diagnosed Date Resolved Date Stage 3a chronic kidney disease 10/05/2023 10/05/2023 CKD (chronic kidney disease) stage 2, GFR 60-89 ml/min 03/13/2023 10/05/2023 Overview (03/13/2023): EGFR 72 Primary hypertension 12/28/2020 024 Morbid obesity with BMI of 45.0-49.9, adult 04/29/2020 04/29/2020 COVID-19 02/27/2020 06/15/2020 Overview (02/28/2020): Tested positive at [facility] Cellulitis of right leg 12/31/201612/30 Overview (01/12/2017): [facility] Cellulitis of left lower leg 12/31/2016 01/09/2018 Overview (01/12/2017): [facility] Acetabular fracture 08/25/2012 02/25/20 13 Pubic [...] as of this encounter (statuses as of 08/24/2024) Immunizations Name Administration Dates Next Due COVID-19 mRNA, LNP-s, No Pre serve, 2-Dose Series (Moderna) 10/28/2020,09/30/2020 COVID-19, mRNA, LNP-s, PF, B ooster, 100mcg/0.5mg (Moderna) 06/21/2021 Pneumococcal Conjugate Vacci ne, 20-valent (Ipzocli27) 01/03/2022 Pneumococcal Polysaccharide PPV23 (Pneumovax) 03/19/2013 Seasonal [...] Industry Job Start Date Job End Date [employer] Not on file Not on file Not on file documented as of this encounter Miscellaneous Notes * Telephone Encounter - Crystal Moore Show - 08/24/2024 4:45 AM EST Dear Jaja Preston, Looks like you missed an appointment with JAIME OSBORNE on 08/21/2024 at 02:20 PM. If you haven't already rescheduled, you have a couple of options: Reschedule in [employer]/scheduling Call us at [phone] Can't make a future appointment? Cancel and let someone else have your spot! It's easy to do via [employer] or by calling us. [facility]. We hope to see you back in our office soon. Sincerely, JAIME OSBORNE documented in this encounter Plan of Treatment Upcoming Encounters Date Type Department Care Team (Late st Contact Info) Description 08/25/2024 1:30 PM EST Imaging Radiology [address] [place] [phone] 01/07/2025 9:30 AM EDT Office Visit Family Medicine [address] [place] [phone] [place] [address] Health Maintenance Due Date Last Done Comments HPV/Co-Test 1990 Cologuard 2005 Colonoscopy 2005 Colorectal Cancer Screening 2005 Fecal Occult Blood Test 2005 Sigmoidoscopy 2005 Cervical Cancer Screening 10/07/2021 Pap Smear 10/07/2021 10/07/2018, 06/01, 04/27/2014, Additional history exists COVID-19 Vaccine ( season) 2024 06/21/2021, 10/28/2020, 09/30/2020 Mammogram 08/23/2024 08/23/2023, 08/03, 08/21/2022, Additional history exists Depression Screening 05/22/2025 05/22/2024 TSH 05/22/2025 05/22/2024, 03/02, 09/05/2022, Additional history exists Diabetes Screening 10/04/2026 10/05/2023, 0 03/12/2023, 09/05/2022, Additional history exists Lipid Panel 10/04/2028 10/05/2023, 12/2022, 07/06/2021, Additional history exists DTap/Tdap Vaccines (3 - Td or Tdap) 10/04/2033 10/05/2023, 02/24/2013 Zoster Vaccines Completed 09/16/2018, 03/15/2018 Pneumococcal Vaccine: 50+ Years Completed 01/03/2022, 03/19/2013 Albumin/Creatinine Ratio Discontinued 09/06/2022, [...] patient or by statute hierarchy) Care Teams Lab Scientist Relationship Specialty Start Date End Date Rebecca Crook DO [address] [place] [address] [place] [phone] PCP - General Internal Medicine 10/05/23 documented as of this encounter
--- OUTSIDE RECORDS SUMMARY | 2024-10-01 20:55 | External Medical Summary | Summary of Care ---
Author Name Unknown Organization [facility] Address [address] [place] [address] Phone [phone] Care Team Providers Care Punch Press Setter Name Role Phone Rebecca Crook DO Primary Care Provider Reason for Visit * Reason Onset Date Comments Medication Refill 06/24/2024 Encounter Details Date Type Department Care Team (Late st Contact Info) Description 06/24/2024 Refill Family Medicine [address] [place] [phone] [address] Crook [address] [place], [place] [id number] Acquired hypothyroidism Allergies Active Allergy Reactions Criticality Noted Date Comments Morphine Other (Please comment) 03/24/2013 Low heart rate documented as of this encounter (statuses as of 06/24/2024) Medications aspirin enteric coated 81 MG TBEC TAKE ONE TABLET BY MOUTH EVERY DAY 90 Tab 3 09/18/19 Active acetaminophen (TYLENOL) 500 MG Tablet Take 2 Tabs by mouth every 8 hours as needed for Pain or Fever. 100 Tab 11/24/19 Active Additional Information Patient taking differently:1,000 mg [id number] PRN, Fever >38C(100.5F), Pain, Moderate, Reported on 05/22/2024 Montelukast Sodium 10 MG Oral Tablet (Singulair)Indicat [...] meds) 90 Tablet 1 06/24/20 24 Active Levothyroxine Sodium 125 MCG Oral Tablet (Levoxyl)Indicatio ns:Acquired hypothyroidism (at least 30 min prior to breakfast or other meds) 90 Tablet 1 10/05/19 24 024 Discontin ued(Refil l) documented as of this encounter (statuses as of 06/24/2024) Active Problems Problem Noted Date Diagnosed Date [...] as of this encounter (statuses as of 06/24/2024) Resolved Problems Problem Noted Date Diagnosed Date Resolved Date Stage 3a chronic kidney disease 10/05/2023 10/05/2023 CKD (chronic kidney disease) stage 2, GFR 60-89 ml/min 03/13/2023 10/05/2023 Overview (03/13/2023): EGFR 72 Primary hypertension 12/28/2020 024 Morbid obesity with BMI of 45.0-49.9, adult 04/29/2020 04/29/2020 COVID-19 02/27/2020 06/15/2020 Overview (02/28/2020): Tested positive at [facility] Cellulitis of right leg 12/31/201612/30 Overview (01/12/2017): [facility] Cellulitis of left lower leg 12/31/2016 01/09/2018 Overview (01/12/2017): [facility] Acetabular fracture 08/25/2012 02/25/20 13 [...] as of this encounter (statuses as of 06/24/2024) Immunizations Name Administration Dates Next Due COVID-19 mRNA, LNP-s, No Pre serve, 2-Dose Series (Moderna) 10/28/2020,09/30/2020 COVID-19, mRNA, LNP-s, PF, B ooster, 100mcg/0.5mg (Moderna) 06/21/2021 Pneumococcal Conjugate Vacci ne, 20-valent ([id number]) 01/03/2022 Pneumococcal Polysaccharide PPV23 (Pneumovax) 03/19/2013 Seasonal [...] Industry Job Start Date Job End Date [employer] Not on file Not on file Not on file documented as of this encounter Miscellaneous Notes * Telephone Encounter - Christina Nunez MD - 06/24/2024 2:23 PM EST Signed Prescriptions: Disp Refills Levothyroxine Sodium 125 MCG Oral Tablet (*90 Tab*1 Sig: (at least 30 min prior to breakfast or other meds) Authorizing Provider: CHRISTINA NUNEZ * Telephone Encounter - Samra Luong RN - 06/24/2024 11:26 AM ESTPending Prescriptions: Disp Refills Levothyroxine Sodium 125 MCG Oral Tablet (*90 Tab*1 Sig: (at least 30 min prior to breakfast or other meds) * Telephone Encounter - Markell Gallardo OSA - 06/24/2024 11:21 AM EST Did you pend patient's preferred pharmacy and medication before forwarding?yes Pharmacy: [id number] [facility] Pending Prescriptions: Disp Refills Levothyroxine Sodium 125 MCG Oral Tablet *90 Tab*1 Sig: (at least 30 min prior to breakfast or other meds) Last Visit: 05/22/2024 (in office), Visit date not found (telemedicine) Next Visit: 01/07/2025 If no future appointments scheduled, and last appointment is greater than a year ago, please schedule patient for a follow-up appointment Last date the medication was ordered: 10.05.2023 Is this request for a controlled substance?No Urine Drug Screen: Results for orders placed or performed during the hospital encounter of 08/20/12 TOX SCREEN, URINE, W/O CONFIRMATION Result Value Amphetamine NEGATIVE Barbiturates NEGATIVE Benzodiazepines NEGATIVE Cannabinoids NEGATIVE Cocaine Metabolite NEGATIVE Morphine / Codeine POSITIVE (A) OXYCODONE NEGATIVE METHADONE MEDICAL NEGATIVE NOTE: SEE COMMENT DETECTION LIMIT SEE COMMENT Patient Phone Numbers Labs: Lab Results Component Value Date/Time CREAT 0.8 10/05/2023 02:25 PM CREAT 0.8 04/07/2020 11:25 AM POTASSIUM 4.3 10/05/2023 02:25 PM POTASSIUM 4.5 04/07/2020 11:25 AM TSH 1.52 05/22/2024 01:54 PM TSH 1.21 03/16/2020 10:39 AM LDL 57 10/05/2023 02:25 PM LDL 58 09/05/2022 01:24 PM LDL 102 03/16/2020 10:39 AM LDL NOT APPLICABLE 03/16/2020 10:39 AM ALT 21 09/05/2022 01:24 PM ALT 44 (H) 03/16/2020 10:39 AM documented in this encounter Plan of Treatment Upcoming Encounters Date Type Department Care Team (Late st Contact Info) Description 08/25/2024 1:30 PM EST Imaging Radiology [address] [place] [address] 01/07/2025 9:30 AM EDT Office Visit Family Medicine [address] [place] [phone] [place] [address] Health Maintenance Due Date Last Done Comments [...] as of this encounter Visit Diagnoses Diagnosis Acquired hypothyroidism Unspecified hypothyroidism documented in this encounter Advance Directives * [...] patient or by statute hierarchy) Care Teams Punch Press Setter Relationship Specialty Start Date End Date Rebecca Crook DO [address] [place] [address] [place] [phone] PCP - General Internal Medicine 10/05/23 documented as of this encounter
--- OUTSIDE RECORDS SUMMARY | 2024-10-01 20:55 | External Medical Summary | Summary of Care ---
Author Name Unknown Organization [facility] Address [address] [place] [address] Phone [phone] Care Team Providers Care Plant Protection Supervisor Name Role Phone Rebecca Crook Primary Care Provider [phone] Reason for Visit * Reason Comments Acute Encounter Details Date Type Department Care Team (Late st Contact Info) Description 2024 3:00 PM EST Office Visit Family Medicine [address] [phone] Kartik Gregorio MD [address] [place], [place] [address] [address] Strain of lumbar region, initial encounter* Allergies Active Allergy Reactions Criticality Noted Date Comments Morphine Other (Please comment) 03/24/2013 Low heart rate documented as of this encounter (statuses as of 2024) Medications aspirin enteric coated 81 MG TBEC TAKE ONE TABLET BY MOUTH EVERY DAY 90 Tab 3 09/18/19 Active acetaminophen (TYLENOL) 500 MG Tablet Take 2 Tabs by mouth every 8 hours as needed for Pain or Fever. 100 Tab 11/24/19 Active Additional Information Patient taking differently:1,000 mg [id number] PRN, Fever >38C(100.5F), Pain, Moderate, Reported on [...] as of this encounter (statuses as of 2024) Active Problems Problem Noted Date Diagnosed Date [...] as of this encounter (statuses as of 2024) Resolved Problems Problem Noted Date Diagnosed Date Resolved Date Stage 3a chronic kidney disease 10/05/2023 10/05/2023 CKD (chronic kidney disease) stage 2, GFR 60-89 ml/min 03/13/2023 10/05/2023 Overview (03/13/2023): EGFR 72 Primary hypertension 12/28/2020 024 Morbid obesity with BMI of 45.0-49.9, adult 04/29/2020 04/29/2020 COVID-19 02/27/2020 06/15/2020 Overview (02/28/2020): Tested positive at [facility] Cellulitis of right leg 12/31/201612/30 Overview (01/12/2017): [facility] Cellulitis of left lower leg 12/31/2016 01/09/2018 Overview (01/12/2017): [facility] Acetabular fracture 08/25/2012 02/25/20 13 Pubic [...] as of this encounter (statuses as of 2024) Immunizations Name Administration Dates Next Due COVID-19 mRNA, LNP-s, No Pre serve, 2-Dose Series (Moderna) 10/28/2020,09/30/2020 COVID-19, mRNA, LNP-s, PF, B ooster, 100mcg/0.5mg (Moderna) 06/21/2021 Pneumococcal Conjugate Vacci ne, 20-valent ([id number]) 01/03/2022 Pneumococcal Polysaccharide PPV23 (Pneumovax) 03/19/2013 Seasonal [...] Sign Reading Time Taken Comments Blood Pressure 124/76 2024 2:54 PM EST Pulse 76 2024 2:54 PM EST Temperature 36.4 °C (97.5 °F) 2024 2:54 PM ES T Respiratory Rate - - Oxygen Saturation 95% 2024 2:54 PM EST Inhaled Oxygen Concentration - - Weight - - Height - - Body Mass Index - - documented in this encounter Progress Notes * Kartik Gregorio MD - 2024 3:01 PM EST Subjective: Jaja Preston is a 64 year old female. Chief Complaint Patient presents with Acute HPI: Brief Clinical History Ms. Preston is a 64 year old female last seen in Family Medicine [facility] on 05/22/2024 by Hazel Dang She has a h/o the following chronic conditions indicated on the problem list: Chronic Conditions Chronic hypoxemic respiratory failure (HCC) Morbid obesity with BMI of 50.0-59.9, adult (HCC) Twisted her low back while washing her hands at work and felt a pull and now her low back is hurting more on the right side. She is taking Tylenol and using a heating pad. Is a little bit better today. Hurts when she first gets up. No history of back surgery or back problems. Occasionally goes to her hips. Results for orders placed or performed in visit on 05/22/24 25-HYDROXY VITAMIN D Result Value Ref Range 25-Hydroxy Vitamin D 25 >19 ng/mL TSH WITH FREE T4 IF INDICATED Result Value Ref Range TSH 1.52 0.27 - 4.20 uIU/mL PHM: Patient Active Problem List Diagnosis Acquired hypothyroidism Morbid obesity with BMI of 50.0-59.9, adult (HCC) Hereditary lymphedema Hyperlipidemia LDL goal <70 Chronic hypoxemic respiratory failure (HCC) Mild persistent asthma without complication History of cellulitis Current Outpatient Medications Medication Sig Dispense Refill aspirin enteric coated 81 MG TBEC TAKE ONE TABLET BY MOUTH EVERY DAY 90 Tab 3 acetaminophen (TYLENOL) 500 MG Tablet Take 2 Tabs by mouth every 8 hours as needed for Pain or Fever. (Patient taking differently: Take 2 Tablets by mouth every 6 hours as needed for Fever >38C(100.5F) or Pain, Moderate.) 100 Tab 0 Montelukast Sodium 10 MG Oral Tablet (Singulair) TAKE 1 TABLET BY MOUTH EVERY MORNING 90 Tablet 3 Atorvastatin Calcium 20 MG Oral Tablet (Lipitor) TAKE ONE TABLET BY MOUTH AT BEDTIME 90 Tablet 2 Asmanex (120 Metered Doses) 220 MCG/ACT Inhalation Aerosol Powder Breath Activated (Mometasone Furoate) inhale 1 puff by mouth every evening. 1 Each 5 Ventolin HFA 108 (90 Base) MCG/ACT Inhalation Aerosol Solution inhale 2 puffs by mouth every 4-6 hours as needed 54 g 1 Cholecalciferol 125 MCG (5000 UT) Oral Tablet Take 1 Tablet by mouth in the morning. 90 Tablet 1 Levothyroxine Sodium 125 MCG Oral Tablet (Levoxyl) (at least 30 min prior to breakfast or other meds) 90 Tablet 1 Cyclobenzaprine HCl 5 MG Oral Tablet (Flexeril) Take 1 Tablet by mouth 3 times a day as needed for Muscle spasms. 30 Tablet 0 No current facility-administered medications for this visit. Past Medical History: Diagnosis Date Acute exacerbation of extrinsic asthma 10/16/2022 [facility] BMI 40.0-44.9, adult ([facility]) Cellulitis of left leg 01/14/2017 [facility] Cellulitis of left lower leg 12/31/2016 [facility] Cellulitis of leg, right 10/16/2016 [facility] Vancomycin, sent home on clindamycin Cellulitis of right leg 12/18/2014 admitted [facility] Cellulitis of right leg with sepsis. [facility] CKD (chronic kidney disease), stage III ([facility]) 09/05/2022 EGFR 53 Closed fracture of acetabulum ([facility]) 08/25/2012 Closed fracture of pubis ([facility]) 08/25/2012 Closed fracture of sacrum and coccyx without mention of spinal cord injury 08/25/2012 COVID-19 02/27/2020 Tested positive at [facility] Dental caries extending into pulp History of ATN ?from vanc/sepsis Hyperlipidemia LDL goal <70 12/28/2020 Intermittent asthma with reliever use up to twice per week Mononucleosis 09/08/2016 [facility] Morbid obesity with BMI of 45.0-49.9, adult ([facility]) Need for hepatitis C screening test 04/06/2016 negative Other specified acquired hypothyroidism Primary hypertension 12/28/2020 Reflux esophagitis Screening for HIV without presence of risk factors 04/06/2016 negative Venous stasis of lower extremity R>>L Past Surgical History: Procedure Laterality Date CTA CHEST NON-CORONARY W CONTRAST 03/20/2013 mild cargiomegaly, no PE or pulmonary disease CTA CHEST NON-CORONARY W CONTRAST 09/08/2016 negative for PE DILATION AND CURETTAGE (D&C) 1991 secondary to miscarriage MAMMOGRAM SCREENING BILATERAL 03/14/2013 scattered fibroglandular densities, category 1 normal MAMMOGRAM SCREENING BILATERAL 04/28/2014 scattered fibroglangular densities, category 1 normal MAMMOGRAM SCREENING BILATERAL Bilateral 08/21/2022 scattered fibroglandular densities, category 1 repeat 1 year PFT/BA BRONCHODILATOR 11/17/2016 no obstructive pattern, no improvement with bronchodilator, possible restrictive disease REMOVE GALLBLADDER 1982 SURGICAL REMOVAL, ERUPTED TOOTH AND BONE 06/04/2014 7,8,9,10,15,20,31 VASC DUPLEX VENOUS LE UNILAT Right 10/16/2016 No DVT right leg VASC DUPLEX VENOUS LE UNILAT Left 12/31/2016 negative for DVT Social History Socioeconomic History Marital status: Spouse name: Not on file Number of children: 3 Years of education: Not on file Highest education level: Not on file Occupational History Occupation: [employer] Tobacco Use Smoking status: Never Smokeless tobacco: Never Vaping Use Vaping status: Never Used Substance and Sexual Activity Alcohol use: No Drug use: No Sexual activity: Never Partners: Male Other Topics Concern Not on file Social History Narrative Merged History Encounter Social Needs Financial Resource Strain: Not on file Food Insecurity: No Food Insecurity (10/19/2022) Hunger Vital Sign Worried About Running Out of Food in the Last Year: Never true Ran Out of Food in the Last Year: Never true Transportation Needs: Not on file Social Connections: Not on file Housing Stability: Not on file Review of patient's allergies indicates: Allergen Reactions Morphine Other (Please comment) Low heart rate Objective: BP 124/76 | Pulse 76 | Temp 97.5 °F (36.4 °C) (Tympanic) | LMP 09/10/2013 | SpO2 95% Physical Exam: General: alert, healthy, no distress, well nourished, well developed, and obese Back: back symmetric, no curvature, no costovertebral angle tenderness, negative straight leg raising, Normal heel walk and toe walk, without evidence of muscle weakness, +tenderness over right SI joint Extremities: +chronic venous stasis changes bilaterally Neuro Exam: alert & oriented x 3 with fluent speech, no focal motor/sensory deficits, gait normal Extensive ROS Constitutional (f/c/wt/vision/hearing): Negative Resp (cough/sob/lilly): +asthma CV (cp/palp/fluttering/diaphoresis/lilly/pnd):Negative GI (n/v/d/hrtburn): Negative Endo (hair/cold or heat intol/ 3 p's): Negative Neuro (shaking/weak/fatigu/parasthesi/): Negative Skin (rash/easy bruis/xerosis): +h/o cellulitis Psy (si/hi/halluc/): Negative (nocturia/hesit/drib/sexual review): Negative Lymph (swollen glands/b sx's/: Negative ASSESSMENT: Strain of lumbar region, initial encounter (Primary) - Cyclobenzaprine HCl 5 MG Oral Tablet (Flexeril); Take 1 Tablet by mouth 3 times a day as needed for Muscle spasms. Follow Up: Return if symptoms worsen or fail to improve. PLAN: Continue present medication(s): Begin medication(s): Flexeril as needed for back strain. Patient education: Discussed prednisone but declines. Is improving. Recommended not driving while taking Flexeril and patient reports she does not drive. Will call or return if not improving. Follow up: as needed. Kartik Gregorio MD documented in this encounter Nursing Notes * Sarah Beth Hager LPN - 2024 2:55 PM EST Thinks she pulled a muscle in her back Was washing hands at work and twisted wrong Happened on Sunday documented in this encounter Plan of Treatment Upcoming Encounters Date Type Department Care Team (Late st Contact Info) Description 08/25/2024 1:30 PM EST Imaging Radiology [address] [place] [address] 01/07/2025 9:30 AM EDT Office Visit Family Medicine [address] [place] [phone] Rebecca Crook[address] [place] [address] Health Maintenance Due Date Last Done Comments [...] as of this encounter Visit Diagnoses Diagnosis Strain of lumbar region, initial encounter- Primary documented in this encounter Advance Directives * [...] or by statute hierarchy) Care Teams Plant Protection Supervisor Relationship Specialty Start Date End Date Rebecca Crook DO [address] [place] [address] [place] [address] PCP - General Internal Medicine 10/05/23 documented as of this encounter"
--- OUTSIDE RECORDS SUMMARY | 2024-10-01 20:55 | External Medical Summary ---
Author Name Unknown Address Unknown Organization [id number]:[facility] [place] [address] [place] [address] Laboratory Report Ordering Provider Test Date Status TIFFANIE RIVERA 08/27/2024 14:54:34 Final Deficient: <20 ng/mL
Ins ufficient: 20-29 ng/mL
Recommended/Optimum:30-50 ng/mL

Vitamin D intoxication is rare. If suspicious of Vitamin D toxicity, evaluation of serum Calcium and PTH is recommended. Observation Date Value Abnormality Reference (Units ) Status 25-OH Vitamin D total 08/27/2024 14:54:34 38 >19 (ng/mL) Final Performing Location [facility] [place] [address] [place] [id number]
--- OUTSIDE RECORDS SUMMARY | 2024-10-01 20:55 | External Medical Summary | Summary of Care ---
Author Name Unknown Organization [facility] Address [address] [place] [address] Phone [phone] Care Team Providers Care Parts Manager Name Role Phone Rebecca Crook DO Primary Care Provider Reason for Visit * Reason Onset Date Comments Test Results 05/23/2024 Encounter Details Date Type Department Care Team ([facility] st Contact Info) Description 05/23/2024 Telephone Family Medicine [address] [phone] [address] Crook [address] [address] Test Results Allergies Active Allergy Reactions Criticality Noted Date Comments Morphine Other (Please comment) 03/24/2013 Low heart rate documented as of this encounter (statuses as of 06/03/2024) Medications aspirin enteric coated 81 MG TBEC TAKE ONE TABLET BY MOUTH EVERY DAY 90 Tab 3 09/18/19 Active acetaminophen (TYLENOL) 500 MG Tablet Take 2 Tabs by mouth every 8 hours as needed for Pain or Fever. 100 Tab 11/24/19 Active Additional Information Patient taking differently:1,000 mg [id number] PRN, Fever >38C(100.5F), Pain, Moderate, Reported on 05/22/2024 Levothyroxine Sodium 125 MCG Oral Tablet (Levoxyl)Indicatio ns:Acquired hypothyroidism (at least 30 min prior to breakfast or other meds) 90 Tablet 1 10/05/19 24 Active Cholecalciferol 125 MCG (5000 UT) Oral Tablet Take 1 Tablet by mouth in the morning. 90 Tablet 10/09/19 24 Active Montelukast Sodium 10 MG Oral Tablet (Singulair)Indicat [...] needed 54 g 1 05/22/20 24 Active documented as of this encounter (statuses as of 06/03/2024) Active Problems Problem Noted Date Diagnosed Date [...] as of this encounter (statuses as of 06/03/2024) Resolved Problems Problem Noted Date Diagnosed Date Resolved Date Stage 3a chronic kidney disease 10/05/2023 10/05/2023 CKD (chronic kidney disease) stage 2, GFR 60-89 ml/min 03/13/2023 10/05/2023 Overview (03/13/2023): EGFR 72 Primary hypertension 12/28/2020 024 Morbid obesity with BMI of 45.0-49.9, adult 04/29/2020 04/29/2020 COVID-19 02/27/2020 06/15/2020 Overview (02/28/2020): Tested positive at [facility] Cellulitis of right leg 12/31/201612/30 Overview (01/12/2017): [facility] Cellulitis of left lower leg 12/31/2016 01/09/2018 Overview (01/12/2017): [facility] Acetabular fracture 08/25/2012 02/25/20 13 Pubic [...] as of this encounter (statuses as of 06/03/2024) Immunizations Name Administration Dates Next Due COVID-19 mRNA, LNP-s, No Pre serve, 2-Dose Series (Moderna) 10/28/2020,09/30/2020 COVID-19, mRNA, LNP-s, PF, B ooster, 100mcg/0.5mg (Moderna) 06/21/2021 Pneumococcal Conjugate Vacci ne, 20-valent ([id number]) 01/03/2022 Pneumococcal Polysaccharide PPV23 (Pneumovax) 03/19/2013 Seasonal [...] encounter Miscellaneous Notes * Telephone Encounter - Samia Iyer, associate music professor - 06/03/2024 9:06 AM EST Pt returning phone call, warm transferring to [facility]. Thank you, Manfred Iyer, Hot Box Spotter Granulator Tender 1 [facility] ([facility] (Former[facility]) 06/03/2024,9:06 AM * Telephone Encounter - Niecy Dodson [facility] - 05/23/2024 6:26 AM EST Unable to reach patient at this time. Left message on the answering machine requesting callback regarding vitamin D lab. Advised patient to please call [phone]. Please transfer her back to myself. If I'm not available, transfer to next available [facility]. Results for orders placed or performed in visit on 05/22/24 25-HYDROXY VITAMIN D Result Value Ref Range 25-Hydroxy Vitamin D 25 >19 ng/mL Vitamin D level is insufficient. Vitamin D 5000 units daily active on current med list. Per adherence tracker, RX never dispensed. Verify if pt ever started supplement. If pt was not taking, advise pt supplement if non-formulary through [facility] family plan and she can purchase OTC. Thank you, Niecy Dodson, PharmD Clinical Pharmacist [facility] ([facility]) [phone] 05/23/2024, 6:27 AM documented in this encounter Plan of Treatment Upcoming Encounters Date Type Department Care Team (Late st Contact Info) Description 08/25/2024 1:30 PM EST Imaging Radiology [address] [place] [address] 01/07/2025 9:30 AM EDT Office Visit Family Medicine [address] [place] [phone] [address] [place] [address] Health Maintenance Due Date Last Done Comments HPV/Co-Test 1990 Cologuard 2005 Colonoscopy 2005 Colorectal Cancer Screening 2005 Fecal Occult Blood Test 2005 Sigmoidoscopy 2005 Cervical Cancer Screening 10/07/2021 Pap Smear 10/07/2021 10/07/2018, 06/01, 04/27/2014, Additional history exists COVID-19 Vaccine () 03/02/2024 06/21/2021, 10/28/2020, 09/30/2020 Mammogram 08/23/2024 08/23/2023, 08/03, 08/21/2022, Additional history exists Depression Screening 05/22/2025 05/22/2024 TSH 05/22/2025 05/22/2024, 03/02, 09/05/2022, Additional history exists Diabetes Screening 10/04/2026 10/05/2023, 0 03/12/2023, 09/05/2022, Additional history exists Lipid Panel 10/04/2028 10/05/2023, 0312/2022, 07/06/2021, Additional history exists DTap/Tdap Vaccines (3 [...] Relationship Healthcare Agent Relationshi p Communication Janes Kary Spouse Health Care Repr esentative (appointed verbally by patient or by statute hierarchy) Care Teams Parts Manager Relationship Specialty Start Date End Date Rebecca Crook DO [address] [place] [address] [place] [address] PCP - General Internal Medicine 10/05/23 documented as of this encounter
--- OUTSIDE RECORDS SUMMARY | 2024-10-01 20:55 | External Medical Summary | Summary of Care ---
Author Name Unknown Organization [facility] Address [address] [place] [address] Phone [phone] Care Team Providers Care It Infrastructure Project Manager Name Role Phone CrookRebecca de la cruz Primary Care Provider Reason for Visit * Reason Comments Outpatient Testing Encounter Details Date Type Department Care Team (Late st Contact Info) Description 08/27/2024 3:00 PM EST Laboratory Laboratory [address] [place] [phone] [address] [place] [address] Vitamin D deficiency; Stage 3a chronic kidney disease (HCC); Cellulitis of right leg Allergies Active Allergy Reactions Criticality Noted Date Comments Morphine Other (Please comment) 03/24/2013 Low heart rate documented as of this encounter (statuses as of 08/27/2024) Medications aspirin enteric coated 81 MG TBEC TAKE ONE TABLET BY MOUTH EVERY DAY 90 Tab 3 09/18/19 Active acetaminophen (TYLENOL) 500 MG Tablet Take 2 Tabs by mouth every 8 hours as needed for Pain or Fever. 100 Tab 11/24/19 Active Additional Information Patient taking differently:1,000 mg [id number] PRN, Fever >38C(100.5F), Pain, Moderate, Reported on 08/27/2024 Montelukast Sodium 10 MG Oral Tablet (Singulair)Indicat [...] Muscle spasms. 30 Tablet 08/22/19 25 Active Doxycycline Hyclate 100 MG Oral Capsule Take 1 Capsule by mouth in the morning and 1 Capsule before bedtime. Do all this for 14 days. Until gone.. 28 Capsule 08/27/19 25 025 Active documented as of this encounter (statuses as of 08/27/2024) Active Problems Problem Noted Date Diagnosed Date [...] as of this encounter (statuses as of 08/27/2024) Resolved Problems Problem Noted Date Diagnosed Date Resolved Date Stage 3a chronic kidney disease 10/05/2023 10/05/2023 CKD (chronic kidney disease) stage 2, GFR 60-89 ml/min 03/13/2023 10/05/2023 Overview (03/13/2023): EGFR 72 Primary hypertension 12/28/2020 024 Morbid obesity with BMI of 45.0-49.9, adult 04/29/2020 04/29/2020 COVID-19 02/27/2020 06/15/2020 Overview (02/28/2020): Tested positive at [facility] Cellulitis of right leg 12/31/201612/30 Overview (01/12/2017): [facility] Cellulitis of left lower leg 12/31/2016 01/09/2018 Overview (01/12/2017): [facility] Acetabular fracture 08/25/2012 02/25/20 13 Pubic [...] as of this encounter (statuses as of 08/27/2024) Immunizations Name Administration Dates Next Due COVID-19 mRNA, LNP-s, No Pre serve, 2-Dose Series (Moderna) 10/28/2020,09/30/2020 COVID-19, mRNA, LNP-s, PF, B ooster, 100mcg/0.5mg (Moderna) 06/21/2021 Pneumococcal Conjugate Vacci ne, 20-valent ([id number]) 01/03/2022 Pneumococcal Polysaccharide PPV23 (Pneumovax) 03/19/2013 Seasonal [...] 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 Not on file Not on file documented as of this encounter Plan of Treatment Upcoming Encounters Date Type Department Care Team (Late st Contact Info) Description 09/03/2024 7:20 AM EST Office [address] [facility] [address] [phone] Rebecca Yañez MD [address] [place] [address] [place] [phone] 01/07/2025 9:30 AM EDT Office Visit Family Medicine [address] [place] [phone] Rebecca Crook DO [address] [place] [address] [place] [phone] 08/27/2025 1:30 PM EST Imaging Radiology [address] [place] [phone] Pending Results Name Type Priority Associated Diagnoses Date /Time 25-HYDROXY VITAMIN D Lab Routine Vitamin D deficiency Stage 3a chronic kidney disease (HCC) 08/27/2024 2:54 PM EST CBC WITH WBC DIFFERENTIAL Lab Routine Cellulitis of right leg 08/27/2024 2:54 PM EST CBC Lab Routine Cellulitis of right leg 08/27/2024 2:54 PM EST DIFFERENTIAL, AUTOMATED Lab Routine Cellulitis of right leg 08/27/2024 2:54 PM EST Health Maintenance Due Date Last Done Comments HPV/Co-Test 1990 Cologuard 2005 Colonoscopy 2005 Colorectal Cancer Screening 2005 Fecal Occult Blood Test 2005 Sigmoidoscopy 2005 Cervical Cancer Screening 10/07/2021 Pap Smear 10/07/2021 10/07/2018, 06/01, 04/27/2014, Additional history exists Albumin/Creatinine Ratio 09/07/2023 09/06/2022, 10/2021 COVID-19 Vaccine ( season) 2024 06/21/2021, 10/28/2020, 09/30/2020 CKD PHOS USE SMARTSET 74137 03/12/202403/02, 2012, 08/21/2012 GFR 04/05/2024 10/05/2023, 03/02, 09/05/2022, Additional history exists CKD HGB USE SMARTSET 02839 10/04/202410/04, 10/05/2023, 03/16/2020, Additional history exists Depression Screening 05/22/2025 05/22/2024 TSH 05/22/2025 05/22/2024, 03/02, 09/05/2022, Additional history exists Mammogram 08/25/2025 08/25/2024, 08/03, 08/23/2023, Additional history exists Diabetes Screening 10/04/2026 10/05/2023, [...] as of this encounter Visit Diagnoses Diagnosis Vitamin D deficiency Unspecified vitamin D deficiency Stage 3a chronic kidney disease (HCC) Cellulitis of right leg Cellulitis and abscess of leg, except foot Screening mammogram for breast cancer documented in [...] patient or by statute hierarchy) Care Teams It Infrastructure Project Manager Relationship Specialty Start Date End Date Rebecca Crook DO [address] [place] [address] [place] [phone] PCP - General Internal Medicine 10/05/23 documented as of this encounter
--- OUTSIDE RECORDS SUMMARY | 2024-10-01 20:55 | External Medical Summary | Summary of Care ---
Author Name Unknown Organization [facility] Address [address] [place] [address] Phone [phone] Care Team Providers Care Manager Work Name Role Phone CrookRebecca de la cruz Primary Care Provider Reason for Visit * Reason Comments Follow Up Encounter Details Date Type Department Care Team ([facility] st Contact Info) Description 09/03/2024 7:20 AM EST Office Visit Family Medicine [address] [phone] Rebecca Yañez MD [address] [place] [address] [place] [phone] Cellulitis of right leg*; Hereditary lymphedema Allergies Active Allergy Reactions Criticality Noted Date Comments Morphine Other (Please comment) 03/24/2013 Low heart rate documented as of this encounter (statuses as of 09/03/2024) Medications aspirin enteric coated 81 MG TBEC TAKE ONE TABLET BY MOUTH EVERY DAY 90 Tab 3 09/18/19 Active acetaminophen (TYLENOL) 500 MG Tablet Take 2 Tabs by mouth every 8 hours as needed for Pain or Fever. 100 Tab 11/24/19 Active Additional Information Patient taking differently:1,000 mg [id number] PRN, Fever >38C(100.5F), Pain, Moderate, Reported on 09/03/2024 Montelukast Sodium 10 MG Oral Tablet (Singulair)Indicat [...] as of this encounter (statuses as of 09/03/2024) Active Problems Problem Noted Date Diagnosed Date [...] as of this encounter (statuses as of 09/03/2024) Resolved Problems Problem Noted Date Diagnosed Date Resolved Date Stage 3a chronic kidney disease 10/05/2023 10/05/2023 CKD (chronic kidney disease) stage 2, GFR 60-89 ml/min 03/13/2023 10/05/2023 Overview (03/13/2023): EGFR 72 Primary hypertension 12/28/2020 024 Morbid obesity with BMI of 45.0-49.9, adult 04/29/2020 04/29/2020 COVID-19 02/27/2020 06/15/2020 Overview (02/28/2020): Tested positive at [facility] Cellulitis of right leg 12/31/201612/30 Overview (01/12/2017): [facility] Cellulitis of left lower leg 12/31/2016 01/09/2018 Overview (01/12/2017): [facility] Acetabular fracture 08/25/2012 02/25/20 13 Pubic [...] as of this encounter (statuses as of 09/03/2024) Immunizations Name Administration Dates Next Due COVID-19 mRNA, LNP-s, No Pre serve, 2-Dose Series (Moderna) 10/28/2020,09/30/2020 COVID-19, mRNA, LNP-s, PF, B ooster, 100mcg/0.5mg (Moderna) 06/21/2021 Pneumococcal Conjugate Vacci ne, 20-valent ([id number]) 01/03/2022 Pneumococcal Polysaccharide PPV23 (Pneumovax) 03/19/2013 Seasonal [...] Sign Reading Time Taken Comments Blood Pressure 110/56 09/03/2024 7:06 AM EST Pulse 83 09/03/2024 7:06 AM EST Temperature 35.7 °C (96.2 °F) 09/03/2024 7:06 AM ES T Respiratory Rate - - Oxygen Saturation 92% 09/03/2024 7:06 AM EST Inhaled Oxygen Concentration - - Weight 132.6 kg (292 lb 4.8 oz) 09/03/2024 7:06 AM EST Height 162.6 cm (5' 4") 09/03/2024 7:06 AM EST Body Mass Index 50.17 09/03/2024 7:06 AM EST documented in this encounter Progress Notes * Dahiana Carpenter, Rebecca Vargas MD - 09/03/2024 7:15 AM EST Images from the original note were not included. History of Present Illness Jaja Preston is a 64 year old female that presents for Follow Up History of Present Illness The patient presents for a follow-up visit for a leg infection. She has been on doxycycline for a week and reports improvement in the redness and swelling of the leg. The patient denies any adverse effects from the medication. The infection appears to have drained and crusted over, and is no longertender to touch. The patient has a history of lymphedema in the affected leg. Physical Exam BP 110/56 | Pulse 83 | Temp 96.2 °F (35.7 °C) (Infrared ) | Ht 5' 4" (1.626 m) | Wt 292 lb 4.8 oz(132.6 kg) | LMP 09/10/2013 | SpO2 92% | BMI 50.17 kg/m² | BSA 2.45 m² Physical Exam Vitals and nursing note reviewed. Constitutional: General: She is not in acute distress. HENT: Head: Normocephalic and atraumatic. Mouth/Throat: Mouth: Mucous membranes are moist. Eyes: Extraocular Movements: Extraocular movements intact. Neck: Thyroid: No thyromegaly. Cardiovascular: Rate and Rhythm: Normal rate and regular rhythm. Pulmonary: Breath sounds: Normal breath sounds. No wheezing or rhonchi. Musculoskeletal: General: Swelling present. Normal range of motion. Cervical back: Normal range of motion and neck supple. Right lower leg: Edema present. Left lower leg: Edema present. Skin: General: Skin is warm and dry. Neurological: General: No focal deficit present. Mental Status: She is alert and oriented to person, place, and time. Psychiatric: Mood and Affect: Mood normal. Behavior: Behavior normal. Reviewed CBC and vitamin D Assessment and Plan Assessment & Plan Cellulitis Cellulitis on the leg is improving with doxycycline. Redness, swelling, and tenderness have reduced, and the lesion is crusted with no drainage. She has no gastrointestinal side effects. Continue doxycycline for another week. Schedule a follow-up in one week to reassess, but advise canceling if thecondition improves significantly. Resume lymphedema wraps once the area is no longer tender or draining. Lymphedema Underlying lymphedema contributes to chronic redness, with persistent redness possible in areas with significant lymphedema. Resume lymphedema wraps once cellulitis is resolved. Cellulitis of right leg Hereditary lymphedema Wrap-Up Follow Up: Return in about 1 week (around 09/10/2024) for f/u cellulitis. | For: f/u cellulitis Time: I spent a total of 10-19 minutes (exact time 17 mins) on the date of service in [...] Nursing Notes * Merlyn Magana CMA - 09/03/2024 7:06 AM EST 1 week f/u for cellulitis of right leg . Pt reports leg looks some better then what it did last week. documented in this encounter Plan of Treatment Upcoming Encounters Date Type Department Care Team (Late st Contact Info) Description 09/10/2024 7:20 AM EDT Office Visit [address] [place] [phone] Rebecca Yañez MD [address] [place] [address] [place] [phone] 01/07/2025 9:30 AM EDT Office Visit Family Medicine [address] [place] [phone] Rebecca Crook DO [address] [place] [address] [place] [address] 08/27/2025 1:30 PM EST Imaging Radiology [address] [place] [address] Health Maintenance Due Date Last Done Comments HPV/Co-Test 1990 Cologuard 2005 Colonoscopy 2005 Colorectal Cancer Screening 2005 Fecal Occult Blood Test 2005 Sigmoidoscopy 2005 Cervical Cancer Screening 10/07/2021 Pap Smear 10/07/2021 10/07/2018, 06/01, 04/27/2014, Additional history exists Albumin/Creatinine Ratio 09/07/2023 09/06/2022, 10/2021 COVID-19 Vaccine ( season) 2024 06/21/2021, 10/28/2020, 09/30/2020 CKD PHOS USE SMARTSET 81637 03/12/202403/02, 2012, 08/21/2012 GFR 04/05/2024 10/05/2023, 03/02, 09/05/2022, Additional history exists Depression Screening 05/22/2025 05/22/2024 TSH 05/22/2025 05/22/2024, 03/02, 09/05/2022, Additional history exists Mammogram 08/25/2025 08/25/2024, 08/03, 08/23/2023, Additional history exists CKD HGB USE SMARTSET 05549 08/27/202508/27, 08/27/2024, 10/05/2023, Additional history exists Diabetes [...] encounter Visit Diagnoses Diagnosis Cellulitis of right leg- Primary Cellulitis and abscess of leg, except foot Hereditary lymphedema Hereditary edema of legs Screening mammogram for breast cancer documented in [...] patient or by statute hierarchy) Care Teams Manager Work Relationship Specialty Start Date End Date Rebecca Crook DO [address] [place] [address] [place] [phone] PCP - General Internal Medicine 10/05/23 documented as of this encounter
--- OUTSIDE RECORDS SUMMARY | 2024-10-01 20:55 | External Medical Summary ---
Author Name Unknown Address Unknown Organization K01:LABORATORY [facility] - [address] [facility] [address] Laboratory Report Ordering Provider Test Date Status DAVID GARAY 08/27/2024 14:54:34 Final Observation Date Value Abnormality Reference (Units ) Status SYNC LEUKOCYTES IN BLOOD BY AUTOMATED COUNT 08/27/2024 14:54:34 7.85 4.00-10.80 (K/uL) Final Segs 08/27/2024 14:54:34 69.5 40.0-75.0 (%) Final Lymphs % 08/27/2024 14:54:34 21.1 18.0-42.0 (%) Final Monos 08/27/2024 14:54:34 4.7 1.0-11.0 (%) Final Eosinophils 08/27/2024 14:54:34 3.8 0.0-6.0 (%) Final Basos 08/27/2024 14:54:34 0.5 0.0-2.0 (%) Final Immature Granulocyte, Percent 08/27/2024 14:54:34 0.4 0.0-2.0 (%) Final Absolute Segs 08/27/2024 14:54:34 5.45 1.80-7.70 (K/uL) Final Lymphs, absolute 08/27/2024 14:54:34 1.66 1.00-4.80 (K/ul) Final Monos, Abs 08/27/2024 14:54:34 0.37 0.00-1.10 (K/uL) Final Eos, Abs 08/27/2024 14:54:34 0.30 0.00-0.70 (K/uL) Final Basos, Abs 08/27/2024 14:54:34 0.04 0.00-0.20 (K/uL) Final Immature Granulocytes, Number 08/27/2024 14:54:34 0.03 0.00-0.20 (K/uL) Final Performing Location LABORATORY [facility] - [facility] [place] [facility] [place] [address]. [facility] [address]
--- OUTSIDE RECORDS SUMMARY | 2024-10-01 20:55 | External Medical Summary | Summary of Care ---
Author Name Unknown Organization [facility] Address [address] [place] [address] Phone [phone] Care Team Providers Care Metal Stamper Name Role Phone Rebecca Crook DO Primary Care Provider Reason for Visit * Reason Onset Date Comments Order Request 06/06/2024 Encounter Details Date Type Department Care Team ([facility] st Contact Info) Description 06/06/2024 Telephone Family Medicine [address] [phone] Rebecca Crook [address] [phone] Order Request Allergies Active Allergy Reactions Criticality Noted Date Comments Morphine Other (Please comment) 03/24/2013 Low heart rate documented as of this encounter (statuses as of 09/06/2024) Medications aspirin enteric coated 81 MG TBEC TAKE ONE TABLET BY MOUTH EVERY DAY 90 Tab 3 9 Active acetaminophen (TYLENOL) 500 MG Tablet Take 2 Tabs by mouth every 8 hours as needed for Pain or Fever. 100 Tab 9 Active Additional Information Patient taking differently:1,000 mg [id number] PRN, Fever >38C(100.5F), Pain, Moderate, Reported on 09/03/2024 Montelukast Sodium 10 MG Oral Tablet (Singulair)Indica [...] every evening. 1 Each 5 4 Active Ventolin HFA 108 (90 Base) MCG/ACT Inhalation Aerosol SolutionIndicatio ns:Intermittent asthma with reliever use up to twice per week without complication inhale 2 puffs by mouth every 4-6 hours as needed 54 g 1 4 Active Cholecalciferol 125 MCG (5000 UT) Oral Tablet Take 1 Tablet by mouth in the morning. 90 Tablet 1 4 Active documented as of this encounter (statuses as of 09/06/2024) Active Problems Problem Noted Date Diagnosed Date [...] as of this encounter (statuses as of 09/06/2024) Resolved Problems Problem Noted Date Diagnosed Date Resolved Date Stage 3a chronic kidney disease 10/05/2023 10/05/2023 CKD (chronic kidney disease) stage 2, GFR 60-89 ml/min 03/13/2023 10/05/2023 Overview (03/13/2023): EGFR 72 Primary hypertension 12/28/2020 024 Morbid obesity with BMI of 45.0-49.9, adult 04/29/2020 04/29/2020 COVID-19 02/27/2020 06/15/2020 Overview (02/28/2020): Tested positive at [facility] Cellulitis of right leg 12/31/201612/30 Overview (01/12/2017): [facility] Cellulitis of left lower leg 12/31/2016 01/09/2018 Overview (01/12/2017): [facility] Acetabular fracture 08/25/2012 02/25/20 13 Pubic ramus [...] as of this encounter (statuses as of 09/06/2024) Immunizations Name Administration Dates Next Due COVID-19 mRNA, LNP-s, No Pre serve, 2-Dose Series (Moderna) 10/28/2020,09/30/2020 COVID-19, mRNA, LNP-s, PF, B ooster, 100mcg/0.5mg (Moderna) 06/21/2021 Pneumococcal Conjugate Vacci ne, 20-valent ([id number]) 01/03/2022 Pneumococcal Polysaccharide PPV23 (Pneumovax) 03/19/2013 Seasonal [...] encounter Miscellaneous Notes * Telephone Encounter - Kassandra Allen OSA - 06/06/2024 1:30 PM EST Call from Wilian Liu. Requesting Farrow Wraps. Was not sure what they were for, so [facility] will call back with more information for request. documented in this encounter Plan of Treatment Upcoming Encounters Date Type Department Care Team (Late st Contact Info) Description 09/10/2024 7:20 AM EDT Office Visit [address] [place] [phone] Rebecca Yañez MD [address] [place] [address] [place] [phone] 01/07/2025 9:30 AM EDT Office Visit Family Medicine [address] [place] [phone] Rebecca Crook DO [address] [place] [address] [place] [phone] 08/27/2025 1:30 PM EST Imaging Radiology [address] [place] [address] Health Maintenance Due Date Last Done Comments HPV/Co-Test 1990 Cologuard 2005 Colonoscopy 2005 Colorectal Cancer Screening 2005 Fecal Occult Blood Test 2005 Sigmoidoscopy 2005 Cervical Cancer Screening 10/07/2021 Pap Smear 10/07/2021 10/07/2018, 06/01, 04/27/2014, Additional history exists Albumin/Creatinine Ratio 09/07/2023 09/06/2022, 10/2021 COVID-19 Vaccine ( season) 2024 06/21/2021, 10/28/2020, 09/30/2020 CKD PHOS USE SMARTSET 75024 03/12/202403/02, 2012, 08/21/2012 GFR 04/05/2024 10/05/2023, 03/02, 09/05/2022, Additional history exists Depression Screening 05/22/2025 05/22/2024 TSH 05/22/2025 05/22/2024, 03/02, 09/05/2022, Additional history exists Mammogram 08/25/2025 08/25/2024, 08/03, 08/23/2023, Additional history exists CKD HGB USE SMARTSET 18476 08/27/202508/27, 08/27/2024, 10/05/2023, Additional history exists Diabetes [...] 7:41 PM 2012 8:27 PM This order reflects the patients wishes and were consensually agreed upon. Question Answer Comments Discussion of Advance Directives occurred with: Not Discussed Healthcare Agents on File Name Relationship Healthcare Agent Relationshi p Communication Janes Kary Spouse Health Care Repr esentative (appointed verbally by patient or by statute hierarchy) Care Teams Metal Stamper Relationship Specialty Start Date End Date Rebecca Crook DO [address] [place] [address] [place] [phone] PCP - General Internal Medicine 10/05/23 documented as of this encounter
--- OUTSIDE RECORDS SUMMARY | 2024-10-01 20:55 | External Medical Summary ---
Author Name Unknown Address Unknown Organization K01:LABORATORY [facility] - [facility] [address] Laboratory Report Ordering Provider Test Date Status DAVID GARAY 08/27/2024 14:54:34 Final Observation Date Value Abnormality Reference (Units ) Status WBC, Total 08/27/2024 14:54:34 7.85 4.00-10.80 (K/uL) Final RBC 08/27/2024 14:54:34 4.29 3.85-5.15 (M/uL) Final Hemoglobin 08/27/2024 14:54:34 12.7 12.0-15.3 (g/dL) Final HCT 08/27/2024 14:54:34 41.3 36.0-45.2 (%) Final MCV 08/27/2024 14:54:34 96.3 81.5-97.5 (fL) Final MCH 08/27/2024 14:54:34 29.6 27.0-34.0 (pg) Final MCHC 08/27/2024 14:54:34 30.8 32.0-36.0 (g/dL) Final RDW 08/27/2024 14:54:34 13.7 11.5-15.5 (%) Final Platelets 08/27/2024 14:54:34 286 140-400 (K/uL) Final MPV 08/27/2024 14:54:34 10.2 6.6-11.1 (fL) Final Nucleated erythrocytes/100 leukocytes [Ratio] in Blood by Automated count 08/27/2024 14:54:34 0 <=0 (/100 WBCs) Final Performing Location LABORATORY [facility] - [address] [facility] [address]
--- OUTSIDE RECORDS SUMMARY | 2024-10-01 20:55 | External Medical Summary | Summary of Care ---
Author Name Unknown Organization [facility] Address [address] [place] [address] Phone [phone] Care Team Providers Care Books Salesperson Name Role Phone Tanisha Palma DO Primary Care Provider Reason for Visit * Reason Onset Date Comments Test Results 05/23/2024 Encounter Details Date Type Department Care Team ([facility] st Contact Info) Description 05/23/2024 Telephone Family Medicine [address] [phone] Tanisha Palma [address] [address] Test Results Allergies Active Allergy [...] Active Additional Information Patient taking differently:1,000 mg [id number] PRN, Fever >38C(100.5F), Pain, Moderate, Reported on 05/22/2024 Levothyroxine Sodium 125 MCG Oral Tablet (Levoxyl)Indicatio ns:Acquired hypothyroidism (at least 30 min prior to breakfast or other meds) 90 Tablet 1 10/05/19 24 Active Montelukast Sodium 10 MG Oral [...] morning. 90 Tablet 1 06/03/20 24 Active Cholecalciferol 125 MCG (5000 UT) Oral Tablet Take 1 Tablet by mouth in the morning. 90 Tablet 10/09/19 24 024 Discontin ued(Refil l) documented as [...] 02/27/2020 06/15/2020 Overview (02/28/2020): Tested positive at [facility] Cellulitis of right leg 12/31/201612/30 Overview (01/12/2017): [facility] Cellulitis of left lower leg 12/31/2016 01/09/2018 Overview (01/12/2017): [facility] Acetabular fracture 08/25/2012 02/25/20 13 [...] (Moderna) 06/21/2021 Pneumococcal Conjugate Vacci ne, 20-valent ([id number]) 01/03/2022 Pneumococcal Polysaccharide PPV23 (Pneumovax) 03/19/2013 Seasonal [...] as of this encounter Miscellaneous Notes * Addendum Note - Tanisha Palma DO - 06/03/2024 1:49 PM ESTAddended by: TANISHA PALMA on: 06/03/2024 01:49 PM Modules accepted: Orders * Addendum Note - Nicole Moreno [facility] - 06/03/2024 9:14 AM ESTAddended by: NICOLE MORENO on: 06/03/2024 09:14 AM Modules accepted: Orders * Telephone Encounter - Nicole Moreno [facility] - 06/03/2024 9:08 AM EST Pt calling back. Pt states she stopped taking vitamin D because no more refills were on bottle. Advised pt her levels were insufficient and she should be taking daily. Lab ordered for recheck. Pt can obtain with next routine labs. [facility] is currently not authorized to approve refills for the pended medication(s) per refill protocol. Please approve if appropriate. Pending Prescriptions: Disp Refills Cholecalciferol 125 MCG (5000 UT) Oral Ta*90 Tab*1 Sig: Take 1 Tablet by mouth in the morning. Thank you, Nicole Moreno, PharmD Clinical Pharmacist [facility] ([facility]) [phone] 06/03/2024, 9:08 AM * Telephone Encounter - Samia Iyer wire rope sales representative - 06/03/2024 9:06 AM EST Pt returning phone call, warm transferring to [facility]. Thank you, Manfred Iyer, Joiners Supervisor Abalone Sheller 1 [facility] ([facility]) (Formerly [facility]) 06/03/2024,9:06 AM * Telephone Encounter - Nicole Moreno [facility] - 05/23/2024 6:26 AM EST Unable to reach patient at this time. Left message on the answering machine requesting callback regarding vitamin D lab. Advised patient to please call [phone]. Please transfer her back to myself. If I'm not available, transfer to next available [facility]. Results for orders placed or performed in visit on 05/22/24 25-HYDROXY VITAMIN D Result Value Ref Range 25-Hydroxy Vitamin D 25 >19 ng/mL Vitamin D level is insufficient. Vitamin D 5000 units daily active on current med list. Per adherence tracker, RX never dispensed. Verify if pt ever started supplement. If pt was not taking, advise pt supplement if non-formulary through [facility] family [facility] and she can purchase OTC. Thank you, Nicole Moreno, PharmD Clinical Pharmacist [facility] ([facility]) [phone] 05/23/2024, 6:27 AM documented in this encounter Plan of Treatment Upcoming Encounters Date Type Department Care Team (Late st Contact Info) Description 08/25/2024 1:30 PM EST Imaging Radiology [address] [place] [address] 01/07/2025 9:30 AM EDT Office Visit Family Medicine [address] [place] [phone] [place] [address] Scheduled Orders Name Type Priority Associated Diagnoses Orde r Schedule 25-HYDROXY VITAMIN D Lab Routine Vitamin D deficiency Stage 3a chronic kidney disease (HCC) Expected: 09/01/2024 (Approximate), Expires: 06/03/2025 Health Maintenance Due Date Last Done Comments [...] this encounter Visit Diagnoses Diagnosis Vitamin D deficiency- Primary Unspecified vitamin D deficiency Stage 3a chronic kidney disease (HCC) documented in this encounter Advance Directives * [...] patient or by statute hierarchy) Care Teams Books Salesperson Relationship Specialty Start Date End Date Tanisha Palma DO [address] [place] [address] [place] [address] PCP - General Internal Medicine 10/05/23 documented as of this encounter
--- OUTSIDE RECORDS SUMMARY | 2024-10-01 20:55 | External Medical Summary | Summary of Care ---
Author Name Unknown Organization [facility] Address [address] [place] [address] Phone [phone] Care Team Providers Care Cashier Supervisor Name Role Phone CrookRebecca de la cruz Primary Care Provider Reason for Visit * Reason Comments Acute Encounter Details Date Type Department Care Team ([facility] st Contact Info) Description 08/27/2024 2:40 PM EST Office Visit Family Medicine [address] [phone] Rebecca Yañez MD [address] [place] [address] [place] [address] Cellulitis of right leg*; Hereditary lymphedema; Chronic hypoxemic respiratory failure (HCC); Combined forms of age-related cataract, bilateral; Intermittent asthma with reliever use up to twice per week without complication; Hypertensive kidney disease with stage 3a chronic kidney disease (HCC); Dependence on supplemental oxygen Allergies Active Allergy Reactions Criticality Noted Date Comments Morphine Other (Please comment) 03/24/2013 Low heart rate documented as of this encounter (statuses as of 08/27/2024) Medications aspirin enteric coated 81 MG TBEC TAKE ONE TABLET BY MOUTH EVERY DAY 90 Tab 3 09/18/19 19 Active acetaminophen (TYLENOL) 500 MG Tablet Take 2 Tabs by mouth every 8 hours as needed for Pain or Fever. 100 Tab 11/24/19 19 Active Additional Information Patient taking differently:1,000 mg [id number] PRN, Fever >38C(100.5F), Pain, Moderate, Reported on [...] 02/27/2020 06/15/2020 Overview (02/28/2020): Tested positive at [facility] Cellulitis of right leg 12/31/201612/30 Overview (01/12/2017): [facility] Cellulitis of left lower leg 12/31/2016 01/09/2018 Overview (01/12/2017): [facility] Acetabular fracture 08/25/2012 02/25/20 13 [...] (Moderna) 06/21/2021 Pneumococcal Conjugate Vacci ne, 20-valent ([id number]) 01/03/2022 Pneumococcal Polysaccharide PPV23 (Pneumovax) 03/19/2013 Seasonal [...] Sign Reading Time Taken Comments Blood Pressure 112/70 08/27/2024 2:29 PM EST Pulse 84 08/27/2024 2:29 PM EST Temperature 36.4 °C (97.5 °F) 08/27/2024 2:29 PM ES T Respiratory Rate - - Oxygen Saturation 91% 08/27/2024 2:29 PM EST Inhaled Oxygen Concentration - - Weight 135.9 kg (299 lb 8 oz) 08/27/2024 2:29 PM EST Height 162.6 cm (5' 4") 08/27/2024 2:29 PM EST Body Mass Index 51.41 08/27/2024 2:29 PM EST documented in this encounter Progress Notes * Dahiana Carpenter, Rebecca Vargas MD - 08/27/2024 2:39 PM EST Images from the original note were not included. History of Present Illness Jaja Preston is a 64 year old female that presents for Acute History of Present Illness The patient, with a history of chronic lymphedema and recent hospitalization for a leg infection, presents with worsening symptoms. She reports increased redness, swelling, and pain, with a new blackarea and yellow drainage. Despite wrapping the leg and taking antibiotics, the condition has worsened, and is now worse than before her hospitalization. She also mentions difficulty in obtaining new wraps for her lymphedema. The patient also has a history of respiratory issues, for which she is prescribed oxygen therapy (2liters) to be used continuously. However, she admits to only using it at home and not when she is out. She reports that her breathing has been relatively stable, and her inhalers are effective. The patient also mentions taking Tylenol for muscle pain, and has a history of adverse reactions tomorphine, which lowers her heart rate and makes her feel unwell. She also mentions working at [employer], which involves a lot of standing and moving, exacerbating the lymphedema in her legs. Physical Exam BP 112/70 | Pulse 84 | Temp 97.5 °F (36.4 °C) (Infrared ) | Ht 5' 4" (1.626 m) | Wt 299 lb 8 oz (135.9 kg) | LMP 09/10/2013 | SpO2 91% | BMI 51.41 kg/m² | BSA 2.48 m² Physical Exam Vitals and nursing note [...] Edema present. Left lower leg: Edema present. Comments: Bilateral lower legs with nonpitting edema; R lower leg with acute red skin swelling circumferential, small open area on lateral ankle with serous drainage Lymphadenopathy: Cervical: No cervical adenopathy. Upper Body: Right upper body: No supraclavicular adenopathy. Left upper body: No supraclavicular adenopathy. Skin: General: Skin is warm and dry. Findings: No lesion or rash. Neurological: General: No focal deficit present. Mental Status: She is alert and oriented to person, place, and time. Psychiatric: Mood and Affect: Mood normal. Behavior: Behavior normal. Assessment and Plan Assessment & Plan Cellulitis of the leg Symptoms have worsened with increased redness, swelling, and new black discoloration, along with yellow drainage. There was recent improvement during hospitalization two weeks ago with antibiotics, but symptoms have since deteriorated. Chronic lymphedema likely contributes to recurrent infections. S tart Doxycycline for a two-week course. Check kidney function and blood counts today. Follow-up in one week to assess response to treatment. Chronic Lymphedema Wraps are used for management, but there is difficulty contacting the clinic for new wraps. Continue efforts to obtain new wraps and elevate legs when possible to improve fluid drainage. Asthma Symptoms are well-controlled with current inhalers, but there is non-compliance with prescribed oxygen therapy, which is only used at home. Encourage use of oxygen as prescribed to prevent exacerbations. Muscle Pain Recent muscle pain is managed with Tylenol and muscle relaxers. Continue current management as needed. Cellulitis of right leg - COMPREHENSIVE METABOLIC PANEL; Future - CBC WITH WBC DIFFERENTIAL; Future - RETURN TO WORK OR SCHOOL Hereditary lymphedema Follows with lymphedema wrapping Chronic hypoxemic respiratory failure (HCC); Dependence on supplemental oxygen Is supposed to wear continuous O2, notes that she does at home but not when she goes out. Encouraged her to use it as she is able. Combined forms of age-related cataract, bilateral Follows with Optho Intermittent asthma with reliever use up to twice per week without complication Breathing has been ok, continue inhalers Hypertensive chronic kidney disease with stage 1 through stage 4 chronic kidney disease, or unspecified chronic kidney disease Check kidney function with labs Wrap-Up Follow Up: Return in about 1 week (around 09/03/2024) for Return with Physician. | For: Return with Physician Time: I spent a total of 10-19 [...] Nursing Notes * Merlyn Magana CMA - 08/27/2024 2:30 PM EST Cellulitis on leg Right leg cellulitis noticed it looked a little red on Sunday, painful touch, warm to touch . Had wrapped it once a senior center and when she took the wrap off it had a yellowish drainage on it. documented in this encounter Plan of Treatment Upcoming Encounters Date Type Department Care Team (Late st Contact Info) Description 09/03/2024 7:20 AM EST Office Visit Family Medicine [address] [place] [phone] Rebecca Yañez MD [address] [place] [address] [place] [phone] 01/07/2025 9:30 AM EDT Office Visit [address] [place] [phone] Rebecca Crook DO [address] [place] [address] [place] [address] 08/27/2025 1:30 PM EST Imaging Radiology [address] [place] [address] Pending Results Name Type Priority Associated Diagnoses Date /Time CBC WITH WBC DIFFERENTIAL Lab Routine Cellulitis of right leg 08/27/2024 2:54 PM EST Scheduled Orders Name Type Priority Associated Diagnoses Orde r Schedule COMPREHENSIVE METABOLIC PANEL Lab Routine Cellulitis of right leg Expected: 02/26/2025 (Approximate), Expires: 09/24/2025 CBC WITH WBC DIFFERENTIAL Lab Routine Cellulitis of right leg Expected: 08/27/2024 (Approximate), Expires: 08/27/2025 Health Maintenance Due Date Last Done Comments HPV/Co-Test 1990 Cologuard 2005 Colonoscopy 2005 Colorectal Cancer Screening 2005 Fecal Occult Blood Test 2005 Sigmoidoscopy 2005 Cervical Cancer Screening 10/07/2021 Pap Smear 10/07/2021 10/07/2018, 06/01, 04/27/2014, Additional history exists Albumin/Creatinine Ratio 09/07/2023 09/06/2022, 10/2021 COVID-19 Vaccine ( season) 2024 06/21/2021, 10/28/2020, 09/30/2020 CKD PHOS USE SMARTSET 76606 03/12/202403/02, 2012, 08/21/2012 GFR 04/05/2024 10/05/2023, 03/02, 09/05/2022, Additional history exists CKD HGB USE SMARTSET 75493 10/04/202410/04, 10/05/2023, 03/16/2020, Additional history exists Depression [...] foot Hereditary lymphedema Hereditary edema of legs Chronic hypoxemic respiratory failure (HCC) Chronic respiratory failure Combined forms of age-related cataract, bilateral Intermittent asthma with reliever use up to twice per week without complication Hypertensive kidney disease with stage 3a chronic kidney disease (HCC) Dependence on supplemental oxygen Screening mammogram for breast cancer documented in [...] patient or by statute hierarchy) Care Teams Cashier Supervisor Relationship Specialty Start Date End Date Rebecca Crook DO [address] [place] [address] [place] [address] PCP - General Internal Medicine 10/05/23 documented as of this encounter
--- OUTSIDE RECORDS SUMMARY | 2024-10-01 20:55 | External Medical Summary | Summary of Care ---
Author Name Unknown Organization [facility] Address [address] [place] [address] Phone [phone] Care Team Providers Care Color Control Supervisor Name Role Phone Rebecca Crook DO Primary Care Provider [phone] Encounter Details Date Type Department Care Team (Late st Contact Info) Description 03/19/2024 Telephone Family Medicine [address] [phone] Rebecca Crook [address] [address] Allergies Active Allergy Reactions Criticality Noted Date Comments Morphine Other (Please comment) 03/24/2013 Low heart rate documented as of this encounter (statuses as of 06/18/2024) Medications aspirin enteric coated 81 MG TBEC TAKE ONE TABLET BY MOUTH EVERY DAY 90 Tab 3 09/18/19 Active acetaminophen (TYLENOL) 500 MG Tablet Take 2 Tabs by mouth every 8 hours as needed for Pain or Fever. 100 Tab 11/24/19 19 Active Additional Information Patient taking differently:1,000 mg [id number] PRN, Fever >38C(100.5F), Pain, Moderate, Reported on [...] evening. 1 Each 5 02/27/20 24 Active documented as of this encounter (statuses as of 06/18/2024) Active Problems Problem Noted Date Diagnosed Date [...] as of this encounter (statuses as of 06/18/2024) Resolved Problems Problem Noted Date Diagnosed Date [...] as of this encounter (statuses as of 06/18/2024) Immunizations Name Administration Dates Next Due COVID-19 mRNA, LNP-s, No Pre serve, 2-Dose Series (Moderna) 10/28/2020,09/30/2020 COVID-19, mRNA, LNP-s, PF, B ooster, 100mcg/0.5mg (Moderna) 06/21/2021 Pneumococcal Conjugate Vacci ne, 20-valent ([id number]) 01/03/2022 Pneumococcal Polysaccharide PPV23 (Pneumovax) 03/19/2013 Seasonal Influenza Vac., MDV , IM, 0.5 mL (Fluzone) 06/02/2014,03/19/2013 Seasonal Influenza Virus Vac cine, Unspecified Formulation 03/12/2023,05/06/2022,07/06/2021,03/16,06/18/2019,03/15/2018,04/05/2017 ,04/06/2016,06/02/2015,06/02/2014,03/02 Seasonal Influenza, PF, 6 M & above, IM , (FluLaval or Fluzone) 03/12/2023,05/06/2022,07/06/2021,03/16,06/18/2019,03/15/2018,04/05/2017 Seasonal Influenza, Quadriva lent, No Preserve, IM 04/06/2016,06/02/2015 TDAP (age 10 and older)(Boostrix) 10/05/2023, Zoster [...] encounter Miscellaneous Notes * Telephone Encounter - Deann Fall LPN - 03/19/2024 11:16 AM EDT Patient disconnected before being transferred. Patient scheduled for appt 03/20 at 2:40pm with Junior. * Telephone Encounter - Maxwell Bartlett OSA - 03/19/2024 11:12 AM EDT Reason for patient's call: I have patient scheduled for an appointment for tomorrow, she was askingfor today. Pain level is bad. Caller was transferred to [facility] at the nurse line. documented in this encounter Plan of Treatment Upcoming Encounters Date Type Department Care Team (Late st Contact Info) Description 08/25/2024 1:30 PM EST Imaging Radiology [address] [place] [address] 01/07/2025 9:30 AM EDT Office Visit Family Medicine [address] [place] [phone] Rebecca Crook[address] [place] [address] Health Maintenance Due Date Last Done Comments [...] patient or by statute hierarchy) Care Teams Color Control Supervisor Relationship Specialty Start Date End Date Rebecca Crook DO [address] [place] [address] [place] [address] PCP - General Internal Medicine 10/05/23 documented as of this encounter
--- OUTSIDE RECORDS SUMMARY | 2024-10-01 20:55 | External Medical Summary | Summary of Care ---
Author Name Unknown Organization [facility] Address [address] [place] [address] Phone [phone] Care Team Providers Care Claim Adjuster Name Role Phone CrookMicRebeccaminal Delcid Primary Care Provider Encounter Details Date Type Department Care Team (Late st Contact Info) Description 08/25/2024 1:30 PM EST Imaging Radiology [address] [place] [address] Other screening mammogram Allergies Active Allergy Reactions Criticality Noted Date Comments Morphine Other (Please comment) 03/24/2013 Low heart rate documented as of this encounter (statuses as of 08/29/2024) Medications aspirin enteric coated 81 MG TBEC TAKE ONE TABLET BY MOUTH EVERY DAY 90 Tab 3 09/18/19 19 Active acetaminophen (TYLENOL) 500 MG Tablet Take 2 Tabs by mouth every 8 hours as needed for Pain or Fever. 100 Tab 11/24/19 19 Active Additional Information Patient taking differently:1,000 mg [id number] PRN, Fever >38C(100.5F), Pain, Moderate, Reported on [...] as of this encounter (statuses as of 08/29/2024) Active Problems Problem Noted Date Diagnosed Date [...] as of this encounter (statuses as of 08/29/2024) Resolved Problems Problem Noted Date Diagnosed Date Resolved Date Stage 3a chronic kidney disease 10/05/2023 10/05/2023 CKD (chronic kidney disease) stage 2, GFR 60-89 ml/min 03/13/2023 10/05/2023 Overview (03/13/2023): EGFR 72 Primary hypertension 12/28/2020 024 Morbid obesity with BMI of 45.0-49.9, adult 04/29/2020 04/29/2020 COVID-19 02/27/2020 06/15/2020 Overview (02/28/2020): Tested positive at [facility] Cellulitis of right leg 12/31/201612/30 Overview (01/12/2017): [facility] Cellulitis of left lower leg 12/31/2016 01/09/2018 Overview (01/12/2017): [facility] Acetabular fracture 08/25/2012 02/25/20 13 Pubic [...] as of this encounter (statuses as of 08/29/2024) Immunizations Name Administration Dates Next Due COVID-19 mRNA, LNP-s, No Pre serve, 2-Dose Series (Moderna) 10/28/2020,09/30/2020 COVID-19, mRNA, LNP-s, PF, B ooster, 100mcg/0.5mg (Moderna) 06/21/2021 Pneumococcal Conjugate Vacci ne, 20-valent ([id number]) 01/03/2022 Pneumococcal Polysaccharide PPV23 (Pneumovax) 03/19/2013 Seasonal [...] 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 Not on file Not on file documented as of this encounter Plan of Treatment Upcoming Encounters Date Type Department Care Team (Late st Contact Info) Description 09/03/2024 7:20 AM EST Office Visit [facility] Medicine [address] [place] [phone] Rebecca Yañez MD [address] [place] [address] [place] [phone] 01/07/2025 9:30 AM EDT Office Visit [address] [place] [phone] Rebecca Crook DO [address] [place] [address] [place] [address] 08/27/2025 1:30 PM EST Imaging Radiology [address] [place] [address] Health Maintenance Due Date Last Done Comments HPV/Co-Test 1990 Cologuard 2005 Colonoscopy 2005 Colorectal Cancer Screening 2005 Fecal Occult Blood Test 2005 Sigmoidoscopy 2005 Cervical Cancer Screening 10/07/2021 Pap Smear 10/07/2021 10/07/2018, 06/01, 04/27/2014, Additional history exists Albumin/Creatinine Ratio 09/07/2023 09/06/2022, 10/2021 COVID-19 Vaccine ( season) 2024 06/21/2021, 10/28/2020, 09/30/2020 CKD PHOS USE SMARTSET 56451 03/12/202403/02, 2012, 08/21/2012 GFR 04/05/2024 10/05/2023, 03/02, 09/05/2022, Additional history exists Depression Screening 05/22/2025 05/22/2024 TSH 05/22/2025 05/22/2024, 03/02, 09/05/2022, Additional history exists Mammogram 08/25/2025 08/25/2024, 08/03, 08/23/2023, Additional history exists CKD HGB USE SMARTSET 37581 08/27/202508/27, 08/27/2024, 10/05/2023, Additional history exists Diabetes [...] Procedure Name Priority Date/Time Associated Diagnosis Comments MAMMOGRAM SCREENING TATI BILATERAL Routine 08/25/2024 1:34 PM EST Other screening mammogram documented in this encounter Results * MAMMOGRAM SCREENING TATI BILATERAL (08/25/2024 1:34 PM EST) Anatomical Region Laterality Modality Breast Bilateral Mammography Narrative 08/25/2024 2:57 PM EST Result MAMMOGRAM SCREENING TATI BILATERAL History Other screening mammogram Family medical history includes breast cancer in aunt (paternal). Films Compared 08/23/2023 MAMMOGRAM SCREENING TATI BILATERAL, 08/21/2022 MAMMOGRAM SCREENING BILATERAL, 07/13/2021 MAMMOGRAM SCREENING BILATERAL, 07/12/2020 MAMMOGRAM SCREENING BILATERAL, 07/09/2019 MAMMOGRAM SCREENING BILATERAL, and 07/08/2018 MAMMOGRAM SCREENING BILATERAL Findings There are scattered areas of fibroglandular density. There is no evidence of suspicious masses, calcifications, or other abnormal findings. Impression Bilateral No mammographic evidence of malignancy. BI-RADS® Category: 1 - Negative. Recommendation Screening mammogram in 1 year is recommended for both breasts. Digital breast tomosynthesis was performed. This digital mammogram has been analyzed with the computer aided detection system. Breast tissue can be either dense or not dense. Dense tissue makes it harder to find breast cancer on a mammogram and also raises the risk of developing breast cancer. Your breast tissue is not dense. Talk to your healthcare provider about breast density, risks for breast cancer, and your individual situation. This examination was performed at [address] [place] [address]. [phone] Rebecca Crook DO RAD MAMMOGRAPHY Final Result documented in this encounter Visit Diagnoses Diagnosis Other screening mammogram Screening mammogram for breast cancer documented in [...] Relationship Healthcare Agent Relationshi p Communication Janes Urban Spouse Health Care Repr esentative (appointed verbally by patient or by statute hierarchy) Care Teams Claim Adjuster Relationship Specialty Start Date End Date Rebecca Crook DO [address] [place] [address] [place] [address] PCP - General Internal Medicine 10/05/23 documented as of this encounter
--- OUTSIDE RECORDS SUMMARY | 2024-10-01 20:55 | External Medical Summary | Summary of Care ---
Author Name Unknown Organization [facility] Address [address] [place] [address] Phone [phone] Care Team Providers Care Nurse Anesthesia Program Director Name Role Phone Rebecca Crook DO Primary Care Provider Reason for Visit * Reason Onset Date Comments Test Results 05/23/2024 Encounter Details Date Type Department Care Team ([facility] st Contact Info) Description 05/23/2024 Telephone Family Medicine [address] [phone] Rebecca Crook [address] [address] Test Results Allergies Active Allergy [...] Active Additional Information Patient taking differently:1,000 mg [id number] PRN, Fever >38C(100.5F), Pain, Moderate, Reported on [...] 02/27/2020 06/15/2020 Overview (02/28/2020): Tested positive at [facility] Cellulitis of right leg 12/31/201612/30 Overview (01/12/2017): [facility] Cellulitis of left lower leg 12/31/2016 01/09/2018 Overview (01/12/2017): [facility] Acetabular fracture [...] (Moderna) 06/21/2021 Pneumococcal Conjugate Vacci ne, 20-valent ([id number]) 01/03/2022 Pneumococcal Polysaccharide PPV23 (Pneumovax) 03/19/2013 Seasonal [...] encounter Miscellaneous Notes * Addendum Note - Nicole Moreno, [facility] - 06/03/2024 9:14 AM ESTAddended by: NICOLE MORENO on: 06/03/2024 09:14 AM Modules accepted: Orders * Telephone Encounter - Nicole Moreno [facility] - 06/03/2024 9:08 AM EST Pt calling back. Pt states she stopped taking vitamin D because no more refills were on bottle. Advised pt her levels were insufficient and she should be taking daily. Lab ordered for recheck. Pt can obtain with next routine labs. [facility] is currently not authorized to approve refills for the pended medication(s) per refill protocol. Please approve if appropriate. Pending Prescriptions: Disp Refills Cholecalciferol 125 MCG (5000 UT) Oral Ta*90 Tab*1 Sig: Take 1 Tablet by mouth in the morning. Thank you, Nicole Moreno PharmHarika Clinical Pharmacist Centralized Clinical Pharmacy Services ([facility]) [phone] 06/03/2024, 9:08 AM * Telephone Encounter - Samia Iyer renewal specialist - 06/03/2024 9:06 AM EST Pt returning phone call, warm transferring to [facility]. Thank you, Manfred Iyer, Log Manager Meter Maintenance Person 1 [facility] Clinical [facility]acy Services ([facility]) (Formerly Telepharmacy) 06/03/2024,9:06 AM * Telephone Encounter - Nicole Moreno [facility] - 05/23/2024 6:26 AM EST Unable to reach patient at this time. Left message on the answering machine requesting callback regarding vitamin D lab. Advised patient to please call [phone]. Please transfer her back to myself. If I'm not available, transfer to next available [facility]. Results for orders placed or performed in visit on 05/22/24 25-HYDROXY VITAMIN D Result Value Ref Range 25-Hydroxy Vitamin D 25 >19 ng/mL Vitamin D level is insufficient. Vitamin D 5000 units daily active on current med list. Per adherence tracker, RX never dispensed. Verify if pt ever started supplement. If pt was not taking, advise pt supplement if non-formulary through [facility] family plan and she can purchase OTC. Thank you, Nicole Moreno, PharmD Clinical Pharmacist [facility] ([facility]) [phone] 05/23/2024, 6:27 AM documented in this encounter Plan of Treatment Upcoming Encounters Date Type Department Care Team (Late st Contact Info) Description 08/25/2024 1:30 PM EST Imaging Radiology [address] [place] [address] 01/07/2025 9:30 AM EDT Office Visit Family Medicine [address] [place] [phone] [address] [place] [address] Scheduled Orders Name Type Priority Associated Diagnoses [...] Relationship Healthcare Agent Relationshi p Communication [facility] Spouse Health Care Repr esentative (appointed verbally by patient or by statute hierarchy) Care Teams Nurse Anesthesia Program Director Relationship Specialty Start Date End Date Rebecca Crook DO [address] [place] [address] [place] [id number] PCP - General Internal Medicine 10/05/23 documented as of this encounter
--- OUTSIDE RECORDS SUMMARY | 2024-10-01 20:55 | External Medical Summary | Summary of Care ---
Author Name Unknown Organization [facility] Address [address] [place] [address] Phone [phone] Care Team Providers Care Windows Systems Engineer Name Role Phone Tanisha Palma DO Primary Care Provider Reason for Visit * Reason Onset Date Comments Test Results 05/23/2024 Encounter Details Date Type Department Care Team ([facility] st Contact Info) Description 05/23/2024 Telephone Family Medicine [address] [phone] Tanisha Palma [address] [address] Test Results Allergies Active Allergy [...] Active Additional Information Patient taking differently:1,000 mg [id number] PRN, Fever >38C(100.5F), Pain, Moderate, Reported on [...] 02/27/2020 06/15/2020 Overview (02/28/2020): Tested positive at [facility] Cellulitis of right leg 12/31/201612/30 Overview (01/12/2017): [facility] Cellulitis of left lower leg 12/31/2016 01/09/2018 Overview (01/12/2017): [facility] Acetabular fracture 08/25/2012 02/25/20 13 [...] (Moderna) 06/21/2021 Pneumococcal Conjugate Vacci ne, 20-valent ([id number]) 01/03/2022 Pneumococcal Polysaccharide PPV23 (Pneumovax) 03/19/2013 Seasonal [...] Orders * Addendum Note - Nicole Moreno [facility] - 06/03/2024 9:14 AM ESTAddended by: NICOLE MORENO on: 06/03/2024 09:14 AM Modules accepted: Orders * Telephone Encounter - Nicole Moreno [facility] - 06/03/2024 9:08 AM EST Pt calling back. Pt states she stopped taking vitamin D because no more refills were on bottle. Advised pt her levels were insufficient and she should be taking daily. Lab ordered for recheck. Pt can obtain with next routine labs. [facility] is currently not authorized to approve refills for the pended medication(s) per refill protocol. Please approve if appropriate. Pending Prescriptions: Disp Refills Cholecalciferol 125 MCG (5000 UT) Oral Ta*90 Tab*1 Sig: Take 1 Tablet by mouth in the morning. Thank you, Nicole Moreno, PharmD Clinical Pharmacist Centralized Clinical Pharmacy Services ([facility]) [phone] 06/03/2024, 9:08 AM * Telephone Encounter - Samia Iyer industrial fabric cutter - 06/03/2024 9:06 AM EST Pt returning phone call, warm transferring to [facility]. Thank you, Manfred Iyer, Glass Driller Animal Control Specialist 1 [facility] ([facility]) (Formerly Tele[facility]acy) 06/03/2024,9:06 AM * Telephone Encounter - Nicole Moreno [facility] - 05/23/2024 6:26 AM EST Unable to reach patient at this time. Left message on the answering machine requesting callback regarding vitamin D lab. Advised patient to please call [phone]. Please transfer her back to myself. If I'm not available, transfer to next available [facility]. Results for orders placed or performed in visit on 05/22/24 25-HYDROXY VITAMIN D Result Value Ref Range 25-Hydroxy Vitamin D 25 >19 ng/mL Vitamin D level is insufficient. Vitamin D 5000 units daily active on current med list. Per adherence tracker, RX never dispensed. Verify if pt ever started supplement. If pt was not taking, advise pt supplement if non-formulary through [facility] and she can purchase OTC. Thank you, Nicole Moreno, PharmD Clinical Pharmacist [facility] Clinical [facility] ([facility]) [phone] 05/23/2024, 6:27 AM documented in this encounter Plan of Treatment Upcoming Encounters Date Type Department Care Team (Late st Contact Info) Description 08/25/2024 1:30 PM EST Imaging Radiology [address] [place] [address] 01/07/2025 9:30 AM EDT Office Visit Family Medicine [address] [place] [phone] [place] [address] Scheduled Orders Name Type Priority Associated Diagnoses [...] patient or by statute hierarchy) Care Teams Windows Systems Engineer Relationship Specialty Start Date End Date Tanisha Palma DO [address] [place] [address] [place] [address] PCP - General Internal Medicine 10/05/23 documented as of this encounter
--- OUTSIDE RECORDS SUMMARY | 2024-10-01 20:55 | External Medical Summary | Summary of Care ---
Author Name Unknown Organization [facility] Address [address] [place] [address] Phone [phone] Care Team Providers Care Jewelry Manager Name Role Phone Rebecca Crook Primary Care Provider Encounter Details Date Type Department Care Team (Late st Contact Info) Description 07/21/2024 Population Health External Data Unspecified Department Allergies Active Allergy Reactions Criticality Noted Date Comments Morphine Other (Please comment) 03/24/2013 Low heart rate documented as of this encounter (statuses as of 07/21/2024) Medications aspirin enteric coated 81 MG TBEC TAKE ONE TABLET BY MOUTH EVERY DAY 90 Tab 3 09/18/19 Active acetaminophen (TYLENOL) 500 MG Tablet Take 2 Tabs by mouth every 8 hours as needed for Pain or Fever. 100 Tab 11/24/19 19 Active Additional Information Patient taking differently:1,000 mg [id number] PRN, Fever >38C(100.5F), Pain, Moderate, Reported on [...] mouth every evening. 1 Each 5 02/27/20 Active Ventolin HFA 108 (90 Base) MCG/ACT Inhalation Aerosol SolutionIndication s:Intermittent asthma with reliever use up to twice per week without complication inhale 2 puffs by mouth every 4-6 hours as needed 54 g 1 05/22/20 Active Cholecalciferol 125 MCG (5000 UT) Oral Tablet Take 1 Tablet by mouth in the morning. 90 Tablet 1 06/03/20 Active Levothyroxine Sodium 125 MCG Oral Tablet (Levoxyl)Indicatio ns:Acquired hypothyroidism (at least 30 min prior to breakfast or other meds) 90 Tablet 1 06/24/20 Active documented as of this encounter (statuses as of 07/21/2024) Active Problems Problem Noted Date Diagnosed Date [...] as of this encounter (statuses as of 07/21/2024) Resolved Problems Problem Noted Date Diagnosed Date Resolved Date Stage 3a chronic kidney disease 10/05/2023 10/05/2023 CKD (chronic kidney disease) stage 2, GFR 60-89 ml/min 03/13/2023 10/05/2023 Overview (03/13/2023): EGFR 72 Primary hypertension 12/28/2020 024 Morbid obesity with BMI of 45.0-49.9, adult 04/29/2020 04/29/2020 COVID-19 02/27/2020 06/15/2020 Overview (02/28/2020): Tested positive at [facility] Cellulitis of right leg 12/31/201612/30 Overview (01/12/2017): [facility] Cellulitis of left lower leg 12/31/2016 01/09/2018 Overview (01/12/2017): [facility] Acetabular fracture 08/25/2012 02/25/20 13 [...] as of this encounter (statuses as of 07/21/2024) Immunizations Name Administration Dates Next Due COVID-19 mRNA, LNP-s, No Pre serve, 2-Dose Series (Moderna) 10/28/2020,09/30/2020 COVID-19, mRNA, LNP-s, PF, B ooster, 100mcg/0.5mg (Moderna) 06/21/2021 Pneumococcal Conjugate Vacci ne, 20-valent ([id number]) 01/03/2022 Pneumococcal Polysaccharide PPV23 (Pneumovax) 03/19/2013 Seasonal [...] Description 08/25/2024 1:30 PM EST Imaging Radiology [address] [place] [address] 01/07/2025 9:30 AM EDT Office Visit Family Medicine [address] [place] [phone] [place] [address] Health Maintenance Due Date Last Done Comments [...] patient or by statute hierarchy) Care Teams Jewelry Manager Relationship Specialty Start Date End Date Rebecca Crook DO [address] [place] [address] [place] [address] PCP - General Internal Medicine 10/05/23 documented as of this encounter
--- OUTSIDE RECORDS SUMMARY | 2024-10-01 20:56 | External Medical Summary | Summary of Care ---
Author Name Unknown Organization [facility] Address [address] [place] [address] Phone [phone] Care Team Providers Care Drink Box Mechanic Name Role Phone Rebecca Crook Primary Care Provider [phone] Reason for Visit * Reason Onset Date Comments Hospital Follow-Up Hospital Follow-Up 04/28/2024 Encounter Details Date Type Department Care Team (Late st Contact Info) Description 04/28/2024 9:00 AM EDT Office Visit Family Medicine [address] [phone] Junior Iglesias [address] [place] [address] Hospital discharge follow-up*; Cellulitis of right leg Allergies Active Allergy Reactions Criticality Noted Date Comments Morphine Other (Please comment) 03/24/2013 Low heart rate documented as of this encounter (statuses as of 04/28/2024) Medications Medication Sig Dispensed Refills Start Date End Date Status aspirin enteric coated 81 MG TBEC TAKE ONE TABLET BY MOUTH EVERY DAY 90 Tab 3 09/17/2018 Active acetaminophen (TYLENOL) 500 MG Tablet Take 2 Tabs by mouth every 8 hours as needed for Pain or Fever. 100 Tab 11/23/2018 Active Additional Information Patient taking differently:1,000 mg [id number] PRN, Fever >38C(100.5F), Pain, Moderate, Reported on [...] every evening. 1 Each 5 02/27/2024 Active Doxycycline Hyclate 100 MG Oral CapsuleIndications: Cellulitis of right leg Take 1 Capsule by mouth in the morning and 1 Capsule before bedtime. 12 Capsule 04/28/2024 Active Amoxicillin-Pot Clavulanate 500-125 MG Oral Tablet (Augmentin)Indicati ons:Cellulitis of right leg Take 1 Tablet by mouth in the morning and 1 Tablet at noon and 1 Tablet before bedtime. Do all this for 6 days. 18 Tablet 04/28/2024 4 Active Amoxicillin-Pot Clavulanate 500-125 MG Oral Tablet (Augmentin) Take 1 Tablet by mouth in the morning and 1 Tablet at noon and 1 Tablet before bedtime. 04/26/2024 4 Discontinu ed(Refill) Doxycycline Hyclate 100 MG Oral Capsule 1 Capsule. 04/26/2024 04/28/20 2 4 Discontinu ed(Refill) Doxycycline Hyclate 100 MG Oral CapsuleIndications: Cellulitis of right leg Take 1 Capsule by mouth in the morning and 1 Capsule before bedtime. 10 Capsule 04/28/2024 4 Discontinu ed(Medicat ion/Dose Changed) documented as of this encounter (statuses as of 04/28/2024) Active Problems Problem Noted Date Diagnosed Date Chronic hypoxemic respiratory failure 10/05/2023 Mild persistent asthma without complication 10/2023 History of cellulitis 10/05/2023 Overview: Either leg. Uses pumps to help with the lymphedema Hereditary lymphedema 12/28/2020 Hyperlipidemia LDL goal <70 12/28/2020 Morbid obesity with BMI of 50.0-59.9, adult 10/30 Overview: Per Obesity protocol #1 Acquired hypothyroidism documented as of this encounter (statuses as of 04/28/2024) Resolved Problems Problem Noted Date Diagnosed Date Resolved Date Stage 3a chronic kidney disease 10/05/2023 10/05/2023 CKD (chronic kidney disease) stage 2, GFR 60-89 ml/min 03/13/2023 10/05/2023 Overview: EGFR 72 Primary hypertension 12/28/2020 024 Morbid obesity with BMI of 45.0-49.9, adult 04/29/2020 04/29/2020 COVID-19 02/27/2020 06/15/2020 Overview: Tested positive at [facility] Cellulitis of right leg 12/31/201612/30 Overview: [facility] Cellulitis of left lower leg 12/31/2016 01/09/2018 Overview: [facility] Acetabular fracture 08/25/2012 02/25/20 13 Pubic ramus fracture 08/25/2012 013 Fracture of sacrum 08/25/2012 3 NONE 11/22/2012 Intermittent asthma with rel iever use up to twice per week without complication 10/2023 Reflux esophagitis 3 BMI 45.0-49.9, adult 08/18/2 018 Overview: 283 lbs Dental caries extending into pulp 12/01/2014 Venous stasis of lower extremity 10/05/2023 Morbid obesity with BMI of 45.0-49.9, adult 11/13/2018 Overview: Per Obesity protocol #1 documented as of this encounter (statuses as of 04/28/2024) Immunizations Name Administration Dates Next Due COVID-19 mRNA, LNP-s, No Pre serve, 2-Dose Series (Moderna) 10/28/2020,09/30/2020 COVID-19, mRNA, LNP-s, PF, B ooster, 100mcg/0.5mg (Moderna) 06/21/2021 Pneumococcal Conjugate Vacci ne, 20-valent ([id number]) 01/03/2022 Pneumococcal Polysaccharide PPV23 (Pneumovax) 03/19/2013 Seasonal [...] Date Smoking Tobacco: Never Smokeless Tobacco: Never Tobacco Cessation:Counseling Given: Not Answered Alcohol Use Standard Drinks/Week Comments No 0 [...] Sign Reading Time Taken Comments Blood Pressure 112/68 04/28/2024 8:56 AM EDT Pulse 82 04/28/2024 8:56 AM EDT Temperature 36.1 °C (96.9 °F) 04/28/2024 8:56 AM ED T Respiratory Rate 87 04/28/2024 8:56 AM EDT Oxygen Saturation 94% 04/28/2024 8:56 AM EDT Inhaled Oxygen Concentration - - Weight 134.4 kg (296 lb 4 oz) 04/28/2024 8:56 AM EDT Height 162.6 cm (5' 4") 04/28/2024 8:56 AM EDT Body Mass Index 50.85 04/28/2024 8:56 AM EDT documented in this encounter Progress Notes * Junior Iglesias CRNP - 04/28/2024 9:03 AM EDT SUBJECTIVE: Jaja Preston is a 63 year old female. Chief Complaint Patient presents with Hospital Follow-Up Recent Admission: Patient was recently admitted to [facility] on 04/19/24. The date of discharge was 04/26/24. Discharge report received and reviewed. Admitted for RLE cellulitis/sepsis. Had a normal doppler. Was given several days of IV antibiotics. Doing well today. Still notes RLE redness that has improved as it was previously extended up to herright thigh. No fever or chills. No drainage or open wounds. Breathing has been good / chronically on supplemental O2 2 L NC. Discharge instructions recommend 10 days of Augmentin and Doxycycline but patient was only given 4 days worth. Could not see where patient was transitioned to these in the hospital. Also recommended following up with lymphedema specialist. Patient Active Problem List Diagnosis Acquired hypothyroidism [...] >38C(100.5F) or Pain, Moderate.) 100 Tab 0 Ventolin HFA 108 (90 Base) MCG/ACT Inhalation Aerosol Solution inhale 2 puffs by mouth every 4-6 hours as needed 54 g 1 Levothyroxine Sodium 125 MCG Oral Tablet (Levoxyl) (at least 30 min prior to breakfast or other meds) 90 Tablet 1 Cholecalciferol 125 MCG (5000 UT) Oral Tablet Take 1 Tablet by mouth in the morning. 90 Tablet 0 Montelukast Sodium 10 MG Oral Tablet (Singulair) TAKE 1 TABLET BY MOUTH EVERY MORNING 90 Tablet 3 Atorvastatin Calcium 20 MG Oral Tablet (Lipitor) TAKE ONE TABLET BY MOUTH AT BEDTIME 90 Tablet 2 Asmanex (120 Metered Doses) 220 MCG/ACT Inhalation Aerosol Powder Breath Activated (Mometasone Furoate) inhale 1 puff by mouth every evening. 1 Each 5 Amoxicillin-Pot Clavulanate 500-125 MG Oral Tablet (Augmentin) Take 1 Tablet by mouth in the morning and 1 Tablet at noon and 1 Tablet before bedtime. Doxycycline Hyclate 100 MG Oral Capsule 1 Capsule. No current facility-administered medications for this visit. Current and discharge medications have been reconciled. Review of patient's allergies indicates: Allergen Reactions Morphine Other (Please comment) Low heart rate OBJECTIVE: BP 112/68 | Pulse 82 | Temp 36.1 °C (96.9 °F) (Tympanic) | Resp 87 | Ht 1.626 m (5' 4") | Wt 134.4 kg (296 lb 4 oz) | LMP 09/10/2013 | SpO2 94% | BMI 50.85 kg/m² | BSA 2.46 m² Review Of Systems: - as per HPI PHYSICAL EXAM: General: A&Ox3 and no distress Head: Normocephalic and atraumatic Heart: regular rate & rhythm, no murmur, no gallops, S-1 normal, and S-2 normal Lungs: normal respiratory rate and rhythm, lungs clear to auscultation Extremities/Skin: RLE edema 2+, localized erythema with warmth, no open ulcerations or draining lesions, NV intact ASSESSMENT/PLAN: Hospital discharge follow-up (Primary) - DISCH MED RECON CUR MED LIS Cellulitis of right leg - will send additional antibiotics for 10 days course - encourage use of probiotics to help prevent diarrhea - discussed watching for signs of worsening infection - call to make follow up with lymphedema specialist - Doxycycline Hyclate 100 MG Oral Capsule; Take 1 Capsule by mouth in the morning and 1 Capsule before bedtime. - Amoxicillin-Pot Clavulanate 500-125 MG Oral Tablet (Augmentin); Take 1 Tablet by mouth in the morning and 1 Tablet at noon and 1 Tablet before bedtime. Do all this for 6 days. Check-out note: As scheduled with Dr. Crook or sooner as needed I spent a total of 30-39 minutes (exact time 30 mins) minutes on the date of service in preparation, delivery, and documentation of the care provided to Jaja Preston excluding any time spent in performance of separately billed services. YOAN Dumont documented in this encounter Nursing Notes * Deedee Guevara LPN - 04/28/2024 8:54 AM EDT [facility] follow up documented in this encounter Plan of Treatment Upcoming Encounters Date Type Department Care Team (Late st Contact Info) Description 05/20/2024 11:30 AM EST Office Visit [address] [place] [phone] Crook, Rebecca Delc[address] [place] [address] 08/25/2024 1:30 PM EST Imaging Radiology [address] [place] [address] Health Maintenance Due Date Last Done Comments [...] as of this encounter Visit Diagnoses Diagnosis Hospital discharge follow-up- Primary Other follow-up examination Cellulitis of right leg Cellulitis and abscess of leg, except foot documented in this encounter Advance Directives * [...] patient or by statute hierarchy) Care Teams Drink Box Mechanic Relationship Specialty Start Date End Date Rebecca Crook DO [address] [place] [address] [place] [address] PCP - General Internal Medicine 10/05/23 documented as of this encounter
--- OUTSIDE RECORDS SUMMARY | 2024-10-01 20:56 | External Medical Summary ---
Author Name Unknown Address Unknown Organization [id number]:[facility] - [address] [place] [address] Laboratory Report Ordering Provider Test Date Status NELIDA MEEK 05/22/2024 13:54:47 Final Observation Date Value Abnormality Reference (Units ) Status TSH 05/22/2024 13:54:47 1.52 0.27-4.20 (uIU/mL) Final Performing Location [facility] [place] - [address] [place] [address]
--- OUTSIDE RECORDS SUMMARY | 2024-10-01 20:56 | External Medical Summary | Summary of Care ---
Author Name Unknown Organization [facility] Address [address] [place] [address] Phone [phone] Care Team Providers Care Soubrette Name Role Phone Rebecca Crook DO Primary Care Provider [phone] Reason for Visit * Reason Onset Date Comments Test Results 05/23/2024 Encounter Details Date Type Department Care Team ([facility] st Contact Info) Description 05/23/2024 Telephone Family Medicine [address] [phone] Rebecca Crook [address] [address] Test Results Allergies Active Allergy Reactions Criticality Noted Date Comments Morphine Other (Please comment) 03/24/2013 Low heart rate documented as of this encounter (statuses as of 05/25/2024) Medications aspirin enteric coated 81 MG TBEC TAKE ONE TABLET BY MOUTH EVERY DAY 90 Tab 3 09/18/19 Active acetaminophen (TYLENOL) 500 MG Tablet Take 2 Tabs by mouth every 8 hours as needed for Pain or Fever. 100 Tab 11/24/19 Active Additional Information Patient taking differently:1,000 mg [id number] PRN, Fever >38C(100.5F), Pain, Moderate, Reported on [...] as of this encounter (statuses as of 05/25/2024) Active Problems Problem Noted Date Diagnosed Date [...] as of this encounter (statuses as of 05/25/2024) Resolved Problems Problem Noted Date Diagnosed Date Resolved Date Stage 3a chronic kidney disease 10/05/2023 10/05/2023 CKD (chronic kidney disease) stage 2, GFR 60-89 ml/min 03/13/2023 10/05/2023 Overview (03/13/2023): EGFR 72 Primary hypertension 12/28/2020 024 Morbid obesity with BMI of 45.0-49.9, adult 04/29/2020 04/29/2020 COVID-19 02/27/2020 06/15/2020 Overview (02/28/2020): Tested positive at [facility] Cellulitis of right leg 12/31/201612/30 Overview (01/12/2017): [facility] Cellulitis of left lower leg 12/31/2016 01/09/2018 Overview (01/12/2017): [facility] Acetabular fracture 08/25/2012 02/25/20 13 [...] as of this encounter (statuses as of 05/25/2024) Immunizations Name Administration Dates Next Due COVID-19 mRNA, LNP-s, No Pre serve, 2-Dose Series (Moderna) 10/28/2020,09/30/2020 COVID-19, mRNA, LNP-s, PF, B ooster, 100mcg/0.5mg (Moderna) 06/21/2021 Pneumococcal Conjugate Vacci ne, 20-valent ([id number]) 01/03/2022 Pneumococcal Polysaccharide PPV23 (Pneumovax) 03/19/2013 Seasonal [...] encounter Miscellaneous Notes * Telephone Encounter - Niecy Dodson, [facility] - 05/23/2024 6:26 AM EST Unable to reach patient at this time. Left message on the answering machine requesting callback regarding vitamin D lab. Advised patient to please call [phone]. Please transfer her back to myself. If I'm not available, transfer to next available [facility]. Results for orders placed or performed in visit on 05/22/24 25-HYDROXY VITAMIN D Result Value Ref Range 25-Hydroxy Vitamin D 25 >19 ng/mL Vitamin D level is insufficient. Vitamin D 5000 units daily active on current med list. Per adherence tracker, RX never dispensed. Verify if pt ever started supplement. If pt was not taking, advise pt supplement if non-formulary through [facility] and she can purchase OTC. Thank you, Niecy Dodson, PharmD Clinical Pharmacist [facility] ([facility]) [phone] 05/23/2024, 6:27 AM documented in this encounter Plan of Treatment Upcoming Encounters Date Type Department Care Team (Late st Contact Info) Description 08/25/2024 1:30 PM EST Imaging Radiology [address] [place] [address] 01/07/2025 9:30 AM EDT Office Visit Family Medicine [address] [place] [phone] Rebecca Crook[address] [place] [address] Health Maintenance Due Date Last Done Comments HPV/Co-Test 1990 Cologuard 2005 Colonoscopy 2005 Colorectal Cancer Screening 2005 Fecal Occult Blood Test 2005 Sigmoidoscopy 2005 Cervical Cancer Screening 10/07/2021 Pap Smear 10/07/2021 10/07/2018, 06/01, 04/27/2014, Additional history exists COVID-19 Vaccine ( season) 2024 06/21/2021, 10/28/2020, 09/30/2020 Mammogram 08/23/2024 08/23/2023, 08/03, 08/21/2022, Additional history exists Depression Screening 05/22/2025 05/22/2024 TSH 05/22/2025 05/22/2024, 0907/2022, 09/05/2022, Additional history exists Diabetes Screening 10/04/2026 [...] patient or by statute hierarchy) Care Teams Soubrette Relationship Specialty Start Date End Date Rebecca Crook DO [address] [place] [address] [place] [id number] PCP - General Internal Medicine 10/05/23 documented as of this encounter
--- OUTSIDE RECORDS SUMMARY | 2024-10-01 20:56 | External Medical Summary | Summary of Care ---
Author Name Unknown Organization [facility] Address [address] [place] [address] Phone [phone] Care Team Providers Care Patient Scheduling Coordinator Name Role Phone Rebecca Crook Primary Care Provider Reason for Visit * Reason Comments Re-Check Encounter Details Date Type Department Care Team ([facility] st Contact Info) Description 05/22/2024 2:00 PM EST Office Visit Family Medicine [address] [phone] Hazel Dang PA-C [address] [place] [address] [place] [address] Chronic hypoxemic respiratory failure (HCC)*; Intermittent asthma with reliever use up to twice per week without complication; Acquired hypothyroidism; Morbid obesity with BMI of 50.0-59.9, adult (HCC); Hyperlipidemia LDL goal <70; Mild persistent asthma without complication Allergies Active Allergy Reactions Criticality Noted Date Comments Morphine Other (Please comment) 03/24/2013 Low heart rate documented as of this encounter (statuses as of 05/22/2024) Medications aspirin enteric coated 81 MG TBEC TAKE ONE TABLET BY MOUTH EVERY DAY 90 Tab 3 019 Active acetaminophen (TYLENOL) 500 MG Tablet Take 2 Tabs by mouth every 8 hours as needed for Pain or Fever. 100 Tab 019 Active Additional Information Patient taking differently:1,000 mg [id number] PRN, Fever >38C(100.5F), Pain, Moderate, Reported on 05/22/2024 Levothyroxine Sodium 125 MCG Oral Tablet (Levoxyl)Indicati ons:Acquired hypothyroidism (at least 30 min prior to breakfast or other meds) 90 Tablet 1 024 Active Cholecalciferol 125 MCG (5000 UT) Oral Tablet Take 1 Tablet by mouth in the morning. 90 Tablet 024 Active Montelukast Sodium 10 MG Oral Tablet (Singulair)Indica [...] as needed 54 g 1 024 Active Ventolin HFA 108 (90 Base) MCG/ACT Inhalation Aerosol SolutionIndicatio ns:Intermittent asthma with reliever use up to twice per week without complication inhale 2 puffs by mouth every 4-6 hours as needed 54 g 1 023 2023 Discontinued(R efill) Doxycycline Hyclate 100 MG Oral CapsuleIndication s:Cellulitis of right leg Take 1 Capsule by mouth in the morning and 1 Capsule before bedtime. 12 Capsule 024 2023 Discontinued documented as of this encounter (statuses as of 05/22/2024) Active Problems Problem Noted Date Diagnosed Date [...] as of this encounter (statuses as of 05/22/2024) Resolved Problems Problem Noted Date Diagnosed Date Resolved Date Stage 3a chronic kidney disease 10/05/2023 10/05/2023 CKD (chronic kidney disease) stage 2, GFR 60-89 ml/min 03/13/2023 10/05/2023 Overview (03/13/2023): EGFR 72 Primary hypertension 12/28/2020 024 Morbid obesity with BMI of 45.0-49.9, adult 04/29/2020 04/29/2020 COVID-19 02/27/2020 06/15/2020 Overview (02/28/2020): Tested positive at [facility] Cellulitis of right leg 12/31/201612/30 Overview (01/12/2017): [facility] Cellulitis of left lower leg 12/31/2016 01/09/2018 Overview (01/12/2017): [facility] Acetabular fracture 08/25/2012 02/25/20 13 [...] as of this encounter (statuses as of 05/22/2024) Immunizations Name Administration Dates Next Due COVID-19 mRNA, LNP-s, No Pre serve, 2-Dose Series (Moderna) 10/28/2020,09/30/2020 COVID-19, mRNA, LNP-s, PF, B ooster, 100mcg/0.5mg (Moderna) 06/21/2021 Pneumococcal Conjugate Vacci ne, 20-valent ([id number]) 01/03/2022 Pneumococcal Polysaccharide PPV23 (Pneumovax) 03/19/2013 Seasonal [...] Sign Reading Time Taken Comments Blood Pressure 122/60 05/22/2024 1:42 PM EST Pulse 82 05/22/2024 1:42 PM EST Temperature 36.1 °C (97 °F) 05/22/2024 1:42 PM EST Respiratory Rate - - Oxygen Saturation 93% 05/22/2024 1:42 PM EST Inhaled Oxygen Concentration - - Weight 136.1 kg (300 lb) 05/22/2024 1:42 PM EST Height - - Body Mass Index 51.49 04/28/2024 8:56 AM EDT documented in this encounter Progress Notes * Hazel Dang PA-C - 05/22/2024 1:46 PM EST Chief Complaint Patient presents with Re-Check Pt here today for recheck. Pt with PMH of hypothyroid, asthma, obesity, respiratory failure. Pt hasno issues at this time. She does need TSH checked. Review of patient's allergies indicates: Allergen Reactions Morphine Other (Please comment) Low heart rate Current Outpatient Medications Medication Sig Dispense Refill [...] >38C(100.5F) or Pain, Moderate.) 100 Tab 0 Levothyroxine Sodium 125 MCG Oral Tablet (Levoxyl) [...] 4-6 hours as needed 54 g 1 No current facility-administered medications for this visit. Past Medical History: Diagnosis Date Acute exacerbation of extrinsic asthma 10/16/2022 [facility] BMI 40.0-44.9, adult ([facility]) Cellulitis of left leg 01/14/2017 [facility] Cellulitis of left lower leg 12/31/2016 [facility] Cellulitis of leg, right 10/16/2016 [facility] Vancomycin, sent home on clindamycin Cellulitis of right leg 12/18/2014 admitted [facility] Cellulitis of right leg with sepsis. [facility] CKD (chronic kidney disease), stage III ([facility]) 09/05/2022 EGFR 53 Closed fracture of acetabulum ([facility]) 08/25/2012 Closed fracture of pubis ([facility]) 08/25/2012 Closed fracture of sacrum and coccyx without mention of spinal cord injury 08/25/2012 COVID-19 02/27/2020 Tested positive at [facility] Dental caries extending into pulp History of ATN ?from vanc/sepsis Hyperlipidemia LDL goal <70 12/28/2020 Intermittent asthma with reliever use up to twice per week Mononucleosis 09/08/2016 [facility] Morbid obesity with BMI of 45.0-49.9, adult ([facility]) Need for hepatitis C screening test 04/06/2016 negative Other specified acquired hypothyroidism Primary hypertension 12/28/2020 Reflux esophagitis Screening for HIV without presence of risk factors 04/06/2016 negative Venous stasis of lower extremity R>>L Social History Socioeconomic History Marital status: Spouse name: Not on file Number of children: 3 Years of education: Not on file Highest education level: Not on file Occupational History Occupation: [employer] Tobacco Use Smoking status: Never Smokeless tobacco: [...] on file Housing Stability: Not on file O:Blood pressure 122/60, pulse 82, temperature 97 °F (36.1 °C), temperature source Tympanic, weight 300 lb (136.1 kg), last menstrual period 09/10/2013, SpO2 93%. GENERAL: alert, healthy, and no distress NECK: supple, no adenopathy, no bruits, thyroid normal size, non-tender, without nodularity EYES: PERRLA, conjunctiva are pink and non-injected, sclera clear EARS: External ears normal, Canals clear, TM's Normal NOSE: no mucosal erythema, no mucosal edema, no purulent discharge OROPHARYNX: no exudate, no erythema, lips, buccal mucosa, and tongue normal, and mucous membranes are moist HEART: regular rate & rhythm, no murmur, and no gallops LUNGS: chest symmetric with normal AP diameter, no chest deformities noted, no chest wall tenderness, lungs clear to auscultation ABDOMEN: abdomen soft, non-tender, normal bowel sounds, and no masses or organomegaly A:Chronic hypoxemic respiratory failure (HCC) (Primary) Intermittent asthma with reliever use up to twice per week without complication - Ventolin HFA 108 (90 Base) MCG/ACT Inhalation Aerosol Solution; inhale 2 puffs by mouth every 4-6hours as needed Acquired hypothyroidism - TSH WITH FREE T4 IF INDICATED; Future; Expected date: 05/22/2024 Morbid obesity with BMI of 50.0-59.9, adult (HCC) Hyperlipidemia LDL goal <70 Mild persistent asthma without complication Continue current meds. Any questions/problems, please call. If anything changes, worsens, develops new sx, please call [facility]. Will check TSH. Follow Up: Return if symptoms worsen or fail to improve. Hazel Dang PA-C documented in this encounter Plan of Treatment Upcoming Encounters Date Type Department Care Team (Latest Contact Info) Description 05/22/2024 2:40 PM EST Laboratory Laboratory [address] [place] [phone] [place] [address] Vitamin D deficiency; Encounter for long-term (current) use of medications; Acquired hypothyroidism 08/25/2024 1:30 PM EST Imaging Radiology [address] [place] [address] 01/07/2025 9:30 AM EDT Office Visit Family Medicine [address] [place] [phone] Rebecca Cro[address] [place] [address] Pending Results Name Type Priority Associated Diagnoses Date /Time TSH WITH FREE T4 IF INDICATED Lab Routine Acquired hypothyroidism 05/22/2024 1:54 PM EST Scheduled Orders Name Type Priority Associated Diagnoses Orde r Schedule TSH WITH FREE T4 IF INDICATED Lab Routine Acquired hypothyroidism Expected: 05/22/2024 (Approximate), Expires: 05/22/2025 Health Maintenance Due Date Last Done Comments [...] Additional history exists Depression Screening 05/22/2025 05/22/2024 Diabetes Screening 10/04/2026 10/05/2023, 0 03/12/2023, 09/05/2022, [...] as of this encounter Visit Diagnoses Diagnosis Chronic hypoxemic respiratory failure (HCC)- Primary Chronic respiratory failure Intermittent asthma with reliever use up to twice per week without complication Acquired hypothyroidism Unspecified hypothyroidism Morbid obesity with BMI of 50.0-59.9, adult (HCC) Morbid obesity Hyperlipidemia LDL goal <70 Other and unspecified hyperlipidemia Mild persistent asthma without complication Unspecified asthma Vitamin D deficiency Unspecified vitamin D deficiency Encounter for long-term (current) use of medications Encounter for long-term (current) use of other medications Acquired hypothyroidism Unspecified hypothyroidism documented in this [...] patient or by statute hierarchy) Care Teams Patient Scheduling Coordinator Relationship Specialty Start Date End Date Rebecca Crook DO [address] [place] [address] [place] [id number] PCP - General Internal Medicine 10/05/23 documented as of this encounter
--- OUTSIDE RECORDS SUMMARY | 2024-10-01 20:56 | External Medical Summary | Summary of Care ---
Author Name Unknown Organization [facility] Address [address] [place] [address] Phone [phone] Care Team Providers Care Personal Financial Planner Name Role Phone Rebecca Crook DO Primary Care Provider [phone] Reason for Visit * Reason Onset Date Comments Test Results 05/23/2024 Encounter Details Date Type Department Care Team ([facility] st Contact Info) Description 05/23/2024 Telephone Family Medicine [address] [phone] Rebecca Crook [address] [address] Test Results Allergies Active Allergy Reactions Criticality Noted Date Comments Morphine Other (Please comment) 03/24/2013 Low heart rate documented as of this encounter (statuses as of 05/24/2024) Medications aspirin enteric coated 81 MG TBEC TAKE ONE TABLET BY MOUTH EVERY DAY 90 Tab 3 09/18/19 Active acetaminophen (TYLENOL) 500 MG Tablet Take 2 Tabs by mouth every 8 hours as needed for Pain or Fever. 100 Tab 11/24/19 Active Additional Information Patient taking differently:1,000 mg [id number] PRN, Fever >38C(100.5F), Pain, Moderate, Reported on [...] as of this encounter (statuses as of 05/24/2024) Active Problems Problem Noted Date Diagnosed Date [...] as of this encounter (statuses as of 05/24/2024) Resolved Problems Problem Noted Date Diagnosed Date Resolved Date Stage 3a chronic kidney disease 10/05/2023 10/05/2023 CKD (chronic kidney disease) stage 2, GFR 60-89 ml/min 03/13/2023 10/05/2023 Overview (03/13/2023): EGFR 72 Primary hypertension 12/28/2020 024 Morbid obesity with BMI of 45.0-49.9, adult 04/29/2020 04/29/2020 COVID-19 02/27/2020 06/15/2020 Overview (02/28/2020): Tested positive at [facility] Cellulitis of right leg 12/31/201612/30 Overview (01/12/2017): [facility] Cellulitis of left lower leg 12/31/2016 01/09/2018 Overview (01/12/2017): [facility] Acetabular fracture 08/25/2012 02/25/20 13 Pubic [...] as of this encounter (statuses as of 05/24/2024) Immunizations Name Administration Dates Next Due COVID-19 mRNA, LNP-s, No Pre serve, 2-Dose Series (Moderna) 10/28/2020,09/30/2020 COVID-19, mRNA, LNP-s, PF, B ooster, 100mcg/0.5mg (Moderna) 06/21/2021 Pneumococcal Conjugate Vacci ne, 20-valent ([id number]) 01/03/2022 Pneumococcal Polysaccharide PPV23 (Pneumovax) 03/19/2013 Seasonal [...] Notes * Telephone Encounter - Niecy Dodson, [facility] - 05/23/2024 6:26 AM EST Unable to reach patient at this time. Left message on the answering machine requesting callback regarding vitamin D lab. Advised patient to please call [phone]. Please transfer her back to myself. If I'm not available, transfer to next available [facility]. Results for orders placed or performed in visit on 05/22/24 25-HYDROXY VITAMIN D Result Value Ref Range 25-Hydroxy Vitamin D 25 >19 ng/mL Vitamin D level is insufficient. Vitamin D 5000 units daily active on current med list. Per adherence tracker, RX never dispensed. Verify if pt ever started supplement. If pt was not taking, advise pt supplement if non-formulary through [facility] and she can purchase OTC. Thank you, Niecy Dodson, PharmD Clinical Pharmacist [facility] ([facility]) [phone] 05/23/2024, 6:27 AM documented in this encounter Plan of Treatment Upcoming Encounters Date Type Department Care Team (Late st Contact Info) Description 08/25/2024 1:30 PM EST Imaging Radiology [address] [place] [address] 01/07/2025 9:30 AM EDT Office Visit Family Medicine [address] [place] [phone] [address] Cro[address] [place] [address] Health Maintenance Due Date Last Done Comments [...] patient or by statute hierarchy) Care Teams Personal Financial Planner Relationship Specialty Start Date End Date Rebecca Crook DO [address] [place] [address] [place] [phone] PCP - General Internal Medicine 10/05/23 documented as of this encounter
--- OUTSIDE RECORDS SUMMARY | 2024-10-01 20:56 | External Medical Summary | Summary of Care ---
Author Name Unknown Organization [facility] Address [address] [place] [address] Phone [phone] Care Team Providers Care Orchestrator Name Role Phone Rebecca Crook Primary Care Provider [phone] Encounter Details Date Type Department Care Team (Late st Contact Info) Description 04/22/2024 Population Health External Data Unspecified Department Allergies Active Allergy Reactions Criticality Noted Date Comments Morphine Other (Please comment) 03/24/2013 Low heart rate documented as of this encounter (statuses as of 04/22/2024) Medications Medication Sig Dispensed Refills Start Date End Date Status aspirin enteric coated 81 MG TBEC TAKE ONE TABLET BY MOUTH EVERY DAY 90 Tab 3 09/17/2018 Active acetaminophen (TYLENOL) 500 MG Tablet Take 2 Tabs by mouth every 8 hours as needed for Pain or Fever. 100 Tab 11/23/2018 Active Additional Information Patient taking differently:1,000 mg [id number] PRN, Fever >38C(100.5F), Pain, Moderate, Reported on [...] as of this encounter (statuses as of 04/22/2024) Active Problems Problem Noted Date Diagnosed Date Chronic hypoxemic respiratory failure 10/05/2023 Mild persistent asthma without complication 10/2023 History of cellulitis 10/05/2023 Overview: Either leg. Uses pumps to help with the lymphedema Hereditary lymphedema 12/28/2020 Hyperlipidemia LDL goal <70 12/28/2020 Morbid obesity with BMI of 50.0-59.9, adult 10/30 Overview: Per Obesity protocol #1 Acquired hypothyroidism documented as of this encounter (statuses as of 04/22/2024) Resolved Problems Problem Noted Date Diagnosed Date Resolved Date Stage 3a chronic kidney disease 10/05/2023 10/05/2023 CKD (chronic kidney disease) stage 2, GFR 60-89 ml/min 03/13/2023 10/05/2023 Overview: EGFR 72 Primary hypertension 12/28/2020 024 Morbid obesity with BMI of 45.0-49.9, adult 04/29/2020 04/29/2020 COVID-19 02/27/2020 06/15/2020 Overview: Tested positive at [facility] Cellulitis of right leg 12/31/201612/30 Overview: [facility] Cellulitis of left lower leg 12/31/2016 01/09/2018 Overview: [facility] Acetabular fracture 08/25/2012 02/25/20 13 Pubic [...] as of this encounter (statuses as of 04/22/2024) Immunizations Name Administration Dates Next Due COVID-19 mRNA, LNP-s, No Pre serve, 2-Dose Series (Moderna) 10/28/2020,09/30/2020 COVID-19, mRNA, LNP-s, PF, B ooster, 100mcg/0.5mg (Moderna) 06/21/2021 Pneumococcal Conjugate Vacci ne, 20-valent ([id number]) 01/03/2022 Pneumococcal Polysaccharide PPV23 (Pneumovax) 03/19/2013 Seasonal [...] 11:30 AM EST Office Visit Family Medicine [address] [place] [phone] Rebecca Crook [address] [place] [address] 08/25/2024 1:30 PM EST Imaging Radiology [address] [place] [address] Health Maintenance Due Date Last Done Comments [...] patient or by statute hierarchy) Care Teams Orchestrator Relationship Specialty Start Date End Date Rebecca Crook DO [address] [place] [address] [place] [phone] PCP - General Internal Medicine 10/05/23 documented as of this encounter
--- OUTSIDE RECORDS SUMMARY | 2024-10-01 20:56 | External Medical Summary | Summary of Care ---
Author Name Unknown Organization [facility] Address [address] [place] [address] Phone [phone] Care Team Providers Care Reception Clerk Name Role Phone Rebecca Crook DO Primary Care Provider Reason for Visit * Reason Onset Date Comments Test Results 05/23/2024 Encounter Details Date Type Department Care Team ([facility] st Contact Info) Description 05/23/2024 Telephone Family Medicine [address] [phone] Rebecca Crook [address] [address] Test Results Allergies Active Allergy Reactions Criticality Noted Date Comments Morphine Other (Please comment) 03/24/2013 Low heart rate documented as of this encounter (statuses as of 05/23/2024) Medications aspirin enteric coated 81 MG TBEC TAKE ONE TABLET BY MOUTH EVERY DAY 90 Tab 3 09/18/19 Active acetaminophen (TYLENOL) 500 MG Tablet Take 2 Tabs by mouth every 8 hours as needed for Pain or Fever. 100 Tab 11/24/19 Active Additional Information Patient taking differently:1,000 mg [id number] PRN, Fever >38C(100.5F), Pain, Moderate, Reported on [...] as of this encounter (statuses as of 05/23/2024) Active Problems Problem Noted Date Diagnosed Date [...] as of this encounter (statuses as of 05/23/2024) Resolved Problems Problem Noted Date Diagnosed Date Resolved Date Stage 3a chronic kidney disease 10/05/2023 10/05/2023 CKD (chronic kidney disease) stage 2, GFR 60-89 ml/min 03/13/2023 10/05/2023 Overview (03/13/2023): EGFR 72 Primary hypertension 12/28/2020 024 Morbid obesity with BMI of 45.0-49.9, adult 04/29/2020 04/29/2020 COVID-19 02/27/2020 06/15/2020 Overview (02/28/2020): Tested positive at [facility] Cellulitis of right leg 12/31/201612/30 Overview (01/12/2017): [facility] Cellulitis of left lower leg 12/31/2016 01/09/2018 Overview (01/12/2017): [facility] Acetabular fracture 08/25/2012 02/25/20 13 Pubic ramus [...] as of this encounter (statuses as of 05/23/2024) Immunizations Name Administration Dates Next Due COVID-19 mRNA, LNP-s, No Pre serve, 2-Dose Series (Moderna) 10/28/2020,09/30/2020 COVID-19, mRNA, LNP-s, PF, B ooster, 100mcg/0.5mg (Moderna) 06/21/2021 Pneumococcal Conjugate Vacci ne, 20-valent ([id number]) 01/03/2022 Pneumococcal Polysaccharide PPV23 (Pneumovax) 03/19/2013 Seasonal [...] Notes * Telephone Encounter - Niecy Dodson, [facility] located [facility] - 05/23/2024 6:26 AM EST Unable to reach patient at this time. Left message on the answering machine requesting callback regarding vitamin D lab. Advised patient to please call [phone]. Please transfer her back to myself. If I'm not available, transfer to next available LTAC, located within [facility]. Results for orders placed or performed in visit on 05/22/24 25-HYDROXY VITAMIN D Result Value Ref Range 25-Hydroxy Vitamin D 25 >19 ng/mL Vitamin D level is insufficient. Vitamin D 5000 units daily active on current med list. Per adherence tracker, RX never dispensed. Verify if pt ever started supplement. If pt was not taking, advise pt supplement if non-formulary through [facility] and she can purchase OTC. Thank you, Niecy Dodson, PharmD Clinical Pharmacist [facility] ([facility]) [phone] 05/23/2024, 6:27 AM Electronically signed by Niecy Dodson [facility] at 05/23/2024 6:27 AM EST Electronically signed by Niecy Dodson [facility] at 05/23/2024 8:07 AM EST documented in this encounter Plan of Treatment Upcoming Encounters Date Type Department Care Team (Late st Contact Info) Description 08/25/2024 1:30 PM EST Imaging Radiology [address] [place] [address] 01/07/2025 9:30 AM EDT Office Visit Family Medicine [address] [place] [phone] Rebecca Crook[address] [place] [address] Health Maintenance Due Date Last Done Comments [...] patient or by statute hierarchy) Care Teams Reception Clerk Relationship Specialty Start Date End Date Rebecca Crook DO [address] [place] [address] [place] [phone] PCP - General Internal Medicine 10/05/23 documented as of this encounter
--- OUTSIDE RECORDS SUMMARY | 2024-10-01 20:56 | External Medical Summary | Summary of Care ---
Author Name Unknown Organization [facility] Address [address] [place] [address] Phone [phone] Care Team Providers Care Metal Leaf Layer Name Role Phone Rebecca Crook DO Primary Care Provider Reason for Visit * Reason Onset Date Comments Test Results 05/23/2024 Encounter Details Date Type Department Care Team ([facility] st Contact Info) Description 05/23/2024 Telephone Family Medicine [address] [phone] Rebecca Crook [address] [address] Test Results Allergies Active Allergy [...] Active Additional Information Patient taking differently:1,000 mg [id number] PRN, Fever >38C(100.5F), Pain, Moderate, Reported on [...] (Moderna) 06/21/2021 Pneumococcal Conjugate Vacci ne, 20-valent ([id number]) 01/03/2022 Pneumococcal Polysaccharide PPV23 (Pneumovax) 03/19/2013 Seasonal [...] Notes * Telephone Encounter - Niecy Dodson, [facility] - 05/23/2024 6:26 AM EST Results for orders placed or performed in visit on 05/22/24 25-HYDROXY VITAMIN D Result Value Ref Range 25-Hydroxy Vitamin D 25 >19 ng/mL Vitamin D level is insufficient. Vitamin D 5000 units daily active on current med list. Per adherence tracker, RX never dispensed. PC to pt to verify she is not getting OTC and of recent lab. Thank you, Niecy Dodson, PharmD Clinical Pharmacist [facility] ([facility]) [phone] 05/23/2024, 6:27 AM documented in this encounter Plan of Treatment Upcoming Encounters Date Type Department Care Team (Late st Contact Info) Description 08/25/2024 1:30 PM EST Imaging Radiology [address] [place] [address] 01/07/2025 9:30 AM EDT Office Visit Family Medicine [address] [place] [phone] [address] [place] [address] Health Maintenance Due Date Last Done Comments [...] Relationship Healthcare Agent Relationshi p Communication [facility] Rep[facility] esentative (appointed verbally by patient or by statute hierarchy) Care Teams Metal Leaf Layer Relationship Specialty Start Date End Date Rebecca Crook DO [address] [place] [address] [place] [id number] PCP - General Internal Medicine 10/05/23 documented as of this encounter
--- OUTSIDE RECORDS SUMMARY | 2024-10-01 20:56 | External Medical Summary | Summary of Care ---
Author Name Unknown Organization [facility] Address [address] [place] [address] Phone [phone] Care Team Providers Care Inside Upholsterer Name Role Phone CrookRebecca de la cruz Primary Care Provider [phone] Reason for Visit * Reason Comments Outpatient Testing Encounter Details Date Type Department Care Team ([facility] st Contact Info) Description 05/22/2024 2:40 PM EST Laboratory Laboratory [address] [place] [phone] [place] [address] Vitamin D deficiency; Encounter for long-term (current) use of medications; Acquired hypothyroidism Allergies Active Allergy Reactions Criticality [...] Active Additional Information Patient taking differently:1,000 mg [id number] PRN, Fever >38C(100.5F), Pain, Moderate, Reported on [...] 02/27/2020 06/15/2020 Overview (02/28/2020): Tested positive at [facility] Cellulitis of right leg 12/31/201612/30 Overview (01/12/2017): [facility] Cellulitis of left lower leg 12/31/2016 01/09/2018 Overview (01/12/2017): [facility] Acetabular fracture 08/25/2012 02/25/20 13 Pubic ramus [...] (Moderna) 06/21/2021 Pneumococcal Conjugate Vacci ne, 20-valent ([id number]) 01/03/2022 Pneumococcal Polysaccharide PPV23 (Pneumovax) 03/19/2013 Seasonal [...] Description 08/25/2024 1:30 PM EST Imaging Radiology [address] [place] [address] 01/07/2025 9:30 AM EDT Office Visit Family Medicine [address] [place] [phone] [place] [address] Pending Results Name Type Priority Associated Diagnoses Date /Time 25-HYDROXY VITAMIN D Lab Routine Vitamin D deficiency Encounter for long-term (current) use of medications 05/22/2024 1:54 PM EST TSH WITH FREE T4 IF INDICATED Lab Routine Acquired hypothyroidism 05/22/2024 1:54 PM EST Health Maintenance Due Date Last Done Comments HPV/Co-Test 1990 Cologuard 2005 Colonoscopy 2005 Colorectal Cancer Screening 2005 Fecal Occult Blood Test 2005 Sigmoidoscopy 2005 Cervical Cancer Screening 10/07/2021 Pap Smear 10/07/2021 10/07/2018, 06/01, 04/27/2014, Additional history exists COVID-19 Vaccine ( season) 2024 06/21/2021, 10/28/2020, 09/30/2020 TSH 03/12/2024 03/12/2023, 030 12/2022, 07/06/2021, Additional history exists Mammogram 08/23/2024 [...] Healthcare Agent Relationshi p Communication Janes Preston [facility] Health Care Repr esentative (appointed verbally by patient or by statute hierarchy) Care Teams Inside Upholsterer Relationship Specialty Start Date End Date Rebecca Crook DO [address] [place] [address] [place] [address] PCP - General Internal Medicine 10/05/23 documented as of this encounter
--- OUTSIDE RECORDS SUMMARY | 2024-10-01 20:56 | External Medical Summary ---
Author Name Unknown Address Unknown Organization K01:[facility] [place] [address] [place] [address] Laboratory Report Ordering Provider Test Date Status TIFFANIE RIVERA 05/22/2024 13:54:47 Final Associated diagnosis code V5 8.69.ICD-9-CM was changed to 165799 on 04/01/24 as a result of a periodic change by regulatory authority.

Deficient: <20 ng/mL
Insufficient: 20-29 ng/mL
Recommended/Optimum:30-50 ng/mL

Vitamin D intoxication is rare. If suspicious of Vitamin D toxicity, evaluation of serum Calcium and PTH is recommended. Observation Date Value Abnormality Reference (Units ) Status 25-OH Vitamin D total 05/22/2024 13:54:47 25 >19 (ng/mL) Final Performing Location [facility] [place] [address] [place] [address]
[2024-10-01] MEDS: GADOBUTROL 30ML VIAL IV ONE (22:34)
[2024-10-01 23:10] LABS: A calco-baum cmplx NotReported Not Detected (NotDetected); Bact fragilis Not Reported Not Detected (NotDetected); Blood Culture Id Panel See PCR Comment (NotDetected); C auris Not Reported Not Detected (NotDetected); Calbicans Not Reported Not Detected (NotDetected); Candida glabrata Not Reported Not Detected (NotDetected); Candida krusei Not Reported Not Detected (NotDetected); Cneoformans/gatti Not Reported Not Detected (NotDetected); Cparapsilosis Not Reported Not Detected (NotDetected); E cloacae compx Not Reported Not Detected (NotDetected); Efaecalis Not Reported Not Detected (NotDetected); Efaecium Not Reported Not Detected (NotDetected); Enterobacterales Not Reported Not Detected (NotDetected); Escherichia coli Not Reported Not Detected (NotDetected); H influenzae Not Reported Not Detected (NotDetected); K aerogenes Not Reported Not Detected (NotDetected); Koxytoca Not Reported Not Detected (NotDetected); Kpneumoniae grp Not Reported Not Detected (NotDetected); Lmonocyt Not Reported Not Detected (NotDetected); N meningitidis Not Reported Not Detected (NotDetected); P aeruginosa Not Reported Not Detected (NotDetected); Proteus spp Not Reported Not Detected (NotDetected); Salmonella spp Not Reported Not Detected (NotDetected); Staph lugdunensis Not Reported Not Detected (NotDetected); Staph spp. Not Reported Not Detected (NotDetected); Staphaureus Not Reported Not Detected (NotDetected); Staphepi Not Reported Not Detected (NotDetected); Stenmaltophilia Not Reported Not Detected (NotDetected); Strep agal(GrpB) Not Reported DETECTED (NotDetected); Strep pneum Not Reported Not Detected (NotDetected); Strep pyog (GrpA) Not Reported Not Detected (NotDetected); Strep spp Not Reported DETECTED (NotDetected); Streptococcus spp DETECTED (NotDetected)
[2024-10-01 23:14] LABS: Streptococcus agalactiae(GrpB) DETECTED (NotDetected)
--- NOTE | 2024-10-01 23:20 | Communication Note ---
Date of Service: October 01, 2024 Made aware by RN of gram-positive cocci in chains from 2 preliminary blood CS results. AP Gram-positive bacteremia Gram-positive cocci in chains Continue cefepime Hold daptomycin
--- NOTE | 2024-10-01 23:47 | Magnetic Resonance Report ---
Exam(s): MRI EXTREMITY W/WO Contrast IV Amt: 13.5 Gadavist given existing IV EXAM: MR Right Lower Extremity Without and With Intravenous Contrast, Tibia and Fibula CLINICAL HISTORY: Reason for exam: r/o osteomyelitis, recurrent infections. TECHNIQUE: Multiplanar magnetic resonance images of the right tibia and fibula without and with intravenous contrast. CONTRAST: Patient received 13.5 Gadavist given existing IV of IV contrast COMPARISON: No relevant prior studies available. FINDINGS: There is diffuse, circumferential subcutaneous edema of the leg, ankle, and imaged foot. There is no muscle or deep fascial edema. There are no rim-enhancing fluid collections to suggest abscess. Extensive varicosities are present throughout the subcutaneous tissues of the leg. There are degenerative changes at the knee. Bone marrow signal is normal. There is no evidence of fracture, dislocation, or acute osteomyelitis. IMPRESSION: 1. Severe cellulitis. 2. No abscess, fasciitis, or osteomyelitis. Electronically signed by: Ishmael Melo M.D. 10/01/24 23:46 PM
[2024-10-02] MEDS: LEVOTHYROXINE SODIUM 125 MCG TABLET PO SCH (06:09)
[2024-10-02 07:28] LABS: Hemoglobin 11.6 g/dl (12.0-16.0); Mean Corpuscular Hemoglobin 30.1 pg (25.0-34.0); Mean Corpuscular Hgb Conc 33.1 g/dL (32.0-36.0); Mean Corpuscular Volume 90.9 fL (80.0-100.0); Mean Platelet Volume 9.6 fL (9.4-12.4); Platelet Count 214 K/uL (130-400); RDW Coefficient of Variation 14.2 % (11.5-14.5); RDW Standard Deviation 46.9 fL (36.4-46.3); Red Blood Count 3.85 M/uL (4.20-5.40); White Blood Count 15.16 K/ul (4.8-10.8)
[2024-10-02 07:43] LABS: Albumin Globulin Ratio 1.3 (0.9-2); Albumin Level 3.4 gm/dl (3.4-5.0); BUN Creatinine Ratio 27.3 (10-20); Bilirubin,Total 0.8 mg/dl (0.2-1.0); Calcium 8.7 mg/dl (8.6-10.3); Creatinine Clr Calc Pharmacy 117.8 ml/min; Globulin 2.7 gm/dl (2.5-4.0); Magnesium 1.7 mg/dl (1.7-2.4); Phosphorus 2.9 mg/dl (2.5-4.9); Potassium 4.1 mmol/L (3.5-5.1); Total Protein 6.1 gm/dl (6.0-8.3)
[2024-10-02 07:51] LABS: Basophils # (auto) 0.03 K/uL (0.00-0.20); Basophils % (auto) 0.2 %; Immature Granulocytes # (auto) 0.11 K/uL (0.01-0.20); Immature Granulocytes % (auto) 0.7 %; Lymphocytes # (auto) 0.77 K/uL (1.20-3.40); Lymphocytes % (auto) 5.1 %; Monocytes # (auto) 0.46 K/uL (0.11-0.59); Neutrophils # (auto) 13.79 K/uL (1.40-6.50)
[2024-10-02] MEDS: ASPIRIN 81 MG ECTAB PO SCH (08:11)
[2024-10-02] MEDS: ACETAMINOPHEN 500 MG TAB PO PRN (08:11)
--- NOTE | 2024-10-02 13:02 | Infectious Disease Consult ---
Date of Service October 02, 2024 Telehealth Information I performed this visit using a real-time telehealth connection between my location and the patients location ([facility]). After connecting through interactive tele-video, patient was identified by name and date of and/or wristband check.Patient (or authorized healthcare employee's representative) was informed that this was a telemedicine visit and it was being conducted confidentially over secure lines. My office door was closed and no one else was present in the room with me.Patient (or authorized healthcare employee's representative) provided consent to proceed with the visit, expressed an understanding of privacy and security of the telemedicine visit, and gave permission to have a hospital employee's representative in the room in order to assist with the visit and to conduct portions of the visit, as needed. I informed the patient (or authorized healthcare employee's representative) that I reviewed their record and presented the opportunity for them to ask any questions regarding the visit today. The patient agreed to participate. Assessment & Plan (1) Cellulitis of right leg: (2) Bacteremia due to group B Streptococcus: (3) Lymphedema: (4) Morbid obesity with BMI of 50.0-59.9, adult: Plan Patient w Group B strep bacteremia from source RLE, soft tissue/cellulitis. Rapid onset, low suspicion for alternative source such as endocarditis. She has also improved quite rapidly.This strep species very sensitive to PCN. Can deescalate to ampicillin at this time, repeat blood culture and after clearance and continued improvement we can transition to high does oral amoxicillin to complete a total of 14 days. - Discontinue cefepime/dapto - Ampicillin IV 2g Q6hrs - Repeat blood cultures (2 sets) - If blood cultures clear 48 hours, patient continues to improve can transition to Amoxicillin 1g PO Q8 hours to complete total of 14 days starting at date of negative culture - compression stockings to reduce further cellulitic episodes and topical antifungals if tinea pedis present. if patient has continued hospitalization episodes within the year, she may benefit from suppressive penicillin Appreciate consultation, please do not hesitate to reach out for any further questions or concerns. Evan Martinez MD PGY5 Infectious Disease I have seen and evaluated the patient myself today. I have discussed the findings and care with the fellow, Dr. Martinez. I agree with the recommendations as outlined by Dr. Martinez. Jay Clemons MD History of Present Illness History of Present Illness 64 y/o F PMHx of chronic lymphedema with cellulitic episodes, most recent in august of RLE treated w doxycycline for 10 days, COPD 2L baseline, morbid obesity. Presented d/t fevers, rigors and RLE increased redness. Tmax 104, quickly defervesced. MRI without fluid collections or bony abnormalities, u/s without clot. No obvious trauma. Blood cultures with strep Agalactiae. Patient received daptomycin/cefepime and feels greatly improved since coming to the hospital. She notes onset 24 hours without symptoms prior. Allergies Allergy/AdvReac Type Severity Reaction Status Date / Time morphine Allergy Unknown BRADYCARDIA Verified 10/01/24 12:55 Home Medications Medication Instructions Recorded Confirmed Type montelukast 10 mg tablet 10 mg PO HS ##0 02/13/16 10/01/24 History albuterol sulfate 90 mcg/actuation 2 puff inhalation Q4-6 HRS PRN 09/08/16 10/01/24 History aerosol inhaler (Ventolin HFA) SOB/WHEEZING #0 Inhalers aspirin 81 mg tablet,delayed 81 mg PO QAM 03/01/18 10/01/24 History release (Nora Low Dose Aspirin) acetaminophen 500 mg tablet 1,000 mg PO Q8H PRN Pain 02/27/20 10/01/24 History (Tylenol Extra Strength) atorvastatin 20 mg tablet 20 mg PO HS 04/19/24 10/01/24 History levothyroxine 125 mcg tablet 125 mcg PO DAILYBB 04/19/24 10/01/24 History mometasone 220 mcg/actuation(120 220 mcg inhalation HS 04/19/24 10/01/24 History doses)breath activated powder inhaler (Asmanex Twisthaler) cholecalciferol (vitamin D3) 25 125 mcg PO DAILY 10/01/24 10/01/24 History mcg (1,000 unit) capsule Patient History Medical History Lactic acid acidosis Severe sepsis Leukocytosis Hypomagnesemia Elevated lactic acid level Fever Febrile illness Chronic hypoxemic respiratory failure Acute exacerbation of chronic obstructive pulmonary disease Social History Smoking Status: Never smoker Second Hand Exposure: No; Do You Dip or Chew Tobacco: No; Tobacco Cessation Education Requested by Patient: Yes Hx Alcohol Use: No Hx Substance Use: No Preferred Language: Romanian Communication Ability: Effective Equipment Or Machinery Cleaner Required: No Beliefs That Will Affect Care: None Current Living Situation: Spouse Current Living Situation Comment: Janes Preston Other Information That Helps Us Care for You: No Feels Safe at Home: Yes Safety Concerns: Feels Safe At This Time Assistive Devices: Glasses and Oxygen - Continuous Review of Systems CONSTITUTIONAL: Denies weight loss, fever and chills. HEENT: Denies changes in vision and hearing. RESPIRATORY: Denies SOB and cough. CV: Denies palpitations and CP. GI: Denies abdominal pain, nausea, vomiting and diarrhea. : Denies dysuria and urinary frequency. MSK: Denies myalgia and joint pain. SKIN: Denies rash and pruritus. NEUROLOGICAL: Denies headache and syncope PSYCHIATRIC: Denies recent changes in mood. Denies anxiety and depression. Physical Exam GENERAL: Appears as stated age. No acute distress. EXTREMITIES: Bilateral lymphedema, right lower extremity erythematous, no obvious ulcerations. Results & Data Vital Signs (Past 12 Hours) Vital Signs Temp Pulse Pulse Resp BP BP Pulse Ox 10/02/24 11:57 36.7 C 83 20 100/62 93 10/02/24 08:42 10/02/24 07:43 73 10/02/24 07:38 36.8 C 76 20 94/57 L 94 10/02/24 03:59 36.8 C 72 18 98/61 L 96 O2 Del Method O2 Flow Rate 10/02/24 11:57 Nasal Cannula 1 10/02/24 08:42 Nasal Cannula 2 10/02/24 07:43 10/02/24 07:38 Nasal Cannula 1 10/02/24 03:59 Nasal Cannula 2 Laboratory Results 10/01/24 11:41 Aerobic Blood Culture - Pending Blood Anaerobic Blood Culture - Preliminary Strep agalactiae (group B) 10/01/24 11:14 Aerobic Blood Culture - Preliminary Blood Strep agalactiae (group B) Anaerobic Blood Culture - Preliminary Strep agalactiae (group B) 10/02/24 10/01/24 10/01/24 06:56 20:41 11:41 WBC 15.16 H RBC 3.85 L Hgb 11.6 L Hct 35.0 L MCV 90.9 MCH 30.1 MCHC 33.1 RDW Std Deviation 46.9 H RDW Coeff of Shelbie 14.2 Plt Count 214 MPV 9.6 Immature Gran % (Auto) 0.7 Neut % (Auto) 91.0 Lymph % (Auto) 5.1 [place] % (Auto) 3.0 Eos % (Auto) 0.0 Baso % (Auto) 0.2 Neut # (Auto) 13.79 H Lymph # (Auto) 0.77 L [place] # (Auto) 0.46 Eos # (Auto) 0.00 Baso # (Auto) 0.03 Immature Gran # (Auto) 0.11 Sodium 136 Potassium 4.1 Chloride 105 Carbon Dioxide 27 Anion Gap 4 BUN 18 Creatinine 0.66 Est Cr Clr Drug Dosing 117.8 eGFR 97.90 BUN/Creatinine Ratio 27.3 H Glucose 98 Calcium 8.7 Phosphorus 2.9 Magnesium 1.7 Total Bilirubin 0.8 AST 23 ALT 18 Alkaline Phosphatase 55 Total Protein 6.1 Albumin 3.4 Globulin 2.7 Albumin/Globulin Ratio 1.3 Nasal Screen MRSA (PCR) Negative Streptococcus sp PCR DETECTED A Strep agalactiae (PCR) DETECTED A Bld Cult ID Panel PCR See PCR Comment Diagnostic Findings Chest X-Ray 10/01/24 11:22 XR chest 1V portable CLINICAL HISTORY: Sepsis COMPARISON STUDY: 04/19/2024 FINDINGS: Single view portable chest demonstrates a chronic cardiomegaly and pulmonary vascular congestion. There is no focal air space opacity identified. IMPRESSION: No acute process. ACT 112: Negative or not required by law. Electronically signed by: Alicia Hair M.D. 10/01/2024 11:58 AM Lower Extremity MRI 10/01/24 15:31 Exam(s): MRI EXTREMITY W/WO Contrast IV Amt: 13.5 Gadavist given existing IV EXAM: MR Right Lower Extremity Without and With Intravenous Contrast, Tibia and Fibula CLINICAL HISTORY: Reason for exam: r/o osteomyelitis, recurrent infections. TECHNIQUE: Multiplanar magnetic resonance images of the right tibia and fibula without and with intravenous contrast. CONTRAST: Patient received 13.5 Gadavist given existing IV of IV contrast COMPARISON: No relevant prior studies available. FINDINGS: There is diffuse, circumferential subcutaneous edema of the leg, ankle, and imaged foot. There is no muscle or deep fascial edema. There are no rim-enhancing fluid collections to suggest abscess. Extensive varicosities are present throughout the subcutaneous tissues of the leg. There are degenerative changes at the knee. Bone marrow signal is normal. There is no evidence of fracture, dislocation, or acute osteomyelitis. IMPRESSION: 1. Severe cellulitis. 2. No abscess, fasciitis, or osteomyelitis. Electronically signed by: Ishmael Melo M.D. 10/01/24 23:46 PM Venous Doppler Study 10/01/24 15:31 DVT ULTRASOUND RIGHT LOWER EXTREMITY INDICATION: Pain TECHNIQUE: Grayscale and color Doppler evaluation of the RIGHT femoral-popliteal venous system was performed. A duplex Doppler study was performed, consisting of integrated two-dimensional (2D) real-time imaging: Color flow Doppler and Doppler spectral analysis. COMPARISON: None FINDINGS: RIGHT common femoral, femoral and popliteal veins: Normal compressibility, color flow, respiratory variation. No intraluminal echogenic material. IMPRESSION: No evidence of deep venous thrombus in the right femoral-popliteal venous system. Electronically signed by Dorian Han 10-01-2024 4:37 PM
[2024-10-02] MEDS ORDERED: AMPICILLIN SOD 1 GM VIAL IV SCH (13:30)
--- NOTE | 2024-10-02 13:38 | Hospitalist Progress Note ---
Date of Service October 02, 2024 Assessment & Plan (1) Acute sepsis: (2) Bacteremia due to group B Streptococcus: (3) Cellulitis of right leg: (4) Lymphedema: (5) Morbid obesity with BMI of 50.0-59.9, adult: Plan Patient presented with acute sepsis as evidenced by fever, leukocytosis due to streptococcal bacteremia from right lower extremity cellulitis. Patient remains significantly ill and requires hospital level care and intervention. Consult infectious disease, reviewed recommendations Narrow antibiotics to ampicillin Surveillance blood cultures Continue other outpatient medications Admission and Anticipated Discharge Date Admission Date: October 01, 2024 Subjective Patient states she is feeling better when compared to yesterday. Thinks the redness in the leg might be slightly improved Physical Exam Physical Exam: Constitutional: Alert, nontoxic, morbidly obese HEENT: Mucous membranes moist. Lungs: Clear to auscultation, decreased, no wheezes rales or rhonchi CV: S1-S2, regular Abdomen: Soft, nontender, nondistended Extremities: Severe lymphedema right lower extremity. Circumferential erythema, and warmth right lower extremity up to mid thigh Neuro: No focal deficits Psych: Cooperative, normal mood Results & Data Results & Data Vital Signs (Past 12 Hours) Vital Signs Temp Pulse Pulse Resp BP BP Pulse Ox 10/02/24 11:57 36.7 C 83 20 100/62 93 10/02/24 08:42 10/02/24 07:43 73 10/02/24 07:38 36.8 C 76 20 94/57 L 94 10/02/24 03:59 36.8 C 72 18 98/61 L 96 O2 Del Method O2 Flow Rate 10/02/24 11:57 Nasal Cannula 1 10/02/24 08:42 Nasal Cannula 2 10/02/24 07:43 10/02/24 07:38 Nasal Cannula 1 10/02/24 03:59 Nasal Cannula 2 Diagnostic Findings Reviewed imaging, laboratory and diagnostic studies. Pertinent findings as below. Blood cultures growing Streptococcus Creatinine 0.66 Electrolytes stable WBCs 15.1 Hemoglobin 11.6
[2024-10-02] MEDS: AMPICILLIN 2,000 MG in SODIUM CHLOR 0.9% MINI-B 100 ML IV SCH (20:14)
--- NOTE | 2024-10-03 07:50 | Hospitalist Progress Note ---
<Statement entered by Deep Del Valle, DO - 10/03/24 15:18> I have seen and examined the patient and have discussed the case with the advance practice provider. I have reviewed the advanced practitioner's documentation, and I agree with, and take responsibility for that plan of care. Patient appears significantly improved when compared to yesterday. Right lower extremity significantly decreased redness, warmth. Redness has withdrawn below the knee. Still with significant lymphedema chronic skin changes associated with this. Surveillance blood cultures sterile at 24 hours Discussed plan of care as outlined below I spent a total of 10 minutes coordinating, documenting, and providing care for this patient excluding time spent by another provider/QHP. Date of Service October 03, 2024 Assessment & Plan (1) Bacteremia due to group B Streptococcus: (2) Cellulitis of right leg: (3) Lymphedema: (4) Morbid obesity with BMI of 50.0-59.9, adult: Plan Patient presented with acute sepsis as evidenced by fever, leukocytosis due to streptococcal bacteremia from right lower extremity cellulitis. Bacteremia due to group B Streptococcus: Cellulitis of RLE: Lymphedema: Morbid Obesity; BMI 50-59: WBC 15.16--> 9.79 GPC in chains from 2 preliminary blood cx results Venous Doppler US: (-) for DVT Initially on cefepime/dapto; discontinued. ID reccs narrowing of abx to IV Ampicillin; cont Repeat blood cultures; if no growth by 10/04; ok to transition to PO Amoxicillin 1G PO Q8 x14 days (date of negative cx) Consult infectious disease, reviewed recommendations. Per ID: if patient has continued hospitalization episodes within the year, she may benefit from suppressive penicillin TEDs ordered If leukocytosis returns, blood cultures have additional growth, or patient has other symptoms; consider additional source work up for endocarditis. Would benefit from lymphedema clinic @ discharge HLD: Chronic Takes atorvastatin; continue Hypothyroidism: Chronic Takes levothyroxine; continue Disposition: PCP: Dr. Rebecca Crook Code Status: Full VTE Prophylaxis: Teds and Heparin SQ I spent a total of 54 minutes coordinating, documenting, and providing care for this patient excluding time spent inthe performance of separately billed services or time spent by another provider/QHP. Admission and Anticipated Discharge Date Admission Date: October 01, 2024 Subjective Pt lying in her hospital bed in no apparent distress and she was able to have a meaningful, interactive conversation. Her RLE continues to have lymphedema, erythema, and swelling. Denies overall discomfort; states she feels well and has had no issues overnight. Review of Systems Review of Systems: Neuro: (-) Falls, trauma, slurred speech HEENT: (-) WARE, dizziness, dysphagia, visual or auditory changes CV: (-) CP, palpitations, swelling Resp: (-) SOB GI: (-) appetite changes, N/V/D, bowel changes : (-) urinary changes Skin: (+) redness and swelling of RLE Psych: (-) anxiety, depression Physical Exam Physical Exam: Neuro: AAOx4, PERRLA, no aphagia, memory changes, CNII-XII grossly intact HEENT: head normocephalic, moist mucus membranes CV: S1/S2, (-) M/G/R, (-) edema, cap refill < 3 seconds (+) pedal pulses Resp: Lungs CTA in all [place]. On RA GI: Abdomen S/NT/ND, Ax4 bowel sounds, (-) CVA tenderness Musculoskeletal: 5/5 B/L UE strength, 4/5 B/L LE strength. Uses a walker to ambulate Skin: (-) rashes , (+) erythema and swelling of RLE. Psych: euthymic mood Results & Data Results & Data Vital Signs (Past 12 Hours) Vital Signs Temp Pulse Resp BP Pulse Ox O2 Del Method O2 Flow Rate 10/02/24 22:16 Nasal Cannula 2 10/02/24 19:57 36.7 C 88 12 136/84 96 Nasal Cannula 1 Laboratory Results Short CBC 10/03/24 Range/Units 08:25 WBC 9.79 (4.8-10.8) K/ul Hgb 11.6 L (12.0-16.0) g/dl Hct 35.7 L (37.0-47.0) % Plt Count 216 (130-400) K/uL BMP 10/03/24 08:25 Sodium 137 Potassium 4.1 Chloride 104 Carbon Dioxide 30 BUN 12 Creatinine 0.67 Glucose 96 Calcium 9.0
[2024-10-03 08:37] LABS: Hematocrit (blood only) 35.7 % (37.0-47.0); Hemoglobin 11.6 g/dl (12.0-16.0); Mean Corpuscular Hemoglobin 30.1 pg (25.0-34.0); Mean Corpuscular Hgb Conc 32.5 g/dL (32.0-36.0); Mean Corpuscular Volume 92.5 fL (80.0-100.0); Mean Platelet Volume 9.5 fL (9.4-12.4); Platelet Count 216 K/uL (130-400); RDW Coefficient of Variation 14.4 % (11.5-14.5); RDW Standard Deviation 48.4 fL (36.4-46.3); Red Blood Count 3.86 M/uL (4.20-5.40); White Blood Count 9.79 K/ul (4.8-10.8)
[2024-10-03 08:56] LABS: BUN Creatinine Ratio 17.9 (10-20); Creatinine Clr Calc Pharmacy 116.1 ml/min; Potassium 4.1 mmol/L (3.5-5.1)
[2024-10-04 06:12] LABS: Hematocrit (blood only) 34.6 % (37.0-47.0); Mean Corpuscular Hemoglobin 29.6 pg (25.0-34.0); Mean Corpuscular Hgb Conc 31.8 g/dL (32.0-36.0); Mean Platelet Volume 9.5 fL (9.4-12.4); Platelet Count 224 K/uL (130-400); RDW Coefficient of Variation 14.3 % (11.5-14.5); RDW Standard Deviation 48.9 fL (36.4-46.3); Red Blood Count 3.72 M/uL (4.20-5.40); White Blood Count 7.53 K/ul (4.8-10.8)
[2024-10-04 06:25] LABS: Creatinine Clr Calc Pharmacy 123.1 ml/min; Potassium 4.3 mmol/L (3.5-5.1)
--- NOTE | 2024-10-04 08:04 | Hospitalist Progress Note ---
<Statement entered by Deep Del Valle DO - 10/04/24 15:38> I have seen and examined the patient and have discussed the case with the advance practice provider. I have reviewed the advanced practitioner's documentation, and I agree with, and take responsibility for that plan of care. Patient appears significantly improved. Right lower extremity with compression Pepe wrap, erythema significantly improved. Continue to monitor surveillance cultures Anticipate potential discharge tomorrow Discussed plan of care as outlined below I spent a total of 11 minutes coordinating, documenting, and providing care for this patient excluding time spent by another provider/QHP. Date of Service October 04, 2024 Assessment & Plan (1) Bacteremia due to group B Streptococcus: (2) Cellulitis of right leg: (3) Lymphedema: (4) Morbid obesity with BMI of 50.0-59.9, adult: Plan Patient presented with acute sepsis as evidenced by fever, leukocytosis due to streptococcal bacteremia from right lower extremity cellulitis. Bacteremia due to group B Streptococcus: Cellulitis of RLE: Lymphedema: Morbid Obesity; BMI 50-59: WBC 15.16--> 7.53 GPC in chains from 2 preliminary blood cx results Venous Doppler US: (-) for DVT On IV Ampicillin; cont Repeat blood cultures; if no growth by 10/04 (48 hours - still reading 24 hours at 1400 on 10/04); ok to transition to PO Amoxicillin 1G PO Q8 x14 days (date of negative cx) Per ID: if patient has continued hospitalization episodes within the year, she may benefit from suppressive penicillin PEPE wrap applied If leukocytosis returns, blood cultures have additional growth, or patient has other symptoms; consider additional source work up for endocarditis. PEPE wraps Would benefit from lymphedema clinic @ discharge. Plan for hopeful DC on Thursday 10/05 HLD: Chronic Takes atorvastatin; continue Hypothyroidism: Chronic Takes levothyroxine; continue Disposition: PCP: Dr. Rebecca Crook; Uses [facility] in [place] Code Status: Full VTE Prophylaxis: Heparin SQ I spent a total of 54 minutes coordinating, documenting, and providing care for this patient excluding time spent inthe performance of separately billed services or time spent by another provider/QHP. Admission and Anticipated Discharge Date Admission Date: October 01, 2024 Subjective Pt sitting up in her hospital bed in no apparent distress and she was able to have a meaningful, interactive conversation. Her RLE continues to have lymphedema, erythema, and swelling, but is markedly improving. Denies overall discomfort; states she feels well and has had no issues overnight. Has been ambulating in the hallway. Ready to be discharged. Review of Systems Review of Systems: Neuro: (-) Falls, trauma, slurred speech HEENT: (-) WARE, dizziness, dysphagia, visual or auditory changes CV: (-) CP, palpitations, swelling Resp: (-) SOB GI: (-) appetite changes, N/V/D, bowel changes : (-) urinary changes Skin: (+) redness and swelling of RLE Psych: (-) anxiety, depression Physical Exam Physical Exam: Neuro: AAOx4, PERRLA, no aphagia, memory changes, CNII-XII grossly intact HEENT: head normocephalic, moist mucus membranes CV: S1/S2, (-) M/G/R, (-) edema, cap refill < 3 seconds (+) pedal pulses Resp: Lungs CTA in all [place]. On RA GI: Abdomen S/NT/ND, Ax4 bowel sounds, (-) CVA tenderness Musculoskeletal: 5/5 B/L UE strength, 4/5 B/L LE strength. Uses a walker to ambulate Skin: (-) rashes , (+) erythema and swelling of RLE. Psych: euthymic mood Results & Data Results & Data Vital Signs (Past 12 Hours) Vital Signs Temp Pulse Resp BP Pulse Ox O2 Del Method O2 Flow Rate 10/04/24 07:44 36.7 C 64 18 128/73 92 Nasal Cannula 1 10/03/24 23:04 36.8 C 74 18 161/74 H 92 Nasal Cannula 1 Laboratory Results Short CBC 10/04/24 Range/Units 05:46 WBC 7.53 (4.8-10.8) K/ul Hgb 11.0 L (12.0-16.0) g/dl Hct 34.6 L (37.0-47.0) % Plt Count 224 (130-400) K/uL BMP 10/04/24 05:46 Sodium 138 Potassium 4.3 Chloride 104 Carbon Dioxide 30 BUN 12 Creatinine 0.63 Glucose 98 Calcium 9.0
[2024-10-04 23:51] VITALS: RESP 16
--- NOTE | 2024-10-05 07:13 | Discharge Summary ---
<Statement entered by Deep Del Valle, DO - 10/05/24 14:43> I have seen and examined the patient and have discussed the case with the advance practice provider. I have reviewed the advanced practitioner's documentation, and I agree with, and take responsibility for that plan of care. Patient states she has had a uneventful night. Quite pleased with how her leg is looking. Familiar with the lymphedema clinic The right lower extremity cellulitis is essentially resolved. Some residual chronic skin changes and lymphedema skin changes of the right lower extremity Transitioning to oral antibiotics as recommended by infectious disease Discharge plan for today as outlined below I spent a total of 14 minutes coordinating, documenting, and providing care for this patient excluding time spent by another provider/QHP. Date of Service October 05, 2024 Admission HPI Per Admitting Provider Ms. Preston is a 64yoF with PMHx significant for chronic lymphedema, recurrent cellulitis, Hypothyroidism, chronic hypoxemic respiratory failure on 2L at baseline, CKD, HTN, HLD, morbid obesity who presents with concern for fevers and rigors and RLE erythema. PCU order for transfer there a note for you to carry forward the 1 thing that was thought; repair She states that she started with the fevers, chills and rigors this morning about 9AM and called an ambulance to be taken to the emergency room as her right leg was also red. Notes she gets infections in the right leg quite frequently. Took Tylenol at home but temperature was still elevated in the ED. EPIC chart review notes pt recently completed a course of doxycycline in August for an infection in the same leg. Has chronic lymphedema. She notes she does not follow with a lymphedema provider. States she stubbed her toe on her right foot recently but denies any open wound. Having some nausea. Denies WARE, chest pain, SOB, palpitations, abdominal pain, diarrhea or constipation. Admission Exam Per Admitting Provider General: Alert, oriented. No acute distress Skin: RLE with noted edema and significant erythema HEENT: NC/AT CV: RRR Resp: Breath sounds clear bilaterally, no increased effort of breathing Abdomen: Soft, nontender Extremities: RLE with noted edema and significant erythema Principal Diagnosis cellulitis Discharge Exam Neuro: AAOx4, PERRLA, no aphagia, memory changes, CNII-XII grossly intact HEENT: head normocephalic, moist mucus membranes CV: S1/S2, (-) M/G/R, (-) edema, cap refill < 3 seconds (+) pedal pulses Resp: Lungs CTA in all [place]. On RA GI: Abdomen S/NT/ND, Ax4 bowel sounds, (-) CVA tenderness Musculoskeletal: 5/5 B/L UE strength, 4/5 B/L LE strength. Uses a walker to ambulate Skin: (-) rashes , (+) erythema and swelling of RLE. Psych: euthymic mood Discharge Data Allergies Allergy/AdvReac Type Severity Reaction Status Date / Time morphine Allergy Unknown BRADYCARDIA Verified 10/01/24 12:55 Consultations 10/01/24 12:37 ED Decision to Admit Stat 10/02/24 07:19 Consult Infectious Diseases Routine Ordered Studies 10/01/24 MRI Leg [MR lower leg RT wo/w con: FINDINGS: There is diffuse, circumferential subcutaneous edema of the leg, ankle, and imaged foot. There is no muscle or deep fascial edema. There are no rim-enhancing fluid collections to suggest abscess. Extensive varicosities are present throughout the subcutaneous tissues of the leg. There are degenerative changes at the knee. Bone marrow signal is normal. There is no evidence of fracture, dislocation, or acute osteomyelitis. IMPRESSION: 1. Severe cellulitis. 2. No abscess, fasciitis, or osteomyelitis. US venous doppler LE RT Urgent 10/01/24: Venous Doppler US: FINDINGS: RIGHT common femoral, femoral and popliteal veins: Normal compressibility, color flow, respiratory variation. No intraluminal echogenic material. IMPRESSION: No evidence of deep venous thrombus in the right femoral-popliteal venous system. Hospital Course (1) Bacteremia due to group B Streptococcus: (2) Cellulitis of right leg: (3) Lymphedema: (4) Morbid obesity with BMI of 50.0-59.9, adult: Plan Patient presented with acute sepsis as evidenced by fever, leukocytosis due to streptococcal bacteremia from right lower extremity cellulitis. Initially, she had leukocytosis 15.68 with downtrended to 7.53. Her blood cultures revealed GPC in chains with her blood culture results. Diagnostic imaging performed included venous Doppler ultrasound negative for DVT. She was started on ampicillin IV and continued throughout her hospitalization. Repeat blood cultures remained negative at discharge. No leukocytosis has returned and blood cultures did not have any additional growth so no additional work up for endocarditis. She would benefit from the lymphedema clinic at discharge which was discussed with her. Only hospitalist for her. I spent a total of 54 minutes coordinating, documenting, and providing care for this patient excluding time spent inthe performance of separately billed services or time spent by another provider/QHP. Total Time Total Time Spent Total Time Spent (In Minutes): I spent a total of 38 minutes coordinating, documenting, and providing care for this patient excluding time spent inthe performance of separately billed services or time spent by another provider/QHP. Discharge Plan Discharge Items Patient Disposition: Home - Self-Care Reason For Visit: CELLULITIS Discharge Diagnosis: Cellulitis Condition on Discharge: Fair Activity: Resume your previous activity Lifting: None Bathing: No limitations Driving/Machine Use: No limitations Non-emergency contact: Primary Care Provider Call non-emergency contact if: you have any medication questions, your pain is not controlled, your pain is worsening and you have a fever Follow-up/Referrals: Rebecca Crook DO [Primary Care Provider] - (Date & Time 10/10/2024 11:50 AM Provider: Rebecca Crook DO Family [facility] ) Diet: Heart Healthy Addtl Attending Provider Instructions: Ms. Preston, You were admitted to the [facility] on with fever and chills. You also had a fast heart rate and were found to have infection in your blood and a kin infection (cellulitis) on your right lower extremity cellulitis. Imaging including an ultrasound and MRI of your right lower extremity were obtained to rule out a bone infection and a clot, both of which were normal. Blood cultures were obtained in the emergency room and results indicated you had bacteria called Step Jeremyctia. You were started on IV antibiotics and blood cultures were obtained in order to determine if the infection was spreading. Your repeat blood cultures did not indicate any bacterial growth and the infectious disease team felt comfortable with transitioning you from intravenous (through your vein) antibiotics to oral (by mouth) antibiotics (medication to help your infection). It is recommended that you establish care at a lymphedema clinic to assist with your lymphatic tissue drainage. MEDICATION CHANGES: 1. At the time of your discharge, you will start taking oral Amoxicillin 500 mg; take two tablets every eight hours (three times daily) for 14 days; with you starting your second dose in the afternoon on Thursday 10/05 and taking your last dose in the evening of SundayOctober 18. 2. It is important to take a probiotic daily while you are taking antibiotics to protect your gut rudy. Finish taking the daily probiotic one week after completion of your antibiotic on SundayOctober 25 SUMMARY OF TEST RESULTS: 1. 10/01/24 Chest X-ray: no acute concerns 2. 10/01/24 Lower Extremity MRI: Severe cellulitis. No abscess, fasciitis, or osteomyelitis. 3. 10/01/24: Venous Doppler Study: No DVT identified RECOMMENDATIONS FOR FOLLOW-UP: 1. A follow up has been arranged with your PCP, Dr. Rebecca Crook for SundayOctober 10 @ 1150 AM at [facility] 2. It is recommended that you establish care again at the lymphedema clinic; [facility]: [phone] OTHER INSTRUCTIONS: Seek medical attention if you have: * temperature above 101 * chest pain or trouble breathing * abdominal pain, nausea, vomiting * diarrhea, dark stools or bloody stools * any unanswered questions or concerns Call 911 if symptoms are severe. Please take good care of yourself. It has been a pleasure taking care of you. Please take care of yourself. If you have any questions regarding your recent hospitalization please contact [facility] and request [facility] @ [phone]. Pending Studies at Discharge: No Stand-Alone Forms: My [facility], Work/School Release, Smoking Cessation Medications and DC Order Prescriptions: New amoxicillin 500 mg tablet 1,000 mg PO Q8H Qty: 84 0RF Continued montelukast 10 mg Tablet 10 mg PO HS Qty: 0 albuterol sulfate [Ventolin HFA] 90 mcg/actuation Hfa Aerosol Inhaler 2 puff Inhalation Q4-6 HRS PRN (Reason: SOB/WHEEZING) Qty: 0 aspirin [Nora Low Dose Aspirin] 81 mg Tablet,Delayed Release (Dr/Ec) 81 mg PO QAM cholecalciferol (vitamin D3) 25 mcg (1,000 unit) capsule 125 mcg PO DAILY atorvastatin 20 mg tablet 20 mg PO HS levothyroxine 125 mcg tablet 125 mcg PO DAILYBB Asmanex Twisthaler 220 mcg/ actuation (120) aerosol powdr breath activated 220 mcg INHALATION HS Discontinued acetaminophen [Tylenol Extra Strength] 500 mg Tablet 1,000 mg PO Q8H PRN (Reason: Pain) Discharge Orders: Discharge Order (Routine); Ordered 10/05/24 Ordered By: Abbey Salomon Admission Data Admit Date/Time: 10/01/24 12:16 Attending Provider: Deep Del Valle Admit Provider: Brie Ascencio Primary Care Provider: Rebecca Crook Other Providers: Brie Ascencio; Abdiel Rodriguez; Tej Contreras; Jay Clemons I.; Jamal [place] II; Barbie Greenfield; Jhonatan Del Valle; Rohit Souza; Rachel Hyde; Evan Martinez Other Interventions: Discharge Summary Assessment (RN) Last Done: 10/05/24 12:30
[2024-10-05 08:17] VITALS: PULSE 65; TEMP 97.7; O2SAT 90
[2024-10-05 12:33] VITALS: BP 114/65
== END 2024-10-05 14:56 | disposition home or self-care (01) | DRG 872 ==
LOC: ED 11:04 → SUATTDRO 12:16 → 2N 12:16